=== PATIENT | female | born 1940 | race Caucasian/White ===

== ENCOUNTER 2020-07-05 09:09 | Emergency (ER) | payer MEDICARE, SELFPAY ==
--- NOTE | ~2020-07-05 | CT_ITS ---
EXAMINATION: CT facial & cervical spine wo DATE: 07/05/2020 10:30 INDICATION: Facial and neck pain after fall TECHNIQUE: Computed tomography (CT) of the facial bones and cervical spine was performed without intr avenous contrast. The dose-length product was 219.85 mGy-cm. Automated exposure control and iterative reconstruction technique were employed. COMPARISON: None FINDINGS: Maxillofacial bones: No acute maxillofacial fractures. No evidence for orbital blowout fracture. Phillip ible intact. Temporomandibular joints within normal limits. Paranasal sinuses are unremarkable. Right stephen nasal septal deviation. There are symmetric degenerative changes of the temporomandibular joints . Zygomatic arches and pterygoid plates intact. Cervical spine: Reversal of normal cervical lordosis. Vertebral body heights are maintained. There is disc narrowing with endplate hypertrophy at multiple levels including C5-6, C6-7 and C7-T1. There is degenerative anterolisthesis at C3-4 and C4-5. There are uncinate degenerative changes at C4-5, C5-6 and C6-7. No pneumothorax. Groundglass opacities are visible in the upper lungs which may represent small airway disease, pneumonia or edema. IMPRESSION: 1. No acute abnormality of the facial bones or cervical spine. 2: Moderate cervical spondylosis. 3: Groundglass opacities of the upper lobes, which may represent small airway disease, pneumonia or edema. Reviewed, dictated and finalized at location B.
--- NOTE | ~2020-07-05 | CT_ITS ---
EXAMINATION: CT BRAIN W/O DATE: 07/05/2020 10:30 INDICATION: Status post fall. Head injury. TECHNIQUE: Computed tomography (CT) of the head was performed without intravenous contrast. The dose- length product was 529.67 mGy-cm. The mA was adjusted according to patient size. Iterative reconstruc tion technique was employed. COMPARISON: 02/16/2019 FINDINGS: Normal brain parenchymal volume for age. Normal tijerina-white differentiation. No acute intrac ranial hemorrhage, infarction, mass or mass effect. No ventriculomegaly or midline shift. Midline sagittal images demonstrate a normal corpus callosum, c raniovertebral junction and sella turcica. Basilar cisterns are patent. Paranasal sinuses and mastoids are pneumatized. No depressed skull fractures. IMPRESSION: 1. No acute intracranial abnormality. Reviewed, dictated and finalized at location B.
--- NOTE | ~2020-07-05 | US_ITS ---
EXAMINATION: US venous doppler LE RT DATE: 07/05/2020 10:16 INDICATION: Right lower limb swelling. TECHNIQUE: Grayscale ultrasound images without and with compression and Doppler ultrasound images of the right lower extremity veins were obtained. COMPARISON: Ultrasound 11/25/2017 FINDINGS: The visualized portions of right common femoral vein, profunda (deep) femoral vein, femoral vein, pop liteal vein, peroneal veins, posterior tibial veins, and greater saphenous vein outflow are patent. IMPRESSION: 1. No deep venous thrombosis. Reviewed, dictated and finalized at location A.
--- NOTE | ~2020-07-05 | CT_ITS ---
EXAMINATION: CT thoracic spine wo con DATE: 07/05/2020 10:30 INDICATION: Back pain post fall TECHNIQUE: Computed tomography (CT) of the thoracic spine was performed without intravenous contrast. Automated exposure control and iterative reconstruction technique were employed. The dose-length pro duct was 502.88 mGy-cm. COMPARISON: None FINDINGS: T12 butterfly vertebrae with sagittal clefts at the posterior aspect of the superior and inferior end plates. Mild thoracolumbar dextroscoliosis. There is chronic appearing mild anterior wedging at T11 a nd mild left-sided vertebral body height loss with associated left-sided degenerative endplate remode ling at T12 and L1. There is subtle horizontal band of sclerosis at the T6 vertebral body suspicious for a more recent compression fracture with negligible vertebral body height loss. No other fractures identified. Severe spondylosis in the lower cervical to the upper lumbar spine with multilevel moder ate to severe disc height loss with degenerative endplate changes at multiple levels and multilevel m ild facet osteoarthritis.. Moderate neural foraminal stenosis at the concave right side of the spine at T12-L1 and L1-L2. Otherwise scattered minimal to mild neural foraminal stenosis throughout the tho racic spine. Paravertebral soft tissues and visualized portions of the lungs are unremarkable. Small sliding-type hiatal hernia. No pathologically enlarged mediastinal or hilar lymphadenopathy. Atherosc lerotic coronary artery calcifications. Thoracic aorta is normal in caliber. IMPRESSION: 1. Linear horizontal band of sclerosis at the T6 vertebral body with negligible vertebral body height loss consistent with likely recent compression fracture. 2. Severe thoracic spondylosis. Reviewed, dictated and finalized at location A.
[2020-07-05 09:10] VITALS: BP 134/66; PULSE 96; RESP 18; TEMP 36.6; O2SAT 96
[2020-07-05 10:01] LABS: Basophils Percent Auto 0.4 % (0.2-1.2); Hematocrit 37.2 % (37.0-47.0); Immature Granulocyte Absolute 0.05 K/mm3 (0.00-0.031); Immature Granulocyte Percent A 0.7 % (0-0.5); Lymphocytes Absolute Auto 1.75 K/mm3 (0.9-3.2); Lymphocytes Percent Auto 25.4 % (18.3-44.2); Mean Corpuscular HGB Conc 32.3 g/dl (32-36); Mean Corpuscular Hemoglobin 31.8 pg (26-34); Mean Corpuscular Volume 98.7 fl (80-100); Mean Platelet Volume 9.5 fl (7.4-10.4); Monocytes Absolute Auto 0.4 K/mm3 (0.1-0.6); Monocytes Percent Auto 5.2 % (2.6-8.5); Neutrophils Absolute Auto 4.7 K/mm3 (1.3-6.7); Neutrophils Percent Auto 68.3 % (45.5-73.1); Platelet Count Result 251 k/mm3 (150-375); Red Blood Count 3.77 M/mm3 (4.2-5.4); Red Cell Distribution Width 13.9 % (11.5-14.5); White Blood Count 6.9 K/mm3 (4.5-10.0)
[2020-07-05 10:12] LABS: Anion Gap 8 mmol/L (8-16); Blood Urea Nitrogen 19 mg/dL (7-17); Calcium 9.4 mg/dL (8.4-10.2); Carbon Dioxide 27 mmol/L (22-30); Chloride 103 mmol/L (98-107); Estimated Glomerular Filt Rate 48; Glucose 98 mg/dL (65-105); Potassium 4.1 mmol/L (3.4-5.0); Sodium 138 mmol/L (137-145)
[2020-07-05 10:20] LABS: INR 1.1; Prothrombin Time 13.9 Seconds (11.1-14.7)
[2020-07-05 10:21] LABS: Partial Thromboplastin Time 28.8 SECONDS (22.3-36.8)
[2020-07-05 10:43] VITALS: BP 144/57; PULSE 93; RESP 18; O2SAT 95
[2020-07-05] MEDS: HYDROcodone/acetaminophen (*CRX) 5-325 MG TABLET 1 TAB PO (11:40)
--- NOTE | 2020-07-05 11:47 | ED.FALL ---
HPI - Fall General Chief Complaint: Fall Stated Complaint: fall Time Seen by Provider: 07/05/20 09:21 History of Present Illness HPI Narrative: Patient is an 80-year-old female who presents to the ER with racing the heart and lightheadedness/weakness. Symptoms began around 9 AM. She reports they were improved with receiving nitro and aspirin by EMS. She had no chest pain or pressure. Patient reports she was unable to sleep last night due to racing of her heart nervousness. She reports has been under a lot of stress because her father has recently and her mother is very ill. Patient has no history of previous heart disease. Related Data Allergies Allergy/AdvReac Type Severity Reaction Status Date / Time Penicillins Allergy Severe THROAT Verified 07/05/20 09:23 SWELLING clarithromycin Allergy Mild GI UPSET Verified 07/05/20 09:23 Sulfa (Sulfonamide Allergy Mild Itching, Verified 07/05/20 09:23 Antibiotics) N/V Dust Allergy Unknown RHINITIS, Uncoded 07/05/20 09:23 CONGESTION Molds and Smuts Allergy Unknown RHINITIS, Uncoded 07/05/20 09:23 CONGESTION MOXIFLOXACIN HCL AdvReac Mild Nausea Uncoded 07/05/20 09:23 Review of Systems Review of Systems: All systems reviewed & are unremarkable except as noted in HPI and below Constitutional: Constitutional: Denies chills, Denies fever(s) and Reports weakness ENT: Denies nasal congestion and Denies sore throat Cardiovascular: Cardiovascular: Denies chest pain, Reports rapid heart rate and Denies radiating jaw, neck or arm pain Respiratory: Respiratory: Denies cough, Denies dyspnea and Denies wheezing Gastrointestinal: Gastrointestinal: Denies abdominal pain, Denies nausea and Denies vomiting Neurologic: Denies syncope, Reports headache(s), Denies focal weakness and Denies numbness Psychiatric: Psychiatric: Reports anxiety PMFSH Past Medical History Medical History (Updated 07/05/20 @ 11:51 by Felix Quan MD) Diabetes type 2, controlled Hypertension Surgical History Surgical History (Updated 07/05/20 @ 11:51 by Felix Quan MD) No history of previous surgery Social History Social History (Updated 07/05/20 @ 11:51 by Felix Quan MD) Smoking status: Never smoker Exam Narrative: Exam Narrative: GENERAL: Well-appearing, well-nourished, and in no acute distress. HEAD: Normocephalic, atraumatic. CHEST: Clear to auscultation. No respiratory distress. HEART: Regular rate and rhythm. No murmur heard. Normal peripheral pulses. ABDOMEN: Soft, nontender, nondistended. EXTREMITIES: Normal range of motion. No edema. SKIN: Warm, dry, no rash. NEURO: Alert and oriented x3. PSYCH: Normal mood and affect. Course Vital Signs Vital signs: Vital Signs Temperature 97.9 F 07/05/20 09:10 Pulse Rate 96 07/05/20 09:10 Respiratory Rate 18 07/05/20 09:10 Blood Pressure 134/66 07/05/20 09:10 Pulse Oximetry 96 07/05/20 09:10 Temperature 97.9 F 07/05/20 09:10 Pulse Rate 93 07/05/20 10:43 Respiratory Rate 18 07/05/20 10:43 Blood Pressure 144/57 H 07/05/20 10:43 Pulse Oximetry 95 07/05/20 10:43 MDM - Fall Lab Data Result diagrams: 07/05/20 09:54 07/05/20 09:54 Labs: Lab Results 07/05/20 07/05/20 07/05/20 Range/Units 09:54 09:54 09:54 WBC 6.9 (4.5-10.0) K/mm3 RBC 3.77 L (4.2-5.4) M/mm3 Hgb 12.0 (12.0-15.0) g/dL Hct 37.2 (37.0-47.0) % MCV 98.7 (80-100) fl MCH 31.8 (26-34) pg MCHC 32.3 (32-36) g/dl RDW 13.9 (11.5-14.5) % Plt Count 251 (150-375) k/mm3 MPV 9.5 (7.4-10.4) fl Immature Gran % (Auto) 0.7 H (0-0.5) % Neut % (Auto) 68.3 (45.5-73.1) % Lymph % (Auto) 25.4 (18.3-44.2) % Callahan % (Auto) 5.2 (2.6-8.5) % Eos % (Auto) 0.0 (0-4.4) % Baso % (Auto) 0.4 (0.2-1.2) % Lymph # (Auto) 1.75 (0.9-3.2) K/mm3 Callahan # (Auto) 0.4 (0.1-0.6) K/mm3 Eos # (Auto) 0.0 (0-0.3) K/mm3
--- NOTE | 2020-07-05 11:59 | ED.FALL ---
HPI - Fall General Chief Complaint: Fall Stated Complaint: fall Time Seen by Provider: 07/05/20 09:21 History of Present Illness HPI Narrative: Patient is an 80-year-old female who presents ER status post fall. She was in her bathroom getting ready when her slipper caught a rug causing her to fall forward striking her face and elbow. She had no loss of consciousness. She did develop sudden back pain after the fall. No numbness or tingling into the upper or lower extremities. She has lacerations to the bridge of her nose as well as to her right elbow. Her tetanus shot is up-to-date. Related Data Allergies Allergy/AdvReac Type Severity Reaction Status Date / Time Penicillins Allergy Severe THROAT Verified 07/05/20 09:23 SWELLING clarithromycin Allergy Mild GI UPSET Verified 07/05/20 09:23 Sulfa (Sulfonamide Allergy Mild Itching, Verified 07/05/20 09:23 Antibiotics) N/V Dust Allergy Unknown RHINITIS, Uncoded 07/05/20 09:23 CONGESTION Molds and Smuts Allergy Unknown RHINITIS, Uncoded 07/05/20 09:23 CONGESTION MOXIFLOXACIN HCL AdvReac Mild Nausea Uncoded 07/05/20 09:23 Review of Systems Review of Systems: All systems reviewed & are unremarkable except as noted in HPI and below Constitutional: Constitutional: Denies chills, Denies fever(s) and Denies weakness Eyes: Eyes: Denies change in vision ENT: Denies nasal congestion and Denies sore throat Cardiovascular: Cardiovascular: Denies chest pain and Denies radiating jaw, neck or arm pain Respiratory: Respiratory: Reports cough (Chronic being worked up by her PCP), Denies dyspnea and Denies wheezing Gastrointestinal: Gastrointestinal: Denies abdominal pain, Denies nausea and Denies vomiting Musculoskeletal: Musculoskeletal: Reports back pain, Denies arthralgias and Denies joint swelling Integumentary/Breasts: Comments: Laceration of bridge of nose right elbow. Neurologic: Denies syncope, Denies headache(s), Denies focal weakness and Denies numbness PMFSH Past Medical History Medical History (Updated 07/05/20 @ 14:01 by Felix Quan MD) Anxiety Chronic kidney disease GERD (gastroesophageal reflux disease) Hyperlipidemia Hypertension Hypothyroidism Obstructive sleep apnea SVT (supraventricular tachycardia) Ulcerative colitis Surgical History Surgical History (Updated 07/05/20 @ 12:02 by Felix Quan MD) History of colonoscopy Social History Social History (Updated 07/05/20 @ 11:51 by Felix Quan MD) Smoking status: Never smoker Exam Narrative: Exam Narrative: GENERAL: Well-appearing, well-nourished, and in no acute distress. HEAD: Normocephalic, atraumatic. ENT: Mucous membranes moist. 1.5cm lac to bridge of nose. NECK: Supple. TTP C7/T1 CHEST: Clear to auscultation. No respiratory distress. HEART: Regular rate and rhythm. Normal peripheral pulses. ABDOMEN: Soft, nontender, nondistended. Back: Midline tenderness no upper thoracic spine and T1. Paraspinal muscular tenderness between the shoulder blades but no midline tenderness inferiorly to T1/2, no lumbar midline tenderness. EXTREMITIES: Normal range of motion. No edema. SKIN: Warm, dry, no rash. Large stellate laceration over the right elbow 7 cm round. Extends deep but no muscle involvement or bone exposure. NEURO: Alert and oriented x3. Course Course Emergency Course: Patient with chronic cough no acute symptoms to explain infiltrates on x-ray. No white blood cell count. May be related to chronic cough that is been getting worked up by her PCP, will swab for Covid out of caution. Informed of T6 vertebral compression fracture. She still has no midline tenderness but has paraspinal muscular tenderness near this area. Discussed treatment plan and patient verbalized understanding. She will follow up with her primary care physician. She tolerated repair of her lacerations without issue. Updated PCP regarding results, will d/he does not think abx at necessary
[2020-07-05 14:23] VITALS: BP 149/82; PULSE 87; RESP 18; O2SAT 99
[2020-07-05 22:30] LABS: SARS-CoV-2 RNA PCR Negative
== END 2020-07-05 14:26 | disposition home or self-care (01) ==
PROVIDERS: Emergency Provider Emergency Medicine; PCP Internal Medicine Cardiovascular Disease
DX: S01.21XA Laceration without foreign body of nose, initial encounter (principal); S51.011A Laceration without foreign body of right elbow, initial encounter; S22.058A Other fracture of T5-T6 vertebra, initial encounter for closed fracture; Z20.828 Contact with and (suspected) exposure to other viral communicable diseases; I12.9 Hypertensive chronic kidney disease with stage 1 through stage 4 chronic kidney disease, or unspecified chronic kidney disease; N18.9 Chronic kidney disease, unspecified; K21.9 Gastro-esophageal reflux disease without esophagitis; E78.5 Hyperlipidemia, unspecified; E03.9 Hypothyroidism, unspecified; G47.33 Obstructive sleep apnea (adult) (pediatric); M79.89 Other specified soft tissue disorders; R91.8 Other nonspecific abnormal finding of lung field; M47.812 Spondylosis without myelopathy or radiculopathy, cervical region; M47.814 Spondylosis without myelopathy or radiculopathy, thoracic region; W18.09XA Striking against other object with subsequent fall, initial encounter
CPT/HCPCS: 12002; 12011; 12032; 36415; 70450; 70486; 72125; 72128; 80048; 85025; 85610; 85730; 87635; 93971; 99284; A4565; A9270; C9803; U0003

== ENCOUNTER → 2020-12-24 14:08 | Outpatient (CLI) | payer MEDICARE, SELFPAY ==
--- NOTE | ~2020-12-24 | XR_ITS ---
EXAMINATION: XR hip RT 2V w AP pelvis EXAM DATE: 12/24/2020 14:43 INDICATION: No known recent injury provided at this time. Pain of the right hip. TECHNIQUE: Right hip frontal, 'frog leg' projections for interpretation. Frontal projection pelvis. Comparison is made to prior examination from 09/06/2017. FINDINGS: Smooth right hip femoral head contour, no radiographic evidence of avascular necrosis. The re is mild to moderate bilateral hip primary osteoarthritis. There is advanced asymmetric sacroiliac joint arthritis most likely primary osteoarthritis, severe on the left. Also severe pubis arthritis. Right iliac bone island. Calcifications in the pelvis are believed to be phleboliths. IMPRESSION: 1. Mild to moderate bilateral hip osteoarthritis. 2. Sacroiliac and pubis arthritis. Reviewed, dictated and finalized at location A.
== END ==
DX: M16.0 Bilateral primary osteoarthritis of hip (principal); M47.818 Spondylosis without myelopathy or radiculopathy, sacral and sacrococcygeal region
CPT/HCPCS: 73502

== ENCOUNTER 2021-01-20 14:53 | Outpatient (CLI) | payer MEDICARE, SELFPAY ==
--- NOTE | ~2021-01-20 | MR_ITS ---
EXAMINATION: MR lumbar spine wo [facility] EXAM DATE: 01/20/2021 15:47 INDICATION: Radiculopathy. TECHNIQUE: Multi-sequential, multiplanar MR images of the lumbar spine were obtained without contrast . Sagittal T1, T2, T2 fat saturation images. Axial T2 weighted images. There is no prior study for comparison. FINDINGS: There is mild to moderate mid lumbar levoscoliosis and thoracolumbar dextroscoliosis. Moder ate to severe disc disease T10-L3, moderate at L4-5 and mild at the levels below. There is 4 mm retro listhesis L1 on L2 and L2 on L3. The conus medullaris terminates at the L1/2 level and has normal sig nal intensity and morphology. There are no suspicious marrow signal abnormalities. Paraspinal soft t issue is unremarkable. Level by level evaluation: T12-L1: There is a mild to moderate diffuse disc bulge. Facet arthropathy: Mild to moderate. Neural foraminal stenosis: Mild to moderate left. Central canal stenosis: Mild. L1-L2: There is a moderate diffuse disc bulge. Facet arthropathy: Mild to moderate. Neural foraminal stenosis: Moderate to severe left, moderate right. Central canal stenosis: Mild to moderate. L2-L3: There is a mild to moderate diffuse disc bulge. Facet arthropathy: Moderate . Ligamentum flavum enlargement. Neural foraminal stenosis: Moderate to severe right, mild to moderate left. Central canal stenosis: Mild to moderate. L3-L4: There is a mild diffuse disc bulge. Facet arthropathy: Mild. Neural foraminal stenosis: Mild to moderate bilateral. Central canal stenosis: Mild. L4-L5: There is a mild to moderate diffuse disc bulge. Facet arthropathy: Moderate to severe. Ligamentum flavum enlargement. Neural foraminal stenosis: Moderate right, mild to moderate left. Central canal stenosis: Moderate to severe. L5-S1: There is a mild to moderate diffuse disc bulge. Facet arthropathy: Severe. Neural foraminal stenosis: Moderate right, mild to moderate left. Central canal stenosis: Moderate. IMPRESSION: 1. Mild to moderate thoracal lumbar scoliosis. 2. L4-5 moderate to severe central canal stenosis. 3. Other degenerative changes above. Reviewed, dictated and finalized at location A.
== END 2021-01-20 14:54 | disposition home or self-care (01) ==
DX: M54.16 Radiculopathy, lumbar region (principal); M41.86 Other forms of scoliosis, lumbar region; M48.061 Spinal stenosis, lumbar region without neurogenic claudication
CPT/HCPCS: 72148

== ENCOUNTER 2021-05-05 12:41 | Emergency (ER) | payer MEDICARE, SELFPAY ==
--- NOTE | ~2021-05-05 | XR_ITS ---
XR_[id number]_CR DATE: 05/05/2021 20:11 INDICATION: Fall. Mid cervical spine pain, left shoulder pain TECHNIQUE: AP, lateral, open-mouth views COMPARISON: None FINDINGS: Diffuse osteopenia. There is minimal anterolisthesis at C2-3, C3-4 and C4-5. Mild degenerative disc disease at C3-4. Moderate degenerative disc disease at C4-5. Moderately severe degenerative disc disease at C5-6 and C6-7. Degenerative changes at the apophyseal and uncovertebral joints. No fracture or dislocation or locked facet or prevertebral soft tissue swelling. Hyperostosis frontalis interna. IMPRESSION: Prominent degenerative changes of the cervical spine; no fracture is detected Diffuse osteopenia Reviewed, dictated and finalized at Location A. Reviewed, dictated and finalized at location A. IMPRESSION: Prominent degenerative changes of the cervical spine; no fracture i s detected Diffuse osteopenia
--- NOTE | ~2021-05-05 | XR_ITS ---
XR abdomen obstructive series DATE: 05/05/2021 20:11 INDICATION: Nausea. Constipation. Right groin pain. Dehydration. TECHNIQUE: Supine and upright AP views COMPARISON: 09/18/2017 CT abdomen pelvis 09/2017 [facility] FINDINGS: Surgical clips, right upper quadrant, consistent with cholecystectomy. There is a moderately prominent of fecal material at the ascending colon, hepatic flexure, transverse colon and splenic flexure. No bowel obstruction is evident. No intraperitoneal free air is detected. No visceromegaly is noted. Diffuse osteopenia. Osteitis pubis. Degenerative changes at the sacroiliac joints. Prominent degenerative changes and sco liosis of the thoracic and lumbar spine IMPRESSION: Moderately prominent amount of fecal material in the colon; no apparent bowel obstruction Status post cholecystectomy. Scoliosis and prominent degenerative change of the thoracic and lumbar spine Diffuse osteopenia Reviewed, dictated and finalized at Location A. Reviewed, dictated and finalized at location A. IMPRESSION: Moderately prominent amount of fecal material in the colon; no appa rent bowel obstruction Status post cholecystectomy. Scoliosis and prominent degenerative change of the thoracic and lumbar spine Diffuse osteopenia
[2021-05-05 13:25] VITALS: BP 132/47; PULSE 79; RESP 16; TEMP 36.6; O2SAT 96
[2021-05-05 14:28] LABS: Basophils Percent Auto 0.4 % (0.2-1.2); Hemoglobin 13.3 g/dL (12.0-15.0); Immature Granulocyte Absolute 0.03 K/mm3 (0.00-0.031); Immature Granulocyte Percent A 0.3 % (0-0.5); Lymphocytes Absolute Auto 2.76 K/mm3 (0.9-3.2); Lymphocytes Percent Auto 28.5 % (18.3-44.2); Mean Corpuscular HGB Conc 31.7 g/dl (32-36); Mean Corpuscular Hemoglobin 30.8 pg (26-34); Mean Corpuscular Volume 97.2 fl (80-100); Mean Platelet Volume 10.2 fl (7.4-10.4); Monocytes Absolute Auto 0.5 K/mm3 (0.1-0.6); Monocytes Percent Auto 5.6 % (2.6-8.5); Neutrophils Absolute Auto 6.3 K/mm3 (1.3-6.7); Neutrophils Percent Auto 65.2 % (45.5-73.1); Platelet Count Result 261 k/mm3 (150-375); Red Blood Count 4.32 M/mm3 (4.2-5.4); Red Cell Distribution Width 13.9 % (11.5-14.5); White Blood Count 9.7 K/mm3 (4.5-10.0)
[2021-05-05 14:39] LABS: Alanine Aminotransferase 24 U/L (4-35); Albumin Level 4.2 g/dL (3.5-5.1); Alkaline Phosphatase 113 U/L (38-126); Anion Gap 10 mmol/L (8-16); Aspartate Amino Transferase 37 U/L (14-36); Bilirubin,Total 0.8 mg/dL (0.2-1.3); Blood Urea Nitrogen 21 mg/dL (7-17); Calcium 9.7 mg/dL (8.4-10.2); Carbon Dioxide 26 mmol/L (22-30); Chloride 100 mmol/L (98-107); Estimated Glomerular Filt Rate 53; Glucose 114 mg/dL (65-110); Lipase 92 U/L (23-300); Potassium 3.6 mmol/L (3.4-5.0); Sodium 136 mmol/L (137-145)
[2021-05-05 15:46] VITALS: BP 122/99; PULSE 40; O2SAT 98
[2021-05-05 16:47] LABS: Add Urine Microscopic? NO; Appearance Urine Clear (Clear); Bilirubin Urine Negative (Negative); Blood Urine Negative (Negative); Color Urine Yellow (Yellow); Glucose Urine UA Negative (Negative); Ketones Urine Negative (Negative); Leukocyte Esterase Ur Negative LEU/UL (Negative); Nitrate Urine Negative (Negative); Protein Urine Negative (Negative); Urobilinogen Urine Negative mg/dL (<2.0)
--- NOTE | 2021-05-05 19:12 | ED.GENADULT ---
HPI - General Adult General Chief complaint: Unspecified Stated complaint: DIZZY, SEVERAL FALLS, RT GROIN KNOT FROM FALL Time Seen by Provider: 05/05/21 19:12 Source: patient Mode of arrival: ambulatory Limitations: no limitations History of Present Illness HPI narrative: Patient is here for evaluation of weakness and frequent falls. She tells me she last fell on at home. She normally ambulates with a cane or a walker and has continued to do that. She lives alone. She has fallen 4-5 times since March 13. She is also complaining of chronic constipation despite the use of multiple stool softeners and laxatives. She has a markedly decreased appetite. Related Data Allergies Allergy/AdvReac Type Severity Reaction Status Date / Time Penicillins Allergy Severe THROAT Verified 07/05/20 09:23 SWELLING clarithromycin Allergy Mild GI UPSET Verified 07/05/20 09:23 Sulfa (Sulfonamide Allergy Mild Itching, Verified 07/05/20 09:23 Antibiotics) N/V Dust Allergy Unknown RHINITIS, Uncoded 07/05/20 09:23 CONGESTION Molds and Smuts Allergy Unknown RHINITIS, Uncoded 07/05/20 09:23 CONGESTION MOXIFLOXACIN HCL AdvReac Mild Nausea Uncoded 07/05/20 09:23 Review of Systems Review of Systems: All systems reviewed & are unremarkable except as noted in HPI and below PMFSH Past Medical History Medical History Anxiety Chronic kidney disease GERD (gastroesophageal reflux disease) Hyperlipidemia Hypertension Hypothyroidism Obstructive sleep apnea SVT (supraventricular tachycardia) Ulcerative colitis Surgical History Surgical History History of colonoscopy Social History Social History Smoking status: Never smoker Exam Const: General: cooperative, healthy appearing and no acute distress HENMT: Head: normal to inspection Ears: TM's normal bilaterally Throat: posterior oropharynx normal Eyes: General: appearance normal, both eyes and all related structures Neck: Neck: no lymphadenopathy Resp: Effort & Inspection: normal respiratory effort Auscultation: clear to auscultation bilaterally Cardio: Rate: regular rate Rhythm: regular rhythm GI: Inspection: normal to inspection GI Palp: Yes Soft to palpation Auscultation: normal bowel sounds Skin: General skin exam: normal color Wounds: no wounds Other: bruises to both knees from recent falls Extrem: Right lower extremity: normal to inspection, full ROM and no joint enlargement Left lower extremity: normal to inspection, full ROM and no joint enlargement Psych: Appearance: grossly normal and well kempt Course Course Emergency Course: I discussed the possibility of patient may need to look into assisted living or more help at home. There is no abnormalities in her labs today, her x-ray of her abdomen shows only a moderate amount of stool. We discussed diet and other methods besides laxatives treating chronic constipation. She still feels that she is dehydrated, will give fluid bolus and some Toradol for her neck pain. Patient's neighbor and friend is here, she had the patient relay her stories of her concerns for people breaking into her home at night. She has very detailed concern that her neighbors behind her are coming at night and setting up cameras in her home to watch her, they are in her attic and even her dining room going through the [email or web address]. She sees them in her backyard in her driveway. She is call the police several times they found no evidence of a break-in. Her friends have gone through her attic in her basement they find no evidence of disruption. This started after her doctor took her off her Xanax and put her on melatonin to sleep. Since that time she has not really been sleeping. Patient states she feels safe at home as she has been dealing with this for a month. She lara
[2021-05-05 20:14] VITALS: BP 135/61; PULSE 65; RESP 18; O2SAT 94
[2021-05-05 21:06] VITALS: BP 110/60; PULSE 67; RESP 17; O2SAT 100
== END 2021-05-05 22:04 | disposition home or self-care (01) ==
PROVIDERS: Family Medicine; Emergency Provider Emergency Medicine
DX: R29.6 Repeated falls (principal); K59.09 Other constipation; G47.00 Insomnia, unspecified; I12.9 Hypertensive chronic kidney disease with stage 1 through stage 4 chronic kidney disease, or unspecified chronic kidney disease; N18.9 Chronic kidney disease, unspecified; K21.9 Gastro-esophageal reflux disease without esophagitis; E78.5 Hyperlipidemia, unspecified; E03.9 Hypothyroidism, unspecified; G47.33 Obstructive sleep apnea (adult) (pediatric); M85.88 Other specified disorders of bone density and structure, other site
CPT/HCPCS: 36415; 72040; 74019; 80053; 81003; 83690; 85025; 99284

== ENCOUNTER 2022-08-02 16:07 | Emergency (ER) | payer MEDICARE, SELFPAY ==
[2022-08-02 17:59] VITALS: BP 151/62; PULSE 54; RESP 18; TEMP 35.9; O2SAT 97
--- NOTE | 2022-08-02 18:33 | ED.GENADULT ---
HPI - General Adult General Chief complaint: Extremity Injury, Lower Stated complaint: right 1st digit toe Time Seen by Provider: 08/02/22 18:34 Source: patient Mode of arrival: ambulatory Limitations: no limitations History of Present Illness HPI narrative: 82-year-old female patient presents to the [facility] with complaints of right 1st toe/right foot pain. Patient states she is what looks like some bruising to the toenail for the past month but recently in the last couple of days to weeks she has had some redness, pain and noticed some warmth to the right 1st toe and foot area. Denies fevers, body aches or chills. Related Data Home Medications Medication Instructions Recorded Confirmed alprazolam 0.5 mg tablet mg 08/02/22 atorvastatin 40 mg tablet mg 08/02/22 benzonatate 100 mg capsule mg PO 08/02/22 citalopram 20 mg tablet mg 08/02/22 diltiazem HCl 120 mg mg PO 08/02/22 capsule,extended release 24 hr furosemide 40 mg tablet mg 08/02/22 levothyroxine 88 mcg tablet mcg 08/02/22 metoprolol succinate 25 mg mg PO 08/02/22 tablet,extended release 24 hr omeprazole 20 mg capsule,delayed mg 08/02/22 release Allergies Allergy/AdvReac Type Severity Reaction Status Date / Time Penicillins Allergy Severe THROAT Verified 08/02/22 17:58 SWELLING clarithromycin Allergy Mild GI UPSET Verified 08/02/22 17:58 Sulfa (Sulfonamide Allergy Mild Itching, Verified 08/02/22 17:58 Antibiotics) N/V Dust Allergy Unknown RHINITIS, Uncoded 08/02/22 17:58 CONGESTION Molds and Smuts Allergy Unknown RHINITIS, Uncoded 08/02/22 17:58 CONGESTION MOXIFLOXACIN HCL AdvReac Mild Nausea Uncoded 08/02/22 17:58 Review of Systems Review of Systems: CONSTITUTIONAL: Denies fever, chills, or sweats. EYES: Denies visual changes, redness, or discharge. ENT: Denies rhinorrhea, congestion, sore throat, or otalgia. CARDIOVASCULAR: Denies chest pain, palpitations, or edema. RESPIRATORY: Denies cough or dyspnea. GASTROINTESTINAL: Denies abdominal pain, nausea, vomiting, or diarrhea. GENITOURINARY: Denies dysuria or hematuria. SKIN: Denies rash or itching. Positive pain and redness to right great toe/right foot pain MUSCULOSKELETAL: Denies back pain, joint pain, or myalgia. NEUROLOGIC: Denies headache, numbness, or weakness. PSYCHIATRIC: Denies anxiety or depression. [facility] Past Medical History Medical History Anxiety Chronic kidney disease GERD (gastroesophageal reflux disease) Hyperlipidemia Hypertension Hypothyroidism Obstructive sleep apnea SVT (supraventricular tachycardia) Ulcerative colitis Surgical History Surgical History History of colonoscopy Social History Social History Smoking status: Never smoker Comments At the time of my signature I agree with nursing past medical history, surgical, social, and family history. There is no relevant family history pertinent to the presenting complaint. Exam Narrative: GENERAL: Well-appearing, well-nourished, and in no acute distress. HEAD: Normocephalic, atraumatic. EYES: PERRLA and EOMI. ENT: Nares clear, no rhinorrhea or epistaxis. Mucous membranes moist. NECK: Supple. No lymphadenopathy CHEST: Clear to auscultation. No respiratory distress. HEART: Regular rate and rhythm. No murmur heard. Normal peripheral pulses. ABDOMEN: Soft, nontender, nondistended, normal active bowel sounds. EXTREMITIES: Normal range of motion. No edema. SKIN: Warm, dry, no rash. Patient has what appears to be a paronychia to the nail bed of the right great toe. Patient states has been there for months no tenderness over the nail bed. Patient does have some redness along the skin portion of the nail bed that extends up to the right 1st toe and over the 1st metatarsal. There is warmth noted to the area with some slight tender
== END 2022-08-02 19:08 | disposition home or self-care (01) ==
PROVIDERS: Emergency Provider Nurse Practitioner Family
DX: L03.115 Cellulitis of right lower limb (principal); L03.031 Cellulitis of right toe; I12.9 Hypertensive chronic kidney disease with stage 1 through stage 4 chronic kidney disease, or unspecified chronic kidney disease; N18.9 Chronic kidney disease, unspecified; K21.9 Gastro-esophageal reflux disease without esophagitis; E78.5 Hyperlipidemia, unspecified; E03.9 Hypothyroidism, unspecified; G47.33 Obstructive sleep apnea (adult) (pediatric); F41.9 Anxiety disorder, unspecified
CPT/HCPCS: 99213; G0463

== ENCOUNTER 2023-01-18 12:34 | Emergency (ER) | payer MEDICARE, SELFPAY ==
[2023-01-18 12:44] VITALS: BP 127/42; PULSE 68; RESP 20; TEMP 37.2; O2SAT 96
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
--- NOTE | 2023-01-18 12:56 | ECG_ITS ---
Measurements Intervals [place] Rate: 58 P: -49 [place]: 144 QRS: -26 QRSD: 104 T: -8 QT: 422 QTc: 415 Interpretive Statements SINUS BRADYCARDIA BORDERLINE R WAVE PROGRESSION, ANTERIOR LEADS BORDERLINE T WAVE ABNORMALITY- ANT/INF LEADS BASELINE ARTIFACT- I, III, AVR, AVL BORDERLINE ECG COMPARED TO ECG 02/16/2019 15:06:48 SINUS BRADYCARDIA NOW PRESENT Electronically Signed On 01-18-2023 13:56:12 CDT by Torres Treviño D.O.
== END 2023-01-18 13:08 | disposition short-term general hospital (02) ==
PROVIDERS: Emergency Provider Nurse Practitioner
DX: R07.9 Chest pain, unspecified (principal); R60.0 Localized edema; I12.9 Hypertensive chronic kidney disease with stage 1 through stage 4 chronic kidney disease, or unspecified chronic kidney disease; N18.9 Chronic kidney disease, unspecified; K21.9 Gastro-esophageal reflux disease without esophagitis; E78.5 Hyperlipidemia, unspecified; E03.9 Hypothyroidism, unspecified
CPT/HCPCS: 93005; 99215; G0463

== ENCOUNTER 2023-01-18 13:24 | Emergency (ER) | payer MEDICARE, SELFPAY ==
--- NOTE | ~2023-01-18 | XR_ITS ---
XR chest 2V 01/18/2023 14:10 Indication: Left chest pain Procedure: 2 view chest Comparison: Comparison to multiple prior studies sequentially, with oldest reviewed study dated 09/2015. Findings: Borderline heart size. There are bilateral interstitial infiltrates of the mid and lower jose roberto ngs. No significant effusion. No pneumothorax. No acute osseous abnormality. Impression: 1: Bilateral interstitial infiltrates of the mid and lower lungs which may represent mild edema or pn eumonia. Reviewed, dictated and finalized at location B. Impression: 1: Bilateral interstitial infiltrates of the mid and lower lungs which may repr esent mild edema or pneumonia.
[2023-01-18 13:25] VITALS: PULSE 78; RESP 12; TEMP 36.6; O2SAT 94
[2023-01-18 13:30] VITALS: PULSE 78; RESP 15; O2SAT 93
--- NOTE | 2023-01-18 13:30 | ECG_ITS ---
Measurements Intervals [place] Rate: 58 P: -49 [place]: 144 QRS: -26 QRSD: 104 T: -8 QT: 422 QTc: 415 Interpretive Statements SINUS BRADYCARDIA BORDERLINE R WAVE PROGRESSION, ANTERIOR LEADS BORDERLINE T WAVE ABNORMALITY- ANT/INF LEADS BORDERLINE ECG COMPARED TO ECG 02/16/2019 15:06:48 SINUS BRADYCARDIA NOW PRESENT Electronically Signed On 01-19-2023 6:32:55 CDT by Torres Treviño D.O.
[2023-01-18 13:34] VITALS: BP 120/40; PULSE 58; RESP 17; O2SAT 94
[2023-01-18 13:51] LABS: Basophils Percent Auto 0.5 % (0.2-1.2); Hematocrit 37.2 % (37.0-47.0); Hemoglobin 11.9 g/dL (12.0-15.0); Immature Granulocyte Absolute 0.02 K/mm3 (0.00-0.031); Immature Granulocyte Percent A 0.3 % (0-0.5); Lymphocytes Absolute Auto 2.73 K/mm3 (0.9-3.2); Lymphocytes Percent Auto 36.7 % (18.3-44.2); Mean Corpuscular Hemoglobin 30.4 pg (26-34); Mean Corpuscular Volume 94.9 fl (80-100); Monocytes Absolute Auto 0.4 K/mm3 (0.1-0.6); Monocytes Percent Auto 5.9 % (2.6-8.5); Neutrophils Absolute Auto 4.2 K/mm3 (1.3-6.7); Neutrophils Percent Auto 56.6 % (45.5-73.1); Platelet Count Result 218 k/mm3 (150-375); Red Blood Count 3.92 M/mm3 (4.2-5.4); Red Cell Distribution Width 14.2 % (11.5-14.5); White Blood Count 7.4 K/mm3 (4.5-10.0)
[2023-01-18 14:00] LABS: Alanine Aminotransferase 25 U/L (6-35); Albumin Level 3.8 g/dL (3.5-5.1); Alkaline Phosphatase 96 U/L (38-126); Anion Gap 4 mmol/L (8-16); Aspartate Amino Transferase 34 U/L (14-36); Bilirubin,Total 0.7 mg/dL (0.2-1.3); Blood Urea Nitrogen 28 mg/dL (7-17); Calcium 8.9 mg/dL (8.4-10.2); Carbon Dioxide 32 mmol/L (22-30); Chloride 101 mmol/L (98-107); Estimated Glomerular Filt Rate 53; Glucose 108 mg/dL (65-110); Lipase 39 U/L (23-300); Potassium 3.7 mmol/L (3.4-5.0); Sodium 137 mmol/L (137-145)
[2023-01-18 14:03] LABS: Partial Thromboplastin Time 27.8 SECONDS (22.3-36.8)
[2023-01-18 14:12] LABS: Troponin I < 0.012 ng/mL (0.000-0.034)
--- NOTE | 2023-01-18 15:08 | ED.CHESTPAIN ---
HPI - Chest Pain General Chief Complaint: Chest Pain Stated Complaint: chest pain Time Seen by Provider: 01/18/23 13:47 History of Present Illness HPI narrative: Patient is an 82-year-old female with a history of CKD, hypothyroidism, hypertension presenting with chest pain. Patient states that she had chest pain 1 week ago after eating something spicy. States that it was like a band of chest pain that went into her jaw. States that it resolved on its own and then she had a similar episode three days later. States that she sometimes has exertional shortness of breath which is unchanged. States that she feels chronically fatigued which is also unchanged. She has not had any chest pain today or the last 4 days. She called her PCP today who advised that she come in for evaluation. No recent fevers or chills, headache, cough, abdominal pain, nausea or vomiting, diarrhea, leg swelling. Related Data Home Medications Medication Instructions Recorded Confirmed alprazolam 0.5 mg tablet mg 08/02/22 atorvastatin 40 mg tablet mg 08/02/22 citalopram 20 mg tablet mg 08/02/22 diltiazem HCl 120 mg mg PO 08/02/22 capsule,extended release 24 hr furosemide 40 mg tablet mg 08/02/22 levothyroxine 88 mcg tablet mcg 08/02/22 metoprolol succinate 25 mg mg PO 08/02/22 tablet,extended release 24 hr omeprazole 20 mg capsule,delayed mg 08/02/22 release Allergies Allergy/AdvReac Type Severity Reaction Status Date / Time Penicillins Allergy Severe THROAT Verified 01/18/23 12:52 SWELLING clarithromycin Allergy Mild GI UPSET Verified 01/18/23 12:52 Sulfa (Sulfonamide Allergy Mild Itching, Verified 01/18/23 12:52 Antibiotics) N/V Dust Allergy Unknown RHINITIS, Uncoded 01/18/23 12:52 CONGESTION Molds and Smuts Allergy Unknown RHINITIS, Uncoded 01/18/23 12:52 CONGESTION MOXIFLOXACIN HCL AdvReac Mild Nausea Uncoded 01/18/23 12:52 Review of Systems Review of Systems: All systems reviewed & are unremarkable except as noted in HPI and below PMFSH Past Medical History Medical History Anxiety Chronic kidney disease GERD (gastroesophageal reflux disease) Hyperlipidemia Hypertension Hypothyroidism Obstructive sleep apnea SVT (supraventricular tachycardia) Ulcerative colitis Surgical History Surgical History History of colonoscopy Social History Social History Smoking status: Never smoker Exam Narrative: GENERAL: Well-appearing, well-nourished, and in no acute distress. HEAD: Normocephalic, atraumatic. EYES: PERRLA and EOMI. ENT: Nares clear, no rhinorrhea or epistaxis. Mucous membranes moist. NECK: Supple. CHEST: Clear to auscultation. No respiratory distress. No wheezing or crackles HEART: Regular rate and rhythm ABDOMEN: Soft, nontender, nondistended EXTREMITIES: Trace bilateral lower extremity edema SKIN: Warm, dry, no rash. NEURO: No focal deficits. Alert and oriented x3. PSYCH: Normal mood and affect. Course Vital Signs Vital signs: Vital Signs Temperature 97.9 F 01/18/23 13:25 Pulse Rate 78 01/18/23 13:25 Respiratory Rate 12 01/18/23 13:25 Pulse Oximetry 94 01/18/23 13:25 Oxygen Delivery Room Air 01/18/23 13:25 Temperature 97.9 F 01/18/23 13:25 Pulse Rate 61 01/18/23 16:17 Respiratory Rate 19 01/18/23 16:17 Blood Pressure 120/40 L 01/18/23 13:34 Pulse Oximetry 93 01/18/23 16:17 Oxygen Delivery Room Air 01/18/23 13:25 MDM - Chest Pain MDM Narrative Medical decision making narrative: Patient is an 82-year-old female presenting with a couple of episodes of chest pain in the last week. She denies chest pain for the last several days. Patient is bradycardic, otherwise vitals are within normal limits. Exam is remarkable for the above. EKG per my interpretation shows s
[2023-01-18 15:35] LABS: NT Pro B Type Natriuretic Pept 546 pg/mL (19.9-100)
[2023-01-18 16:17] VITALS: PULSE 61; RESP 19; O2SAT 93
[2023-01-18 17:33] LABS: Troponin I < 0.012 ng/mL (0.000-0.034)
== END 2023-01-18 18:52 | disposition home or self-care (01) ==
PROVIDERS: Emergency Provider Emergency Medicine
DX: R07.9 Chest pain, unspecified (principal); F41.9 Anxiety disorder, unspecified; I12.9 Hypertensive chronic kidney disease with stage 1 through stage 4 chronic kidney disease, or unspecified chronic kidney disease; N18.9 Chronic kidney disease, unspecified; E78.5 Hyperlipidemia, unspecified; E03.9 Hypothyroidism, unspecified; G47.30 Sleep apnea, unspecified; R06.02 Shortness of breath
CPT/HCPCS: 36415; 71046; 80053; 83690; 83880; 84484; 85025; 85610; 85730; 93005; 99215; 99284; G0463

== ENCOUNTER 2024-05-03 07:34 | Inpatient (IN) | payer MEDICARE, SELFPAY ==
[2024-05-03] VITALS (12 sets, daily range): BP systolic 91–128; BP diastolic 42–65; PULSE 69–78; RESP 14–20; TEMP 36.6–36.7; O2SAT 93–100
--- NOTE | ~2024-05-03 | XR_ITS ---
EXAMINATION: XR chest 1V portable DATE: 05/03/2024 08:39 INDICATION: Chest pain. TECHNIQUE: A single frontal view of the chest was obtained. COMPARISON: Chest 2 views 01/18/2023, CT abdomen and pelvis 09/18/2017 FINDINGS: There is no pneumonia, pleural effusion, or pneumothorax. The heart size is normal. IMPRESSION: 1. No acute cardiopulmonary disease. Reviewed, dictated and finalized at location A.
--- NOTE | ~2024-05-03 | MR_ITS ---
EXAMINATION: MR brain/brain stem wo con DATE: 05/04/2024 14:56 INDICATION: Altered mental status TECHNIQUE: Magnetic resonance imaging (MRI) of the brain and brainstem was performed without intraven ous contrast. Sequences included sagittal and axial T1-weighted SE, axial diffusion-weighted FS SE, a xial T2*-weighted GRE, axial and sagittal T2-weighted FLAIR, and axial T2-weighted FSE. Postcontrast axial and coronal T1-weighted SE was obtained. Apparent diffusion coefficient (ADC) maps were created . COMPARISON: None. FINDINGS: There are no areas of restricted diffusion to suggest acute infarction. No intracranial hemorrhage or abnormal intracranial mass lesion. There are scattered areas of nonspecific increased T2-weighted si gnal intensity in the cerebral white matter, predominantly involving the deep and periventricular whi te matter which is within normal limits for age likely sequela of chronic small vessel ischemic disea se.. There are no intraparenchymal signal abnormalities seen on the other pulse sequences. The ventri cles are symmetric and normal in size. There are no abnormal extra-axial fluid collections. Flow void s are seen in the cerebral arteries on the T2-weighted sequences consistent with their expected paten cy. Changes of bilateral intraocular lens replacement. Visualized orbits and soft tissues are unremar kable. IMPRESSION: 1. No acute intracranial process. 2. Multiple small scattered foci of nonspecific white matter T2 hyperintensity which is within normal limits for age likely sequela of chronic small vessel ischemic disease. Reviewed, dictated and finalized at location A. IMPRESSION: 1. No acute intracranial process. 2. Multiple small scattered foci of nonspecific white matter T2 hyperintensity which is within normal limits for age likely sequela of chronic small vessel is chemic disease.
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
--- NOTE | 2024-05-03 07:54 | ECG_ITS ---
Test Date: 2024-05-03 07:43:44 Measurements Intervals [place] Rate: 72 P: -66 [place]: 122 QRS: -32 QRSD: 102 T: -25 QT: 402 QTc: 443 Interpretive Statements SINUS RHYTHM LEFT AXIS DEVIATION [QRS AXIS < -30] POSSIBLE ANTERIOR MYOCARDIAL INFARCTION , OF INDETERMINATE AGE [30 ms Q WAVE IN V3/V4, OR R < 0.2 mV IN V4] No previous ECG available for comparison Electronically Signed On 05-03-2024 16:03:35 CDT by Jean Carlos Gonsalves M.D.
[2024-05-03] MEDS: ASPIRIN 81 MG CHEWABLE TABLET 324 MG PO (07:59)
--- NOTE | 2024-05-03 08:05 | ECG_ITS ---
Test Date: 2024-05-03 08:10:27 Measurements Intervals [place] Rate: 76 P: -85 [place]: 121 QRS: -35 QRSD: 102 T: -31 QT: 380 QTc: 428 Interpretive Statements SINUS RHYTHM LEFT AXIS DEVIATION [QRS AXIS < -30] POSSIBLE ANTERIOR MYOCARDIAL INFARCTION , OF INDETERMINATE AGE [30 ms Q WAVE IN V3/V4, OR R < 0.2 mV IN V4] Compared to ECG 05/03/2024 07:43:44 NO SIGNIFICANT CHANGES Electronically Signed On 05-03-2024 16:16:56 CDT by Jean Carlos Gonsalves M.D.
--- NOTE | 2024-05-03 08:05 | PC.NURSE ---
pt states chest pain is extremely bad at this time. tech at bedside repeating EKG at this time.
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
[2024-05-03 08:16] LABS: Basophils Percent Auto 0.4 % (0.2-1.2); Hematocrit 38.4 % (37.0-47.0); Hemoglobin 12.3 g/dL (12.0-15.0); Immature Granulocyte Absolute 0.02 K/mm3 (0.00-0.031); Immature Granulocyte Percent A 0.2 % (0-0.5); Lymphocytes Percent Auto 27.2 % (18.3-44.2); Mean Corpuscular Hemoglobin 31.9 pg (26-34); Mean Corpuscular Volume 99.7 fl (80-100); Mean Platelet Volume 10.8 fl (7.4-10.4); Monocytes Absolute Auto 0.5 K/mm3 (0.1-0.6); Monocytes Percent Auto 6.3 % (2.6-8.5); Neutrophils Absolute Auto 5.3 K/mm3 (1.3-6.7); Neutrophils Percent Auto 65.9 % (45.5-73.1); Platelet Count Result 199 k/mm3 (150-375); Red Blood Count 3.85 M/mm3 (4.2-5.4); Red Cell Distribution Width 15.9 % (11.5-14.5); White Blood Count 8.1 K/mm3 (4.5-10.0)
[2024-05-03] MEDS: ONDANSETRON INJ 4 MG/2 ML VIAL IV PUSH (08:23)
[2024-05-03 08:34] LABS: INR 1.1; Partial Thromboplastin Time 26.4 Seconds (22.3-36.8)
[2024-05-03 08:40] LABS: Alanine Aminotransferase 25 U/L (6-35); Albumin Level 4.1 g/dL (3.5-5.1); Alkaline Phosphatase 94 U/L (38-126); Anion Gap 8 mmol/L (4-12); Aspartate Amino Transferase 44 U/L (14-36); Blood Urea Nitrogen 28 mg/dL (7-17); Calcium 9.5 mg/dL (8.4-10.2); Carbon Dioxide 31 mmol/L (22-30); Chloride 99 mmol/L (98-107); Estimated Glomerular Filt Rate 39; Glucose 100 mg/dL (65-110); Lipase 38 U/L (23-300); Potassium 3.5 mmol/L (3.4-5.0); Sodium 138 mmol/L (137-145)
[2024-05-03 08:52] LABS: Troponin I 0.012 ng/mL (0.000-0.034)
[2024-05-03] MEDS: SODIUM CHLORIDE 0.9% IV 1,000 ML 999 ML IV CONT (09:14)
[2024-05-03] MEDS: ACETAMINOPHEN 500 MG TABLET 1000 MG PO (09:15)
[2024-05-03 10:35] LABS: Add Urine Microscopic? YES; Appearance Urine Clear (Clear); Bacteria Urine None Seen /hpf; Bilirubin Urine Negative (Negative); Blood Urine Negative (Negative); Color Urine Yellow (Yellow); Glucose Urine UA Negative (Negative); Hyaline Casts Urine Present /lpf; Ketones Urine Negative (Negative); Leukocyte Esterase Ur Trace LEU/UL (Negative); Need Manual Microscopic Reviewed; Nitrate Urine Negative (Negative); Protein Urine Negative (Negative); RBC Urine 0-2 /hpf (0-2); Specific Grav Ur 1.009 (1.001-1.035); Squamous Epithelial Cell Urine None Seen /hpf (Few); Urobilinogen Urine 0.2 mg/dL (<2.0); WBC Urine 0-5 /hpf (0-3)
--- NOTE | 2024-05-03 10:56 | ECG_ITS ---
Test Date: 2024-05-03 11:00:20 Measurements Intervals [place] Rate: 74 P: -44 [place]: 113 QRS: -30 QRSD: 105 T: -23 QT: 412 QTc: 459 Interpretive Statements SINUS RHYTHM WITH SHORT MS INTERVAL POSSIBLE ANTERIOR MYOCARDIAL INFARCTION , OF INDETERMINATE AGE [30 ms Q WAVE IN V3/V4, OR R < 0.2 mV IN V4] Compared to ECG 05/03/2024 08:10:27 NO SIGNIFICANT CHANGES Electronically Signed On 05-04-2024 14:20:19 CDT by Jean Carlos Gonsalves M.D.
[2024-05-03 11:50] LABS: Troponin I < 0.012 ng/mL (0.000-0.034)
[2024-05-03] MEDS: MORPHINE SULFATE (*CRX) 2 MG/ML INJ IV PUSH (12:46)
[2024-05-03] MEDS: FAMOTIDINE 20 MG/2 ML VIAL IV PUSH (12:46)
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
--- NOTE | 2024-05-03 13:43 | ADMGEN ---
This patient, Radha Cruz, was admitted to Medical Room 244-. Patient/family oriented to hospital policies and general routines including ID bracelet, bed and alarms, visiting hours, pain management, procedures, bathroom and other care routines, personal items, smoking policy, room service/diet, and visiting hours. Information on how to activate the Rapid Response Team has been discussed. Patient/Family are encouraged to report perceived risks to care and to ask questions if they do not understand what they are told or what they should do.
[2024-05-03 14:38] LABS: Troponin I 0.012 ng/mL (0.000-0.034)
[2024-05-03] MEDS: FUROSEMIDE 40 MG TABLET PO (17:06)
[2024-05-03] MEDS: OMEGA 3 POLYUNSAT FATTY ACIDS 1 GM CAP PO (17:06)
[2024-05-03] MEDS: ALPRAZolam (*CRX) 0.25 MG TABLET PO (20:18)
[2024-05-03 20:41] LABS: Folic Acid > 20.0 ng/mL (2.76->20); Vitamin B12 > 1000.0 pg/mL (239-931)
[2024-05-04] VITALS (11 sets, daily range): BP systolic 123–129; BP diastolic 43–60; PULSE 56–78; RESP 16–18; TEMP 36.3–36.6; O2SAT 94–97
[2024-05-04] MEDS: LEVOTHYROXINE SODIUM 88 MCG TABLET PO (05:49)
[2024-05-04 06:04] LABS: Basophils Percent Auto 0.4 % (0.2-1.2); Eosinophils Percent Auto 0.1 % (0-4.4); Hematocrit 36.7 % (37.0-47.0); Hemoglobin 11.5 g/dL (12.0-15.0); Immature Granulocyte Absolute 0.02 K/mm3 (0.00-0.031); Immature Granulocyte Percent A 0.3 % (0-0.5); Lymphocytes Absolute Auto 3.23 K/mm3 (0.9-3.2); Lymphocytes Percent Auto 43.3 % (18.3-44.2); Mean Corpuscular HGB Conc 31.3 g/dl (32-36); Mean Corpuscular Hemoglobin 32.1 pg (26-34); Mean Corpuscular Volume 102.5 fl (80-100); Monocytes Absolute Auto 0.5 K/mm3 (0.1-0.6); Neutrophils Absolute Auto 3.7 K/mm3 (1.3-6.7); Neutrophils Percent Auto 48.9 % (45.5-73.1); Platelet Count Result 180 k/mm3 (150-375); Red Blood Count 3.58 M/mm3 (4.2-5.4); Red Cell Distribution Width 15.9 % (11.5-14.5); White Blood Count 7.5 K/mm3 (4.5-10.0)
[2024-05-04 06:30] LABS: Alanine Aminotransferase 21 U/L (6-35); Albumin Level 3.5 g/dL (3.5-5.1); Alkaline Phosphatase 81 U/L (38-126); Anion Gap 5 mmol/L (4-12); Aspartate Amino Transferase 36 U/L (14-36); Bilirubin,Total 0.5 mg/dL (0.2-1.3); Blood Urea Nitrogen 25 mg/dL (7-17); Calcium 8.6 mg/dL (8.4-10.2); Carbon Dioxide 30 mmol/L (22-30); Chloride 105 mmol/L (98-107); Estimated Glomerular Filt Rate 33; Glucose 79 mg/dL (65-110); Potassium 3.7 mmol/L (3.4-5.0); Sodium 140 mmol/L (137-145)
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
[2024-05-04 07:39] LABS: Free T4 Free Thyroxine Reflex 1.27 ng/dL (0.78-2.19)
[2024-05-04] MEDS: FUROSEMIDE 40 MG TABLET PO ×2 (08:31→18:00)
[2024-05-04] MEDS: ATORVASTATIN 40 MG TABLET PO (08:31)
[2024-05-04] MEDS: CHOLECALCIFEROL 1,000 UNITS TABLET 1000 UNITS PO (08:31)
[2024-05-04] MEDS: CITALOPRAM HYDROBROMIDE 20 MG TABLET 40 MG PO (08:31)
[2024-05-04] MEDS: PANTOPRAZOLE 40 MG TABLET PO (08:31)
[2024-05-04] MEDS: METOPROLOL SUCCINATE EXT REL 25 MG TABCR PO (08:31)
[2024-05-04] MEDS: OMEGA 3 POLYUNSAT FATTY ACIDS 1 GM CAP PO ×2 (08:31→18:00)
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
[2024-05-04 14:38] LABS: Total Triiodothyronine (T3) 0.93 NG/ML (0.97-1.69)
[2024-05-04 15:54] LABS: Iron 49 ug/dL (37-170)
[2024-05-04 16:03] LABS: Percent Iron Saturation 17 % (20-50)
[2024-05-04] MEDS: SODIUM CHLORIDE 0.9% IV 1,000 ML 100 ML IV CONT (18:00)
[2024-05-04] MEDS: ALPRAZolam (*CRX) 0.25 MG TABLET PO (20:20)
[2024-05-04 20:21] LABS: Rapid Plasma Reagin Non-Reactive (NonReactive)
[2024-05-04 21:49] LABS: Amphetamine Screen Urine Negative (Negative); Barbiturate Screen Urine Negative (Negative); Benzodiazepines Screen Urine Negative (Negative); Cannabinoid Screen Urine Negative (Negative); Cocaine Screen Urine Negative (Negative); Methadone Screen Urine Negative (Negative); Opiate Screen Urine Negative (Negative); Phencyclidine Screen Urine Negative (Negative)
[2024-05-05] VITALS (8 sets, daily range): BP systolic 122–135; BP diastolic 52–53; PULSE 51–94; RESP 16–20; TEMP 36.8–36.9; O2SAT 97–100
[2024-05-05] MEDS: LEVOTHYROXINE SODIUM 88 MCG TABLET PO (05:12)
[2024-05-05 06:07] LABS: Hematocrit 34.9 % (37.0-47.0); Hemoglobin 11.1 g/dL (12.0-15.0); Mean Corpuscular HGB Conc 31.8 g/dl (32-36); Mean Corpuscular Hemoglobin 31.7 pg (26-34); Mean Corpuscular Volume 99.7 fl (80-100); Mean Platelet Volume 11.2 fl (7.4-10.4); Platelet Count Result 182 k/mm3 (150-375); Red Cell Distribution Width 15.8 % (11.5-14.5); White Blood Count 7.7 K/mm3 (4.5-10.0)
[2024-05-05 06:22] LABS: Alanine Aminotransferase 21 U/L (6-35); Albumin Level 3.5 g/dL (3.5-5.1); Alkaline Phosphatase 75 U/L (38-126); Anion Gap 7 mmol/L (4-12); Aspartate Amino Transferase 39 U/L (14-36); Bilirubin,Total 0.8 mg/dL (0.2-1.3); Blood Urea Nitrogen 20 mg/dL (7-17); Calcium 8.3 mg/dL (8.4-10.2); Carbon Dioxide 30 mmol/L (22-30); Chloride 102 mmol/L (98-107); Estimated Glomerular Filt Rate 60; Glucose 100 mg/dL (65-110); Magnesium 1.6 mg/dL (1.6-2.3); Potassium 3.3 mmol/L (3.4-5.0); Sodium 139 mmol/L (137-145)
[2024-05-05] MEDS: CITALOPRAM HYDROBROMIDE 20 MG TABLET 40 MG PO (09:35)
[2024-05-05] MEDS: METOPROLOL SUCCINATE EXT REL 25 MG TABCR PO (09:35)
[2024-05-05] MEDS: FUROSEMIDE 40 MG TABLET PO ×2 (09:35→18:34)
[2024-05-05] MEDS: CHOLECALCIFEROL 1,000 UNITS TABLET 1000 UNITS PO (09:35)
[2024-05-05] MEDS: ATORVASTATIN 40 MG TABLET PO (09:35)
[2024-05-05] MEDS: OMEGA 3 POLYUNSAT FATTY ACIDS 1 GM CAP PO ×2 (09:35→18:33)
[2024-05-05] MEDS: PANTOPRAZOLE 40 MG TABLET PO (09:35)
[2024-05-05 14:37] LABS: SARS-CoV-2 RNA PCR Negative (Negative)
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
--- NOTE | 2024-05-05 16:20 | PC.NURSE ---
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
--- NOTE | 2024-05-05 18:56 | PC.NURSE ---
Yoli DUQUE made aware patient accepted to [facility] in patient psych unit, N.o for outside transfers to medical facility received.
--- NOTE | 2024-05-05 19:22 | PC.NURSE ---
Spoke with Yecenia and Isaac and made them aware of patient being transferred to [facility] this evening.
--- NOTE | 2024-05-05 20:15 | PC.NURSE ---
report called to Bhavesh GARCIA at [facility], reviewed plan of care and pt condition, chart faxed and sent in packet, Yecenia pt's emergency contact notified of pt transfer, pt was sent with personal belongings including her purse, cell phone and mandy earrings
[2024-05-06 15:13] LABS: HIV 1 RNA PCR NOT DETECTED (NOT DETECTED); HIV 1 RNA PCR NOT DETECTED copies/mL (NOT DETECTED)
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
[2024-05-09 17:21] LABS: Vitamin B1 152
== END 2024-05-05 20:23 | disposition short-term general hospital (02) | DRG 313 ==
LOC: ANHED 07:53 → ANH2MED 12:39
PROVIDERS: Student in an Organized Health Care Education/Training Program; Admitting Provider General Practice; Emergency Provider Student in an Organized Health Care Education/Training Program; Visit Provider Nurse Practitioner Acute Care
DX: R07.89 Other chest pain (principal); Z87.891 Personal history of nicotine dependence; I12.9 Hypertensive chronic kidney disease with stage 1 through stage 4 chronic kidney disease, or unspecified chronic kidney disease; N18.9 Chronic kidney disease, unspecified; E78.5 Hyperlipidemia, unspecified; E03.9 Hypothyroidism, unspecified; G47.33 Obstructive sleep apnea (adult) (pediatric); F41.9 Anxiety disorder, unspecified; K21.9 Gastro-esophageal reflux disease without esophagitis; F22 Delusional disorders; H90.6 Mixed conductive and sensorineural hearing loss, bilateral; E66.9 Obesity, unspecified; Z68.33 Body mass index [BMI] 33.0-33.9, adult
CPT/HCPCS: 36415; 70551; 71045; 80053; 80307; 81001; 82607; 82746; 83540; 83550; 83690; 83735; 84425; 84439; 84443; 84480; 84484; 85025; 85027; 85610; 85730; 86592; 87536; 87635; 93005; 96361; 96374; 96375; 99285; A9270; J2270; J2405; J7030

== ENCOUNTER 2024-07-20 15:26 | Emergency (ER) | payer MEDICARE, SELFPAY ==
--- NOTE | ~2024-07-20 | CT_ITS ---
EXAMINATION: CT brain wo con DATE: 07/20/2024 15:53 INDICATION: Vision change. TECHNIQUE: Computed tomography (CT) of the head was performed without intravenous contrast. The mA wa s adjusted according to patient size. Iterative reconstruction technique was employed. The dose-lengt h product was 529.67 mGy-cm. COMPARISON: Head CT 07/05/2020 FINDINGS: There are scattered areas of low attenuation in the cerebral white matter, which is within normal limits for the patient's age. There is no intracranial hemorrhage, acute infarction, or abnorm al intracranial mass lesion. The ventricles are normal in size. There is an old blowout fracture of m edial wall of right orbit. There are likely changes of ocular lens replacement surgeries. The mastoid air cells are normal. IMPRESSION: 1. Normal aging brain. Reviewed, dictated and finalized at location [facility] IMPRESSION: 1. Normal aging brain.
[2024-07-20 15:29] VITALS: BP 140/46; PULSE 63; RESP 18; TEMP 36.4; O2SAT 96
--- NOTE | 2024-07-20 15:37 | ED_ITS ---
HPI - Eye Problem General Chief complaint: Eye Problems <EVIE Espinoza Last Filed: 07/20/24 15:46> Stated complaint: vision changes x weeks <EVIE Espinoza Last Filed: 07/20/24 15:46> Time Seen by Provider: 07/20/24 15:37 <EVIE Espinoza Last Filed: 07/20/24 15:46> Focused HPI: Patient is an 84 y/o female who presents to the ED via EMS with c/o vision changes. Patient reports she was admitted to [facility] [place] around 1 month ago and started on Abilify at that time. She is unsure why. Since then, she has been having intermittent blurry vision and difficulty focusing. States she has to sit very close to her TV to be able to see and hold her L eye open to see. She does wear reader glasses but still reports difficulty seeing. Denies vision loss. She is scheduled to see an eye surgeon on 08/03. Does c/o mild discomfort over R forehead currently, denies dizziness/lightheadedness, vomiting, focal weakness/numbness. GENERAL: Elderly, well-nourished, and in no acute distress. EYES: PERRL/EOMI, conjunctiva clear. No nystagmus. No pain with EOM. HEAD: Normocephalic, atraumatic. CHEST: Clear to auscultation. ?No respiratory distress. HEART: Regular rate and rhythm.? NEURO: ?Alert and oriented x3. No gross focal deficits. Patient screened in triage and initial orders placed.? ?Additional care and disposition to be based upon?diagnostic testing and treatment. <EVIE Espinoza Last Filed: 07/20/24 15:46> Focused HPI: Patient is an 84 y/o female who presents to the ED via EMS with c/o vision changes. Patient reports she was admitted to [facility] [place] around 1 month ago and started on Abilify at that time. She is unsure why. Since then, she has been having intermittent blurry vision and difficulty focusing. States she has to sit very close to her TV to be able to see. She does wear reader glasses but still reports difficulty seeing. Denies vision loss. She is scheduled to see an eye surgeon on 08/03. Does c/o mild discomfort over R forehead currently, denies dizziness/lightheadedness, vomiting, focal weakness/numbness. GENERAL: Elderly, well-nourished, and in no acute distress. EYES: PERRL/EOMI, conjunctiva clear. No nystagmus. No pain with EOM. HEAD: Normocephalic, atraumatic. CHEST: Clear to auscultation. ?No respiratory distress. HEART: Regular rate and rhythm.? NEURO: ?Alert and oriented x3. No gross focal deficits. Patient screened in triage and initial orders placed.? ?Additional care and disposition to be based upon?diagnostic testing and treatment. <EVIE Leach Filed: 07/20/24 17:37> Source: patient <EVIE Espinoza Filed: 07/20/24 15:46> Mode of arrival: ambulatory <EVIE Espinoza Filed: 07/20/24 15:46> Limitations: no limitations <EVIE Espinoza Filed: 07/20/24 15:46> Related Data Home medications: Home Medications Medication Instructions Recorded Confirmed alprazolam 0.5 mg tablet 0.25 mg PO QHS 08/02/22 05/03/24 atorvastatin 40 mg tablet 40 mg PO DAILY 08/02/22 05/03/24 citalopram 20 mg tablet 40 mg PO DAILY 08/02/22 05/03/24 levothyroxine 88 mcg tablet 88 mcg PO DAILY 08/02/22 05/03/24 metoprolol succinate 25 mg 25 mg PO DAILY 08/02/22 05/03/24 tablet,extended release 24 hr omeprazole 20 mg capsule,delayed 20 mg PO DAILY 08/02/22 05/03/24 release benzonatate 100 mg capsule 100 mg PO BID PRN Cough 03/13/24 05/03/24 cholecalciferol (vitamin D3) 25 25 mcg PO DAILY 03/13/24 05/03/24 mcg (1,000 unit) capsule mecobalamin (vitamin B12) 2,500 3,000 mcg PO DAILY 03/13/24 05/03/24 mcg chewable tablet acetaminophen 325 mg tablet 325 mg PO Q4H PRN Pain (Scale 05/03/24 05/03/24 Score 1-3) furosemide 40 mg tablet 40 mg PO BID 05/03/24 05/03/24 omega-3 fatty acids-fish oil 340 1,000 cap PO BID 05/03/24 05/03/24 mg-1,000 mg capsule <Katy Borrero PA-C - Last Filed: 07/20/24 15:46> Allergies/adverse reactions: Allergies Allergy/AdvReac Type Severity Reaction Status Date / Time Penicillins Allergy Severe THROAT Verified 05/03/24 09:59 SWELLING clarithromycin Allergy Mild GI UPSET Verified 05/03/24 09:59 Sulfa (Sulfonamide Allergy Mild Itching, Verified 05/03/24 09:59 Antibiotics) N/V moxifloxacin AdvReac Mild Nausea Verified 05/03/24 09:59 Dust Allergy Unknown RHINITIS, Uncoded 05/03/24 09:59 CONGESTION Molds and Smuts Allergy Unknown RHINITIS, Uncoded 05/03/24 09:59 CONGESTION <Katy Borrero PA-C - Last Filed: 07/20/24 15:46> Review of Systems Review of Systems: CONSTITUTIONAL: Denies fever EYES: Reports visual changes. Denies redness, or discharge. <Karo Saldana PA-C - Last Filed: 07/20/24 17:37> All systems reviewed & are unremarkable except as noted in HPI and below <Karo Saldana PA-C - Last Filed: 07/20/24 17:37> [facility] Past Medical History Medical History: Medical History (Updated 07/20/24 @ 17:33 by Karo Saldana PA-C) Anxiety Chronic kidney disease GERD (gastroesophageal reflux disease) Hyperlipidemia Hypertension Hypothyroidism Mixed hearing loss, bilateral Obstructive sleep apnea SVT (supraventricular tachycardia) Ulcerative colitis <Katy Borrero PA-C - Last Filed: 07/20/24 15:46> Surgical History Surgical History: Surgical History History of colonoscopy <Katy Borrero PA-C - Last Filed: 07/20/24 15:46> Family History Family History: Family History (Updated 05/03/24 @ 13:49 by Migdalia Lange RN) Father Acute myocardial infarction, Onset Age: 68 Sibling Acute myocardial infarction, Onset Age: 66 Cancer Mother Acute myocardial infarction <EVIE Espinoza Last Filed: 07/20/24 15:46> Social History Social History: Social History (Updated 05/03/24 @ 08:17 by Amrita Evans MD) Smoking status: Former smoker Alcohol intake: never Substance use: never Do You Feel Safe in your Home?: No Lack of Transportation: No Lack of Food: Never True Current Housing: I Have Housing Concerned About Future Housing: No Difficulty Paying Gas/Electric Bills: No Difficulty Paying for Meds: No Currently Unemployed: No Education: High School Diploma/GED Difficulty w/ Childcare or Family Care: No Living arrangements: alone Additional living arrangements comments: With dog; Spiritual care concerns: No <EVIE Espinoza Last Filed: 07/20/24 15:46> Exam Narrative: GENERAL: Well-appearing, well-nourished, and in no acute distress. HEAD: Normocephalic, atraumatic. EYES: PERRLA and EOMI. No erythema or abnormal drainage. Visual acuity on the right 20/50, on the left 20/70. Eye pressures are 10 bilaterally. No foreign bodies noted ENT: Nares clear, no rhinorrhea or epistaxis. Mucous membranes moist. Oropharynx without tonsillar hypertrophy exudate or other lesions. Bilateral TMs pearly tjierina non-bulging NECK: Supple. No adenopathy or masses. CHEST: Clear to auscultation. No respiratory distress. No wheezes rales or rhonchi HEART: Regular rate and rhythm. No murmur heard. Normal peripheral pulses. EXTREMITIES: Normal range of motion. No edema. SKIN: Warm, dry, no rash. NEURO: No focal deficits. Alert and oriented x3. Cranial nerves 2-12 grossly intact PSYCH: Normal mood and affect <EVIE Leach Last Filed: 07/20/24 17:37> Course Course Emergency Course: Patient updated on her workup and agrees with plan of care <Karo Saldana PA-C - Last Filed: 07/20/24 17:37> Vital Signs Vital signs: Vital Signs Temperature 97.6 F 07/20/24 15:29 Pulse Rate 63 07/20/24 15:29 Respiratory Rate 18 07/20/24 15:29 Blood Pressure 140/46 L 07/20/24 15:29 Pulse Oximetry 96 07/20/24 15:29 Oxygen Delivery Room Air 07/20/24 15:29 Temperature 97.7 F 07/20/24 16:30 Pulse Rate 63 07/20/24 15:29 Respiratory Rate 16 07/20/24 16:30 Blood Pressure 122/48 L 07/20/24 16:30 Pulse Oximetry 97 07/20/24 16:30 Oxygen Delivery Room Air 07/20/24 16:30 <Katy Borrero PA-C - Last Filed: 07/20/24 15:46> Vital Signs Temperature 97.6 F 07/20/24 15:29 Pulse Rate 63 07/20/24 15:29 Respiratory Rate 18 07/20/24 15:29 Blood Pressure 140/46 L 07/20/24 15:29 Pulse Oximetry 96 07/20/24 15:29 Oxygen Delivery Room Air 07/20/24 15:29 Temperature 97.7 F 07/20/24 16:30 Pulse Rate 63 07/20/24 15:29 Respiratory Rate 16 07/20/24 16:30 Blood Pressure 122/48 L 07/20/24 16:30 Pulse Oximetry 97 07/20/24 16:30 Oxygen Delivery Room Air 07/20/24 16:30 <Karo Saldana PA-C - Last Filed: 07/20/24 17:37> MDM - Eye Problem MDM Narrative Medical decision making narrative: MSE by BUTCH in triage. <EVIE Espinoza Last Filed: 07/20/24 15:46> MSE by BUTCH in triage. Patient presents to the emergency department for blurry vision. Reports this has been ongoing over the last month. Visual acuity is slightly worse on left. Otherwise her exam is normal. She has no eye pressures. Instructed to follow- up with her eye doctor scheduled. She is neurologically intact. CT scan of her brain is normal. She was given warnings to return to the ER <EVIE Leach Last Filed: 07/20/24 17:37> Differential Diagnosis Differential diagnosis: Likely conjunctivitis, acute iritis, subconjunctival hemorrhage, glaucoma and other (dry eye) <EVIE Leach Last Filed: 07/20/24 17:37> Imaging Data Radiologist's impression: ITS Impressions Head CT 07/20/24 15:58 IMPRESSION: 1. Normal aging brain. <EVIE Leach Last Filed: 07/20/24 17:37> Critical Care Time Critical Care Time Critical Care Time: No <EVIE Leach Last Filed: 07/20/24 17:37> Discharge Plan Discharge Clinical Impression: Change in vision <EVIE Espinoza Last Filed: 07/20/24 15:46> Patient Disposition: Home, Self-Care <EVIE Espinoza Last Filed: 07/20/24 15:46> Condition: Stable <EVIE Espinoza Last Filed: 07/20/24 15:46> Instructions: Blurred Vision (ED) <EVIE Espinoza Last Filed: 07/20/24 15:46> Additional Instructions: Return to the emergency department if you experience fever, redness and swelling of your eye, abnormal drainage from the eye, vision loss, or any other symptoms that are concerning to you. Follow up with your eye doctor as scheduled <EVIE Esipnoza Last Filed: 07/20/24 15:46> Prescriptions: No Action atorvastatin 40 mg tablet 40 mg PO DAILY levothyroxine 88 mcg tablet 88 mcg PO DAILY alprazolam 0.5 mg tablet 0.25 mg PO QHS citalopram 20 mg tablet 40 mg PO DAILY omeprazole 20 mg capsule,delayed release(DR/EC) 20 mg PO DAILY metoprolol succinate 25 mg tablet extended release 24 hr 25 mg PO DAILY benzonatate 100 mg capsule 100 mg PO BID PRN (Reason: Cough) cholecalciferol (vitamin D3) 25 mcg (1,000 unit) capsule 25 mcg PO DAILY mecobalamin (vitamin B12) 2,500 mcg tablet,chewable 3,000 mcg PO DAILY furosemide 40 mg tablet 40 mg PO BID acetaminophen 325 mg Tablet 325 mg PO Q4H PRN (Reason: Pain (Scale Score 1-3)) Fish Oil 340-1,000 mg Capsule 1,000 cap PO BID <Katy Borrero PA-C - Last Filed: 07/20/24 15:46> Follow-up/Referrals: PHYSICIAN NOT ON STAFF,NONSTAFF [Non-Staff] - <Katy Borrero PA-C - Last Filed: 07/20/24 15:46>
[2024-07-20 16:30] VITALS: BP 122/48; RESP 16; TEMP 36.5; O2SAT 97
--- NOTE | 2024-07-20 16:39 | PC.NURSE ---
visual acuity both eyes was 20/50
--- NOTE | 2024-07-20 17:56 | PC.NURSE ---
the pt allowed me to call Tracy to see if she can give her a ride home. called Tracy on the pt contacts list, she did not answer to give the pt a ride back home. the pt asked not to have the other two people on her contact list be called as they are not on good terms anymore
[2024-07-20 18:08] VITALS: BP 134/76; PULSE 78; RESP 16; TEMP 36.8; O2SAT 98
--- NOTE | 2024-07-20 18:08 | PCCCNOTE ---
1808-Provided a cab voucher for transporation home. Pt arrived EMS and was unable to contact family/friends for transport.-samantha.
== END 2024-07-20 18:21 | disposition home or self-care (01) ==
PROVIDERS: Emergency Provider Physician Assistant
DX: H53.8 Other visual disturbances (principal); I12.9 Hypertensive chronic kidney disease with stage 1 through stage 4 chronic kidney disease, or unspecified chronic kidney disease; N18.9 Chronic kidney disease, unspecified; E03.9 Hypothyroidism, unspecified; E78.5 Hyperlipidemia, unspecified; K51.90 Ulcerative colitis, unspecified, without complications; K21.9 Gastro-esophageal reflux disease without esophagitis; H90.6 Mixed conductive and sensorineural hearing loss, bilateral; G47.33 Obstructive sleep apnea (adult) (pediatric); Z87.891 Personal history of nicotine dependence; Z79.899 Other long term (current) drug therapy
CPT/HCPCS: 70450; 99284

== ENCOUNTER 2024-10-08 14:17 | Emergency (ER) | payer MEDICARE, SELFPAY ==
--- NOTE | ~2024-10-08 | XR_ITS ---
EXAMINATION: XR chest 2V Exam Date/Time: 10/08/2024 16:21 BUSINESS ANALYTICS SPECIALIST HISTORY: chest pain Comparison: 05/03/2024, 01/18/2023. RESULT: Lines, tubes, and devices: Cholecystectomy clips. Lungs and pleura: Senescent changes. Streaky opacities in the left lower lung likely representing sc ar/atelectasis. Cardiomediastinal silhouette: Stable. Other: No acute osseous or upper abdominal finding. IMPRESSION: No acute cardiopulmonary process. Reviewed, dictated and finalized at location [facility]. NESS ANALYTICS SPECIALIST
--- OUTSIDE RECORDS SUMMARY | 2024-10-08 14:20 | XMS_ITS | Encounter Summary ---
Author Organization [facility] Address [address] [place] [address] Care Team Providers Care Bottle Caser Name Role Phone Bright Llamas MD Unavailable Mily Douglas MD Unavailable [phone] Todd Han MD Unavailable [phone] Rdaha Joshua MD Unavailable [phone] Care, [facility] Unavailable Kayla Peck MD Unavailable Kayla Peck MD Primary Care Provider [phone] Encounter Details Date Type Department Care Team (Late st Contact Info) Description 03/04/2023 Ophth Exam [facility] - Ophthalmology [facility] [place] [address] Mart Patel MD [address] [place] [phone] Social History Tobacco Use Types Packs/Day Years Used Date Smoking Tobacco: Former Cigarettes 0.3 21 0 09/13/1939 - 09/13/1960 Smokeless Tobacco: Never Comments:SOCIAL Alcohol Use Standard Drinks/Week Comments Yes 0.8 (1 standard drink = 0.6 oz p ure alcohol) SOCIAL Sex and Gender Information Value Date Recorded Sex Assigned at Not on file Gender Identity Not on file Sexual Orientation Not on file documented as of this encounter Functional Status Functional Status Response Date of Assess ment Is person deaf or have serious hearing difficult y? No 05/30/2014 Is person blind or have serious difficulty seein g? No 05/30/2014 Does person have serious dif ficulty walking/climbing stairs? No 05/30/2014 Does person have difficulty dressing/bathing? No 05/30/2014 Does person have difficulty doing errands alone? No 05/30/2014 Cognitive Status Response Date of Assessm ent Does person have difficulty concentrating/remembering/making decisions? No 05/30/2014 documented as of this encounter Plan of Treatment Not on file documented as of this encounter Visit Diagnoses Not on filedocumented in this encounter Care Teams Bottle Caser Relationship Specialty Start Date End Date Kayla Peck MD [address] [place] [address] PCP - [facility] 10/20/22 06/30/24 Kayla Peck MD [address] [place] [address] PCP - General Internal Medicine 03/03/23 Bright Llamas MD Orthopedic Surgery 07/24/11 [place] [address] [facility] [address] [place] [address] Orthopedic Surgery 05/23/13 [place] [address] [facility] [address] [place] [address] Pulmonary Disease 04/24/20 [place] [address] [place] [address] Nephrology 04/24/20 [facility], [facility] Care Management 04/15/22 documented as of this encounter
--- OUTSIDE RECORDS SUMMARY | 2024-10-08 14:20 | XMS_ITS | Encounter Summary ---
Author Organization [facility] Address [address] [facility] [place] [address] Care Team Providers Care Terra Cotta Setter Name Role Phone Bright Llamas MD Unavailable Mily Douglas MD Unavailable [phone] Fermín Aadme MD Primary Care Provider Todd Han MD Unavailable [phone] Radha Joshua MD Unavailable [phone] Care, [facility] Unavailable [phone] Kayla Peck MD Unavailable [phone] Kayla Peck MD Primary Care Provider [phone] Encounter Details Date Type Department Care Team (Late st Contact Info) Description 03/02/2023 Ophth Exam [facility] - Ophthalmology [address] [place] [phone] Fabian Meza MD [address] [facility] [place] [id number] Social History Tobacco Use Types Packs/Day Years [...] on filedocumented in this encounter Care Teams Terra Cotta Setter Relationship Specialty Start Date End Date Fermín Adame MD [address] [place] [address] PCP - General Internal Medicine 03/21/20 03/02/23 Kayla Peck MD [address] [place] [address] PCP - [facility] 10/20/22 06/30/24 Kayla Peck MD [address] [place] [address] PCP - General Internal Medicine 03/03/23 Bright Llamas MD Orthopedic Surgery 07/24/11 [place] [address] [facility] [address] [place] [address] Orthopedic Surgery 05/23/13 [place] [address] [facility] [address] [place] [address] Pulmonary Disease 04/24/20 [place] [address] [place] [address] Nephrology 04/24/20 Care, [facility] Care Management 04/15/22 documented as of this encounter
--- OUTSIDE RECORDS SUMMARY | 2024-10-08 14:20 | XMS_ITS | Data Portability ---
Author Organization EVONNE mack MD, autoContract Address [address] [facility] [address] [place] [address] Care Team Providers Care Help Desk Representative Name Role Phone CAMPBELL CABRERA Referring Provider Assessment No assessment recorded. Plan of Treatment Reminders Order Date Submit Date Provider Last Modified By Organization Details Last Modified Time Details Appointments [facility] PreWelln ess 2024 11:30A M Not available Not available Not available [facility] AWP 2024 11:00A M Kayla Peck MD Not available Not available Not available Lab BMP, serum or plasma 2023 [facility], [address] [facility], [facility] [address], [place], [address], 04/07/2024 18:06:53 uric acid, serum or plasma 2023 024 [employer] [facility], [address] [facility], [facility] [address], [place], [address], 04/07/2024 18:06:52 Referral None recorded . Procedures None recorded . Surgeries None recorded . Imaging None recorded . Medication Orders allopuri nol 300 mg tablet 2023 024 [facility]/Pharmacy #[id number], [address] [place], [address], 01/07/2024 13:08:21 Patient TargetsNo targets recorded. Patient InstructionsNo instructions recorded. Reason for Referral None Reported. Results Created Date Observation Date Name Description Value Unit Range Abnormal Flag Note LastModifiedBy Organization Detail LastModifiedTime 04/07/20 24 04/07/2024 URIC ACID uric acid 4.0 mg/dL 2.5-7. 0 normal Thera igor c sallie t for gout patie nts: <6.0 mg/dL Not Available [address], [address], 04/07/2024 18:06:52 04/07/20 24 04/07/2024 BASIC METAB OLIC PANEL glucose 90 mg/dL 65-99 normal Fasti ng refer ence inter garima Not Available [address] [address] [place], [address], 04/07/2024 18:06:53 04/07/20 24 04/07/2024 BASIC METAB OLIC PANEL urea nitrogen (BUN) 20 mg/dL 7-25 normal Not Available [address], [address], 04/07/2024 18:06:53 04/07/20 24 04/07/2024 BASIC METAB OLIC PANEL creatinine 0.98 mg/dL 0.60-0 .95 high Not Available [address], [address], 04/07/2024 18:06:53 04/07/20 24 04/07/2024 BASIC METAB OLIC PANEL eGFR 57 mL/mi n/1.7 3m2 > or = 60 low Not Available [address], [address], 04/07/2024 18:06:53 04/07/20 24 04/07/2024 BASIC METAB OLIC PANEL BUN/creatini ne ratio 20 (calc ) 6-22 normal Not Available [address], [address], 04/07/2024 18:06:53 04/07/20 24 04/07/2024 BASIC METAB OLIC PANEL sodium 140 mmol/ L 135-14 6 normal Not Available [address] [place], [address], 04/07/2024 18:06:53 04/07/20 24 04/07/2024 BASIC METAB OLIC PANEL potassium 4.6 mmol/ L 3.5-5. 3 normal Not Available [facility] [address], [address], 04/07/2024 18:06:53 04/07/20 24 04/07/2024 BASIC METAB OLIC PANEL chloride 102 mmol/ L 98-110 normal Not Available [facility] [address], [address], 04/07/2024 18:06:53 04/07/20 24 04/07/2024 BASIC METAB OLIC PANEL carbon dioxide 29 mmol/ L 20-32 normal Not Available [facility] [address], [address], 04/07/2024 18:06:53 04/07/20 24 04/07/2024 BASIC METAB OLIC PANEL calcium 9.4 mg/dL 8.6-10 .4 normal NO COLLE CTION DATE RECEI MARIA E. WE HAVE USED THE DATE THE SPECI MEN WAS RECEI MARIA E BY THIS LABOR ATORY THE COLLE CTION DATE. IF THIS IS INCOR RECT, PLEAS E CONTA CT CLIEN T SERVI MUSHTAQ. PHONE NUMBE R: [phone] Not Available [address], [address], 04/07/2024 18:06:53 09/23/19 24 09/23/2023 CBC WITH DIFFE RENTI AL WBC 7.5 K/uL 3.8-10 .8 Not Available [facility] - Manual Order Only [address], [place], [address], 09/28/2023 23:33:39 09/23/19 24 09/23/2023 CBC WITH DIFFE RENTI AL RBC 4.21 M/uL 3.80-5 .10 Not Available [facility] - Manual Order Only [address], [place], [address], 09/28/2023 23:33:39 09/23/19 24 09/23/2023 CBC WITH DIFFE RENTI AL hemoglobin 13.1 g/dL 11.7-1 5.5 Not Available [facility] - Manual Order Only [address], [place], [address], 09/28/2023 23:33:39 09/23/19 24 09/23/2023 CBC WITH DIFFE RENTI AL hematocrit 40.0 % 35.0-4 5.0 Not Available [facility] - Manual Order Only [address], [place], [address], 09/28/2023 23:33:39 09/23/19 24 09/23/2023 CBC WITH DIFFE RENTI AL MCV 95.0 fL 80.0-1 00.0 Not Available [facility] - Manual Order Only [address], [place], [address], 09/28/2023 23:33:39 09/23/19 24 09/23/2023 CBC WITH DIFFE RENTI AL MCH 31.1 pg 27.0-3 3.0 Not Available [facility] - Manual Order Only [address], [place], [address], 09/28/2023 23:33:39 09/23/19 24 09/23/2023 CBC WITH DIFFE RENTI AL MCHC 32.8 g/dL 32.0-3 6.0 Not Available [facility] - Manual Order Only [address], [place], [address], 09/28/2023 23:33:39 09/23/19 24 09/23/2023 CBC WITH DIFFE RENTI AL red cell distribution width 14.0 % 11.0-1 5.0 Not Available [facility] - Manual Order Only [address], [place], [address], 09/28/2023 23:33:39 09/23/19 24 09/23/2023 CBC WITH DIFFE RENTI AL platelet count 274 K/uL 140-40 0 Not Available [facility] - Manual Order Only [address], [place], [address], 09/28/2023 23:33:39 09/23/19 24 09/23/2023 CBC WITH DIFFE RENTI AL mean platelet volume 12.1 fL 7.5-12 .5 Not Available [facility] - Manual Order Only [address], [place], [address], 09/28/2023 23:33:39 09/23/19 24 09/23/2023 CBC WITH DIFFE RENTI AL neutrophil % 59.3 % 38.0-8 0.0 Not Available [facility] - Manual Order Only [address], [place], [address], 09/28/2023 23:33:39 09/23/19 24 09/23/2023 CBC WITH DIFFE RENTI AL neutrophil absolute 4.43 K/uL 1.50-7 .80 Not Available [facility] - Manual Order Only [address], [place], [address], 09/28/2023 23:33:39 09/23/19 24 09/23/2023 CBC WITH DIFFE RENTI AL lymphocyte % 32.6 % 15.0-4 9.0 Not Available [facility] - Manual Order Only [address], [place], [address], 09/28/2023 23:33:39 09/23/19 24 09/23/2023 CBC WITH DIFFE RENTI AL lymphocyte absolute 2.44 K/uL 0.85-3 .90 Not Available [facility] - Manual Order Only [address], [place], [address], 09/28/2023 23:33:39 09/23/19 24 09/23/2023 CBC WITH DIFFE RENTI AL monocyte % 5.1 % 0.0-13 .0 Not Available [facility] - Manual Order Only [address], [place], [address], 09/28/2023 23:33:39 09/23/19 24 09/23/2023 CBC WITH DIFFE RENTI AL monocyte absolute 0.38 K/uL 0.20-0 .95 Not Available [facility] - Manual Order Only [address], [place], [address], 09/28/2023 23:33:39 09/23/19 24 09/23/2023 CBC WITH DIFFE RENTI AL eosinophil % 2.5 % 0.0-8. 0 Not Available [facility] - Manual Order Only [address], [place], [address], 09/28/2023 23:33:39 09/23/19 24 09/23/2023 CBC WITH DIFFE RENTI AL eosinophil absolute 0.19 K/uL 0.00-0 .50 Not Available [facility] - Manual Order Only [address], [place], [address], 09/28/2023 23:33:39 09/23/19 24 09/23/2023 CBC WITH DIFFE RENTI AL basophil % 0.5 % 0.0-2. 0 Not Available [facility] - Manual Order Only [address], [place], [address], 09/28/2023 23:33:39 09/23/19 24 09/23/2023 CBC WITH DIFFE RENTI AL basophil absolute 0.04 K/uL 0.00-0 .20 Not Available [facility] - Manual Order Only [address], [place], [address], 09/28/2023 23:33:39 09/23/19 24 09/23/2023 COMPR EHENS SARY METAB OLIC PANEL glucose 92 mg/dL 65-99 Not Available [facility] - [facility] Order Only [address], [place], [address], 09/28/2023 23:33:40 09/23/19 24 09/23/2023 COMPR EHENS SARY METAB OLIC PANEL calcium 9.4 mg/dL 8.5-10 .5 Not Available [facility] - Manual Order Only [address], [place], [address], 09/28/2023 23:33:40 09/23/19 24 09/23/2023 COMPR EHENS SARY METAB OLIC PANEL sodium 142 mmol/ L 136-14 5 Not Available [facility] - Manual Order Only [address], [place], [address], 09/28/2023 23:33:40 09/23/19 24 09/23/2023 COMPR EHENS SARY METAB OLIC PANEL potassium 4.7 mmol/ L 3.5-5. 1 Not Available [facility] - Manual Order Only [address], [place], [address], 09/28/2023 23:33:40 09/23/19 24 09/23/2023 COMPR EHENS SARY METAB OLIC PANEL chloride 101 mmol/ L 95-108 Not Available [facility] - Manual Order Only [address], [place], [address], 09/28/2023 23:33:40 09/23/19 24 09/23/2023 COMPR EHENS SARY METAB OLIC PANEL CO2 (carbon dioxide) 27 mmol/ L 21-33 Not Available [facility] - Manual Order Only [address], [place], [address], 09/28/2023 23:33:40 09/23/19 24 09/23/2023 COMPR EHENS SARY METAB OLIC PANEL BUN (blood urea nitrogen) 21 mg/dL 8-23 Not Available [facility] Order Only [address], [place], [address], 09/28/2023 23:33:40 09/23/19 24 09/23/2023 COMPR EHENS SARY METAB OLIC PANEL creatinine 1.03 mg/dL 0.60-0 .95 high Not Available [facility] - Manual Order Only [address], [place], [address], 09/28/2023 23:33:40 09/23/19 24 09/23/2023 COMPR EHENS SARY METAB OLIC PANEL protein, total 7.0 g/dL 6.1-8. 0 Not Available [facility] - Manual Order Only [address], [place], [address], 09/28/2023 23:33:40 09/23/19 24 09/23/2023 COMPR EHENS SARY METAB OLIC PANEL albumin 4.1 g/dL 3.5-5. 5 Not Available [facility] - Manual Order Only [address], [place], [address], 09/28/2023 23:33:40 09/23/19 24 09/23/2023 COMPR EHENS SARY METAB OLIC PANEL globulin 2.9 g/dL_ (calc ) 1.8-3. 8 Not Available [facility] - Manual Order Only [address], [place], [address], 09/28/2023 23:33:40 09/23/19 24 09/23/2023 COMPR EHENS SARY METAB OLIC PANEL albumin/glob ulin ratio 1.4 calc 1.0-2. 5 Not Available [facility] - Manual Order Only [address], [place], [address], 09/28/2023 23:33:40 09/23/19 24 09/23/2023 COMPR EHENS SARY METAB OLIC PANEL alkaline phosphatase 111 U/L <150 Not Available [facility] - Manual Order Only [address], [place], [address], 09/28/2023 23:33:40 09/23/19 24 09/23/2023 COMPR EHENS SARY METAB OLIC PANEL alanine aminotransfe rase (ALT) 18 U/L 6-29 Not Available [facility] - Manual Order Only [address], [place], [address], 09/28/2023 23:33:40 09/23/19 24 09/23/2023 COMPR EHENS SARY METAB OLIC PANEL aspartate aminotransfe rase (AST) 24 U/L 10-35 Not Available [facility] - Manual Order Only [address], [place], [address], 09/28/2023 23:33:40 09/23/19 24 09/23/2023 COMPR EHENS SARY METAB OLIC PANEL bilirubin, total 0.6 mg/dL <1.3 Not Available [facility] - Manual Order Only [address], [place], [address], 09/28/2023 23:33:40 09/23/19 24 09/23/2023 COMPR EHENS SARY METAB OLIC PANEL BUN/creatini ne ratio 20 calc 6-22 Not Available [facility] - Manual Order Only [address], [place], [address], 09/28/2023 23:33:40 09/23/19 24 09/23/2023 COMPR EHENS SARY METAB OLIC PANEL eGFR 54 mL/mi n/1.7 3m_sq uared >59 low The eGFR is based on the CKD-E PI 2020 equat ion. To calcu late the new eGFR from a previ ous Creat inine or Cysta tin C resul t, go to https ://vibha mai.kid nancy.o rg/pr ofess ional s/kdo qi/gf r%5Fc alcul ator. Not Available [facility] - Manual Order Only [address], [place], [address], 09/28/2023 23:33:40 09/23/19 24 09/23/2023 URIC ACID uric acid 8.3 mg/dL 2.5-7. 3 high Not Available [facility] - Manual Order Only [address], [place], [address], 09/28/2023 23:33:40 09/23/19 24 09/23/2023 HEMOG LOBIN A1C HbA1C 5.3 % <5.7 For the purpo se of scree ron for the prese nce of diabe gaston: <5.7% is consi stent with the absen ce of diabe gaston; 5.7-6 .4% is consi stent with incre ased risk for diabe gaston (pred iabet es); >= 6.5% is consi stent with diabe gaston. This assay resul t is consi stent with a decre ased risk of diabe gaston. Curre ntly, no conse nsus exist s nuno morales use of hemog lobin A1c for diagn osis of diabe gaston in child rosemary. Accor ding to Ameri can Diabe gaston Assoc iatio n (ADA) guide lines , hemog lobin A1c <7.0% repre sents optim al contr ol in non-p regna nt diabe tic patie nts. Diffe rent metri cs may apply to speci fic patie nt popul ation s. Stand ards of Medic al Care in Diabe gaston (ADA) . Not Available [facility] - Manual Order Only [address], [place], [address], 09/28/2023 23:33:41 09/23/19 24 09/23/2023 HEMOG LOBIN A1C estimated average glucose 105 mg/dL <117 The estim ated avera ge gluco se value is an adjun ct to the treat ment of both Type I and Type II Diabe gaston. It is not inten ded for the diagn osis or risk asses sment of patie nts witho ut diabe gaston. (Refe rence : Joby ACUÑA et al. Diabe gaston Care 2008; 31:14 73-14 78). Not Available [facility] - Manual Order Only [address], [place], [address], 09/28/2023 23:33:41 09/23/19 24 09/23/2023 LIPID PANEL W/ TG/HD L-C (ORDE RED WITH LIPOP ROTEI N, NMR) cholesterol, total 140 mg/dL <200 Not Available [facility] - Manual Order Only [address], [place], [address], 09/28/2023 23:33:41 09/23/19 24 09/23/2023 LIPID PANEL W/ TG/HD L-C (ORDE RED WITH LIPOP ROTEI N, NMR) HDL cholesterol 50 mg/dL >49 Not Available [facility] - Manual Order Only [address], [place], [address], 09/28/2023 23:33:41 09/23/19 24 09/23/2023 LIPID PANEL W/ TG/HD L-C (ORDE RED WITH LIPOP ROTEI N, NMR) triglyceride s 96 mg/dL <150 Not Available [facility] - Manual Order Only [address], [place], [address], 09/28/2023 23:33:41 09/23/19 24 09/23/2023 LIPID PANEL W/ TG/HD L-C (ORDE RED WITH LIPOP ROTEI N, NMR) LDL cholesterol 72 mg/dL _(britney c) <100 Tarah able range <100 mg/dL for prima ry preve ntion ; <70 mg/dL for patie nts with CHD or diabe tic patie nts with >= 2 CHD risk facto rs. LDL-C is now calcu lated using the Kim n-Hop kins calcu latio n, which is a valid ated novel metho d provi ding destinee r accur acy than the Fried sienna equat ion in the estim ation of LDL-C . Kim n SS et al. MONROE. 2013; 310(1 9): 2061- 2068 (http ://ed ucati on.Qu Brenden riosDolosys. com/f aq/FA Q164) Not Available [facility] - Manual Order Only [address], [place], [address], 09/28/2023 23:33:41 09/23/19 24 09/23/2023 LIPID PANEL W/ TG/HD L-C (ORDE RED WITH LIPOP ROTEI N, NMR) chol/HDL-C 2.8 calc <5.0 Not Available [facility] - Manual Order Only [address], [place], [address], 09/28/2023 23:33:41 09/23/19 24 09/23/2023 LIPID PANEL W/ TG/HD L-C (ORDE RED WITH LIPOP ROTEI N, NMR) non-HDL cholesterol 90 mg/dL _(britney c) <130 For patie nts with diabe gaston plus 1 major ASCVD risk facto r, treat ing to a non-H DL-C goal of <100 mg/dL (LDL- C of <70 mg/dL ) is consi dered a thera peuti c optio n. Not Available [facility] - Manual Order Only [address], [place], [address], 09/28/2023 23:33:41 09/23/19 24 09/23/2023 LIPID PANEL W/ TG/HD L-C (ORDE RED WITH LIPOP ROTEI N, NMR) TG/HDL-C 1.9 calc <2.0 Not Available [facility] - Manual Order Only [address], [place], [address], 09/28/2023 23:33:41 09/23/19 24 09/23/2023 MYELO PEROX IDASE myeloperoxid ase 487 pmol/ L <470 high Based on a high risk sub-p opula tion (N=92 0) defin ed as ambul atory stabl e patie nts witho ut acute coron carmen syndr ome who under went elect sary diagn ostic coron carmen angio graph y (1) and a refer ence range study of appar ently healt hy donor s, we have defin ed the follo wing cut-o ffs for MPO: A cut-o ff of <470 pmol/ L defin es an 'appa rentl y healt hy' popul ation at optim al relat sary risk for a cardi ovasc ular event , 470-5 39 pmol/ L defin es a popul ation at moder ate relat sary risk for a cardi ovasc ular event (2-fo ld incre ased risk of MACE at 3 years ), and > = 540 pmol/ L defin es a popul ation with a high relat sary risk for a cardi ovasc ular event . (Refe rence : 1. Al et al. Am J Cardi ol. 2013; 111:4 65-47 0 and perso nal commu nicat ion with Al et al). This test was devel oped and its joan tical perfo rmanc e marco cteri stics have been deter mined by [facility] om[facility]olic [facility] [place] laura at [facility]. It has not been clear ed or appro maria e by the U.S. Food and Drug Admin istra tion. This assay has been valid ated pursu ant to the CLIA regul ation s and is used for clini britney purpo ses. Not Available [facility] - Manual Order Only [address], [place], [address], 09/28/2023 23:33:42 09/23/19 24 09/23/2023 VITAM IN D 25 HYDRO XY LC-MS /MS vitamin D 25 hydroxy by lc-MS/MS 68.2 NG/mL >29.9 Vitam in D, 25-Hy droxy repor ts amos ntrat ions of two commo n forms , 25-OH D2 and 25-OH D3. 25-OH D3 indic ates both endog enous produ ction and suppl ement ation . 25-OH D2 is an indic ator of exoge nous sourc es, such as diet or suppl ement ation . Thera py is based on measu remen t of Total 25-OH D, with level s <20 ng/mL indic ative of Vitam in D defic iency , while level s betwe en 20 ng/mL and 30 ng/mL sugge st insuf ficie ncy. Optim al level s are >=30 ng/mL . For addit ional infor gaurav flores e refer to http: //[facility] caternestine mack.que stdia gnost ics.c om/fa q/FAQ 199(T his link is being provi ded for infor harsha n/[facility] catio nal purpo ses only. )This test was devel oped and its joan tical perfo rmanc e marco cteri stics have been deter mined by [facility] [employer] at [facility]. It has not been clear ed or appro maria e by the U.S. Food and Drug Admin istra tion. This assay has been valid ated pursu ant to the CLIA regul ation s and is used for clini britney purpo ses. Not Available [facility] - Manual Order Only [address] [facility] [address], [place], [address], 09/28/2023 23:33:42 09/23/19 24 09/23/2023 LIPOP ROTEI N FRACT IONAT ION, NMR W/LIP ID PANEL LDL-P 1117 nmol/ L <935 high Relat sary risk: Optim al <935; Moder ate 935-1 816; High >1816 nmol/ L. Refer ence range is 592-2 404 nmol/ L. This test was devel oped and its joan tical perfo rmanc e marco cteri stics have been deter mined by [facility] [employer] at [facility]. It has not been clear ed or appro maria e by the U.S. Food and Drug Admin istra tion. This assay has been valid ated pursu ant to the CLIA regul ation s and is used for clini britney purpo ses. Not Available [facility] - Manual Order Only [address], [place], [address], 09/28/2023 23:33:42 09/23/19 24 09/23/2023 LIPOP ROTEI N FRACT IONAT ION, NMR W/LIP ID PANEL small LDL-P 551 nmol/ L <467 high Relat sary risk: Optim al <467; Moder ate 467-8 20; High >820 nmol/ L. Refer ence range is <1408 nmol/ L. Not Available [facility] - Manual Order Only [address], [place], [address], 09/28/2023 23:33:42 09/23/19 24 09/23/2023 LIPOP ROTEI N FRACT IONAT ION, NMR W/LIP ID PANEL LDL size 20.8 nm >20.5 Relat sary risk: Optim al >20.5 ; High <20.6 nm. Refer ence range is 20.0- 22.3 nm. Not Available [facility] - Manual Order Only [address], [place], [address], 09/28/2023 23:33:42 09/23/19 24 09/23/2023 LIPOP ROTEI N FRACT IONAT ION, NMR W/LIP ID PANEL HDL-P 33.7 umol/ L >32.8 Relat sary risk: Optim al >32.8 ; Moder ate 29.2- 32.8; High <29.2 umol/ L. Refer ence range is 21.1- 43.4 umol/ L. Not Available [facility] - Manual Order Only [address] [employer] [address], [place], [address], 09/28/2023 23:33:42 09/23/19 24 09/23/2023 LIPOP ROTEI N FRACT IONAT ION, NMR W/LIP ID PANEL large HDL-P 6.7 umol/ L >7.2 low Relat sary risk: Optim al >7.2; Moder ate 5.3-7 .2; High <5.3 umol/ L. Refer ence range is >3.5 umol/ L. Not Available [facility] - Manual Order Only [address] [employer] [address] [address], [place], [address], 09/28/2023 23:33:42 09/23/19 24 09/23/2023 LIPOP ROTEI N FRACT IONAT ION, NMR W/LIP ID PANEL HDL size 9.1 nm >9.0 Relat sary risk: Optim al >9.0; Moder ate 8.7-9 .0; High <8.7 nm. Refer ence range is 8.3-1 0.5 nm. Not Available [facility] - Manual Order Only [address], [place], [address], 09/28/2023 23:33:42 09/23/19 24 09/23/2023 LIPOP ROTEI N FRACT IONAT ION, NMR W/LIP ID PANEL large VLDL-P <1.5 nmol/ L <3.7 Relat sary risk: Optim al <3.7; Moder ate 3.7-6 .1; High >6.1 nmol/ L. Refer ence range is <16.0 nmol/ L. Not Available [facility] - Manual Order Only [address] [employer] [address], [place], [address], 09/28/2023 23:33:42 09/23/19 24 09/23/2023 LIPOP ROTEI N FRACT IONAT ION, NMR W/LIP ID PANEL VLDL size 46.2 nm <47.1 Relat sary risk: Optim al <47.1 ; Moder ate 47.1- 49.0; High >49.0 nm. Refer ence range is 41.1- 61.7 nm. Not Available [facility] - Manual Order Only [address] [employer] [address] [address], [place], [address], 09/28/2023 23:33:42 Result Notes None recorded. Problems Name Problem SNOMED Code Status Onset Date Resolution Date Notes Provider Name and Address Organization Details Recorded Time Clinical finding Active 2022 Podagra; W/U Status: confirmed Not Available [facility] 3 07:54:54 Body mass index 30+ - obesity 880287696 Active 2022 BMI 33.0-33.9 ,adult; W/U Status: confirmed Not Available [facility] 3 07:54:54 Low back pain 341703787 Active 2014 Low back pain; W/U Status: confirmed Not Available 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 3 07:54:54 Hyperlipi demia 46349053 Active 2014 Hyperlipi demia; W/U Status: confirmed Not Available [facility] 3 07:54:54 Lives alone 897660456 Active 2022 Elderly person living alone; W/U Status: confirmed Not Available [facility] 3 07:54:54 Decreased estrogen level 455381189 Active 2020 Ovarian failure; W/U Status: confirmed Not Available 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 3 07:54:54 Gastroeso phageal reflux disease 204065228 Active 2014 GERD (gastroes ophageal reflux disease); W/U Status: confirmed Not Available [facility] 3 07:54:54 Edema 915602584 Active 2014 Edema; W/U Status: confirmed Not Available [facility] 3 07:54:54 Recurrent falls 163920876 Active 2017 Recurrent falls; W/U Status: confirmed Not Available [facility] 3 07:54:54 Rotator cuff tear arthropat hy 678186433 Active 2014 Rotator cuff arthropat hy; W/U Status: confirmed Not Available 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 3 07:54:54 Gastric polyposis 56983921 Active 2017 Gastric polyposis ; W/U Status: confirmed Not Available [facility] 3 07:54:54 Electroca rdiogram abnormal 535774555 Active 2015 Abnormal electroca rdiogram [ECG] [EKG]; W/U Status: confirmed Not Available [facility] 3 07:54:54 Osteopeni a 117652315 Active 2014 Osteopeni a determine d by x-ray; W/U Status: confirmed Not Available [facility] 3 07:54:54 Diastolic dysfuncti on 0326174 Active 2017 Diastolic dysfuncti on; W/U Status: confirmed Not Available [facility] 3 07:54:54 Obesity 532237778 Active 2014 Obesity (BMI 30.0-34.9 ); W/U Status: confirmed Not Available [facility] 3 07:54:54 Allergic rhinitis 29395097 Active 2014 Allergic rhinitis due to allergen; W/U Status: confirmed Not Available [facility] 3 07:54:[address] Concept Active 2019 Anxiety and depressio n; W/U Status: confirmed Not Available [facility] 3 07:54:54 Constipat ion 11040483 Active 2014 Constipat ion; W/U Status: confirmed Not Available [facility] 3 07:54:54 Ischemic colitis 79223797 Active 2017 Ischemic colitis; W/U Status: confirmed Not Available [facility] 3 07:54:54 Osteoarth ritis 796267684 Active 2014 Osteoarth ritis; W/U Status: confirmed Not Available [facility] 3 07:54:54 Hypothyro idism 34322570 Active 2014 Hypothyro idism; W/U Status: confirmed Not Available [facility] 3 07:54:54 Radiologi c infiltrat e of lung 770165782 Active 2019 Pulmonary infiltrat es; W/U Status: confirmed Not Available [facility] 3 07:54:54 Polyp of colon 76929034 Active 2017 Colon polyposis ; W/U Status: confirmed Not Available [facility] 3 07:54:54 Sleep apnea 56368426 Active 2016 Sleep apnea; W/U Status: confirmed Not Available [facility] 3 07:54:54 Hyperglyc emia 01475463 Active 2014 Hyperglyc emia; W/U Status: confirmed Not Available 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 3 07:54:54 Chronic cough 78699980 Active 2022 Not Available [facility] 3 07:54:54 Insomnia 908117843 Active 2022 Not Available [facility] 3 07:54:54 Pain in right lower limb 083840602 Active 2022 Not Available [facility] 3 07:54:54 Essential hypertens ion 60380938 Active 2022 Not Available [facility] 3 07:54:54 Primary ovarian failure 72490934 Active 2020 Ovarian failure; W/U Status: confirmed Not Available [facility] 3 07:54:54 Does mobilize using cane 702096439 Active 2022 Use of cane as ambulator y aid; W/U Status: confirmed Not Available [facility] 3 07:54:54 Fall Active 2022 Unwitness ed fall; W/U Status: confirmed Not Available [facility] 3 07:54:54 Hematoma of subdural space of neuraxis 753339256 Active 2022 Subdural hematoma; W/U Status: confirmed Not Available [facility] 3 07:54:54 Closed fracture of orbit 10698389 Active 2022 Closed fracture of orbit, initial encounter ; W/U Status: confirmed Not Available [facility] 3 07:54:54 Right bundle branch block 05656017 Active 2023 Kayla Peck MD [address] [place] [address], [phone] , EVONNE Peck MD 4 12:38:26 Sarcopeni a 075914206 Active 2023 Kayla Peck MD [address] [place] [address], [phone] , EVONNE Peck MD 4 12:38:37 Chronic kidney disease stage 3 802936881 Active 2023 Kayla Peck MD [address] [place] [address], [phone] , EVONNE Peck MD 4 11:49:13 Uric acid level above reference range 96557531 Active 2023 Kayla Peck MD [address] [place] [address], [phone] , EVONNE Peck MD 4 11:50:13 Celluliti s of left lower limb 56732970793 053292 Active 2023 Kayla Peck MD [address] [place] [address], [phone] , EVONNE Peck MD 4 14:53:56 Impacted cerumen of bilateral ears 05297320112 87101 Active 2023 Kayla Peck MD [address] [place] [address], [phone] , EVONNE Peck MD 4 12:36:54 Impacted cerumen of bilateral ears 32196451604 02064 Active 2023 Kayla Peck MD [address] [place] [address], [phone] , EVONNE Peck MD 4 13:07:46 Chest pain 60042891 Active 2023 Kayla Peck MD [address] [place] [address], [phone] , EVONNE Peck MD 4 08:52:43 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 Procedures Surgical History Date Name Laterality Status Provider Name and Address Organization Details Recorded Time 3 Most Recent Mammogram completed Kayla Peck MD [address] [place] [address], [phone], EVONNE Peck MD 05/20/2023 12:35:00 Imaging Results None recorded. Procedure Notes None recorded. Medical Equipment None Reported. Allergies Allergen ID Allergen Name Allergen Category Reaction Reaction Severity Criticality Documentation Date Start Date Code Code System Note Provider Name and Address Organization Details Recorded Time 4894 penicilli n V potassium medicatio n Not available Not available Not available 03/05/202351350 5 RxNorm Not Available [facility] 3 05:34:36 4898 Avelox medicatio n Not available Not available Not available 03/05/2023 12142 6 RxNorm Not Available [facility] 3 05:34:36 4905 pravastat in medicatio n other Not available Not available 03/05/2023 16036 RxNorm React ion: alope isaura; Not Available [facility] 3 05:34:36 4916 sulfasala zine medicatio n nausea Not available Not available 03/05/2023 9524 RxNorm React ion: nause a and vomit ing; Not Available [facility] 3 05:34:36 Medications Name Sig Start Date Stop Date Status Note LastModified by Organization Details LastModified Time Pravachol 40 mg tablet 1 tablet; 40 MG; Q HS; 30 day(s) 2013 active Prepared By: Fermín ADAME 4 1:36:14 PM Not Available Not Available Not Available multivita min tablet 1 tablet; QD 2022 active Prepared By: Timothy Peck Not Available Not Available Not Available cyclobenz aprine 10 mg tablet 1 tablet; 10MG; BID; 30 active Prepared By: Drea Fernandes 01/17/20 19 07:39:17 AM Not Available Not Available Not Available furosemid e 40 mg tablet TAKE 1 TABLET BY MOUTH TWICE A DAY TAKE 80 MG ALTERNAT ING WITH 40 MG DAILY 05/19 completed Not Available Not Available Not Available Levaquin 250 mg tablet 1 tablet; 250 MG; QD active Not Available Not Available No t Available atorvasta tin 40 mg tablet TAKE 1 TABLET BY MOUTH EVERY DAY active Not Available Not Available No t Available clonidine HCl 0.1 mg tablet 1 tablet; 0.1 MG; BID active Prepared By: Fermín ADAME Not Available Not Available Not Available acetamino phen 325 mg tablet 1 tablet as needed; 325 MG; every 4 hrs active Not Available Not Available No t Available cefuroxim e axetil 250 mg tablet 1 tablet; 250 MG; BID 2019 active Prepared By: Fermín ADAME Not Available Not Available Not Available atorvasta tin 20 mg tablet 1 tablet; 20 MG; QD active Prepared By: Fermín ADAME 4 11:22:59 AM Not Available Not Available Not Available sulfasala zine 500 mg tablet 1 tablet; 500 MG; QID active Prepared By: Fermín ADAME Not Available Not Available Not Available diltiazem ER 180 mg capsule,2 4 hr,extend ed release TAKE 1 CAPSULE BY MOUTH DAILY; 180.0; 30 active Prepared By: Fermín ADAME Not Available Not Available Not Available Klor-Con 10 mEq tablet,ex tended release 1 tablet with food; 10 MEQ; BID; 90 active Prepared By: Shannan Hu 09/08/20 18 07:47:15 AM Not Available Not Available Not Available clindamyc in HCl 300 mg capsule TAKE ONE CAPSULE BY MOUTH THREE TIMES DAILY 300MG 10 01/06 completed Not Available Not Available Not Available azithromy naun 250 mg tablet 2 tablet on the first day, then 1 tablet daily for 4 days; 250 MG; Once a day; 5 day(s) active Not Available Not Available No t Available biotin 5 mg capsule 1 capsule; 5 MG; QD active Prepared By: Fermín ADAME Not Available Not Available Not Available sulfameth oxazole 400 mg-trimet hoprim 80 mg tablet 1 tablet; 400-80 MG; Once a day; 07 days 2016 active Prepared By: Fermín ADAME 10/19/2016 11:26:07 AM Not Available Not Available Not Available citalopra m 10 mg tablet 1 tablet; 10 MG; QD active Prepared By: Fermín ADAME Not Available Not Available Not Available vitamin E 100 unit capsule 1 capsule; Once a day active Prepared By: Fermín Adame Not Available Not Available Not Available Levoxyl 100 mcg tablet 1 tablet every morning on an empty stomach; 112 MCG; Once a day; 30 day(s) active Prepared By: Ericka Snell 07/27/20 11 8:53:14 AM Not Available Not Available Not Available prednison e 20 mg tablet TAKE 2 TABLETS BY MOUTH EVERY DAY FOR 10 DAYS 05/20 completed Not Available Not Available Not Available sertralin e 100 mg tablet 1 tablet; 100 MG; QD 2012 active Prepared By: Fermín ADAME 3 11:07:46 AM Not Available Not Available Not Available clindamyc in HCl 150 mg capsule 3 capsules ; 150 MG; every 8 hrs; 5 day(s) 01/06 completed Not Available Not Available Not Available Wellbutri n SR 150 mg tablet, 12 hr sustained -release 1 tablet; 150 MG; BID active Prepared By: Fermín ADAME Not Available Not Available Not Available Betsy 60 mg tablet 1 tablet; 60 MG; q. day p.r.n. active Prepared By: Fermín Adame Not Available Not Available Not Available Lanoxin 125 mcg (0.125 mg) tablet 1 tablet; 0.125 MG; Once a day active Prepared By: Fermín Adame Not Available Not Available Not Available Cardizem CD 180 mg capsule,e xtended release 1 capsule; 180 MG; QD active Prepared By: Fermín ADAME Not Available Not Available Not Available fenofibra te micronize d 200 mg capsule TAKE 1 CAPSULE BY ORAL ROUTE EVERY DAY WITH FOOD; 200 MG; 30 active Prepared By: Drea Fernandes 02/21/20 19 11:48:40 AM Not Available Not Available Not Available aspirin 81 mg tablet,de layed release 1 tablet; 81 MG; QD active Prepared By: Fermín ADAME Not Available Not Available Not Available tramadol 50 mg tablet TAKE 1 TO 2 TABLETS BY MOUTH EVERY 8 HOURS FOR 7 DAYS 01/06 completed Not Available Not Available Not Available triamcino lone acetonide 0.1 % topical cream 1 applicat ion; 0.1 %; BID; 30 days 2021 active Prepared By: Drea Fernandes 2 4:46:19 PM Not Available Not Available Not Available polyethyl beto glycol 1450 (bulk) powder as directed ; - 01/06 completed Not Available Not Available Not Available Aleve 220 mg tablet 1 tablet; 220 MG; BID PRN active Prepared By: Fermín Adame Not Available Not Available Not Available diltiazem ER 120 mg capsule,e xtended release 12 hr 1 capsule; 120 MG; QD 2019 active Prepared By: Timothy Peck Not Available Not Available Not Available levothyro xine 88 mcg tablet TAKE 1 TABLET BY MOUTH EVERY DAY active Not Available Not Available No t Available alprazola m 0.5 mg tablet TAKE 1 TABLET BY MOUTH EVERYDAY AT BEDTIME 05/20 completed Not Available Not Available Not Available alprazola m 0.25 mg tablet TAKE 1 TABLET BY MOUTH EVERY DAY AT BEDTIME active Not Available Not Available No t Available citalopra m 20 mg tablet TAKE 2 TABLETS BY MOUTH EVERY DAY active Not Available Not Available No t Available famotidin e 20 mg tablet 1 tablet; 20 MG; BID; 90 active Prepared By: Ryan Ramirez 11/23/19 18 09:26:41 AM Not Available Not Available Not Available Dilacor XR 180 mg capsule, extended release 1 capsule every morning on an empty stomach; 180 MG; QD 01/06 completed Prepared By: Fermín Adame Not Available Not Available Not Available benzonata te 100 mg capsule TAKE 1 CAPSULE BY MOUTH TWICE A DAY active Not Available Not Available No t Available erythromy naun 5 mg/gram (0.5 %) eye ointment 1 applicat ion into the lower eyelid of affected eye; 5 MG/GM; Four times a day; 10 day(s) 01/06 completed Not Available Not Available Not Available ferrous sulfate 325 mg (65 mg iron) tablet 1 tablet; 325 (65 Fe) MG; Once a day active Prepared By: Fermín ADAME Not Available Not Available Not Available Slow Fe 47.5 mg iron tablet,ex tended release 1 tablet; 160 (50 Fe) MG; QD active Prepared By: Fermín ADAME Not Available Not Available Not Available indometha naun 50 mg capsule TAKE 1 CAPSULE BY MOUTH EVERY DAY 01/06 completed Not Available Not Available Not Available docusate sodium 100 mg capsule 1 capsule as needed; 100 MG; Once a day; 30 day(s) 01/06 completed Not Available Not Available Not Available omeprazol e 20 mg capsule,d elayed release TAKE 1 CAPSULE BY MOUTH 30 MINUTES BEFORE MORNING MEAL DAILY active Not Available Not Available No t Available Zyprexa 2.5 mg tablet Take 2 tablets every day by oral route. 05/24 completed Not Available Not Available Not Available diltiazem CD 120 mg capsule,e xtended release 24 hr TAKE 1 CAPSULE BY MOUTH EVERY DAY FOR 90 DAYS 04/06 completed Not Available Not Available Not Available allopurin ol 300 mg tablet TAKE 1 TABLET EVERY DAY BY ORAL ROUTE FOR 30 DAYS, FOR GOUT. active Not Available Not Available No t Available pravastat in 20 mg tablet 1 tablet; 20 MG; Q HS; 30 day(s) 2012 active Prepared By: Fermín ADAME 06/22/20 13 3:17:26 PM Not Available Not Available Not Available furosemid e 20 mg tablet 1 tablet; 20 MG; QD active Prepared By: Fermín ADAME 03/02/20 19 10:48:15 AM Not Available Not Available Not Available metoprolo l succinate ER 25 mg tablet,ex tended release 24 hr TAKE 1 TABLET BY MOUTH EVERY DAY active Not Available Not Available No t Available Cipro 250 mg tablet 1 tablet; 250 MG; BID; 07 days 2015 active Prepared By: Fermín ADAME 09/25/19 16 02:56:02 PM Not Available Not Available Not Available Zoloft 25 mg tablet 2 tablet; 25 MG; Once a day active Prepared By: Fermín Adame Not Available Not Available Not Available sertralin e 50 mg tablet 1 tablet; 50 MG; QD active Prepared By: Fermín Adame Not Available Not Available Not Available doxycycli ne hyclate 100 mg tablet TAKE 1 TABLET BY MOUTH EVERY DAY FOR 10 DAYS 05/20 completed Not Available Not Available Not Available Miacalcin 200 unit/actu ation nasal spray 1 puff; 200 UNIT/ACT ; Once a day; 30 active Prepared By: Chitra Kessler 11/17/2011 5:06:20 PM Not Available Not Available Not Available levothyro xine 112 mcg tablet TAKE 1 TABLET BY MOUTH EVERY MORNING; 112.0; 50 active Prepared By: Fermín ADAME Not Available Not Available Not Available calcitoni n (salmon) 200 unit/mL injection solution USE 1 SPRAY ALTERNAT E NOSTRIL EVERY DAY; 200.0; 28 active Not Available Not Available No t Available B-complex with vitamin C tablet as directed ; - 05/20 completed Not Available Not Available Not Available hydrocort isone 1 % topical cream with perineal applicato r APPLY TO AFFECTED AREA TWICE A DAY FOR 5 DAYS 05/20 completed Not Available Not Available Not Available Zetia 10 mg tablet 1 tablet; 10 MG; Once a day active Prepared By: Fermín Adame Not Available Not Available Not Available aripipraz ole 15 mg tablet 05/24 completed Not Available Not Available Not Available Oyster Shell + D3 250 mg-3.125 mcg (125 unit) tablet 1 tablet with meals; 600/400; BID active Prepared By: Fermín ADAME Not Available Not Available Not Available Aspir-81 active Not Available Not Avai lable Not Available prednison e Taper; QD active Prepared By: Fermín ADAME Not Available Not Available Not Available aripipraz ole 10 mg disintegr ating tablet PLACE 1 TABLET ON TOP OF TONGUE AND DISSOLVE EVERY DAY active Not Available Not Available No t Available aripipraz ole 15 mg disintegr ating tablet Place 1 tablet every day by translin gual route. 06/19 completed Not Available Not Available Not Available Fish Oil 340 mg-1,000 mg capsule 1 capsule with a meal; 1000 MG; BID 2022 active Prepared By: Fermín ADAME 06/13/20 15 11:48:48 AM Not Available Not Available Not Available Fish Oil 300 mg-1,000 mg capsule 1 capsule; 1000 MG; Once a day; 30 day(s) active Prepared By: Fermín ADAME Not Available Not Available Not Available omeprazol e 20 mg tablet,de layed release 1tabalet ; 20 MG; QD active Prepared By: Fermín ADAME Not Available Not Available Not Available Align (B.infant is) 4 mg capsule as directed ; 4 MG active Prepared By: Timothy Peck hristine Not Available Not Available Not Available cholecalc iferol (vitamin D3) 50 mcg (2,000 unit) capsule 1 capsule; 50 MCG (2000 UT); Once a day; 30 day(s) active Prepared By: Timothy Peck hristine Not Available Not Available Not Available calcium 315 mg (as citrate)- vitamin D3 6.25 mcg (250 unit) tablet 1 tablet with meals; 315-200 MG-UNIT; BID active Prepared By: Fermín ADAME Not Available Not Available Not Available acai spence extract 500 mg capsule as directed ; 1000mg.; q. day active Prepared By: Fermín Adame Not Available Not Available Not Available Colcrys 0.6 mg tablet 1 tablet; 0.6 MG; BID 1ST DAY THEN QD THEREAFT ER; 14 days 2015 active Prepared By: Fermín ADAME 6 11:01:58 AM Not Available Not Available Not Available D3-2000 1 po bid active Not Available Not Tika ilable Not Available Tirosint 112 mcg capsule 1 tablet; 112 MCG; QD active Prepared By: Fermín ADAME Not Available Not Available Not Available B12 3000mg daily active Not Available Not Available No t Available Probiotic align active Not Available Not Tika ilable Not Available Purelax 17 gram oral powder packet TAKE 17 (SEVENTE EN) G BY MOUTH ONCE DAILY NEEDED FOR CONSTIPA TION 01/06 completed Not Available Not Available Not Available krill oil 500 mg capsule 500 MG active Prepared By: Fermín ADAME Not Available Not Available Not Available Viibryd 40 mg tablet TAKE ONE TABLET BY MOUTH EVERY DAY; 40MG; 30 active Not Available Not Available No t Available levothyro xine 100 mcg intraveno us powder for solution 1 tablet; 100 MCG; QD 2015 active Prepared By: Fermín ADAME Not Available Not Available Not Available Osteo Bi-Flex Triple Strength 2 tablets; QD active Prepared By: Fermín ADAME Not Available Not Available Not Available Poly-Tuss in AC 4 mg-10 mg-10 mg/5 mL oral liquid Take 10 mL every 6-8 hours by oral route as needed for 10 days, for cough. 2023 active Not Available Not Available Not Avai lable Metamucil 0.4 gram capsule 2 tablets; -; QD active Prepared By: Timothy Peckistine Not Available Not Available Not Available Anusol-HC 2.5 % topical cream with perineal applicato r 1 applicat ion; 2.5 %; Twice a day 2021 active Prepared By: Timothy Peck hristine 06/26/20 12:11:32 PM Not Available Not Available Not Available Vitals Date Recorded Body height Body mass index (BMI) Body weight Provider Name and Address Organization Details Last Updated DateTime 09/23/2023 135.26 cm 33.7 kg/m2 81565.56 g Barbara Peck MD 09/23/2023 12:55:51 Date Recorded Body height Body temperature Body mass index (BMI) Body weight Heart rate Oxygen saturation Oxygen saturation in Arterial blood by Pulse oximetry Systolic blood pressure Diastolic blood pressure Provider Name and Address Organization Details Last Updated DateTime 135.26 cm 97.9 [degF] 33.5 kg/m2 95304.9 7 g 68 /min 94 % 94 % 122 mm[Hg] 68 mm[Hg] Barbara Peck MD 4 12:02:34 Date Recorded Body height Body temperature Body mass index (BMI) Body weight Heart rate Oxygen saturation Oxygen saturation in Arterial blood by Pulse oximetry Provider Name and Address Organization Details Last Updated DateTime 4 135.26 cm 98 [degF] 33.7 kg/m2 35023.5 6 g 83 /min 96 % 96 % Barbara Peck MD 4 11:59:16 Date Recorded Systolic blood pressure Diastolic blood pressure Provider Name and Address Organization Details Last Updated DateTime 04/06/2024 122 mm[Hg] 70 mm[Hg] Kayla Peck MD [address] [place] [address], [phone], EVNONE Peck MD 04/06/2024 12:26:35 Date Recorded Body height Body mass index (BMI) Body weight Body temperature Respiratory rate Heart rate Oxygen saturation Oxygen saturation in Arterial blood by Pulse oximetry Systolic blood pressure Diastolic blood pressure Provider Name and Address Organization Details Last Updated DateTime 4 135.26 cm 33.3 kg/m2 61286.8 1 g 98.1 [degF] 16 /min 71 /min 96 % 96 % 118 mm[Hg] 60 mm[Hg] Kayla Peck MD [address] [place] [address], [phone], EVONNE Peck MD 4 10:29:42 Social History Question Answer Notes LastModified by Organizat ion Details LastModified Time Tobacco Smoking Status Former Smoker colleg only then social smoker til 30 s Kayla Peck MD [address] [place] [address], [phone], EVONNE Peck MD 05/20/2023 12:32:56 Do You Have An Advance Directive? Yes Information not available 01/07/2024 What Is Your Level Of Alcohol Consumption? None Information not available 05/20/2023 Are You Blind Or Do You Have Difficulty Seeing? No Utd Eye Soon Utd Dentist And Had Filling Changed And [place] Placed. Needs 2 More [place] Sfixed. Information not available 04/06/2024 What Is Your Level Of Caffeine Consumption? Occasional Still One Soda Daily Hydrating Coffee With Mg And Coconut Water. Information not available 04/06/2024 In The 14 Days Before Symptom Onset, Have You Had Close Contact With A Laboratory-confi rmed COVID-19 While That Case Was Ill? No Information not available 05/20/2023 In The 14 Days Before Symptom Onset, Have You Had Close Contact With A Person Who Is Under Investigation For COVID-19 While That Person Was Ill? No Information not available 05/20/2023 Have You Been To An Area Known To Be High Risk For COVID-19? No Information not available 05/20/2023 Are You Deaf Or Do You Have Serious Difficulty Hearing? Yes Right Ear. Just Saw ENT For Hearing. Information not available 05/24/2024 What Type Of Diet Are You Following? REGULAR Shy On Veggies Started Balance Of Nature Eats Blue Spence Muffin And Dark Vieira Jogurt. Information not available 04/06/2024 What Was The Date Of Your Most Recent Tobacco Screening? 05/24/2024 Information not available 05/24/2024 Have You Ever Been Counseled For Unhealthy Alcohol Use? No Information not available 05/20/2023 What Is Your Relationship Status? Information not available 04/06/2024 Do You Use Any Illicit Or Recreational Drugs? No Information not available 05/20/2023 Has Tobacco Cessation Counseling Been Provided? Yes Information not available 05/24/2024 On What Date Was Tobacco Cessation Counseling Provided? 05/24/2024 Information not available 05/24/2024 Have You Recently Traveled Abroad? No Information not available 05/20/2023 Do You Or Have You Ever Used Any Other Forms Of Tobacco Or Nicotine? No Information not available 05/20/2023 Sex: Unknown Functional Status Question Answer Note LastModified by Organizat ion Details LastModified Time Do you have difficulty walking or climbing stairs? No Information not available 01/07/2024 Do you have transportation difficulties? No Information not available 01/07/2024 Are you able to walk? YESASSIST cane and walker and uses rails Information not available 01/07/2024 Do you have difficulty doing errands alone? No Information not available 01/07/2024 Are you able to care for yourself? Yes Information n ot available 05/20/2023 Do you have difficulty dressing or bathing? No Information not available 01/07/2024 What is your exercise level? Occasional using her Qubie Information not available 01/07/2024 Mental Status None recorded. Family History Nothing Reported Notes:Father: Notes: d 68 yrs, of an MD, but also had lung cancer., diagnosed with Other malignant neoplasm of unspecified site; NOTES2:Other malignant neoplasm of unspecified site Mother: Notes: 83 yrs, in her sleep, possibly due to coronary disease. NOTE: Notes: She has an identical twin sister who had thyroid problems and squamous cell carcinoma of unknown primary who at 72. One sister had congestive failure and diabetes and of congestive failure at 62. One brother at 62. He was diabetic. Medical History Condition Response Hospitalizations Gynecological History Statement/Question Response Most Recent Mammogram 02/01/2023 Obstetrics History GPAL:G 0 P 0 0 0 0 Immunizations Vaccine Type Date Status Note Provider Nam e and Address Organization Details Recorded Time DTP 9 completed Not Available [facility] 03/05/2023 06:16:26 pneumococcal polysaccharide PPV23 1 completed Not Available [facility] 03/05/2023 06:16:26 pneumococcal polysaccharide PPV23 1 completed Not Available [facility] 03/05/2023 06:16:26 Influenza, split virus, trivalent, PF 2 completed Not Available [facility] 03/05/2023 06:16:27 Influenza, split virus, trivalent, preservative 3 completed Not [facility] 03/05/2023 06:16:27 Influenza, split virus, trivalent, PF 4 completed Not [facility] 03/05/2023 06:16:27 zoster live 5 completed Not Available [facility] 03/05/2023 06:16:27 Influenza, split virus, trivalent, PF 5 completed Not Available [facility] 03/05/2023 06:16:27 Influenza, split virus, trivalent, PF 6 completed Not [facility] 03/05/2023 06:16:27 pneumococcal polysaccharide PPV23 6 completed Not [facility] 03/05/2023 06:16:27 Influenza, split virus, trivalent, PF 7 completed Not Available [facility] 03/05/2023 06:16:27 Influenza, split virus, trivalent, preservative 8 completed Not Available [facility] 03/05/2023 06:16:27 pneumococcal polysaccharide PPV23 8 completed Not Available [facility] 03/05/2023 06:16:27 DTaP 8 completed Not Available [facility] 03/05/2023 06:16:27 Influenza, split virus, trivalent, PF 9 completed Not Available [facility] 03/05/2023 06:16:27 Influenza, split virus, trivalent, PF 0 completed Not Available [facility] 03/05/2023 06:16:27 SARS-COV-2 (COVID-19) vaccine, UNSPECIFIED 1 completed Not Available [facility] 03/05/2023 06:16:28 SARS-COV-2 (COVID-19) vaccine, UNSPECIFIED 1 completed Not Available [facility] 03/05/2023 06:16:28 Influenza, split virus, trivalent, preservative 1 completed Not Available [facility] 03/05/2023 06:16:28 SARS-COV-2 (COVID-19) vaccine, UNSPECIFIED 1 completed Not Available [facility] 03/05/2023 06:16:28 Respiratory syncytial virus (RSV) MAB, unspecified 3 completed EVONNE Hernandez MD 08/27/2023 09:59:36 Influenza, adjuvanted, quadrivalent, PF 3 completed Kayla Peck MD [address] [place] [address], [phone], EVONNE Peck MD 12/10/2023 14:35:06 RSV, recombinant, protein subunit RSVpreF, adjuvant reconstituted, 0.5 mL, PF 3 completed Kayla Peck MD [address] [place] [address], [phone], EVONNE Peck MD 12/10/2023 14:35:21 Pneumococcal conjugate PCV20, polysaccharide FTS157 conjugate, adjuvant, PF 4 completed EVONNE Keith MD 01/07/2024 13:17:39 zoster recombinant 1 completed Kayla Peck MD [address] [place] [address], [phone], EVONNE Peck MD 04/06/2024 11:56:15 zoster recombinant 1 completed Kayla Peck MD [address] [place] [address], [phone], EVONNE Peck MD 04/06/2024 11:56:23 Influenza, MDCK, trivalent, preservative 4 completed Kayla Peck MD [address] [place] [address], [phone], EVONNE Peck MD 05/26/2024 08:49:58 Past Encounters Encounter ID Performer Location Encounter Start Date Encounter Closed Date Diagnosis/Indication Diagnosis SNOMED-CT Code Diagnosis ICD10 Code Diagnosis Note [id number] Kayla Peck MD Main Office [address] [place] [id number] 03/26/2023 09:27:28 04/07/2023 16:17:07 Cardiac arrhythmia 014776093 I49.9 [id number] Kayla Peck MD Main Office [address] [place] [id number] 05/20/2023 12:05:59 05/20/2023 13:10:07 Chronic cough 93704337 R05.3 Lives alone 112264532 Z6 0.2 Lizzy lew moving to the [facility] Insomnia 115436531 G47.0 0 Pain in ri ght lower limb 370972915 M79.604 Right IT band inflamed. declined therapy. will try the tennis ball pressure Hypothyroidism 49755948 E03.9 Feels good on dose Hyperlipidemia 23244640 E78.5 Reviewed previous cardio IQ which was fine Essential hypertension 65384085 I10 Stable on meds [id number] Barbara Jha Main Office [address] [place] [id number] 9 09/23/2023 12:27:26 09/23/2023 12:56:03 [id number] Kayla Peck MD Main Office [address] [place] [id number] 01/07/2024 11:52:30 01/07/2024 15:40:33 Adult health examination 583617972 Z00.00 As above. Gave my tips for a healthier you sheet. Reviewed labs and workup with patient. Chronic ki dney disease stage 3 416876870 N18.30 Please make sure you drink 64 ounces of water daily and avoid processed foods including sugar, dairy, and gluten Does mobil ize using cane 768999673 Z99.89 Please increase your QB to twice a day Hyperlipidemia 56915098 E78.5 Labs are good except for particle number. Please avoid the processed foods as above Hypothyroidism 82005411 E03.9 Feels good on dose. Check dose next visit Paroxysmal supraventricular tachycardia 85236724 I47.10 Stable on meds Body mass index 30+ - obesity 799294365 Z68.32 Does use hearing aid 285 412719 Z97.4 Encouraged to use when in public Administra tion of pneumococcal vaccine 94838716 Z23 Received pneumonia 20 today Advance di rective discussed with patient 641090161 Z71.89 Has in her will Impacted c erumen of bilateral ears 3083893703 947673 H61.23 Please obtain hydrogen peroxide and water 50-50 mix and insert 3 drops in bilateral ears every other day to prevent wax buildup Sarcopenia 869311816 M62 .84 Please get a ball to squeeze to build up muscle in your hands and double your QB to twice a day to strengthen your legs. Uric acid level above reference range 06738859 E79.0 Gout elevated to 8.6 and had recent gouty attack. Will start preventati ve meds. [id number] Barbara Jha Main Office [address] [place] [address] [id number] 01/07/2024 13:13:40 01/07/2024 13:16:14 Administration of pneumococcal vaccine 93550531 Z23 Received pneumonia 20 today [id number] Kayla Peck MD Main Office [address] [place] [address] [id number] 04/06/2024 11:36:36 04/06/2024 13:11:21 Chronic kidney disease stage 3 767865033 N18.30 drinking her water utd renal Does mobil ize using cane 619011640 Z99.89 Please increase your QB to twice a day Essential hypertension 96299267 I10 Stable on meds Hyperlipidemia 86460231 E78.5 Labs are good except for particle number. Please avoid the processed foods as above Hypothyroidism 21202574 E03.9 Feels good on dose. Check dose next visit Lives alone 987436272 Z6 0.2 moving Osteopenia 812449446 M85 .80 utd bone density. Recurrent falls 93179322 2 R29.6 Uric acid level above reference range 95954039 E79.0 Gout elevated to 8.6 started allopurino l. 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 will get soon [id number] Kayla Peck MD Main Office [address] [place] [id number] 05/24/2024 10:21:26 05/26/2024 11:09:48 Screening for malignant neoplasm of breast 652514275 Z12.39 Due for mmg and she knows. will get soon Administra tion of influenza vaccine 05987523 Z23 Post-disch arge follow-up 815141581 Z09 Improved Chest pain 75230612 R07. 9 Resolved and negative workup in the hospital. Delusional disorder 4850 0005 F22 Improved on Abilify and citalopram . I have been in touch with her senior consulting services associate. Health Concerns Section Related Observation LastModified by Organization Detai ls LastModified Time None Recorded Concern Status LastModified by Organization Details LastModified Time None Recorded Advance Directives Directive Y: Payers Encounter Date Sequence Insurance Name Policy Number Policy Dickens Covered Member ID Dickens Member ID Guarantor Name 09/23/2023 1 [place]ICARE [place] Radha Luong Anthony [id number] 1 Radha Cherise Anthony 09/23/2023 2 AETNA & AETNA/ HEALTHCARE Radha Cherise Cruz [id number] Radha Cherise Cruz 01/07/2024 1 [place] Radha Cherise Cruz [id number] 1 Radha D Anthony 01/07/2024 2 AETNA & AETNA/ HEALTHCARE Radha Cherise Cruz [id number] Radha Cherise Cruz 01/07/2024 1 [place] Radha Luong Anthony [id number] 1 Radha D Anthony 01/07/2024 2 AETNA & AETNA/ HEALTHCARE Ardha Cherise Cruz [id number] Radha Cherise Cruz 04/06/2024 1 [place] Radha Cherise Cruz [id number] 1 Radha Cherise Cruz 04/06/2024 2 [employer] [facility] (MEDICARE SUPPLEMENT) Radha Cherise Cruz [id number] Radha Cherise Cruz 05/24/2024 2 [employer] (MEDICARE SUPPLEMENT) Radha Cherise Cruz [id number] Radha Cherise Cruz 05/24/2024 1 [place] Radha Cherise Cruz [id number] 1 Radha Cherise Cruz Notes Date Note Type Note Provider Name and Address Organization Details Recorded Time 4 text/html Your myeloperoxidase is slightly elevated. Your cholesterol is to goal except her LDL particle number is just outside of normal range. Your kidney function is slightly out of range and your uric acid is elevated.Monitoring her bp at home which has been controlledDue for mmg soon Kayla Peck MD [address] [address], [place], [address], [place] - Kayla Peck MD 01/07/2024 13:11:35 4 text/html due for mmg.saw eye and entchecked her med list to mine. not taking diltiazem.taking balance of nature x 2 monthsto move this fall. excitedfeeling well overallstarted allopurinol due to elevated uric acidhappy with citalopramstable on thyroid doseno tachycardia on metoprololrequesting I check labs for renal doc Kayla Peck MD [address] [place] [address], [phone], EVONNE Peck MD 04/08/2024 17:18:28 4 text/html to see eye soon and utd ent for hearing.weight stableWas hospitalized for chest pain and while there was noted to be delusional. She then was transferred to the psychiatric unit at [facility].She was started on Abilify and citalopram.She is back home living alone and her cousin is coming to stay with her for a week. She is doing well. She drove here today. She plans on moving to the [facility]. She has been in contact with her counselor in her senior services admissions representative.She would like a flu vaccine today.The delusions are chronic but improved from the acuteness for which she was hospitalized. Kayla Peck MD [address] [place] [address], [phone], EVONNE Peck MD 05/26/2024 08:55:38 OBGyn Episode No OBEpisode recorded.
--- OUTSIDE RECORDS SUMMARY | 2024-10-08 14:20 | XMS_ITS | Clinical Summary ---
Author Organization [facility] Address [address], [address] [address] Phone Care Team Providers Care Manager Quantitative Name Role Phone Fermín Adame MD Primary Care Provider Jeanne blanton Allergies Active Allergy Reactions Criticality Noted Date Comments Moxifloxacin Nausea 12/16/2017 Clarithromycin Nausea 12/16/2017 Penicillins Swelling 12/16/2017 Caused throat to swell Sulfasalazine Nausea 12/16/2017 Medications mesalamine (LIALDA) 1.2 GM Tablet Delayed Response Take 4 tabs daily 120 Tab 8 Active Additional Information Patient not taking.Reported on 12/16/2017 sulfaSALAzine (AZULFIDINE) 500 MG Tablet Take 1 Tab by mouth 4 times daily. 120 Tab 3 8 Active Additional Information Patient not taking.Reported on 12/16/2017 ALPRAZolam (XANAX) 0.5 MG Tablet Take by mouth. Activ e atorvastatin (LIPITOR) 40 MG Tablet Take by mouth. Activ e cyclobenzaprine (FLEXERIL) 10 MG Tablet Take by mouth. 3 Active dilTIAZem (DILACOR XR) 180 MG CAPSULE SR 24 HR Take by mouth. Activ e fenofibrate micronized (LOFIBRA) 200 MG Capsule Take by mouth. Acti ve [place]-3 Fatty Acids (OMEGA-3 FISH OIL) 1000 MG Capsule Take by mouth. Acti ve levothyroxine (SYNTHROID) 125 MCG Tablet Take 88 mcg by mouth. Active furosemide (LASIX) 40 MG Tablet Take by mouth. Activ e omeprazole (PRILOSEC) 20 MG CAPSULE DELAYED RELEASE Take by mouth. Active FERROUS SULFATE PO Take 250 mg by mouth daily. 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 Gender Identity Not on file Sexual Orientation Not on file Last Filed Vital Signs Vital Sign Reading Time Taken Comments Blood Pressure 118/74 12/16/2017 2:37 PM CDT Pulse - - Temperature 36.2 ??C (97.1 ??F) 12/16/2017 2:37 PM CD T Respiratory Rate 16 12/16/2017 2:37 PM CDT Oxygen Saturation - - Inhaled Oxygen Concentration - - Weight 62.1 kg (136 lb 14.4 oz) 12/16/2017 2:37 PM CDT Height 139.7 cm (4' 7 ) 12/16/2017 2:37 PM CDT Body Mass Index 31.82 12/16/2017 2:37 PM CDT Plan of Treatment Health Maintenance Due Date Last Done Comments DEXA Bone Density 1940 Hepatitis C Virus (HCV) Screening 1940 TdaP Immunization 1940 Zoster Immunization (2 of 3) 02/01/2015 12/07/2014 Respiratory Syncytial Virus (RSV) Immunization (Adult) (1 - 1-dose 75+ series) 2015 Pneumococcal Immunization (50+ years) (2 of 2 - PPSV23) 05/26/2017 05/26/2016 Influenza Immunization (#1) 05/14/202401/2017, 05/26/2016, 08/29/2015 SARS-COV-2 Immunization ( season) 2024 07/09/2021, 12/12/2020, 11/09/2020 Pneumococcal Immunization Combined Discontinued 05/26/2016 Hepatitis B Immunization Aged Out No longer eligible based on patient's age to complete this topic Meningococcal Immunization (ACWY) Aged Out No longer eligible based on patient's age to complete this topic Rotavirus Immunization Aged Out No lo nger eligible based on patient's age to complete this topic Insurance MEDICARE [facility] Care Teams Manager Quantitative Relationship Specialty Start Date End Date Fermín [place] [address] [facility] [place] [address] PCP - General 09/22/17
--- OUTSIDE RECORDS SUMMARY | 2024-10-08 14:20 | XMS_ITS | Encounter Summary ---
Author Organization [facility] Address [address] [place] [address] Care Team Providers Care Presales Consultant Name Role Phone Bright Llamas MD Unavailable Mily Douglas MD Unavailable [phone] Fermín Adame MD Primary Care Provider [phone] Todd Han MD Unavailable [phone] Radha Joshua MD Unavailable [phone] Care, [facility] Kidney Unavailable Fermín Adame MD Unavailable [phone] Kayla Peck MD Unavailable [phone] Kayla Peck MD Primary Care Provider [phone] Encounter Details Date Type Department Care Team (Late st Contact Info) Description 10/29/2011 [facility] Outpatient Visit [facility] Orthopedics [address] [address] [place] [address] [address] Social History Tobacco Use Types Packs/Day Years Used Date Smoking Tobacco: Never Alcohol Use Standard Drinks/Week Comments Not Asked 0 (1 standard drink = 0.6 oz pur e alcohol) Sex and Gender Information Value Date Recorded Sex Assigned at Not on file Gender Identity Not on file Sexual Orientation Not on file documented as of this encounter Plan of Treatment Not on file documented as of this encounter Visit Diagnoses Not on filedocumented in this encounter Care Teams Presales Consultant Relationship Specialty Start Date End Date eFrmín Adame MD [address] [place] [address] PCP - General Internal Medicine 03/21/20 03/02/23 Fermín Adame MD [address] [place] [address] PCP - [facility] 04/20/22 10/19/22 Kayla Peck MD [address] [place] [address] PCP - [facility] 10/20/22 06/30/24 Kayla Peck MD [address] [place] [address] PCP - General Internal Medicine 03/03/23 Bright Llamas MD Orthopedic Surgery 07/24/11 [place] [address] [facility] [address] [place] [address] Orthopedic Surgery 05/23/13 [place] [address] [facility] [address] [place] [address] Pulmonary Disease 04/24/20 [place] [address] [place] [address] Nephrology 04/24/20 Care, [facility] Kidney Care Management 04/15/22 documented as of this encounter
--- OUTSIDE RECORDS SUMMARY | 2024-10-08 14:20 | XMS_ITS ---
Author Organization [facility] Address [address] [place] [address] Care Team Providers Care Landfill Gas Collection Operator Name Role Phone Kayla Peck Primary Care Provider Unavaila KELIN Bonner Unavailable [phone] Allergies Allergen (clinical drug ingredient) Drug/Non Drug Allergy documented on EMR Reaction Allergy Type Onset Date Status amoxicillin Amoxicillin unspecified Drug Allergy A ctive moxifloxacin Avelox Unknown Drug Allergy Acti ve Biaxin unspecified Drug Allergy Activ e penicillin V Penicillin V Potassium unspecified Drug Allergy Active sulfasalazine sulfaSALAzine unspecified Drug Allergy Active moxifloxacin Moxifloxacin unspecified Drug Allergy Active Penicillin Unknown Drug Allergy Active Medications Medication SIG (Take, Route, Frequency, Duration) Notes Start Date End Date Status Centrum Silver - 1 tablet Orally Once a day Active Citalopram Hydrobromide 10 MG 1 tablet Orally Once a day Active Atorvastatin Calcium 40 MG 1 tablet Oral ly Once a day Active Aspirin Adult Low Dose 81 MG 1 tablet Orally Once a day Active Fenofibrate 200 MG 1 capsule with a usama l Orally Once a day Active Slow Release Iron 50 MG 1 tablet Orally Once a day Active dilTIAZem HCl ER Coated Beads 120 MG TAKE 1 CAPSULE BY MOUTH EVERY DAY for 90 Active Metoprolol Succinate ER 25 MG 1 tablet Orally Once a day for 90 Active Levothyroxine Sodium 88 MCG 1 tablet in the morning on an empty stomach Orally Once a day Active Furosemide 40 MG TAKE 1 TABLET BY CINDY TH TWICE A DAY TAKE 80 MG ALTERNATING WITH 40 MG DAILY 90 for 90 Active Benzonatate 100 MG 1 capsule as needed Orally Three times a day for 1 Active Xanax 0.5 MG 1-2 tablets Orally a t bedtime as needed for 1 Active Famotidine 20 MG 1 tablet as needed O rally Once a day for 1 Active Encounters Encounter Location Date Provider Diagnosis [facility] [address] [place] [address] 08/02/2023 KELIN JOSHUA Chronic kidney disea se, stage 4 (severe) N18.4 ; Hyperlipidemia, unspecified E78.5 ; Hypertensive chronic kidney disease with stage 1 through stage 4 chronic kidney disease, or unspecified chronic kidney disease I12.9 ; Proteinuria, unspecified R80.9 ; Depressive disorder F32.9 ; Edema R60.9 ; Anemia, unspecified type D64.9 ; Renal osteodystrophy N25.0 and Vitamin D deficiency, unspecified E55.9 Assessments Encounter Date Diagnosis (ICD Code) Assessment Notes Treatment Notes Treatment Clinical Notes Section Notes 08/02/2023 Chronic kidney disease, stage 4 (severe) (ICD-10 - N18.4) 08/02/2023 Hyperlipidemia, unspecified (ICD-10 - E78.5) 08/02/2023 Hypertensive chronic kidney disease with stage 1 through stage 4 chronic kidney disease, or unspecified chronic kidney disease (ICD-10 - I12.9) 08/02/2023 Proteinuria, unspecified (ICD-10 - R80.9) 08/02/2023 Depressive disorder (ICD-10 - F32.9) 08/02/2023 Edema (ICD-10 - R60.9) 08/02/2023 Anemia, unspecified type (ICD-10 - D64.9) 08/02/2023 Renal osteodystrophy (ICD-10 - N25.0) 08/02/2023 Vitamin D deficiency, unspecified (ICD-10 - E55.9) Plan Of Treatment No Information Progress Notes * ABRAHAN ANGELO DDOB:1940 (84 yo F)Acc No.[id number]:08/02/2023 Progress Notes Patient:?ABRAHAN ANGELO Provider:?Kelin Joshua MD :1940???Age:83 Y???Sex:Female D ate:08/02/2023 Address:[address] [place] [address] [facility] Pcp:Kayla Peck Subjective: * Chief Complaints: * ??? * Active Problem List N18.4 Chronic kidney disea se, stage 4 (severe) Onset Date:11/12/2017Modified On:05/10/2022 Status:confirmedClinical Status:active E78.5 Hyperlipidemia, unsp ecified Onset Date:11/12/2017 Status:confirmedClinical Status:active I12.9 Hypertensive chronic kidney disease with stage 1 through stage 4 chronic kidney disease, or unspecified chronic kidney disease Onset Date:11/12/2017Modified On:05/10/2022 Status:confirmedClinical Status:active R80.9 Proteinuria, unspeci fied Onset Date:11/12/2017Modified On:05/10/2022 Status:confirmedClinical Status:active F32.9 Depressive disorder Onset Date:12/19/2018 Status:confirmedClinical Status:active R60.9 Edema Onset Date:04/11/2018Modified On:05/10/2022 Status:confirmedClinical Status:active D64.9 Anemia, unspecified type Modified On:05/10/2022 Status:confirmed N25.0 Renal osteodystrophy Modified On:05/10/2022 Status:confirmed E55.9 Vitamin D deficiency , unspecified Modified On:05/10/2022 Status:confirmed * Medical History:?Chronic kid nancy disease hypertension, SVT 2010 in 2010, Dyslipidemia, Impaired glucose tolerance, Obesity, Depression, GERD, Hypothyroidism. * Medications:?Taking Slow Rel ease Iron(Ferrous Sulfate ER) 50 MG Tablet Extended Release 1 tablet Orally Once a day , Taking Levothyroxine Sodium 88 MCG Tablet 1 tablet in the morning on an empty stomach Orally Once a day , Taking Fenofibrate 200 MG Capsule 1 capsule with a meal Orally Once a day , Taking Citalopram Hydrobromide 10 MG Tablet 1 tablet Orally Once a day , Taking Centrum Silver(Multiple Vitamins-Minerals) - Tablet 1 tablet Orally Once a day , Taking Atorvastatin Calcium 40 MG Tablet 1 tablet Orally Once a day , Taking Aspirin Adult Low Dose(Aspirin) 81 MG Tablet Delayed Release 1 tablet Orally Once a day , Taking Benzonatate 100 MG Capsule 1 capsule as needed Orally Three times a day , Taking Famotidine 20 MG Tablet 1 tablet as needed Orally Once a day , Taking Xanax 0.5 MG Tablet 1-2 tablets Orally at bedtime as needed , Taking Metoprolol Succinate ER 25 MG Tablet Extended Release 24 Hour 1 tablet Orally Once a day , Taking dilTIAZem HCl ER Coated Beads 120 MG Capsule Extended Release 24 Hour TAKE 1 CAPSULE BY MOUTH EVERY DAY , Taking Furosemide 40 MG Tablet TAKE 1 TABLET BY MOUTH TWICE A DAY TAKE 80 MG ALTERNATING WITH 40 MG DAILY 90 , Medication List reviewed and reconciled with the patient * Allergies:?Amoxicillin: unsp ecified - Allergy, Biaxin: unspecified - Allergy, Moxifloxacin: unspecified - Allergy, Penicillin V Potassium: unspecified - Allergy, sulfaSALAzine: unspecified - Allergy, Penicillin, Avelox. Objective: * Vitals:? Assessment: * Assessment: 1.?Chronic kidney disease, s tage 4 (severe) - N18.4???2.?Hyperlipidemia, unspecified - E78.5???3.?Hypertensive chronic kidney disease with stage 1 through stage 4 chronic kidney disease, or unspecified chronic kidney disease - I12.9???4. Proteinuria, unspecified - R80.9???5.?Depressive disorder - F32.9???6.?Edema - R60.9???7.?Anemia, unspecified type - D64.9???8.?Renal osteodystrophy - N25.0???9.?Vitamin D deficiency, unspecified - E55.9??? Plan: * Treatment: * * Electronic signature of JAYLIN JOSHUA MD on 10/08/2024 at 02:20 PM MEAT CLERK Sign off status: Pending * Provider:?Kelin Joshua MD Date:?08/02 Generated for Reji matute/Pj/Mac on:?10/08/2024 02:20 PM MEAT CLERK
--- OUTSIDE RECORDS SUMMARY | 2024-10-08 14:20 | XMS_ITS | Patient Health Record ---
Author Organization [facility] Address [address] [place] [id number] Care Team Providers Care Tunneller Name Role Phone Kayla Peck Primary Care Provider KELIN Narayan Unavailable [phone] Allergies Allergen (clinical drug ingredient) Drug/Non Drug Allergy documented on EMR Reaction Allergy Type Onset Date Status amoxicillin Amoxicillin unspecified Drug Allergy A ctive moxifloxacin Avelox Unknown Drug Allergy Acti ve Biaxin unspecified Drug Allergy Activ e penicillin V Penicillin V Potassium unspecified Drug Allergy Active sulfasalazine sulfaSALAzine unspecified Drug Allergy Active moxifloxacin Moxifloxacin unspecified Drug Allergy Active Penicillin Unknown Drug Allergy Active Reason For Referral No Information Medications Medication SIG (Take, Route, Frequency, Duration) Notes Start Date End Date Status Xanax 0.5 MG 1-2 tablets Orally a t bedtime as needed for 1 Active Famotidine 20 MG 1 tablet as needed O rally Once a day for 1 Active Benzonatate 100 MG 1 capsule as needed Orally Three times a day for 1 Active Aspirin Adult Low Dose 81 MG 1 tablet Orally Once a day Active Fenofibrate 200 MG 1 capsule with a usama l Orally Once a day Active Levothyroxine Sodium 88 MCG 1 tablet in the morning on an empty stomach Orally Once a day Active dilTIAZem HCl ER Coated Beads 120 MG 1 capsule Orally Once a day for 90 days Active Slow Release Iron 50 MG 1 tablet Orally Once a day Active Furosemide 40 MG TAKE 1 TABLET BY CINDY TWICE A DAY TAKE 80 MG ALTERNATING WITH 40 MG DAILY 90 for 90 Active Metoprolol Succinate ER 25 MG 1 tablet Orally Once a day for 90 Active Atorvastatin Calcium 40 MG 1 tablet Oral ly Once a day Active Centrum Silver - 1 tablet Orally Once a day Active Citalopram Hydrobromide 10 MG 1 tablet Orally Once a day Active Immunizations Vaccine Route Administration Date Status Comme nts Influenza, high dose seasonal Unknown 05/14/2017 Admini stered Influenza, high dose seasonal Unknown 06/01/2018 Admini stered Influenza, high dose seasonal Unknown 05/14/2019 Admini stered Influenza, high dose seasonal Unknown 05/14/2020 Admini stered Problems Problem Type SNOMED Code ICD Code Onset Dates Problem Status W/U Status Risk Notes Problem 32963839 Vitamin D deficiency, unspecified (E55.9) Active confirmed Problem 92274601 Renal osteodystrophy (N25.0) Active confirmed Problem 800428449 Anemia, unspecified type (D64.9) Active confirmed Problem Hyperlipidemia (23521343) Hyperlipidemia, unspecified (E78.5) 11/13/19 18 Active confirmed Problem Chronic kidney disease due to hypertension (111280006683306) Hypertensive chronic kidney disease with stage 1 through stage 4 chronic kidney disease, or unspecified chronic kidney disease (I12.9) 11/13/19 18 Active confirmed Problem Chronic kidney disease stage 4 (155702424) Chronic kidney disease, stage 4 (severe) (N18.4) 11/13/19 18 Active confirmed Problem Proteinuria (13535132) Proteinuria, unspecified (R80.9) 11/13/19 18 Active confirmed Problem Depressive disorder (30327062) Depressive disorder (F32.9) 12/20/19 19 Active confirmed Problem Edema (94039065) Edema (R60.9) 04/11/20 18 Active confirmed Plan Of Treatment Future Test Test Name Order Date PTH, INTACT (ICMA) AND IONIZED CALCIUM ( 08442) 01/19/2022 PTH, INTACT (ICMA) AND IONIZED CALCIUM ( 82860) 04/27/2022 COMPREHENSIVE METABOLIC PANEL (90080) Insurance Providers Payer Name Payer Address Payer Phone Subscriber Number Group Number Insured Name Patient Relationship to Insured Coverage Start Date Coverage End Date MEDICARE PART A AND B [id number] ABRAHAN ANGELO Self - patient is the insured [facility] [id number] ABRAHAN ANGELO Self - patient is the insured Medical (General) History Medical History History ICD Code Chronic kidney disease hypertension SVT 2009 in 2010 Dyslipidemia Impaired glucose tolerance Obesity Depression GERD Hypothyroidism
--- OUTSIDE RECORDS SUMMARY | 2024-10-08 14:21 | XMS_ITS | Patient Health Summary ---
Author Organization [facility] Address [address] [place] [address] Care Team Providers Care Building Admin Name Role Phone Luz Marina Llamas MD Unavailable Mily Douglas MD Unavailable Todd Han MD Unavailable Radha Joshua MD Unavailable [phone] [facility] Unavailable Kayla Peck MD Primary Care Provider [phone] Note from [facility],non-owned Affiliates and Associated Physician Practices is amultiple site organization consisting of ambulatory clinics and hospital sitesin [place], [place], [place] and [place]. This disclosure is being madepursuant to the Care Everywhere program and may not contain all information available regarding this patient. Last updated 18.[facility] Allergies * Clarithromycin(GI Discomfort,Anaphylaxis) -High Criticality * Dust Mite Extract(Rhinitis) * Moxifloxacin(Anaphylaxis) -High Criticality * Penicillins(Anaphylaxis,Angioedema) -High Criticality * Pravastatin(Other) * Sulfasalazine(Nausea and/or Vomiting) Medications * Be aware that medications may not be up to date on this document. Alwaysverify current medications with the patient. * fish oil/omega-3 fatty acids (OMEGA-3 FISH OIL) 1000 MG capsule Take 1 (one) capsule by mouth 3 times daily with meals * ALPRAZolam (Xanax) 0.25 MG tablet Take 1 (one) tablet by mouth once daily as needed for Anxiety * omeprazole (PRILOSEC) 20 MG capsule Take 1 (one) capsule by mouth daily before breakfast * atorvastatin (LIPITOR) 40 MG tablet Take 1 (one) tablet by mouth at bedtime * metoprolol succinate XL 24hr (TOPROL XL) 25 MG tablet(Started 04/11/2020) Take 1 (one) tablet by mouth once daily * dilTIAZem coated beads 24hr (Cardizem CD) 120 MG capsule(Started 03/30/2020) Take 180 mg by mouth 2 times daily * levothyroxine (SYNTHROID) 88 MCG tablet(Started 02/28/2020) Take 1 (one) tablet by mouth once daily * citalopram (CELEXA) 20 MG tablet(Started 02/06/2020) Take 2 (two) tablets by mouth once daily * MULTIPLE VITAMIN PO * furosemide (Lasix) 40 MG tablet(Started 01/21/2023) TAKE 1 TABLET BY MOUTH TWICE A DAY TAKE 80 MG ALTERNATING WITH 40 MG DAILY 90 * oxyCODONE, immediate release, (Roxicodone) 5 MG tablet(Started 03/03/2023) Take 1 (one) tablet by mouth every 6 hours as needed * acetaminophen (Tylenol) 325 MG tablet(Started 03/04/2023) Take 2 (two) tablets by mouth every 6 hours Maximum allowable Acetaminophen amount = 4 Grams (4000 mg) / 24 hours. * aspirin EC (Ecotrin) 81 MG tablet(Started 03/12/2023) Take 1 (one) tablet by mouth once daily * docusate sodium (Colace) 100 MG capsule(Started 03/04/2023) Take 1 (one) capsule by mouth 2 times daily * polyethylene glycol 3350 (Miralax) 17 g packet(Started 03/03/2023) Take 17 (seventeen) g by mouth once daily as needed for Constipation * erythromycin (Romycin) 5 MG/GM ophthalmic ointment(Started 03/04/2023) Instill into both eyes 4 times daily Active Problems Problem Noted Date Diagnosed Date Benign neoplasm of colon 03/03/2023 023 Chronic renal insufficiency 03/03/202302/12 Obesity 03/03/2023 03/03/2023 Diastolic dysfunction 03/03/2023 03/03/2023 Edema 03/03/2023 03/03/2023 Gastric polyposis 03/03/2023 03/03/2023 Hyperglycemia 03/03/2023 03/03/2023 Ischemic colitis 03/03/2023 03/03/2023 Non-toxic uninodular goiter 03/03/2023 0609/2022 Osteopenia 03/03/2023 03/03/2023 Ovarian failure 03/03/2023 03/03/2023 Podagra 03/03/2023 03/03/2023 Primary insomnia 03/03/2023 03/03/2023 Pulmonary fibrosis 03/03/2023 03/03/2023 Rotator cuff tear arthropathy 03/03/2023 Osteoarthrosis 03/03/2023 03/03/2023 Mixed anxiety and depressive disorder 03/03/2023 03/03/2023 Fall, initial encounter 03/02/2023 Subdural hematoma 03/02/2023 Contusion of knee 10/11/2014 DJD (degenerative joint disease), cervical 05/23 Shoulder impingement 05/23/2013 Gastroesophageal reflux disease 01/04/2013 Postoperative hypothyroidism 01/04/2013 Osteoarthritis, knee 07/24/2011 Chronic kidney disease, stage III (moderate) 03/03/2023 Allergic rhinitis 10/27/2005 03/03/2023 Other depressive disorder 07/23/2005 Esophageal reflux 07/23/2005 03/03/2023 Benign essential hypertension 06/19/2004 Atrial paroxysmal tachycardia 05/28/2004 Hypothyroidism 09/10/2003 03/03/2023 Mixed hyperlipidemia 06/11/2003 03/03/2023 Immunizations * INFLUENZA VACCINE, HIGH-DOSE, QUADR. (FLUZONE HIGH-DOSE QUADRIVALENT; 65Y+), 0.7 ML (HD-IIV4)(Given 05/07/2020) * INFLUENZA VACCINE, TRIV. (FLUZONE; FLULAVAL; FLUARIX; AFLURIA TRIVALENT; 6MO+), 0.5 ML (IIV3)(Given 06/02/2014) * TDAP (7yrs+)(Given 03/02/2023) Social History Tobacco Use Types Packs/Day Years Used Date Smoking Tobacco: Former Cigarettes 0.3 21 0 09/13/1939 - 09/13/1960 Smokeless Tobacco: Never Tobacco Cessation:Counseling Given: No Comments:SOCIAL Alcohol Use Standard Drinks/Week Comments Yes 0.8 (1 standard drink = 0.6 oz p ure alcohol) SOCIAL Sex and Gender Information Value Date Recorded Sex Assigned at Not on file Gender Identity Not on file Sexual Orientation Not on file Last Filed Vital Signs Vital Sign Reading Time Taken Comments Blood Pressure 122/61 04/06/2023 3:57 PM CDT Pulse 55 04/06/2023 3:57 PM CDT Temperature 36.7 ??C (98 ??F) 04/06/2023 3:57 PM CDT Respiratory Rate 18 04/06/2023 3:57 PM CDT Oxygen Saturation 97% 04/06/2023 3:57 PM CDT Inhaled Oxygen Concentration - - Weight 63.6 kg (140 lb 3.2 oz) 04/06/2023 3:57 P M CDT Height 137.2 cm (4' 6 ) 04/06/2023 3:57 PM CDT Body Mass Index 33.8 04/06/2023 3:57 PM CDT Medical Devices Implanted Type Area Stamping Mill Tender Device Identifier Shelf Expiration Date Model / Serial / Lot [place] Bone Grambling Hv Implanted:Qty: 1 on 05/30/2014 by Luz Marina Llamas MD at [facility] Right: Knee [employer] 01/28/2016 [id number] / / [id number] Butn Pat Arcom Wire Polyeth Xsm 28 X 8 Implanted:Qty: 1 on 05/30/2014 by Luz Marina Llamas MD at [facility] Right: [employer]nee [employer] 02/27/2019 [id number] / / [id number] Ty Tibial I Beam Fix Bar 63mm Implanted:Qty: 1 on 05/30/2014 by Luz Marina Llamas MD at [facility] Right: [employer]nee [employer] 11/27/2021 [id number] / / [id number] Kn Ins Vangurd Fem Cocr R-Intlok 57.5mm Implanted:Qty: 1 on 05/30/2014 by Luz Marina Llamas MD at [facility] Right: [employer] 12/29/2023 [id number] / / [id number] Marla Ant Stblzd Brg 14mm X 63mm Implanted:Qty: 1 on 05/30/2014 by Luz Marina Llamas MD at [facility] Right: [employer] 10/30/2014 [id number] / / [id number] Procedures * CT HEAD WO CONTRAST(Performed 04/06/2023) Performed for Subdural hematoma (HCC) * PHOSPHORUS BLOOD(Performed 03/04/2023) * MAGNESIUM BLOOD(Performed 03/04/2023) * BASIC METABOLIC PANEL (CALCIUM TOTAL)(Performed 03/04/2023) * CBC W AUTO DIFFERENTIAL(Performed 03/04/2023) * PHOSPHORUS BLOOD(Performed 03/03/2023) * MAGNESIUM BLOOD(Performed 03/03/2023) * BASIC METABOLIC PANEL (CALCIUM TOTAL)(Performed 03/03/2023) * CBC W AUTO DIFFERENTIAL(Performed 03/03/2023) * CT HEAD WO CONTRAST(Performed 03/02/2023) Performed for Subdural hematoma (HCC) * TRANSFUSE PLATELET PHERESIS UNIT(S)(Performed 03/02/2023) * PREPARE PLATELET PHERESIS UNIT(S)(Performed 03/02/2023) * URINE DRUG SCREEN IMMUNOASSAY(Performed 03/02/2023) * EKG 12-LEAD(Performed 03/02/2023) Performed for Fall, initial encounter * TROPONIN-I HIGH SENSITIVE REFLEX 1HOUR(Performed 03/02/2023) * TROPONIN-I HIGH SENSITIVE BASELINE + 1HR(Performed 03/02/2023) * BLOOD TYPE VERIFICATION(Performed 03/02/2023) * CT LUMBAR SPINE WO CONTRAST(Performed 03/02/2023) Performed for Fall, initial encounter * CT THORACIC SPINE WO CONTRAST(Performed 03/02/2023) Performed for Fall, initial encounter * CT CHEST ABDOMEN PELVIS W CONT(Performed 03/02/2023) Performed for Fall, initial encounter * CT CERVICAL SPINE WO CONTRAST(Performed 03/02/2023) Performed for Fall, initial encounter * CT FACIAL BONES WO CONTRAST(Performed 03/02/2023) Performed for Fall, initial encounter * CT HEAD WO CONTRAST(Performed 03/02/2023) Performed for Fall, initial encounter * XR PELVIS 1 OR 2VW(Performed 03/02/2023) Performed for Fall, initial encounter * XR CHEST 1VW PORTABLE(Performed 03/02/2023) Performed for Fall, initial encounter * TYPE + SCREEN PANEL(Performed 03/02/2023) * TEG 6S PLATELET MAPPING(Performed 03/02/2023) * TEG 6 GLOBAL HEMOSTASIS W/ LYSIS(Performed 03/02/2023) * PTT SLH(Performed 03/02/2023) * PT-INR SLH(Performed 03/02/2023) * CBC W AUTO DIFFERENTIAL(Performed 03/02/2023) * BASIC METABOLIC PANEL (CALCIUM TOTAL)(Performed 03/02/2023) * ALCOHOL ETHYL BLOOD(Performed 03/02/2023) * XR KNEE RIGHT 3VW(Performed 08/16/2020) Performed for Status post right knee replacement * CT CHEST WO CONTRAST(Performed 07/02/2020) Performed for Ground glass opacity present on imaging of lung, ILD (interstitial lung disease) (HCC) * COMPLETE PFT W/WO BRONCHODILATOR(Performed 06/05/2020) Performed for Chronic cough * CYTOLOGY NON-LEARNING AND DEVELOPMENT ADMINISTRATOR PANEL (STL)(Performed 05/23/2020) Performed for Ground glass opacity present on imaging of lung, Chronic cough * DIFFERENTIAL MANUAL BAL(Performed 05/23/2020) Performed for Ground glass opacity present on imaging of lung, Chronic cough * CELL COUNT W DIFFERENTIAL BRONCHOAVEOLAR LAVAGE(Performed 05/23/2020) Performed for Ground glass opacity present on imaging of lung, Chronic cough * RESPIRATORY PATHOGEN PANEL BY PCR(Performed 05/23/2020) Performed for Ground glass opacity present on imaging of lung, Chronic cough * CULTURE BRONCHOALVEOLAR LAVAGE QNT+GRAM STAIN(Performed 05/23/2020) Performed for Ground glass opacity present on imaging of lung, Chronic cough * CULTURE AFB+SMEAR(Performed 05/23/2020) Performed for Ground glass opacity present on imaging of lung, Chronic cough * GRAM STAIN SMEAR(Performed 05/23/2020) Performed for Ground glass opacity present on imaging of lung, Chronic cough * FUNGUS FLUORESCENT SMEAR(Performed 05/23/2020) Performed for Ground glass opacity present on imaging of lung, Chronic cough * CULTURE FUNGUS OTHER+FUNGUS SMEAR(Performed 05/23/2020) Performed for Ground glass opacity present on imaging of lung, Chronic cough * AFB SMEAR(Performed 05/23/2020) Performed for Ground glass opacity present on imaging of lung, Chronic cough * CYTOLOGY NON-LEARNING AND DEVELOPMENT ADMINISTRATOR PANEL (STL)(Performed 05/23/2020) Performed for Ground glass opacity present on imaging of lung, Chronic cough * SARS-COV-2 (COVID-19) ANTIBODY IGG(Performed 04/30/2020) Performed for Chronic cough, Ground glass opacity present on imaging of lung * QUANTIFERON-TB GOLD PLUS 1-TUBE(Performed 04/30/2020) * REF LAB-ABN TEST REFUSAL(Performed 04/30/2020) * ALLERGEN INTERPRETATION(Performed 04/30/2020) * YANELY BLOOD SCREEN W/REFLEX TITER(Performed 04/30/2020) Performed for Ground glass opacity present on imaging of lung, ILD (interstitial lung disease) ([facility]) * RHEUMATOID FACTOR BLOOD QUANTITATIVE(Performed 04/30/2020) Performed for Ground glass opacity present on imaging of lung, ILD (interstitial lung disease) ([facility]) * VITAMIN D 25-HYDROXY(Performed 04/30/2020) Performed for Vitamin D deficiency * ALLERGEN RESPIRATORY PNL REGION 8 ([place])(Performed 04/30/2020) Performed for Chronic rhinitis , Ground glass opacity present on imaging of lung, ILD (interstitiallung disease) ([facility]) * PNEUMONITIS HYPERSENSITIVE SCREEN(Performed 04/30/2020) Performed for Ground glass opacity present on imaging of lung, ILD (interstitial lung disease) ([facility]) * ERYTHROCYTE SEDIMENTATION RATE(Performed 04/30/2020) Performed for Ground glass opacity present on imaging of lung, ILD (interstitial lung disease) ([facility]) * FUNGAL ANTIBODY PANEL IMMUNODIFFUSION(Performed 04/30/2020) Performed for Ground glass opacity present on imaging of lung, ILD (interstitial lung disease) ([facility]) * COMPREHENSIVE METABOLIC PANEL(Performed 04/30/2020) Performed for Ground glass opacity present on imaging of lung, ILD (interstitial lung disease) ([facility]) * CBC W AUTO DIFFERENTIAL(Performed 04/30/2020) Performed for Ground glass opacity present on imaging of lung, ILD (interstitial lung disease) ([facility]) * ANGIOTENSIN CONVERTING ENZYME BLOOD(Performed 04/30/2020) Performed for Ground glass opacity present on imaging of lung, ILD (interstitial lung disease) ([facility]) * ECHOCARDIOGRAM 2D WITH DOPPLER(Performed 03/21/2020) Performed for Diastolic dysfunction, PSVT (paroxysmal supraventricular tachycardia) * NM MYOCARD PERF REST STRESS(Performed 03/21/2020) Performed for Chest pain, unspecified type * STRESS TEST LEXISCAN (NUCLEAR)(Performed 03/21/2020) Performed for Chest pain, unspecified type * CT CHEST WO CONTRAST(Performed 03/21/2020) Performed for Pulmonary fibrosis (HCC), Cough * XR KNEE BILAT 3VW(Performed 02/22/2018) Performed for History of bilateral knee replacement * XR SHOULDER RIGHT 2VW OR MORE(Performed 03/01/2017) Performed for Chronic right shoulder pain * VAS RIGHT VENOUS DUPLEX LE(Performed 10/11/2014) Performed for Knee joint replacement by other means * XR KNEE RIGHT 3VW(Performed 10/11/2014) Performed for Osteoarthrosis, unspecified whether generalized or localized, lower leg, Knee joint replacement by other means * XR KNEE RIGHT 3VW(Performed 07/13/2014) Performed for Knee joint replacement status, right * CARDIAC EKG ORDER(Performed 06/04/2014) * LAB RESULTS ORDER(Performed 06/04/2014) * HGB HCT PANEL(Performed 06/01/2014) * HGB HCT PANEL(Performed 05/31/2014) * ARTHROPLASTY TOTAL KNEE(Performed 05/30/2014) Performed for Osteoarthrosis, unspecified whether generalized or localized, lower leg * NEURAXIAL BLOCK(Performed 05/30/2014) * CULTURE MSSA/MRSA(Performed 05/10/2014) Performed for Preoperative examination * XR KNEE BILAT 3VW(Performed 03/29/2014) Performed for Bilateral knee pain * XR SHOULDER RIGHT 2VW OR MORE(Performed 03/27/2014) Performed for Pain in joint, shoulder region, right * XR CERVICAL SPINE 2 OR 3VW(Performed 05/23/2013) Performed for Cervicalgia * XR SHOULDER RIGHT 2VW OR MORE(Performed 05/23/2013) Performed for Pain in joint, shoulder region * XR CHEST 2VW(Performed 06/21/2012) Performed for Paroxysmal supraventricular tachycardia * XR CHEST 2VW(Performed 04/18/2009) Performed for Cough Results * CT HEAD WO CONTRAST (04/06/2023 3:09 PM CDT) Only the most recent of3 resultswithin the time period is included. Anatomical Region Laterality Modality Head Computed Tomogra phy 04/06/2023 3:29 PM CDT Impressions 04/06/2023 3:37 PM CDT IMPRESSION: 1. Resolved small left parafalcine subdural hematoma. No new hemorrhage. > Interpreting Provider: Andrei Bridges MD on 04/06/2023 3:37 PM Narrative 04/06/2023 3:37 PM CDT PROCEDURE: ??CT HEAD WO CONTRAST, DATE/TIME OF EXAM: ??04/06/2023 3:09 PM, LOCATION ??[facility] INDICATION: S06.5XAA: Subdural hematoma (CMS/HCC) ADDITIONAL CLINICAL INFORMATION: Ordering Provider Reason For Exam: ??head bleed Technologist Note: Additional: EXAMINATION: Computed tomography (CT) of the head without contrast TECHNIQUE: CT of the head was performed without contrast according to standard protocol. COMPARISON: 03/02/2023. FINDINGS: No acute intracranial hemorrhage or intra- or extra-axial fluid collections are identified. The previously seen small left parafalcine subdural hematoma has resolved. There is mild cerebral volume loss with associated ex vacuo ventricular dilatation. The basal cisterns are patent. No mass effect or midline shift is seen. The tijerina-white matter differentiation is normal. Other than bilateral cataract extractions and a chronic fracture of the right orbital floor, the visualized portions of the orbits, paranasal sinuses, and mastoids appear normal. No acute calvarial fracture is identified. Procedure Note Andrei Bridges MD - 04/06/2023 PROCEDURE: CT HEAD WO CONTRAST, DATE/TIME OF EXAM: 04/06/2023 3:09 PM, LOCATION [facility] INDICATION: S06.5XAA: Subdural hematoma (CMS/HCC) ADDITIONAL CLINICAL INFORMATION: Ordering Provider Reason For Exam: head bleed Technologist Note: Additional: EXAMINATION: Computed tomography (CT) of the head without contrast TECHNIQUE: CT of the head was performed without contrast according to standard protocol. COMPARISON: 03/02/2023. FINDINGS: No acute intracranial hemorrhage or intra- or extra-axial fluidcollections are identified. The previously seen small left parafalcine subdural hematoma has resolved. There is mild cerebral volume loss withassociated ex vacuo ventricular dilatation. The basal cisterns are patent. No mass effect or midline shift is seen. The tijerina-white matter differentiationis normal. Other than bilateral cataract extractions and a chronic fracture of the right orbital floor, the visualized portions of the orbits, paranasal sinuses, and mastoids appear normal. No acute calvarial fracture is identified. IMPRESSION: 1. Resolved small left parafalcine subdural hematoma. No new hemorrhage. > Interpreting Provider: Andrei Bridges MD on 04/06/2023 3:37 PM Ziyad Hudson MD CT ORDERABLES * (ABNORMAL) CBC W AUTO DIFFERENTIAL (03/04/2023 2:40 AM CDT) Only the most recent of4 resultswithin the time period is included. WBC 8.0 3.5 - 10.5 10? 3 /uL 03/04/2023 3:09 AM [facility] RBC 3.24(L) 3.80 - 5.20 10? 6 /uL 03/04/2023 3:09 AM [facility] Hemoglobin 9.5(L) 12.0 - 15.6 g/dL 03/04/2023 3:09 AM [facility] Hematocrit 30.8(L) 35.0 - 45.0 % 03/04/2023 3:09 AM [facility] MCV 95.1 80.7 - 98.3 fL 03/04/2023 3:09 AM [facility] MCH 29.3 26.7 - 34.0 pg 03/04/2023 3:09 AM [facility] MCHC 30.8 30.8 - 35.9 g/dL 03/04/2023 3:09 AM [facility] RDW-SD 51.3(H) 36.0 - 50.0 fL 03/04/2023 3:09 AM [facility] RDW-CV 14.7 11.2 - 14.8 % 03/04/2023 3:09 AM [facility] Platelet Count 222 150 - 400 10? 3 /uL 03/04/2023 3:09 AM [facility] MPV 9.7 9.4 - 12.9 fL 03/04/2023 3:09 AM [facility] nRBC Absolute 0.00 0 10? 3 /uL 03/04/2023 3:09 AM [facility] nRBC Auto 0.0 0 /100 WBC 03/04/2023 3:09 AM [facility] Neutrophils % 57.5 35.0 - 70.0 % 03/04/2023 3:09 AM [facility] Lymphocytes % 34.5 20.0 - 43.0 % 03/04/2023 3:09 AM [facility] Monocytes % 7.4 5.0 - 13.0 % 03/04/2023 3:09 AM [facility] Eosinophils % 0.0 0.0 - 6.0 % 03/04/2023 3:09 AM [facility] Basophil % 0.3 0.0 - 2.0 % 03/04/2023 3:09 AM [facility] Neutrophils Absolute 4.61 1.60 - 7.00 10? 3 /uL 03/04/2023 3:09 AM [facility] Lymphocyte Absolute 2.76 1.10 - 3.90 10? 3 /uL 03/04/2023 3:09 AM [facility] Monocytes Absolute 0.59 0.26 - 1.07 10? 3 /uL 03/04/2023 3:09 AM [facility] Eosinophils Absolute 0.00 0.00 - 0.47 10? 3 /uL 03/04/2023 3:09 AM [facility] Basophils Absolute 0.02 0.00 - 0.08 10? 3 /uL 03/04/2023 3:09 AM [facility] Immature Granulocytes % 0.3 0.0 - 1.0 % 03/04/2023 3:09 AM [facility] Immature Granulocytes Absolute 0.02 03/04/2023 3:09 AM [facility] Blood BLOOD SPECIMEN / Unknown Lab Venipuncture / Unknown 03/04/2023 2:40 AM CDT 03/04/2023 3:00 AM [facility] Val Mckeon MD LAB - HEMATOLOGY ORD ERABLES [facility] [address] [place] [address], [facility] [phone] * (ABNORMAL) BASIC METABOLIC PANEL (CALCIUM TOTAL) (03/04/2023 2:40 AM CDT) Only the most recent of3 resultswithin the time period is included. BUN 10 7 - 26 mg/dL 03/04/2023 3:31 AM [facility] Creatinine 0.79 0.56 - 0.96 mg/dL 03/04/2023 3:31 AM [facility] Sodium 142 136 - 145 mmol/L 03/04/2023 3:31 AM [facility] Potassium 3.3(L) 3.5 - 4.5 mmol/L 03/04/2023 3:31 AM [facility] Chloride 113(H) 98 - 107 mmol/L 03/04/2023 3:31 AM [facility] CO2 28 22 - 29 mmol/L 03/04/2023 3:31 AM [facility] Glucose 93 70 - 115 mg/dL 03/04/2023 3:31 AM [facility] Calcium 8.5 8.4 - 10.2 mg/dL 03/04/2023 3:31 AM [facility] Anion Gap 4(L) 8 - 18 03/04/2023 3:31 AM [facility] BUN/Creatinine Ratio 13 7 - 23 03/04/2023 3:31 AM [facility] Osmolality Calculated 293 270 - 300 mOsm/kg 03/04/2023 3:31 AM [facility] eGFR by CKD-EPI 75(L) >=90 mL/min/1.7 3 m2 03/04/2023 3:31 AM [facility] Blood BLOOD SPECIMEN / Unknown Lab Venipuncture / Unknown 03/04/2023 2:40 AM CDT 03/04/2023 3:01 AM CDT Val Mckeon MD LAB - CHEMISTRY DEEP ALVARADO [facility] Organization Address City/State/ZIP Co de Phone Number [facility] [address] [place] [address], [facility] [phone] * (ABNORMAL) PHOSPHORUS BLOOD (03/04/2023 2:40 AM CDT) Only the most recent of2 resultswithin the time period is included. Phosphorus 2.5(L) 2.9 - 5.1 mg/dL 03/04/2023 3:31 AM CDT [facility] Blood BLOOD SPECIMEN / Unknown Lab Venipuncture / Unknown 03/04/2023 2:40 AM CDT 03/04/2023 3:01 AM CDT Val Mckeon MD LAB - CHEMISTRY DEEP ALVARADO Performing Organization Address City/[facility]/ZIP Co de Phone Number [address] [address], [place] [phone] * MAGNESIUM BLOOD (03/04/2023 2:40 AM CDT) Only the most recent of2 resultswithin the time period is included. Magnesium 2.0 1.6 - 2.6 mg/dL 03/04/2023 3:31 AM CDT [facility] Blood BLOOD SPECIMEN / Unknown Lab Venipuncture / Unknown 03/04/2023 2:40 AM CDT 03/04/2023 3:01 AM CDT Val Mckeon MD LAB - CHEMISTRY DEEP ALVARADO Performing Organization Address City/[facility]/ZIP Co de Phone Number [address] [address], [place] [phone] * TRANSFUSE PLATELET PHERESIS UNIT(S) (03/02/2023 8:06 PM CDT) Val Mckeon MD NURSING - BLOOD PROD TRANSFUSION * PREPARE PLATELET PHERESIS UNIT(S), 1 Units (03/02/2023 7:28 PM CDT) Unit Description LR PLT Phere B7 [facility] Unit ABO A [facility] Unit Rh POS [facility] Product Number P28 [facility] Unit Donor # [id number] [facility] Unit Status transfused [facility] Product Code [id number] [facility] Blood Type Barcode 6200 [facility] Expiration Date [id number] [facility] Blood Bank BLOOD SPECIMEN / Unknown 03/02/2023 12:22 PM CDT Val Mckeon MD LAB - BLOOD BANK ORD ERABLES [facility] [address] [place] [address], [facility] [phone] * URINE DRUG SCREEN IMMUNOASSAY (03/02/2023 6:53 PM CDT) [facility] Amphetamines Screen Urine Negative Negative: < 1000 ng/mL 03/02/2023 7:28 PM CDT [facility] Barbiturates Screen Urine Negative Negative: < 200 ng/mL 03/02/2023 7:28 PM CDT [facility] Benzodiazepine Screen Urine Negative Negative: < 200 ng/mL 03/02/2023 7:28 PM CDT [facility] Opiates Urine Negative Negative: < 300 ng/mL 03/02/2023 7:28 PM CDT [facility] Cocaine Metabolites Urine Negative Negative: < 300 ng/mL 03/02/2023 7:28 PM CDT [facility] Phencyclidine Screen Urine Negative Negative: < 25 ng/ml 03/02/2023 7:28 PM CDT [facility] Cannabinoids Screen Urine Negative Negative: <50 ng/mL 03/02/2023 7:28 PM CDT [facility] Methadone Screen Urine Negative Negative: < 300 ng/mL 03/02/2023 7:28 PM T [facility] Fentanyl Screen Urine Negative Negative: <1.5 ng/mL 03/02/2023 7:28 PM T [facility] Urine URINE / Unknown Collection / Unknown 03/02/2023 6:53 PM CDT 03/02/2023 6:59 PM CDT Narrative [facility] - 03/02/2023 7:28 PM CDT The Urine Toxicology Screening Panel does not screen for Propoxyphene, Meprobamate, Carisoprodol, Trazodone, [id number] medications and/or volatiles (Acetone, Isopropanol, Methanol or Ethylene Glycol). Ethanol, Salicylate, Acetaminophen, Tricyclic Antidepressants and several therapeutic drugs may be individually assayed in serum or plasma specimen. Toxicology testing by the [facility] is an aid to medical diagnosis and treatment of patients. No documented chain of custody was maintained. Results are intended to be used for clinical purposes only. ? Jamey Venegas MD LAB - URINE CHEMISTR Y ORDERABLES [facility] [address] [place] [address], [facility] [phone] * EKG 12-LEAD (03/02/2023 4:00 PM CDT) Ventricular Rate 102 BPM [facility] MUSE Atrial Rate 102 BPM [facility] P-R Interval 180 ms [facility] QRS Duration ms 102 ms [facility] Q-T Interval ms 362 ms [facility] QTC Calculation (Bezet) 471 ms [facility] Calculated P [place] 44 degrees SL MUSE Calculated R [place] -35 degrees [facility] Calculated T [place] 95 degrees [facility] Interpretation EKG SINUS TACHYCARDIA WITH PREMATURE ATRIAL COMPLEXES LEFT AXIS DEVIATION MINIMAL VOLTAGE CRITERIA FOR LVH, MAY BE NORMAL VARIANT ( Lenin product ) POSSIBLE ANTERIOR INFARCT , AGE UNDETERMINED ABNORMAL ECG NO PREVIOUS ECGS AVAILABLE Confirmed by DRU QUEEN MD ([id number]) on 03/02/2023 5:47:27 PM [facility] 03/02/2023 4:00 PM CDT 03/02/2023 5:47 PM CDT Jamey Venegas MD ECG ORDERABLES Performing Organization Address City/[facility]/ZIP Co de Phone Number [facility] * (ABNORMAL) TROPONIN-I HIGH SENSITIVE REFLEX 1HOUR (03/02/2023 3:30 PM CDT) [facility] Troponin I High Sensitive 30(H) <=14 ng/L 03/02/2023 4:04 PM CDT [facility] Delta Troponin I HS 03/02/2023 4:04 PM CDT [facility] Comment:Delta value intentio alexis not calculated. Baseline to 1 hour specimen collection interval exceeded. Blood BLOOD SPECIMEN / Unknown Venipuncture / Unknown 03/02/2023 3:30 PM CDT 03/02/2023 3:33 PM CDT Karo Cárdenas DO LAB - CHEMISTRY ORDE KYLEZANE Performing Organization Address [facility] Co de Phone Number [address] [address], [facility] [phone] * TROPONIN-I HIGH SENSITIVE BASELINE + 1HR (03/02/2023 12:55 PM CDT) [facility] Troponin I High Sensitive 9 <=14 ng/L 03/02/2023 1:39 PM CDT [facility] Blood BLOOD SPECIMEN / Unknown Venipuncture / Unknown 03/02/2023 12:55 PM CDT 03/02/2023 1:04 PM CDT Karo Cárdenas DO LAB - CHEMISTRY ORDBoby ALVARADO Performing Organization Address [facility]/ZIP Co de Phone Number [address] [address], [place] [phone] * BLOOD TYPE VERIFICATION (03/02/2023 12:53 PM CDT) Pathologist [facility] ABO Rh A POS 03/02/2023 1:2 8 PM CDT [facility] Blood Bank BLOOD SPECIMEN / Unknown Lab Venipuncture / Unknown 03/02/2023 12:53 PM CDT 03/02/2023 1:02 PM CDT Nano Sanderson MD LAB - BLOOD BANK ORD ERABLES [facility] [address] [place] [address], [facility] [phone] * CT CHEST ABDOMEN PELVIS W CONT - Abdomen-pelvis trauma, blunt or penetrating (03/02/2023 12:49 PM CDT) Anatomical Region Laterality Modality Chest, Abdomen, Pelvis Computed Tomography 03/02/2023 12:5 3 PM CDT Impressions 03/02/2023 1:05 PM CDT Impression: No acute traumatic process in the chest, abdomen or pelvis. > Interpreting Provider: Fausto Morton on 03/02/2023 1:05 PM Narrative 03/02/2023 1:05 PM CDT PROCEDURE: ??CT CHEST ABDOMEN PELVIS W CONT, DATE/TIME OF EXAM: ??03/02/2023 12:51 PM, LOCATION ??[facility] INDICATION: Trauma ADDITIONAL CLINICAL INFORMATION: Ordering Provider Reason For Exam: Technologist Note: Additional: COMPARISON: None. TECHNIQUE: CT of the chest, abdomen, and pelvis was performed after the uneventful administration of 100 mL of Isovue 370 intravenous contrast according to standard protocol. Findings: Chest: Lower Neck and Axillae: Normal. Lungs: Scattered areas of subsegmental atelectasis and scarring. No focal consolidative changes present. No suspicious pulmonary nodules are identified. No pleural fluid or pneumothorax is present. Heart and Pericardium: ??The cardiac chambers are normal in size. No pericardial fluid or thickening is present. The coronary arteries are atherosclerotic. Mediastinum and Sharmin: No mediastinal hemorrhage is present. No enlarged lymph nodes are present. Thoracic Vasculature: The aorta and its branch vessels are atherosclerotic. Common origin of the brachiocephalic and left common carotid artery. Abdomen/pelvis: Liver: Normal. Gallbladder and Bile Ducts: Status post cholecystectomy. Mildly dilated common bile duct measuring up to 1.2 cm is likely related to post cholecystectomy status. Spleen: Normal. Pancreas: Normal. Adrenals: Thickened appearance of the adrenal glands without discrete nodularity. Kidneys: Normal. Bladder: Normal. Gastrointestinal: Small to moderate-sized hiatal hernia. The stomach and visualized loops of small bowel are unremarkable. Colonic diverticulosis without evidence of diverticulitis is seen. Normal appendix. Mesentery/Peritoneum/Retroperitoneum: No free intraperitoneal air. No free fluid in the abdomen or pelvis. Surgical cyndie noted in the anterior midabdomen. Reproductive Organs: The uterus is normal. Abdominal Vasculature: Atherosclerotic calcification of the aorta and its branch vessels. Incidental circumaortic left renal vein. Bones: Bone windows demonstrate no suspicious lytic or blastic lesions. The visible osseous structures are intact. Degenerative changes are seen in the spine. A few scattered sclerotic foci are present in the pelvis likely representing bone islands. Degenerative changes also noted to the sacroiliac joints and hips. Soft tissues: Fat-containing umbilical hernia. Procedure Note Fausto Morton MD - 03/02/2023 PROCEDURE: CT CHEST ABDOMEN PELVIS W CONT, DATE/TIME OF EXAM:03/02/2023 12:51 PM, LOCATION [facility] INDICATION: Trauma ADDITIONAL CLINICAL INFORMATION: Ordering Provider Reason For Exam: Technologist Note: Additional: COMPARISON: None. TECHNIQUE: CT of the chest, abdomen, and pelvis was performed after the uneventful administration of 100 mL of Isovue 370 intravenous contrast according to standard protocol. Findings: Chest: Lower Neck and Axillae: Normal. Lungs: Scattered areas of subsegmental atelectasis and scarring. Nofocal consolidative changes present. No suspicious pulmonary nodules are identified. No pleural fluid or pneumothorax is present. Heart and Pericardium: The cardiac chambers are normal in size. No pericardial fluid or thickening is present. The coronary arteries are atherosclerotic. Mediastinum and Sharmin: No mediastinal hemorrhage is present. No enlarged lymph nodes are present. Thoracic Vasculature: The aorta and its branch vessels areatherosclerotic. Common origin of the brachiocephalic and left common carotid artery. Abdomen/pelvis: Liver: Normal. Gallbladder and Bile Ducts: Status post cholecystectomy. Mildly dilated common bile duct measuring up to 1.2 cm is likely related to post cholecystectomy status. Spleen: Normal. Pancreas: Normal. Adrenals: Thickened appearance of the adrenal glands without discrete nodularity. Kidneys: Normal. Bladder: Normal. Gastrointestinal: Small to moderate-sized hiatal hernia. The stomach and visualized loops of small bowel are unremarkable. Colonic diverticulosis without evidence of diverticulitis is seen. Normal appendix. Mesentery/Peritoneum/Retroperitoneum: No free intraperitoneal air. Nofree fluid in the abdomen or pelvis. Surgical cyndie noted in the anterior midabdomen. Reproductive Organs: The uterus is normal. Abdominal Vasculature: Atherosclerotic calcification of the aorta andits branch vessels. Incidental circumaortic left renal vein. Bones: Bone windows demonstrate no suspicious lytic or blastic lesions.The visible osseous structures are intact. Degenerative changes are seen inthe spine. A few scattered sclerotic foci are present in the pelvis likely representing bone islands. Degenerative changes also noted to the sacroiliac joints and hips. Soft tissues: Fat-containing umbilical hernia. Impression: No acute traumatic process in the chest, abdomen or pelvis. > Interpreting Provider: Fausto Morton on 03/02/2023 1:05 PM Jamey Venegas MD CT ORDERABLES * CT LUMBAR SPINE WO CONTRAST - T/L-spine trauma, Spine fracture (03/02/2023 12:49 PM CDT) Anatomical Region Laterality Modality Spine Computed Tomogra phy 03/02/2023 1:08 PM CDT Impressions 03/02/2023 2:19 PM CDT IMPRESSION: 1.Small subdural hematoma along the left falx at midline measuring up to 3 mm. No evidence of mass effect or midline shift. 2.Extensive right-sided facial trauma including: *Fractures of the inferior, lateral and medial orbital mcguire with hematoma of the inferior rectus muscle and mild exophthalmos. *Multiple fractures of the right maxillary sinus including the anterior, medial and posterior lateral mcguire with intrasinus blood products present. *Acute mildly displaced fracture of the right nasal process of the maxilla. 3. No evidence of acute fracture or traumatic malalignment in the cervical, thoracic, or lumbar spine. 4. Multilevel degenerative changes throughout the spine most significant at the lumbar levels with moderate central canal stenosis secondary to posterior disc bulge at L4-5 and severe neural foraminal stenosis at L2-L3 secondary to degenerative changes. Please refer to the separately dictated report of CT scan of the chest, abdomen and pelvis for intrathoracic and intra-abdominal findings. These findings were discussed in detail with the patient's care provider, Dr Bill by Dr. Joseph via telephone at 03/02/2023 1:45 PM with readback comprehension and verification. Report dictated by Kalyan Joseph MD (sales vice president). I, Andrei Bridges MD have personally reviewed and interpreted this examination/study. > Interpreting Provider: Andrei Bridges MD on 03/02/2023 2:19 PM Narrative 03/02/2023 2:19 PM CDT PROCEDURE: ??CT HEAD WO CONTRAST, CT LUMBAR SPINE WO CONTRAST, CT THORACIC SPINE WO CONTRAST, CT CERVICAL SPINE WO CONTRAST, CT FACIAL BONES WO CONTRAST, DATE/TIME OF EXAM: ??03/02/2023 12:51 PM, LOCATION ??[facility] INDICATION: Trauma EXAMINATION: 1. Computed tomography (CT) of the head without contrast 2. CT of the maxillofacial bones, orbits, and paranasal sinuses without contrast 3. CT of the cervical spine without contrast 4. CT of the thoracic spine without contrast 5. CT of the lumbar spine without contrast TECHNIQUE: CT of the head, cervical spine, and maxillofacial bones, orbits, and paranasal sinuses was performed without contrast according to standard protocol. Reformatted axial, sagittal, and coronal images of the thoracic and lumbar spine were obtained by the technologist from a concurrently performed body CT and sent to the workstation for review. CT dose reduction technique was used, including Automated Exposure Control. COMPARISON: No prior study is available for comparison at the time of this dictation. FINDINGS: Head: Small subdural hematoma along the left falx at midline measuring up to 3 mm in thickness (series 5 image 11). There is no acute intra-axial blood products. There is mild cerebral volume loss with associated ex vacuo ventricular dilatation. The basilar cisterns are patent. No mass effect or midline shift is seen. The tijerina-white matter differentiation is normal. Periventricular white matter hypoattenuation is indicative of chronic small vessel ischemic disease. There is vascular calcification of the carotid siphons. No acute calvarial fracture is identified. Maxillofacial: Extensive right sided facial trauma with fracture of the inferior, lateral and medial orbital mcguire. Small hematoma is noted along the inferior orbital wall with resultant mild exophthalmos of the right orbit. The globe appears intact. Near complete opacification of the right maxillary sinus with frothy secretions consistent with blood products. There are multiple fractures of the right maxillary sinus mcguire including the anterior, medial and posterior lateral mcguire. Acute mildly displaced fracture of the right nasal process of the maxilla. Moderate soft tissue swelling surrounding the right orbit with multiple foci of subcutaneous gas. The left orbit is intact. Patient is status post bilateral cataract extractions. The hard palate, mandible, and temporomandibular joints appear normal The mastoid air cells are clear Cervical spine: The alignment is normal. Vertebral bodies are normal in height without evidence of acute fracture. Diffuse osteopenia. Other than middle atlantoaxial joint osteoarthritis, the craniocervical junction appears normal. There is advanced degenerative disc disease. No significant central canal stenosis is seen. There are varying degrees of advanced facet osteoarthritis. There are varying degrees of advanced uncovertebral joint osteoarthritis with the same degree of neural foraminal stenosis at these levels. There is atherosclerotic calcification of the carotid bifurcations. Thoracic spine: Mild levocurvature of the lower thoracic spine. No evidence of traumatic malalignment. Severe diffuse osteopenia. Vertebral bodies are normal in height without evidence of acute fracture. There is advanced degenerative disc disease. ??No significant central canal stenosis is seen. There are varying degrees of mild facet osteoarthritis. ??There are varying degrees of neural foraminal stenosis at multiple levels. There is atherosclerotic calcification of the thoracic aorta and its branch vessels. A small hiatal hernia is noted. Lumbar spine: Grade 1 retrolisthesis of L1 on L2 and L2 on L3, likely degenerative in etiology. There is an no evidence of traumatic alignment. S shaped scoliotic curvature of the lower thoracic and lumbar spine. Severe diffuse osteopenia. Vertebral bodies are normal in height without evidence of acute fracture. There is advanced degenerative disc disease. Posterior disc bulge at L4-L5 causes moderate central canal stenosis. No evidence of severe central canal stenosis. There are varying degrees of mild to moderate facet osteoarthritis. Moderate neural foraminal stenosis at L1-L2 on the left and severe neural foraminal stenosis at L2-L3 on the right. There is atherosclerotic calcification of the abdominal aorta and its branch vessels. Procedure Note Andrei Bridges MD - 03/02/2023 PROCEDURE: CT HEAD WO CONTRAST, CT LUMBAR SPINE WO CONTRAST, CTTHORACIC SPINE WO CONTRAST, CT CERVICAL SPINE WO CONTRAST, CT FACIAL BONES WO CONTRAST, DATE/TIME OF EXAM: 03/02/2023 12:51 PM, LOCATION [facility] INDICATION: Trauma EXAMINATION: 1. Computed tomography (CT) of the head without contrast 2. CT of the maxillofacial bones, orbits, and paranasal sinuses without contrast 3. CT of the cervical spine without contrast 4. CT of the thoracic spine without contrast 5. CT of the lumbar spine without contrast TECHNIQUE: CT of the head, cervical spine, and maxillofacial bones,orbits, and paranasal sinuses was performed without contrast according tostandard protocol. Reformatted axial, sagittal, and coronal images of thethoracic and lumbar spine were obtained by the technologist from a concurrently performed body CT and sent to the workstation for review. CT dosereduction technique was used, including Automated Exposure Control. COMPARISON: No prior study is available for comparison at the time ofthis dictation. FINDINGS: Head: Small subdural hematoma along the left falx at midline measuring up to 3mm in thickness (series 5 image 11). There is no acute intra-axial blood products. There is mild cerebral volume loss with associated ex vacuo ventricular dilatation. The basilar cisterns are patent. No mass effector midline shift is seen. The tijerina-white matter differentiation is normal. Periventricular white matter hypoattenuation is indicative of chronicsmall vessel ischemic disease. There is vascular calcification of the carotid siphons. No acute calvarial fracture is identified. Maxillofacial: Extensive right sided facial trauma with fracture of the inferior,lateral and medial orbital mcguire. Small hematoma is noted along the inferior orbital wall with resultant mild exophthalmos of the right orbit. Theglobe appears intact. Near complete opacification of the right maxillary sinus with frothy secretions consistent with blood products. There are multiple fracturesof the right maxillary sinus mcguire including the anterior, medial and posterior lateral mcguire. Acute mildly displaced fracture of the right nasal process of themaxilla. Moderate soft tissue swelling surrounding the right orbit with multiple foci of subcutaneous gas. The left orbit is intact. Patient is status post bilateral cataract extractions. The hard palate, mandible, and temporomandibular joints appear normalThe mastoid air cells are clear Cervical spine: The alignment is normal. Vertebral bodies are normal in height without evidence of acute fracture. Diffuse osteopenia. Other than middle atlantoaxial joint osteoarthritis, the craniocervical junction appears normal. There is advanced degenerative disc disease. No significantcentral canal stenosis is seen. There are varying degrees of advanced facet osteoarthritis. There are varying degrees of advanced uncovertebraljoint osteoarthritis with the same degree of neural foraminal stenosis atthese levels. There is atherosclerotic calcification of the carotidbifurcations. Thoracic spine: Mild levocurvature of the lower thoracic spine. No evidence of traumatic malalignment. Severe diffuse osteopenia. Vertebral bodies are normal in height without evidence of acute fracture. There is advanceddegenerative disc disease. No significant central canal stenosis is seen. There are varying degrees of mild facet osteoarthritis. There are varying degreesof neural foraminal stenosis at multiple levels. There is atherosclerotic calcification of the thoracic aorta and its branch vessels. A smallhiatal hernia is noted. Lumbar spine: Grade 1 retrolisthesis of L1 on L2 and L2 on L3, likely degenerative in etiology. There is an no evidence of traumatic alignment. S shaped scoliotic curvature of the lower thoracic and lumbar spine. Severediffuse osteopenia. Vertebral bodies are normal in height without evidence ofacute fracture. There is advanced degenerative disc disease. Posterior discbulge at L4-L5 causes moderate central canal stenosis. No evidence of severe central canal stenosis. There are varying degrees of mild to moderatefacet osteoarthritis. Moderate neural foraminal stenosis at L1-L2 on the leftand severe neural foraminal stenosis at L2-L3 on the right. There is atherosclerotic calcification of the abdominal aorta and its branch vessels. IMPRESSION: 1.Small subdural hematoma along the left falx at midline measuring up to3 mm. No evidence of mass effect or midline shift. 2.Extensive right-sided facial trauma including: *Fractures of the inferior, lateral and medial orbital mcguire withhematoma of the inferior rectus muscle and mild exophthalmos. *Multiple fractures of the right maxillary sinus including the anterior, medial and posterior lateral mcguire with intrasinus blood productspresent. *Acute mildly displaced fracture of the right nasal process of themaxilla. 3. No evidence of acute fracture or traumatic malalignment in thecervical, thoracic, or lumbar spine. 4. Multilevel degenerative changes throughout the spine most significantat the lumbar levels with moderate central canal stenosis secondary to posterior disc bulge at L4-5 and severe neural foraminal stenosis atL2-L3 secondary to degenerative changes. Please refer to the separately dictated report of CT scan of the chest, abdomen and pelvis for intrathoracic and intra-abdominal findings. These findings were discussed in detail with the patient's careprovider, Dr Bill by Dr. Joseph via telephone at 03/02/2023 1:45 PM with readback comprehension and verification. Report dictated by Kalyan Joseph MD (sales vice president). Andrei Cardenas MD have personally reviewed and interpreted this examination/study. > Interpreting Provider: Andrei Bridges MD on 03/02/2023 2:19 PM Jamey Venegas MD CT ORDERABLES * CT THORACIC SPINE WO CONTRAST - T/L-spine trauma, spine fracture (03/02/2023 12:49 PM CDT) Anatomical Region Laterality Modality Spine Computed Tomogra phy 03/02/2023 1:08 PM CDT Impressions 03/02/2023 2:19 PM CDT IMPRESSION: 1.Small subdural hematoma along the left falx at midline measuring up to 3 mm. No evidence of mass effect or midline shift. 2.Extensive right-sided facial trauma including: *Fractures of the inferior, lateral and medial orbital mcguire with hematoma of the inferior rectus muscle and mild exophthalmos. *Multiple fractures of the right maxillary sinus including the anterior, medial and posterior lateral mcguire with intrasinus blood products present. *Acute mildly displaced fracture of the right nasal process of the maxilla. 3. No evidence of acute fracture or traumatic malalignment in the cervical, thoracic, or lumbar spine. 4. Multilevel degenerative changes throughout the spine most significant at the lumbar levels with moderate central canal stenosis secondary to posterior disc bulge at L4-5 and severe neural foraminal stenosis at L2-L3 secondary to degenerative changes. Please refer to the separately dictated report of CT scan of the chest, abdomen and pelvis for intrathoracic and intra-abdominal findings. These findings were discussed in detail with the patient's care provider, Dr Bill by Dr. Joseph via telephone at 03/02/2023 1:45 PM with readback comprehension and verification. Report dictated by Kalyan Joseph MD (sales vice president). Andrei Cardenas MD have personally reviewed and interpreted this examination/study. > Interpreting Provider: Andrei Bridges MD on 03/02/2023 2:19 PM Narrative 03/02/2023 2:19 PM CDT PROCEDURE: ??CT HEAD WO CONTRAST, CT LUMBAR SPINE WO CONTRAST, CT THORACIC SPINE WO CONTRAST, CT CERVICAL SPINE WO CONTRAST, CT FACIAL BONES WO CONTRAST, DATE/TIME OF EXAM: ??03/02/2023 12:51 PM, LOCATION ??[facility] INDICATION: Trauma EXAMINATION: 1. Computed tomography (CT) of the head without contrast 2. CT of the maxillofacial bones, orbits, and paranasal sinuses without contrast 3. CT of the cervical spine without contrast 4. CT of the thoracic spine without contrast 5. CT of the lumbar spine without contrast TECHNIQUE: CT of the head, cervical spine, and maxillofacial bones, orbits, and paranasal sinuses was performed without contrast according to standard protocol. Reformatted axial, sagittal, and coronal images of the thoracic and lumbar spine were obtained by the technologist from a concurrently performed body CT and sent to the workstation for review. CT dose reduction technique was used, including Automated Exposure Control. COMPARISON: No prior study is available for comparison at the time of this dictation. FINDINGS: Head: Small subdural hematoma along the left falx at midline measuring up to 3 mm in thickness (series 5 image 11). There is no acute intra-axial blood products. There is mild cerebral volume loss with associated ex vacuo ventricular dilatation. The basilar cisterns are patent. No mass effect or midline shift is seen. The tijerina-white matter differentiation is normal. Periventricular white matter hypoattenuation is indicative of chronic small vessel ischemic disease. There is vascular calcification of the carotid siphons. No acute calvarial fracture is identified. Maxillofacial: Extensive right sided facial trauma with fracture of the inferior, lateral and medial orbital mcguire. Small hematoma is noted along the inferior orbital wall with resultant mild exophthalmos of the right orbit. The globe appears intact. Near complete opacification of the right maxillary sinus with frothy secretions consistent with blood products. There are multiple fractures of the right maxillary sinus mcguire including the anterior, medial and posterior lateral mcguire. Acute mildly displaced fracture of the right nasal process of the maxilla. Moderate soft tissue swelling surrounding the right orbit with multiple foci of subcutaneous gas. The left orbit is intact. Patient is status post bilateral cataract extractions. The hard palate, mandible, and temporomandibular joints appear normal The mastoid air cells are clear Cervical spine: The alignment is normal. Vertebral bodies are normal in height without evidence of acute fracture. Diffuse osteopenia. Other than middle atlantoaxial joint osteoarthritis, the craniocervical junction appears normal. There is advanced degenerative disc disease. No significant central canal stenosis is seen. There are varying degrees of advanced facet osteoarthritis. There are varying degrees of advanced uncovertebral joint osteoarthritis with the same degree of neural foraminal stenosis at these levels. There is atherosclerotic calcification of the carotid bifurcations. Thoracic spine: Mild levocurvature of the lower thoracic spine. No evidence of traumatic malalignment. Severe diffuse osteopenia. Vertebral bodies are normal in height without evidence of acute fracture. There is advanced degenerative disc disease. ??No significant central canal stenosis is seen. There are varying degrees of mild facet osteoarthritis. ??There are varying degrees of neural foraminal stenosis at multiple levels. There is atherosclerotic calcification of the thoracic aorta and its branch vessels. A small hiatal hernia is noted. Lumbar spine: Grade 1 retrolisthesis of L1 on L2 and L2 on L3, likely degenerative in etiology. There is an no evidence of traumatic alignment. S shaped scoliotic curvature of the lower thoracic and lumbar spine. Severe diffuse osteopenia. Vertebral bodies are normal in height without evidence of acute fracture. There is advanced degenerative disc disease. Posterior disc bulge at L4-L5 causes moderate central canal stenosis. No evidence of severe central canal stenosis. There are varying degrees of mild to moderate facet osteoarthritis. Moderate neural foraminal stenosis at L1-L2 on the left and severe neural foraminal stenosis at L2-L3 on the right. There is atherosclerotic calcification of the abdominal aorta and its branch vessels. Procedure Note Andrei Bridges MD - 03/02/2023 PROCEDURE: CT HEAD WO CONTRAST, CT LUMBAR SPINE WO CONTRAST, CTTHORACIC SPINE WO CONTRAST, CT CERVICAL SPINE WO CONTRAST, CT FACIAL BONES WO CONTRAST, DATE/TIME OF EXAM: 03/02/2023 12:51 PM, LOCATION [facility] INDICATION: Trauma EXAMINATION: 1. Computed tomography (CT) of the head without contrast 2. CT of the maxillofacial bones, orbits, and paranasal sinuses without contrast 3. CT of the cervical spine without contrast 4. CT of the thoracic spine without contrast 5. CT of the lumbar spine without contrast TECHNIQUE: CT of the head, cervical spine, and maxillofacial bones,orbits, and paranasal sinuses was performed without contrast according tostandard protocol. Reformatted axial, sagittal, and coronal images of thethoracic and lumbar spine were obtained by the technologist from a concurrently performed body CT and sent to the workstation for review. CT dosereduction technique was used, including Automated Exposure Control. COMPARISON: No prior study is available for comparison at the time ofthis dictation. FINDINGS: Head: Small subdural hematoma along the left falx at midline measuring up to 3mm in thickness (series 5 image 11). There is no acute intra-axial blood products. There is mild cerebral volume loss with associated ex vacuo ventricular dilatation. The basilar cisterns are patent. No mass effector midline shift is seen. The [place]-white matter differentiation is normal. Periventricular white matter hypoattenuation is indicative of chronicsmall vessel ischemic disease. There is vascular calcification of the carotid siphons. No acute calvarial fracture is identified. Maxillofacial: Extensive right sided facial trauma with fracture of the inferior,lateral and medial orbital mcguire. Small hematoma is noted along the inferior orbital wall with resultant mild exophthalmos of the right orbit. Theglobe appears intact. Near complete opacification of the right maxillary sinus with frothy secretions consistent with blood products. There are multiple fracturesof the right maxillary sinus mcguire including the anterior, medial and posterior lateral mcguire. Acute mildly displaced fracture of the right nasal process of themaxilla. Moderate soft tissue swelling surrounding the right orbit with multiple foci of subcutaneous gas. The left orbit is intact. Patient is status post bilateral cataract extractions. The hard palate, mandible, and temporomandibular joints appear normalThe mastoid air cells are clear Cervical spine: The alignment is normal. Vertebral bodies are normal in height without evidence of acute fracture. Diffuse osteopenia. Other than middle atlantoaxial joint osteoarthritis, the craniocervical junction appears normal. There is advanced degenerative disc disease. No significantcentral canal stenosis is seen. There are varying degrees of advanced facet osteoarthritis. There are varying degrees of advanced uncovertebraljoint osteoarthritis with the same degree of neural foraminal stenosis atthese levels. There is atherosclerotic calcification of the carotidbifurcations. Thoracic spine: Mild levocurvature of the lower thoracic spine. No evidence of traumatic malalignment. Severe diffuse osteopenia. Vertebral bodies are normal in height without evidence of acute fracture. There is advanceddegenerative disc disease. No significant central canal stenosis is seen. There are varying degrees of mild facet osteoarthritis. There are varying degreesof neural foraminal stenosis at multiple levels. There is atherosclerotic calcification of the thoracic aorta and its branch vessels. A smallhiatal hernia is noted. Lumbar spine: Grade 1 retrolisthesis of L1 on L2 and L2 on L3, likely degenerative in etiology. There is an no evidence of traumatic alignment. S shaped scoliotic curvature of the lower thoracic and lumbar spine. Severediffuse osteopenia. Vertebral bodies are normal in height without evidence ofacute fracture. There is advanced degenerative disc disease. Posterior discbulge at L4-L5 causes moderate central canal stenosis. No evidence of severe central canal stenosis. There are varying degrees of mild to moderatefacet osteoarthritis. Moderate neural foraminal stenosis at L1-L2 on the leftand severe neural foraminal stenosis at L2-L3 on the right. There is atherosclerotic calcification of the abdominal aorta and its branch vessels. IMPRESSION: 1.Small subdural hematoma along the left falx at midline measuring up to3 mm. No evidence of mass effect or midline shift. 2.Extensive right-sided facial trauma including: *Fractures of the inferior, lateral and medial orbital mcguire withhematoma of the inferior rectus muscle and mild exophthalmos. *Multiple fractures of the right maxillary sinus including the anterior, medial and posterior lateral mcguire with intrasinus blood productspresent. *Acute mildly displaced fracture of the right nasal process of themaxilla. 3. No evidence of acute fracture or traumatic malalignment in thecervical, thoracic, or lumbar spine. 4. Multilevel degenerative changes throughout the spine most significantat the lumbar levels with moderate central canal stenosis secondary to posterior disc bulge at L4-5 and severe neural foraminal stenosis atL2-L3 secondary to degenerative changes. Please refer to the separately dictated report of CT scan of the chest, abdomen and pelvis for intrathoracic and intra-abdominal findings. These findings were discussed in detail with the patient's careprovider, Dr Bill by Dr. Joseph via telephone at 03/02/2023 1:45 PM with readback comprehension and verification. Report dictated by Kalyan Joseph MD (sales vice president). I, Andrei Bridges MD have personally reviewed and interpreted this examination/study. > Interpreting Provider: Andrei Bridges MD on 03/02/2023 2:19 PM Jamey Venegas MD CT ORDERABLES * CT CERVICAL SPINE WO CONTRAST - C-Spine Trauma, Spine fracture (03/02/2023 12:49 PM CDT) Anatomical Region Laterality Modality Spine Computed Tomogra phy 03/02/2023 1:08 PM CDT Impressions 03/02/2023 2:19 PM CDT IMPRESSION: 1.Small subdural hematoma along the left falx at midline measuring up to 3 mm. No evidence of mass effect or midline shift. 2.Extensive right-sided facial trauma including: *Fractures of the inferior, lateral and medial orbital mcguire with hematoma of the inferior rectus muscle and mild exophthalmos. *Multiple fractures of the right maxillary sinus including the anterior, medial and posterior lateral mcguire with intrasinus blood products present. *Acute mildly displaced fracture of the right nasal process of the maxilla. 3. No evidence of acute fracture or traumatic malalignment in the cervical, thoracic, or lumbar spine. 4. Multilevel degenerative changes throughout the spine most significant at the lumbar levels with moderate central canal stenosis secondary to posterior disc bulge at L4-5 and severe neural foraminal stenosis at L2-L3 secondary to degenerative changes. Please refer to the separately dictated report of CT scan of the chest, abdomen and pelvis for intrathoracic and intra-abdominal findings. These findings were discussed in detail with the patient's care provider, Dr Bill by Dr. Joseph via telephone at 03/02/2023 1:45 PM with readback comprehension and verification. Report dictated by Kalyan Joseph MD (sales vice president). I, Andrei Bridges MD have personally reviewed and interpreted this examination/study. > Interpreting Provider: Andrei Bridges MD on 03/02/2023 2:19 PM Narrative 03/02/2023 2:19 PM CDT PROCEDURE: ??CT HEAD WO CONTRAST, CT LUMBAR SPINE WO CONTRAST, CT THORACIC SPINE WO CONTRAST, CT CERVICAL SPINE WO CONTRAST, CT FACIAL BONES WO CONTRAST, DATE/TIME OF EXAM: ??03/02/2023 12:51 PM, LOCATION ??[facility] INDICATION: Trauma EXAMINATION: 1. Computed tomography (CT) of the head without contrast 2. CT of the maxillofacial bones, orbits, and paranasal sinuses without contrast 3. CT of the cervical spine without contrast 4. CT of the thoracic spine without contrast 5. CT of the lumbar spine without contrast TECHNIQUE: CT of the head, cervical spine, and maxillofacial bones, orbits, and paranasal sinuses was performed without contrast according to standard protocol. Reformatted axial, sagittal, and coronal images of the thoracic and lumbar spine were obtained by the technologist from a concurrently performed body CT and sent to the workstation for review. CT dose reduction technique was used, including Automated Exposure Control. COMPARISON: No prior study is available for comparison at the time of this dictation. FINDINGS: Head: Small subdural hematoma along the left falx at midline measuring up to 3 mm in thickness (series 5 image 11). There is no acute intra-axial blood products. There is mild cerebral volume loss with associated ex vacuo ventricular dilatation. The basilar cisterns are patent. No mass effect or midline shift is seen. The [place]-white matter differentiation is normal. Periventricular white matter hypoattenuation is indicative of chronic small vessel ischemic disease. There is vascular calcification of the carotid siphons. No acute calvarial fracture is identified. Maxillofacial: Extensive right sided facial trauma with fracture of the inferior, lateral and medial orbital mcguire. Small hematoma is noted along the inferior orbital wall with resultant mild exophthalmos of the right orbit. The globe appears intact. Near complete opacification of the right maxillary sinus with frothy secretions consistent with blood products. There are multiple fractures of the right maxillary sinus mcguire including the anterior, medial and posterior lateral mcguire. Acute mildly displaced fracture of the right nasal process of the maxilla. Moderate soft tissue swelling surrounding the right orbit with multiple foci of subcutaneous gas. The left orbit is intact. Patient is status post bilateral cataract extractions. The hard palate, mandible, and temporomandibular joints appear normal The mastoid air cells are clear Cervical spine: The alignment is normal. Vertebral bodies are normal in height without evidence of acute fracture. Diffuse osteopenia. Other than middle atlantoaxial joint osteoarthritis, the craniocervical junction appears normal. There is advanced degenerative disc disease. No significant central canal stenosis is seen. There are varying degrees of advanced facet osteoarthritis. There are varying degrees of advanced uncovertebral joint osteoarthritis with the same degree of neural foraminal stenosis at these levels. There is atherosclerotic calcification of the carotid bifurcations. Thoracic spine: Mild levocurvature of the lower thoracic spine. No evidence of traumatic malalignment. Severe diffuse osteopenia. Vertebral bodies are normal in height without evidence of acute fracture. There is advanced degenerative disc disease. ??No significant central canal stenosis is seen. There are varying degrees of mild facet osteoarthritis. ??There are varying degrees of neural foraminal stenosis at multiple levels. There is atherosclerotic calcification of the thoracic aorta and its branch vessels. A small hiatal hernia is noted. Lumbar spine: Grade 1 retrolisthesis of L1 on L2 and L2 on L3, likely degenerative in etiology. There is an no evidence of traumatic alignment. S shaped scoliotic curvature of the lower thoracic and lumbar spine. Severe diffuse osteopenia. Vertebral bodies are normal in height without evidence of acute fracture. There is advanced degenerative disc disease. Posterior disc bulge at L4-L5 causes moderate central canal stenosis. No evidence of severe central canal stenosis. There are varying degrees of mild to moderate facet osteoarthritis. Moderate neural foraminal stenosis at L1-L2 on the left and severe neural foraminal stenosis at L2-L3 on the right. There is atherosclerotic calcification of the abdominal aorta and its branch vessels. Procedure Note Andrei Bridges MD - 03/02/2023 PROCEDURE: CT HEAD WO CONTRAST, CT LUMBAR SPINE WO CONTRAST, CTTHORACIC SPINE WO CONTRAST, CT CERVICAL SPINE WO CONTRAST, CT FACIAL BONES WO CONTRAST, DATE/TIME OF EXAM: 03/02/2023 12:51 PM, LOCATION [facility] INDICATION: Trauma EXAMINATION: 1. Computed tomography (CT) of the head without contrast 2. CT of the maxillofacial bones, orbits, and paranasal sinuses without contrast 3. CT of the cervical spine without contrast 4. CT of the thoracic spine without contrast 5. CT of the lumbar spine without contrast TECHNIQUE: CT of the head, cervical spine, and maxillofacial bones,orbits, and paranasal sinuses was performed without contrast according tostandard protocol. Reformatted axial, sagittal, and coronal images of thethoracic and lumbar spine were obtained by the technologist from a concurrently performed body CT and sent to the workstation for review. CT dosereduction technique was used, including Automated Exposure Control. COMPARISON: No prior study is available for comparison at the time ofthis dictation. FINDINGS: Head: Small subdural hematoma along the left falx at midline measuring up to 3mm in thickness (series 5 image 11). There is no acute intra-axial blood products. There is mild cerebral volume loss with associated ex vacuo ventricular dilatation. The basilar cisterns are patent. No mass effector midline shift is seen. The [place]-white matter differentiation is normal. Periventricular white matter hypoattenuation is indicative of chronicsmall vessel ischemic disease. There is vascular calcification of the carotid siphons. No acute calvarial fracture is identified. Maxillofacial: Extensive right sided facial trauma with fracture of the inferior,lateral and medial orbital mcguire. Small hematoma is noted along the inferior orbital wall with resultant mild exophthalmos of the right orbit. Theglobe appears intact. Near complete opacification of the right maxillary sinus with frothy secretions consistent with blood products. There are multiple fracturesof the right maxillary sinus mcguire including the anterior, medial and posterior lateral mcguire. Acute mildly displaced fracture of the right nasal process of themaxilla. Moderate soft tissue swelling surrounding the right orbit with multiple foci of subcutaneous gas. The left orbit is intact. Patient is status post bilateral cataract extractions. The hard palate, mandible, and temporomandibular joints appear normalThe mastoid air cells are clear Cervical spine: The alignment is normal. Vertebral bodies are normal in height without evidence of acute fracture. Diffuse osteopenia. Other than middle atlantoaxial joint osteoarthritis, the craniocervical junction appears normal. There is advanced degenerative disc disease. No significantcentral canal stenosis is seen. There are varying degrees of advanced facet osteoarthritis. There are varying degrees of advanced uncovertebraljoint osteoarthritis with the same degree of neural foraminal stenosis atthese levels. There is atherosclerotic calcification of the carotidbifurcations. Thoracic spine: Mild levocurvature of the lower thoracic spine. No evidence of traumatic malalignment. Severe diffuse osteopenia. Vertebral bodies are normal in height without evidence of acute fracture. There is advanceddegenerative disc disease. No significant central canal stenosis is seen. There are varying degrees of mild facet osteoarthritis. There are varying degreesof neural foraminal stenosis at multiple levels. There is atherosclerotic calcification of the thoracic aorta and its branch vessels. A smallhiatal hernia is noted. Lumbar spine: Grade 1 retrolisthesis of L1 on L2 and L2 on L3, likely degenerative in etiology. There is an no evidence of traumatic alignment. S shaped scoliotic curvature of the lower thoracic and lumbar spine. Severediffuse osteopenia. Vertebral bodies are normal in height without evidence ofacute fracture. There is advanced degenerative disc disease. Posterior discbulge at L4-L5 causes moderate central canal stenosis. No evidence of severe central canal stenosis. There are varying degrees of mild to moderatefacet osteoarthritis. Moderate neural foraminal stenosis at L1-L2 on the leftand severe neural foraminal stenosis at L2-L3 on the right. There is atherosclerotic calcification of the abdominal aorta and its branch vessels. IMPRESSION: 1.Small subdural hematoma along the left falx at midline measuring up to3 mm. No evidence of mass effect or midline shift. 2.Extensive right-sided facial trauma including: *Fractures of the inferior, lateral and medial orbital mcguire withhematoma of the inferior rectus muscle and mild exophthalmos. *Multiple fractures of the right maxillary sinus including the anterior, medial and posterior lateral mcguire with intrasinus blood productspresent. *Acute mildly displaced fracture of the right nasal process of themaxilla. 3. No evidence of acute fracture or traumatic malalignment in thecervical, thoracic, or lumbar spine. 4. Multilevel degenerative changes throughout the spine most significantat the lumbar levels with moderate central canal stenosis secondary to posterior disc bulge at L4-5 and severe neural foraminal stenosis atL2-L3 secondary to degenerative changes. Please refer to the separately dictated report of CT scan of the chest, abdomen and pelvis for intrathoracic and intra-abdominal findings. These findings were discussed in detail with the patient's careprovider, Dr Bill by Dr. Joseph via telephone at 03/02/2023 1:45 PM with readback comprehension and verification. Report dictated by Kalyan Joseph MD (sales vice president). I, Andrei Bridges MD have personally reviewed and interpreted this examination/study. > Interpreting Provider: Andrei Bridges MD on 03/02/2023 2:19 PM Jamey Venegas MD CT ORDERABLES * CT FACIAL BONES WO CONTRAST - Facial trauma, fx suspected, blunt (03/02/2023 12:49 PM CDT) Anatomical Region Laterality Modality Head Computed Tomogra phy 03/02/2023 1:08 PM CDT Impressions 03/02/2023 2:19 PM CDT IMPRESSION: 1.Small subdural hematoma along the left falx at midline measuring up to 3 mm. No evidence of mass effect or midline shift. 2.Extensive right-sided facial trauma including: *Fractures of the inferior, lateral and medial orbital mcguire with hematoma of the inferior rectus muscle and mild exophthalmos. *Multiple fractures of the right maxillary sinus including the anterior, medial and posterior lateral mcguire with intrasinus blood products present. *Acute mildly displaced fracture of the right nasal process of the maxilla. 3. No evidence of acute fracture or traumatic malalignment in the cervical, thoracic, or lumbar spine. 4. Multilevel degenerative changes throughout the spine most significant at the lumbar levels with moderate central canal stenosis secondary to posterior disc bulge at L4-5 and severe neural foraminal stenosis at L2-L3 secondary to degenerative changes. Please refer to the separately dictated report of CT scan of the chest, abdomen and pelvis for intrathoracic and intra-abdominal findings. These findings were discussed in detail with the patient's care provider, Dr Bill by Dr. Joseph via telephone at 03/02/2023 1:45 PM with readback comprehension and verification. Report dictated by Kalyan Joseph MD (sales vice president). I, Andrei Bridges MD have personally reviewed and interpreted this examination/study. > Interpreting Provider: Andrei Bridges MD on 03/02/2023 2:19 PM Narrative 03/02/2023 2:19 PM CDT PROCEDURE: ??CT HEAD WO CONTRAST, CT LUMBAR SPINE WO CONTRAST, CT THORACIC SPINE WO CONTRAST, CT CERVICAL SPINE WO CONTRAST, CT FACIAL BONES WO CONTRAST, DATE/TIME OF EXAM: ??03/02/2023 12:51 PM, LOCATION ??[facility] INDICATION: Trauma EXAMINATION: 1. Computed tomography (CT) of the head without contrast 2. CT of the maxillofacial bones, orbits, and paranasal sinuses without contrast 3. CT of the cervical spine without contrast 4. CT of the thoracic spine without contrast 5. CT of the lumbar spine without contrast TECHNIQUE: CT of the head, cervical spine, and maxillofacial bones, orbits, and paranasal sinuses was performed without contrast according to standard protocol. Reformatted axial, sagittal, and coronal images of the thoracic and lumbar spine were obtained by the technologist from a concurrently performed body CT and sent to the workstation for review. CT dose reduction technique was used, including Automated Exposure Control. COMPARISON: No prior study is available for comparison at the time of this dictation. FINDINGS: Head: Small subdural hematoma along the left falx at midline measuring up to 3 mm in thickness (series 5 image 11). There is no acute intra-axial blood products. There is mild cerebral volume loss with associated ex vacuo ventricular dilatation. The basilar cisterns are patent. No mass effect or midline shift is seen. The [place]-white matter differentiation is normal. Periventricular white matter hypoattenuation is indicative of chronic small vessel ischemic disease. There is vascular calcification of the carotid siphons. No acute calvarial fracture is identified. Maxillofacial: Extensive right sided facial trauma with fracture of the inferior, lateral and medial orbital mcguire. Small hematoma is noted along the inferior orbital wall with resultant mild exophthalmos of the right orbit. The globe appears intact. Near complete opacification of the right maxillary sinus with frothy secretions consistent with blood products. There are multiple fractures of the right maxillary sinus mcguire including the anterior, medial and posterior lateral mcguire. Acute mildly displaced fracture of the right nasal process of the maxilla. Moderate soft tissue swelling surrounding the right orbit with multiple foci of subcutaneous gas. The left orbit is intact. Patient is status post bilateral cataract extractions. The hard palate, mandible, and temporomandibular joints appear normal The mastoid air cells are clear Cervical spine: The alignment is normal. Vertebral bodies are normal in height without evidence of acute fracture. Diffuse osteopenia. Other than middle atlantoaxial joint osteoarthritis, the craniocervical junction appears normal. There is advanced degenerative disc disease. No significant central canal stenosis is seen. There are varying degrees of advanced facet osteoarthritis. There are varying degrees of advanced uncovertebral joint osteoarthritis with the same degree of neural foraminal stenosis at these levels. There is atherosclerotic calcification of the carotid bifurcations. Thoracic spine: Mild levocurvature of the lower thoracic spine. No evidence of traumatic malalignment. Severe diffuse osteopenia. Vertebral bodies are normal in height without evidence of acute fracture. There is advanced degenerative disc disease. ??No significant central canal stenosis is seen. There are varying degrees of mild facet osteoarthritis. ??There are varying degrees of neural foraminal stenosis at multiple levels. There is atherosclerotic calcification of the thoracic aorta and its branch vessels. A small hiatal hernia is noted. Lumbar spine: Grade 1 retrolisthesis of L1 on L2 and L2 on L3, likely degenerative in etiology. There is an no evidence of traumatic alignment. S shaped scoliotic curvature of the lower thoracic and lumbar spine. Severe diffuse osteopenia. Vertebral bodies are normal in height without evidence of acute fracture. There is advanced degenerative disc disease. Posterior disc bulge at L4-L5 causes moderate central canal stenosis. No evidence of severe central canal stenosis. There are varying degrees of mild to moderate facet osteoarthritis. Moderate neural foraminal stenosis at L1-L2 on the left and severe neural foraminal stenosis at L2-L3 on the right. There is atherosclerotic calcification of the abdominal aorta and its branch vessels. Procedure Note Andrei Bridges MD - 03/02/2023 PROCEDURE: CT HEAD WO CONTRAST, CT LUMBAR SPINE WO CONTRAST, CTTHORACIC SPINE WO CONTRAST, CT CERVICAL SPINE WO CONTRAST, CT FACIAL BONES WO CONTRAST, DATE/TIME OF EXAM: 03/02/2023 12:51 PM, LOCATION [facility] INDICATION: Trauma EXAMINATION: 1. Computed tomography (CT) of the head without contrast 2. CT of the maxillofacial bones, orbits, and paranasal sinuses without contrast 3. CT of the cervical spine without contrast 4. CT of the thoracic spine without contrast 5. CT of the lumbar spine without contrast TECHNIQUE: CT of the head, cervical spine, and maxillofacial bones,orbits, and paranasal sinuses was performed without contrast according tostandard protocol. Reformatted axial, sagittal, and coronal images of thethoracic and lumbar spine were obtained by the technologist from a concurrently performed body CT and sent to the workstation for review. CT dosereduction technique was used, including Automated Exposure Control. COMPARISON: No prior study is available for comparison at the time ofthis dictation. FINDINGS: Head: Small subdural hematoma along the left falx at midline measuring up to 3mm in thickness (series 5 image 11). There is no acute intra-axial blood products. There is mild cerebral volume loss with associated ex vacuo ventricular dilatation. The basilar cisterns are patent. No mass effector midline shift is seen. The tijerina-white matter differentiation is normal. Periventricular white matter hypoattenuation is indicative of chronicsmall vessel ischemic disease. There is vascular calcification of the carotid siphons. No acute calvarial fracture is identified. Maxillofacial: Extensive right sided facial trauma with fracture of the inferior,lateral and medial orbital mcguire. Small hematoma is noted along the inferior orbital wall with resultant mild exophthalmos of the right orbit. Theglobe appears intact. Near complete opacification of the right maxillary sinus with frothy secretions consistent with blood products. There are multiple fracturesof the right maxillary sinus mcguire including the anterior, medial and posterior lateral mcguire. Acute mildly displaced fracture of the right nasal process of themaxilla. Moderate soft tissue swelling surrounding the right orbit with multiple foci of subcutaneous gas. The left orbit is intact. Patient is status post bilateral cataract extractions. The hard palate, mandible, and temporomandibular joints appear normalThe mastoid air cells are clear Cervical spine: The alignment is normal. Vertebral bodies are normal in height without evidence of acute fracture. Diffuse osteopenia. Other than middle atlantoaxial joint osteoarthritis, the craniocervical junction appears normal. There is advanced degenerative disc disease. No significantcentral canal stenosis is seen. There are varying degrees of advanced facet osteoarthritis. There are varying degrees of advanced uncovertebraljoint osteoarthritis with the same degree of neural foraminal stenosis atthese levels. There is atherosclerotic calcification of the carotidbifurcations. Thoracic spine: Mild levocurvature of the lower thoracic spine. No evidence of traumatic malalignment. Severe diffuse osteopenia. Vertebral bodies are normal in height without evidence of acute fracture. There is advanceddegenerative disc disease. No significant central canal stenosis is seen. There are varying degrees of mild facet osteoarthritis. There are varying degreesof neural foraminal stenosis at multiple levels. There is atherosclerotic calcification of the thoracic aorta and its branch vessels. A smallhiatal hernia is noted. Lumbar spine: Grade 1 retrolisthesis of L1 on L2 and L2 on L3, likely degenerative in etiology. There is an no evidence of traumatic alignment. S shaped scoliotic curvature of the lower thoracic and lumbar spine. Severediffuse osteopenia. Vertebral bodies are normal in height without evidence ofacute fracture. There is advanced degenerative disc disease. Posterior discbulge at L4-L5 causes moderate central canal stenosis. No evidence of severe central canal stenosis. There are varying degrees of mild to moderatefacet osteoarthritis. Moderate neural foraminal stenosis at L1-L2 on the leftand severe neural foraminal stenosis at L2-L3 on the right. There is atherosclerotic calcification of the abdominal aorta and its branch vessels. IMPRESSION: 1.Small subdural hematoma along the left falx at midline measuring up to3 mm. No evidence of mass effect or midline shift. 2.Extensive right-sided facial trauma including: *Fractures of the inferior, lateral and medial orbital mcguire withhematoma of the inferior rectus muscle and mild exophthalmos. *Multiple fractures of the right maxillary sinus including the anterior, medial and posterior lateral mcguire with intrasinus blood productspresent. *Acute mildly displaced fracture of the right nasal process of themaxilla. 3. No evidence of acute fracture or traumatic malalignment in thecervical, thoracic, or lumbar spine. 4. Multilevel degenerative changes throughout the spine most significantat the lumbar levels with moderate central canal stenosis secondary to posterior disc bulge at L4-5 and severe neural foraminal stenosis atL2-L3 secondary to degenerative changes. Please refer to the separately dictated report of CT scan of the chest, abdomen and pelvis for intrathoracic and intra-abdominal findings. These findings were discussed in detail with the patient's careprovider, Dr Bill by Dr. Joseph via telephone at 03/02/2023 1:45 PM with readback comprehension and verification. Report dictated by Kalyan Joseph MD (sales vice president). IAndrei MD have personally reviewed and interpreted this examination/study. > Interpreting Provider: Andrei Bridges MD on 03/02/2023 2:19 PM Jamey Venegas MD CT ORDERABLES * XR PELVIS 1 OR 2VW (03/02/2023 12:28 PM CDT) Anatomical Region Laterality Modality Pelvis Radiographic Jayla ging 03/02/2023 1:07 PM CDT Impressions 03/02/2023 5:08 PM CDT IMPRESSION: No acute fracture identified. Report dictated by Jose Guadalupe James MD (sales vice president). Warren Cardenas MD have personally reviewed and interpreted this examination/study. > Interpreting Provider: Warren Parra MD on 03/02/2023 5:08 PM Narrative 03/02/2023 5:08 PM CDT PROCEDURE: ??XR PELVIS 1 OR 2VW, DATE/TIME OF EXAM: ??03/02/2023 12:34 PM, LOCATION ??[facility] INDICATION: Trauma Fracture suspected COMPARISON: None. FINDINGS: No acute fracture is identified. The femoral heads appear well-seated within their respective acetabula. The pubic symphysis is intact. Bone density and texture are normal. The sacroiliac joints are normal. Procedure Note Patti Parra MD - 03/02/2023 PROCEDURE: XR PELVIS 1 OR 2VW, DATE/TIME OF EXAM: 03/02/2023 12:34 PM, LOCATION [facility] INDICATION: Trauma Fracture suspected COMPARISON: None. FINDINGS: No acute fracture is identified. The femoral heads appear well-seated within their respective acetabula. The pubic symphysis is intact. Bone density and texture are normal. The sacroiliac joints are normal. IMPRESSION: No acute fracture identified. Report dictated by Jose Guadalupe James MD (sales vice president). Warren Cardenas MD have personally reviewed and interpreted this examination/study. > Interpreting Provider: Warren Parra MD on 03/02/2023 5:08 PM Jamey Venegas MD DIAGNOSTIC IMAGING O RDERABLES * XR CHEST 1VW PORTABLE (03/02/2023 12:18 PM CDT) Anatomical Region Laterality Modality Chest Radiographic Jayla ging 03/02/2023 1:06 PM CDT Narrative 03/02/2023 2:58 PM CDT PROCEDURE: ??XR CHEST 1VW PORTABLE, DATE/TIME OF EXAM: ??03/02/2023 12:33 PM, LOCATION ??[facility] INDICATION: Trauma ADDITIONAL CLINICAL INFORMATION: Ordering Provider Reason For Exam: Technologist Note: Additional: Comparison: No prior study is available for comparison at the time of this dictation. Findings/Impression: There is no focal consolidation, pleural effusion, or pneumothorax. The cardiomediastinal silhouette is normal. The visible bony thorax is intact. Report dictated by Jose Guadalupe James MD (sales vice president). Fausto Cardenas have personally reviewed and interpreted this examination/study. > Interpreting Provider: Fausto Morton on 03/02/2023 2:58 PM Procedure Note Fausto Morton MD - 03/02/2023 PROCEDURE: XR CHEST 1VW PORTABLE, DATE/TIME OF EXAM: 03/02/2023 12:33PM, LOCATION [facility] INDICATION: Trauma ADDITIONAL CLINICAL INFORMATION: Ordering Provider Reason For Exam: Technologist Note: Additional: Comparison: No prior study is available for comparison at the time ofthis dictation. Findings/Impression: There is no focal consolidation, pleural effusion, or pneumothorax. The cardiomediastinal silhouette is normal. The visible bony thorax isintact. Report dictated by Jose Guadalupe James MD (sales vice president). I, Fausto Morton have personally reviewed and interpreted this examination/study. > Interpreting Provider: Fausto Morton on 03/02/2023 2:58 PM Jamey Venegas MD DIAGNOSTIC IMAGING O RDERABLES * (ABNORMAL) TEG 6 GLOBAL HEMOSTASIS W/ LYSIS (03/02/2023 12:16 PM CDT) Citrated Kaolin R (Reaction Time) 4.2(L) 4.6 - 9.1 min 03/02/2023 1:51 PM CDT [facility] Comment:CK R result below no rmal range. Consistent with hypercoagulable clotting factors. Citrated Kaolin LY30 (Lysis) 0.5 0.0 - 2.6 % 03/02/2023 1:51 PM CDT [facility] Citrated Functional Fibrinogen MA (Max Amplitude) 32.8(H) 15.0 - 32.0 mm 03/02/2023 1:51 PM CDT [facility] Comment:CFF MA above normal range. Consistent with elevated fibrinogen contribution to clot strength. Citrated RapidTEG MA (Max Amplitude) 68.2 52.0 - 70.0 mm 03/02/2023 1:51 PM CDT [facility] Blood BLOOD SPECIMEN / Unknown Venipuncture / Unknown 03/02/2023 12:16 PM CDT 03/02/2023 12:54 PM CDT Jamey Venegas MD LAB - HEMATOLOGY ORD ERABLES [facility] [address] [place] [address], [facility] [phone] * (ABNORMAL) TEG 6S PLATELET MAPPING (03/02/2023 12:16 PM CDT) TEGPLM (Max Amplitude) Koalin 66.8 53.0 - 68.0 mm 03/02/2023 1:24 PM CDT [facility] TEGPLM (Max Amplitude) ACTF 20.0(H) 2.0 - 19.0 mm 03/02/2023 1:24 PM CDT [facility] TEGPLM (Max Amplitude) ADP 55.0 45.0 - 69.0 mm 03/02/2023 1:24 PM CDT [facility] TEGPLM (Max Amplitude) AA 33.0(L) 51.0 - 71.0 mm 03/02/2023 1:24 PM T [facility] Comment:AA MA below normal r merlin. Inhibition present. TEGPLM %Inhibition ADP 25.2(H) 0.0 - 17.0 % 03/02/2023 1:24 PM CDT [facility] TEGPLM %Inhibition AA 72.2(H) 0.0 - 11.0 % 03/02/2023 1:24 PM CDT [facility] TEGPLM %Aggregation ADP 74.8(L) 83.0 - 100.0 % 03/02/2023 1:24 PM T [facility] TEGPLM % Aggregation AA 27.8(L) 89.0 - 100.0 % 03/02/2023 1:24 PM CDT [facility] Blood BLOOD SPECIMEN / Unknown Venipuncture / Unknown 03/02/2023 12:16 PM CDT 03/02/2023 12:54 PM CDT Jamey Venegas MD LAB - HEMATOLOGY ORD ERABLES [facility] [address] [place] [address], [facility] [phone] * PTT [facility] (03/02/2023 12:16 PM CDT) APTT 26.5 23.0 - 38.4 Seconds 03/02/2023 1:20 PM CDT [facility] Comment:Suggested therapeuti c range for full dose I.V. unfractionated heparin therapy for venous thromboembolism is 71 to 109 seconds. Blood BLOOD SPECIMEN / Unknown Venipuncture / Unknown 03/02/2023 12:16 PM CDT 03/02/2023 12:55 PM CDT Jamey Venegas MD LAB - COAGULATION OR DERABLES Performing Organization Address [facility] Co de Phone Number [facility] [address] [place] [address], [facility] [phone] * PT-INR [facility] (03/02/2023 12:16 PM CDT) PT 14.5 12.1 - 14.8 Seconds 03/02/2023 1:20 PM CDT [facility] INR 1.1 See Comment 03/02/2023 1:20 PM CDT [facility] Comment:The suggested therap eutic range for standard coumadin (warfarin) therapy is an INR of 2.0-3.0. For high-risk patients (Mechanical Mitral Valve Prosthesis, etc.), the suggested prophylactic therapeutic range is an INR of 2.5-3.5. Blood BLOOD SPECIMEN / Unknown Venipuncture / Unknown 03/02/2023 12:16 PM CDT 03/02/2023 12:55 PM CDT Jamey Venegas MD LAB - COAGULATION OR DERABLES Performing Organization Address City/[facility] Co de Phone Number [facility] [address] [place] [phone], [facility] [phone] * TYPE + SCREEN PANEL (03/02/2023 12:16 PM CDT) Antibody Screen NEG 1:12 PM CDT [facility] BLOOD [facility] LAB ABO Rh A POS 03/02/2023 1:12 PM CDT [facility]OD [facility] LAB Blood Bank BLOOD SPECIMEN / Unknown Venipuncture / Unknown 03/02/2023 12:16 PM CDT 03/02/2023 12:22 PM CDT Jamey Venegas MD LAB - BLOOD BANK JOSE MILES Performing Organization Address City/[facility]/ZIP Co de Phone Number [facility]OD [facility] LAB [address] [place] [address], [facility] [phone] * ALCOHOL ETHYL BLOOD (03/02/2023 12:16 PM CDT) Ethanol (mg/dL) <10 <10 mg/dL 12:45 PM CDT [facility] Ethanol Calculated (g/dL) <0.010 <=0.010 g/dL 03/02/2023 12:45 PM CDT [facility] Blood BLOOD SPECIMEN / Unknown Venipuncture / Unknown 03/02/2023 12:16 PM CDT 03/02/2023 12:21 PM CDT Narrative [facility] - 03/02/2023 12:45 PM CDT Ethanol Interp <10: None Detected. Depression of TYPING ELEMENT MACHINE OPERATOR: >100 mg/dl Potentially Critical: >250 mg/dl Potentially Fatal >400 mg/dl Ethanol in the patient's blood will contribute to the osmolar gap. Ethanol's contribution to the osmolar gap can be estimated by dividing the concentration of ethanol in mg/dL by 4.6. This test is for clinical use only and does not equal a OSMANY for legal purposes. Jamey Venegas MD LAB - CHEMISTRY JOSEBoby ALVARADO Performing Organization Address City/[facility]/ZIP Co de Phone Number [address] [address], [facility] [phone] * XR KNEE RIGHT 3VW (08/16/2020 12:17 PM CLAY ARTIST) Only the most recent of3 resultswithin the time period is included. Anatomical Region Laterality Modality Lower Extremity Computed Radiogr aphy Narrative 08/16/2020 12:14 PM CLAY ARTIST Trisha Hernandez, RT(R) ? 08/28/2020 ??4:56 PM See progress notes for results Luz Marina Llamas MD DIAGNOSTIC IMAGING O RDERABLES * CT CHEST WO CONTRAST (07/02/2020 10:25 AM CDT) Only the most recent of2 resultswithin the time period is included. Anatomical Region Laterality Modality Chest Computed Tomogra phy 07/02/2020 1:34 PM CDT Impressions 07/02/2020 1:49 PM CDT Emphysematous changes with stable groundglass and hazy interstitial infiltration. Edited by Inez Hopkins on 07/02/2020 1:40 PM *Reading Radiologist: Payam Malloy on 07/02/2020 at 1:49 PM Narrative 07/02/2020 1:[address] THORAX NONCONTRAST INDICATION: Shortness of breath. TECHNIQUE: 1.25 mm axial images through the thorax noncontrast. COMPARISON: March 21, 2020 FINDINGS: There is no bulky axillary or mediastinal lymphadenopathy. There is atherosclerotic calcification of the thoracic aorta. Coronary artery calcifications are present. There is a hiatal hernia. The previously described hazy and groundglass interstitial opacities throughout the lungs, but particularly in the lingula, left lower lobe and right lower lobe, are similar to prior. No mass or discrete noncalcified pulmonary nodule is demonstrated. There is no honeycombing or gross bronchiectasis. There are degenerative changes of the spine. Procedure Note Payam Malloy MD - 07/02/2020 CT THORAX NONCONTRAST INDICATION: Shortness of breath. TECHNIQUE: 1.25 mm axial images through the thorax noncontrast. COMPARISON: March 21, 2020 FINDINGS: There is no bulky axillary or mediastinal lymphadenopathy. There is atherosclerotic calcification of the thoracic aorta. Coronary artery calcifications are present. There is a hiatal hernia. The previously described hazy and groundglass interstitial opacities throughout the lungs, but particularly in the lingula, left lower lobe and right lower lobe, are similar to prior. No mass or discrete noncalcified pulmonary nodule is demonstrated. There is no honeycombing or gross bronchiectasis. There are degenerative changes of the spine. IMPRESSION Emphysematous changes with stable groundglass and hazy interstitial infiltration. Edited by Inez Hopkins on 07/02/2020 1:40 PM *Reading Radiologist: Payam Malloy on 07/02/2020 at 1:[address] ORDERABLES * COMPLETE PFT W/WO BRONCHODILATOR (06/05/2020 12:00 PM CDT) 06/05/2020 12:0 0 PM CDT Narrative Procedure Note Todd Han MD - 06/05/2020 11:59 PM CDT [facility] PULMONARY FUNCTION TEST REPORT PATIENT: ABRAHAN CRUZ MR#: [id number] ADMIT DATE: 06/05/2020 CSN: [id number] DATE OF PROCEDURE: 06/05/2020 :1940 PHYSICIAN: Todd Han MD REFERRING PHYSICIAN: Todd Han MD FINDINGS: 1. Baseline spirometry reveals normal expiratory flows. 2. Following administration of bronchodilator, there is no significant change in expiratory flows. 3. FEV1/FVC ratio is normal. 4. Lung volumes demonstrate air trapping. 5. Gas transfer capacity is diminished, but corrects for lung volume. 6. Flow volume loop has a normal configuration. IMPRESSION: There is no significant obstructive lung disease or bronchodilator response. There is no restrictive lung disease. Gastransfer capacity is diminished but corrects for lung volume. Todd Maldonado MD RITA/MODL #:[id number] Todd Han MD RESPIRATORY THERAPY ORDERABLES Performing Organization Address City/State/[facility] Co de Phone Number [facility] * RESPIRATORY PATHOGEN PANEL BY PCR (05/23/2020 8:55 AM CDT) Adenovirus PCR Not detected Not detected, Invalid, Indeterminate 05/23/2020 4:[address] [facility] MICROBIOLOGY Coronavirus PCR Not detected Not detected, Invalid, Indeterminate 05/23/2020 4:[address] [facility] Human Metapneumovirus PCR Not detected Not detected, Invalid, Indeterminate 05/23/2020 4:[address] [facility] Human Rhinovirus/Entero virus PCR Not detected Not detected, Invalid, Indeterminate 05/23/2020 4:[address] [facility] Influenza A PCR Not detected Not detected, Equivocal, Invalid, Indeterminate 05/23/2020 4:[address] [facility] Influenza B PCR Not detected Not detected, Invalid, Indeterminate 05/23/2020 4:[address] [facility] Parainfluenza Virus 1 PCR Not detected Not detected, Invalid, Indeterminate 05/23/2020 4:[address] [facility] Parainfluenza Virus 2 PCR Not detected Not detected, Invalid, Indeterminate 05/23/2020 4:[address] [facility] Parainfluenza Virus 3 PCR Not detected Not detected, Invalid, Indeterminate 05/23/2020 4:[address] [facility] Parainfluenza Virus 4 PCR Not detected Not detected, Invalid, Indeterminate 05/23/2020 4:[address] [facility] Respiratory Syncytial Virus PCR Not detected Not detected, Invalid, Indeterminate 05/23/2020 4:[address] [facility] Bordetella pertussis PCR Not detected Not detected, Invalid 05/23/2020 4:[address] [facility] Chlamydia pneumoniae PCR Not detected Not detected, Invalid, Indeterminate 05/23/2020 4:[address] [facility] Mycoplasma pneumoniae PCR Not detected Not detected, Invalid, Indeterminate 05/23/2020 4:[address] [facility] Microbiology BRONCHIOLOALVEOLAR LAVAGE / Unknown Collection / Unknown 05/23/2020 8:55 AM CDT 05/23/2020 9:[address] [facility] - 05/23/2020 4:00 PM CDT This test is able to detect the following human coronaviruses: HKU1, NL63, 229E, and OC43. It will NOT detect 2019 Novel Coronavirus (2019-nCoV). If 2019-nCoV is suspected contact Infection Prevention for isolation and testing guidance. Todd Han MD LAB - MICROBIOLOGY O RDERAANN MARIE [facility] MICROBIOLOGY [address] [place] [address], [facility] [phone] * CULTURE BRONCHOALVEOLAR LAVAGE QNT+GRAM STAIN (05/23/2020 8:55 AM CDT) Culture <10,000 CFU/mL normal oropharyngeal mary CELI 05/25/2020 8:41 AM CDT [facility] Gram Stain No organisms seen 020 8:41 AM CDT [facility] Gram Stain Moderate Polymorphonuclear cells 05/25/2020 8:41 AM CDT [facility] MICROBIOLOGY Microbiology BRONCHIOLOALVEOLAR LAVAGE / Unknown Collection / Unknown 05/23/2020 8:55 AM CDT 05/23/2020 9:08 AM CDT Todd Han MD LAB - MICROBIOLOGY O RDERABLES [facility]WORK MICROBIOLOGY [address] [place] [address], [facility] [phone] * CYTOLOGY NON-LEARNING AND DEVELOPMENT ADMINISTRATOR PANEL (STL) (05/23/2020 8:55 AM CDT) Only the most recent of2 resultswithin the time period is included. Case Report Cytology Non Nursing Technician Report ? Case: [id number] ? Authorizing Provider: ??Todd Han MD ? Collected: ? 05/23/2020 08:55 AM ? Ordering Location: ? [facility] ?Received: ?05/23/2020 09:50 AM ? Pathologist: ? Giuliana Moreno MD ? Specimen: ?Bronch Alveolar Lav, RLL ? 05/24/2020 3:57 PM CDT [facility] Addendum 1 A GMS special stain for PCP is negative. 05/24/2020 3:57 PM CDT [facility] Addendum electronically signed by Giuliana Moreno MD on 05/24/2020 at 3:57 PM Final Diagnosis Bronchial alveolar lavage, cellblock and thin prep smear: -- No evidence of malignancy 05/24/2020 3:57 PM CDT [facility] Gross Description Physician/surgeon: Dr Han Indication for Procedure: Chronic Cough Operation: Bronchoscopy Specimen: BAL Gross: Received 10ml of fluid 05/24/2020 3:57 PM CDT [facility] Microscopic Description The bronchial alveolar lavage thin prep and cell block reveal bronchial epithelial cells and bronchial alveolar macrophages. Fungal organisms are not identified. Malignant tumor cells are not seen. 05/24/2020 3:57 PM CDT [facility] Disclaimer All histochemical and/or immunohistochemical results are interpreted with controls that demonstrate appropriate staining reactions before reporting results. Note on use of immunocytochemistry reagents: This test was developed and its performance characteristic determined by [facility], Department of Laboratory Medicine. It has not been cleared or approved by the U.S. Food and Drug Administration (FDA). The FDA has determined that such clearance or approval is not necessary. The test is used for clinical purpose. It should not be regarded as investigational or for research. This laboratory is certified to perform high complexity testing. The performance characteristics of the IHC/PHUC assays have been validated on formalin-fixed paraffin embedded tissues only. The assays have not been validated on decalcified tissues. Results should be interpreted with caution. 05/24/2020 3:57 PM CDT [facility] Embedded Images 05/24/2020 3:57 PM CDT [facility] Pathology/Cytol ogy BRONCHIOLOALVEOLAR LAVAGE / Unknown Collection / Unknown 05/23/2020 8:55 AM CDT 05/23/2020 9:50 AM CDT Comment:Bronch Alveolar Lav Todd Han MD LAB - PATHOLOGY/CYTO LOGY ORDERABLES Performing Organization Address [facility] Co de Phone Number [facility] [address] [place] [address] * DIFFERENTIAL MANUAL BAL (05/23/2020 8:55 AM CDT) Neutro BAL 92 % 05/23/2020 1:49 PM CDT [facility] Lymphocytes % BAL 7 % 05/23/2020 1:49 PM CDT [facility] Macrophage % BAL 1 % 05/23/20 20 1:49 PM CDT [facility] Cells counted BAL 100 05/23/2020 1:49 PM CDT [facility] Fluid BRONCHIOLOALVEOLAR LAVAGE / Unknown Collection / Unknown 05/23/2020 8:55 AM CDT 05/23/2020 9:08 AM CDT Todd Han MD LAB - BODY FLUID ORD ERABLES Performing Organization Address [facility] de Phone Number [facility] [address] [place] [address] * FUNGUS FLUORESCENT SMEAR (05/23/2020 8:55 AM CDT) Pathologist [facility] Calcofluor Stain No yeast or hyphae seen 05/24/2020 6:[address] [facility] MICROBIOLOGY Microbiology BRONCHIAL BRUSHINGS SPECIMEN / Unknown Collection / Unknown 05/23/2020 8:55 AM CDT 05/23/2020 9:09 AM CDT Todd Han MD LAB - MICROBIOLOGY O RDERABLES Performing Organization Address City/[facility]/ZIP Co de Phone Number [facility] MICROBIOLOGY [address] [place] [address], [facility] [phone] * CULTURE AFB+SMEAR (05/23/2020 8:55 AM CDT) Culture No acid-fast bacillus isolated 07/01/2020 7:[address] [facility] MICROBIOLOGY AFB Smear No acid-fast bacilli seen 07/01/2020 7:[address] [facility] MICROBIOLOGY Microbiology BRONCHIOLOALVEOLAR LAVAGE / Unknown Collection / Unknown 05/23/2020 8:55 AM CDT 05/23/2020 9:08 AM CDT Todd Han MD LAB - MICROBIOLOGY O FRANKO Performing Organization Address [facility] Co de Phone Number [facility] MICROBIOLOGY [address] [place] [address], [facility] [phone] * GRAM STAIN SMEAR (05/23/2020 8:55 AM CDT) Pathologist [facility] Gram Stain Moderate Polymorphonuclear cells 05/24/2020 10:[address] [facility] MICROBIOLOGY Gram Stain Light Gram-positive cocci 05/24/2020 10:[address] [facility] MICROBIOLOGY Microbiology BRONCHIAL BRUSHINGS SPECIMEN / Unknown Collection / Unknown 05/23/2020 8:55 AM CDT 05/23/2020 9:08 AM CDT Todd Han MD LAB - MICROBIOLOGY O FRANKO Performing Organization Address [facility] de Phone Number [facility] MICROBIOLOGY [address] [place] [address], [facility] [phone] * CELL COUNT W DIFFERENTIAL BRONCHOAVEOLAR LAVAGE (05/23/2020 8:55 AM CDT) Character Fluid Hazy 05/23/2020 1:43 PM CDT [facility] Color Fluid Colorless 05/23/2020 1:43 PM CDT [facility] Total Nucleated Cells Fluid 295 No clearly established reference range x10E6/L 05/23/2020 1:43 PM CDT [facility] RBC Fluid 40 No clearly established reference ranges x10E6/L 05/23/2020 1:43 PM CDT [facility] Comment BAL Manual Diff to follow 05/23/2020 1:43 PM CDT [facility] Fluid BRONCHIOLOALVEOLAR LAVAGE / Unknown Collection / Unknown 05/23/2020 8:55 AM CDT 05/23/2020 9:08 AM CDT Todd Han MD LAB - BODY FLUID ORD ERABLES Performing Organization Address [facility] Co de Phone Number [facility] [address] [place] [address] * CULTURE FUNGUS OTHER+FUNGUS SMEAR (05/23/2020 8:54 AM CDT) Culture No fungus isolated CELI 06/17/2020 12:[address] [facility] MICROBIOLOGY Fungus Stain No yeast or hyphae seen 06/17/2020 12:[address] [facility] MICROBIOLOGY Fungus Stain No Pneumocystis jirovecii 06/17/2020 12:[address] [facility] MICROBIOLOGY Microbiology BRONCHIOLOALVEOLAR LAVAGE / Unknown Collection / Unknown 05/23/2020 8:54 AM CDT 05/23/2020 9:08 AM CDT Todd Han MD LAB - MICROBIOLOGY O FRANKO Performing Organization Address City/[facility]/ZIP Co de Phone Number [facility] MICROBIOLOGY [address] [place] [address], [facility] [phone] * AFB SMEAR (05/23/2020 8:54 AM CDT) Pathologist [facility] AFB Smear No Acid Fast Bacilli seen No Acid Fast Bacilli seen 05/24/2020 1:[address] [facility] MICROBIOLOGY Microbiology BRONCHIAL BRUSHINGS SPECIMEN / Unknown Collection / Unknown 05/23/2020 8:54 AM CDT 05/23/2020 9:08 AM CDT Todd Han MD LAB - MICROBIOLOGY O FRANKO Performing Organization Address City/[facility]/ZIP Co de Phone Number [facility] MICROBIOLOGY [address] [place] [address], [facility] [phone] * SARS-COV-2 (COVID-19) ANTIBODY IGG (04/30/2020 1:34 PM CDT) SARS COV 2 AB (IGG) NEGATIVE [facility] Comment: Reference range: Negative This test is intended for use as an aid in identifying individuals with an adaptive immune response to SARS-CoV-2, indicating recent or prior infection. Results are for the detection of SARS-CoV-2 antibodies. IgG antibodies to SARS-CoV-2 are generally detectable in blood several days after initial infection, although the duration of time antibodies are present post-infection is not well characterized. At this time, it is unknown for how long antibodies persist following infection and if the presence of antibodies confers protective immunity. Individuals may have detectable virus by molecular testing present for several weeks following seroconversion. Negative results do not preclude acute SARS-CoV-2 infection. This test should not be used to diagnose acute SARS-CoV-2 infection. If acute infection is suspected, direct testing by molecular methods for SARS-CoV-2 is necessary. False positive results for the test may occur due to cross-reactivity from pre-existing antibodies or other possible causes. ?? Please review the Fact Sheets available for health care providers and patients using the following websites: ?? Ztory.[employer]/home/Covid-19/HCP/antibody/fact-sheet2 PageStitch/[employer]/Covid-19/Patients/antibody/fact-sheet2 This test has been authorized by the FDA under an Emergency Use Authorization (EUA) for use by authorized laboratories. The FDA authorized labeling is available on the [facility] website: www.PageStitch/Covid19. ?? For additional information please refer to http://education.NetTalon/faq/GNL247 (This link is being provided for informational/educational purposes only.) ?? Test Performed at: [facility] ??[phone] JEANNIE SINGLETON MD Blood BLOOD SPECIMEN / Unknown 04/30/2020 1:34 PM CDT 04/30/2020 1:35 PM CDT Todd Han MD LAB - CHEMISTRY DEEP [place] [address] [address] * QUANTIFERON-TB GOLD PLUS 1-TUBE (04/30/2020 1:31 PM CDT) [facility] QuantiFERON TB Gold Plus NEGATIVE NEGATIVE [facility] Comment: Negative test result. M. tuberculosis complex infection unlikely. NIL 0.02 IU/mL [facility] MITOGEN MINUS NIL RESULT 9.50 IU/mL [facility] TB1-NIL 0.01 IU/mL [facility] TB2-NIL 0.01 IU/mL [facility] Comment: The Nil tube value reflects the background interferon gamma immune response of the patient's blood sample. This value has been subtracted from the patient's displayed TB and Mitogen results. Lower than expected results with the Mitogen tube prevent false-negative Quantiferon readings by detecting a patient with a potential immune suppressive condition and/or suboptimal pre-analytical specimen handling. The TB1 Antigen tube is coated with the M. tuberculosis-specific antigens designed to elicit responses from TB antigen primed CD4+ helper T-lymphocytes. The TB2 Antigen tube is coated with the M. tuberculosis-specific antigens designed to elicit responses from TB antigen primed CD4+ helper and CD8+ cytotoxic T-lymphocytes. For additional information, please refer to https://education.NetTalon/faq/HBM165 (This link is being provided for informational/ educational purposes only.) Test Performed at: [facility] [place], [place] ??[phone] LUZ MARINA ROSENTHAL DO,MPH 04/30/2020 1:31 PM CDT 04/30/2020 1:33 PM CDT Todd Han MD LAB - CHEMISTRY DEEP ALVARADO Performing Organization Address [facility] de Phone Number [facility] [phone] [place] [address] * REF LAB-ABN TEST REFUSAL (04/30/2020 1:31 PM CDT) JONAH See Below [facility] Comment: Be advised that your patient has indicated on the advance beneficiary notice their decision not to receive the following laboratory tests. As a result, the tests will not be performed. Comment [id number] [facility] Comment: Test Performed at: [facility] [address] [place], [place] ??[address] LUZ MARINA ROSENTHAL DO,MPH 04/30/2020 1:31 PM CDT 04/30/2020 1:33 PM CDT Todd Han MD LAB - CHEMISTRY DEEP ALVARADO Performing Organization Address [facility] Co de Phone Number [facility] [address] [place] [address] * ALLERGEN INTERPRETATION (04/30/2020 1:31 PM CDT) Interpretation See Below [facility] Comment: Specific ?Level of Allergen IGE Class ?kU/L ? Specific IGE Antibody ----- ? --------- ?0 ?<0.10 ? Absent/Undetectable ??0/1 ?0.10-0.34 ? Very Low Level ??1 ?0.35-0.69 ? Low Level ??2 ?0.70-3.49 ? Moderate Level ??3 ?3.50-17.4 ? High Level ??4 ?17.5-49.9 ? Very High Level ??5 ?50-100 ?Very High Level ??6 ?>100 ?Very High Level The clinical relevance of allergen results of 0.10-0.34 kU/L are undetermined and intended for specialist use. Allergens denoted with a include results using one or more analyte specific reagents. In those cases, the test was developed and its analytical performance characteristics have been determined by [facility]. It has not been cleared or approved by the U.S. Food and Drug Administration. This assay has been validated pursuant to the CLIA regulations and is used for clinical purposes. Test Performed at: [facility] [place] [id number] [place] [address] ??[phone] LUZ MARINA ROSENTHAL DO,MPH 04/30/2020 1:31 PM CDT 04/30/2020 1:33 PM CDT Todd Han MD LAB - SEROLOGY ORDER NING Performing Organization Address City/[facility]/ZIP Co de Phone Number [facility] [id number] [place] [address] * RHEUMATOID FACTOR BLOOD QUANTITATIVE (04/30/2020 1:31 PM CDT) Pathologist [facility] Rheumatoid Factor <14 <14 IU/mL [facility] Comment: Test Performed at: [facility] [address] [place], [place] ??[phone] LUZ MARINA ROSENTHAL DO,MPH Blood BLOOD SPECIMEN / Unknown 04/30/2020 1:31 PM CDT 04/30/2020 1:33 PM CDT Todd Han MD LAB - CHEMISTRY ORDE RABLES Performing Organization Address [facility] Co de Phone Number [facility] [phone] [place] [address] * YANELY BLOOD SCREEN W/REFLEX TITER (04/30/2020 1:31 PM CDT) [facility] YANELY Screen NEGATIVE NEGATIVE [facility] Comment: YANELY IFA is a first line screen for detecting the presence of up to approximately 150 autoantibodies in various autoimmune diseases. A negative YANELY IFA result suggests an YANELY-associated autoimmune disease is not present at this time, but is not definitive. If there is high clinical suspicion for Sjogren's syndrome, testing for anti-SS-A/Ro antibody should be considered. Anti-Yany-1 antibody should be considered for clinically suspected inflammatory myopathies. AC-0: Negative International Consensus on YANELY Patterns (https://doi.org/10.1515/jqsj-0034-9490) For additional information, please refer to http://education.Ztory.Verdigris Technologies/faq/DTF216 (This link is being provided for informational/ educational purposes only.) ?? Test Performed at: [facility] [address] [place], [place] ??[phone] LUZ MARINA ROSENTHAL DO,MPH Blood BLOOD SPECIMEN / Unknown 04/30/2020 1:31 PM CDT 04/30/2020 1:33 PM CDT Todd Han MD LAB - CHEMISTRY JOSEBoby [place] Performing Organization Address [facility] de Phone Number [address] [address] * PNEUMONITIS HYPERSENSITIVE SCREEN (04/30/2020 1:31 PM CDT) Aspergillus fumigatus NEGATIVE NEGATIVE [facility] Micropolyspora faeni NEGATIVE NEGATIVE [facility] [place] Serum NEGATIVE NEGATIVE [facility] Thermoactinomyces candidus NEGATIVE NEGATIVE [facility] Thermoactinomyces vulgaris NEGATIVE NEGATIVE [facility] S. viridis NEGATIVE NEGATIVE [facility] Comment: This test was developed and its analytical performance characteristics have been determined by [facility]. It has not been cleared or approved by FDA. This assay has been validated pursuant to the CLIA regulations and is used for clinical purposes. Test Performed at: [facility] [address] [facility], [place] ??[phone] GABI BYERS MD,PHD,ROMI Blood BLOOD SPECIMEN / Unknown 04/30/2020 1:31 PM CDT 04/30/2020 1:33 PM CDT Todd Han MD LAB - CHEMISTRY DEEP ALVARADO Performing Organization Address [facility] Phone Number [facility] [phone] [place] [address] * (ABNORMAL) FUNGAL ANTIBODY PANEL IMMUNODIFFUSION (04/30/2020 1:31 PM CDT) Aspergillus flavus NEGATIVE [facility] Aspergillus niger NEGATIVE [facility] Aspergillus fumigatus NEGATIVE [facility] Comment: REFERENCE RANGE: NEGATIVE INTERPRETIVE CRITERIA: ?? NEGATIVE: ANTIBODY NOT DETECTED ?? POSITIVE: ANTIBODY DETECTED A positive result is represented by 1 or more precipitin bands, and may indicate fungus ball, allergic bronchopulmonary aspergillosis (PARDEEP) or invasive aspergillosis. Generally, the appearance of 3-4 bands indicates either fungus ball or PARDEEP. Blastomyces Antibody by Immunodiffusion Negative Negative [facility] Comment: ? Interpretive Criteria: ?Negative: Antibody not detected ?Positive: Antibody detected A positive result is diagnostic of active or recent blastomycosis and is found in approximately 80% of proven cases of blastomycosis. Gissel Antibody ID POSITIVE(A) [facility] Comment: REFERENCE RANGE: ??NEGATIVE INTERPRETIVE CRITERIA: ?NEGATIVE - Antibody not detected ?POSITIVE - Antibody detected Detection of antibody recognizing Gissel is 70-80% specific for systemic candidiasis, and sensitivity is related to the immunocompetence of the patient. The immunocompromised patient with overwhelming candidiasis may not exhibit detectable Gissel antibody. Coccidiomyces Antibody NEGATIVE [facility] Comment: REFERENCE RANGE: ??NEGATIVE INTERPRETIVE CRITERIA: ?NEGATIVE: ??Antibody Not Detected ?POSITIVE: ??Antibody Detected The immunodiffusion (ID) procedure correlates both in sensitivity and clinical utility with the CF test. The ID test, which detects IgG directed to the F antigen, becomes positive within 4 weeks after infection and remains positive throughout clinically active disease. It is most useful in confirming the specificity of low CF titers, where line(s) of identity are formed with reference antisera. Positive ID reactions are diagnostic for coccidioidomycosis and usually indicate active or recent disease and remain detectable for up to 1 year thereafter. Histoplasma Antibody ID NEGATIVE [facility] Comment: REFERENCE RANGE: ??NEGATIVE INTERPRETIVE CRITERIA: ?NEGATIVE: ??Antibody Not Detected ?POSITIVE: ??Antibody Detected Positive immunodiffusion (ID) reactions involve one or more specific precipitin bands. ??Of these bands the first to appear in active histoplasmosis is the M band, which is seen in approximately 70% of proven cases. This band is also seen in some patients with past infections and in 20% of those with recent histoplasmin skin testing. The H band is usually seen in active and progressive histoplasmosis and almost always in the presence of the M band, although it is found less often (approx. 10% of proven cases.) Test Performed at: [facility] [address] [place], [place] ??[phone] Nathan BAUTISTA Blood BLOOD SPECIMEN / Unknown 04/30/2020 1:31 PM CDT 04/30/2020 1:33 PM CDT Todd Han MD LAB - CHEMISTRY DEEP ALVARADO [facility] [address] [place] [address] * ALLERGEN RESPIRATORY PROF (IL,MO,IA) IGE (04/30/2020 1:31 PM CDT) Allergen Dermatophagoides pteronyssinus <0.10 kU/L [facility] Class 0 [facility] Allergen Dermatophagoides farinae <0.10 kU/L [facility] Class 0 [facility] Allergen P. notatum <0.10 kU/L [facility] Class 0 [facility] Allergen C Herbarum <0.10 kU/L [facility] Class 0 [facility] Allergen Aspergillus fumigatus <0.10 kU/L [facility] Class 0 [facility] Allergen Alternaria alternata <0.10 kU/L [facility] Class 0 [facility] Allergen Cat Dander <0.10 kU/L [facility] Class 0 [facility] Allergen Dog Dander <0.10 kU/L [facility] Class 0 [facility] Allergen Cockroach Uzbek <0.10 kU/L [facility] Class 0 [facility] Allergen Maple <0.10 kU/L [facility] Class 0 [facility] Allergen [place] <0.10 kU/L [facility] Class 0 [facility] Allergen [place] Tree <0.10 kU/L [facility] Class 0 [facility] Allergen [place] <0.10 kU/L [facility] Class 0 [facility] Allergen [place] Tree <0.10 kU/L [facility] Class 0 [facility] Allergen White Stu <0.10 kU/L [facility] Class 0 [facility] Allergen [place] <0.10 kU/L [facility] Class 0 [facility] Allergen Elm <0.10 kU/L [facility] Class 0 [facility] Allergen Crozet/Pecan Tree <0.10 kU/L [facility] Class 0 [facility] Allergen White Clements <0.10 kU/L [facility] Class 0 [facility] Allergen Bermuda Grass <0.10 kU/L [facility] Class 0 [facility] Allergen [place] Grass <0.10 kU/L [facility] Class 0 [facility] Allergen Common Ragweed <0.10 kU/L [facility] Class 0 [facility] Allergen Rough Pigweed <0.10 kU/L [facility] Class 0 [facility] Allergen Bulgarian Thistle <0.10 kU/L [facility] Class 0 [facility] Allergen Rough Lance Elder <0.10 kU/L [facility] Class 0 [facility] Allergen Mouse Urine Protein <0.10 kU/L [facility] Class 0 [facility] IgE 41 <RB=719 kU/L [facility] Comment: Test Performed at: [facility] [address] [place], [place] ??[phone] LUZ MARINA ROSENTHAL DO,MPH Blood BLOOD SPECIMEN / Unknown 04/30/2020 1:31 PM CDT 04/30/2020 1:33 PM CDT Todd Han MD LAB - CHEMISTRY DEEP ALVARADO Performing Organization Address [facility]/State/ZIP Co de Phone Number [facility] [address] [place] [address] * VITAMIN D 25-HYDROXY (04/30/2020 1:31 PM CDT) Vitamin D, 25 Hydroxy 34 30 - 100 ng/mL [facility] Comment: Vitamin D Status ? 25-OH Vitamin D: Deficiency: ?<20 ng/mL Insufficiency: ? 20 - 29 ng/mL Optimal: ? > or = 30 ng/mL For 25-OH Vitamin D testing on patients on D2-supplementation and patients for whom quantitation of D2 and D3 fractions is required, the QuestAssureD(TM) 25-OH VIT D, (D2,D3), LC/MS/MS is recommended: order code 21515 (patients >2yrs). See Note 1 Note 1 For additional information, please refer to http://education.Ztory.Verdigris Technologies/faq/FMA839 (This link is being provided for informational/ educational purposes only.) Test Performed at: [facility] [address] [place], [place] ??[phone] LUZ MARINA ROSENTHAL DO,MPH Blood BLOOD SPECIMEN / Unknown 04/30/2020 1:31 PM CDT 04/30/2020 1:33 PM CDT Todd Han MD LAB - CHEMISTRY DEEP ALVARADO Performing Organization Address City/[facility] Co de Phone Number [facility] [phone] [place] [address] * ANGIOTENSIN CONVERTING ENZYME BLOOD (04/30/2020 1:31 PM CDT) [facility] Angiotensin-Conv erting Enzyme 41 9 - 67 U/L [facility] Comment: Test Performed at: [facility] [place] [address] [place], [place] ??[phone] LUZ MARINA ROSENTHAL DO,MPH Blood BLOOD SPECIMEN / Unknown 04/30/2020 1:31 PM CDT 04/30/2020 1:33 PM CDT Todd Han MD LAB - CHEMISTRY DEEP ALVARADO Performing Organization Address [facility] Co de Phone Number [facility] [phone] [place] [address] * ERYTHROCYTE SEDIMENTATION RATE (04/30/2020 1:31 PM CDT) [facility] Erythrocyte Sedimentation Rate Westergren 25 < OR = 30 mm/h [facility] Comment: Test Performed at: [facility] [place] [address] [place], [place] ??[phone] LUZ MARINA ROSENTHAL DO,MPH Blood BLOOD SPECIMEN / Unknown 04/30/2020 1:31 PM CDT 04/30/2020 1:33 PM CDT Todd Han MD LAB - HEMATOLOGY JOSE MILES Performing Organization Address [facility] Co de Phone Number [facility] [address] [place] [address] * (ABNORMAL) COMPREHENSIVE METABOLIC PANEL (04/30/2020 1:31 PM CDT) [facility] Glucose 127(H) 65 - 99 mg/dL [facility] Comment: ? Fasting reference interval For someone without known diabetes, a glucose value >125 mg/dL indicates that they may have diabetes and this should be confirmed with a follow-up test. BUN 32(H) 7 - 25 mg/dL [facility] Creatinine 1.51(H) 0.60 - 0.88 mg/dL [facility] Comment: For patients >49 years of age, the reference limit for Creatinine is approximately 13% higher for people identified as -Uzbek. eGFR by MDRD 32(L) > OR = 60 mL/min/1. 73m2 [facility] eGFR by MDRD 37(L) > OR = 60 mL/min/1. 73m2 [facility] BUN/Creatinine Ratio 21 6 - 22 (calc) [facility] Sodium 140 135 - 146 mmol/L [facility] Potassium 4.4 3.5 - 5.3 mmol/L [facility] Chloride 100 98 - 110 mmol/L [facility] CO2 32 20 - 32 mmol/L [facility] Calcium 9.2 8.6 - 10.4 mg/dL [facility] Protein Total 6.6 6.1 - 8.1 g/dL [facility] Albumin 4.1 3.6 - 5.1 g/dL [facility] Globulin Total 2.5 1.9 - 3.7 g/dL (calc) [facility] Albumin/Globulin Ratio 1.6 1.0 - 2.5 (calc) [facility] Bilirubin Total 0.4 0.2 - 1.2 mg/dL [facility] Alkaline Phosphatase 58 37 - 153 U/L [facility] AST 24 10 - 35 U/L [facility] ALT 13 6 - 29 U/L [facility] Comment: Test Performed at: [facility] ??[phone] LUZ MARINA ROSENTHAL DO,MPH Blood BLOOD SPECIMEN / Unknown 04/30/2020 1:31 PM CDT 04/30/2020 1:33 PM CDT Todd Han MD LAB - CHEMISTRY DEEP ALVARADO [facility] Organization Address City/State/ZIP Co de Phone Number [facility] [address] [place] [address] * ECHOCARDIOGRAM 2D WITH DOPPLER (03/21/2020 12:45 PM CDT) 03/21/2020 12:4 5 PM CDT Narrative Procedure Note Hola Cueva MD - 03/22/2020 . [facility] [address] [place] [address] Echocardiography Examination Transthoracic Name: ABRAHAN CRZU [facility]#: MR#: [id number] Admission Number: [id number] Study Date: 03/21/2020 Study Time: 12:51 PM Date Of : 1940 Age: 79 years Height: 48 in. (121.9 cm) Weight: 207 lbs. (93.89 kg) BSA: 1.61 m2 Gender: Female Blood Pressure: 131 mmHg / 60 mmHg Heart Rate: 92 bpm Exam Details Procedure Ordered: ECHOCARDIOGRAM 2D W/DOPPLER Procedure Components: Complete 2D, M-mode, complete spectral Doppler, color Doppler, Definity Procedure Status: Routine study Image Quality: Technically Difficult Contrast: Intravenous contrast (Definity) was administered to opacify the left ventricle. Facility Location: [facility] [address] Procedure Machine Wood Sander: Adele Tang RDCS Ordering Physician: Jennifer Adame MD Reading Physician: Hola Cueva MD Indication: Paroxysmal supraventricular tachycardia, Abnormal EKG Conclusions Left Ventricle: ? ? Left ventricle is normal in size. ? ? Normal global systolic left ventricular function. ? ? EF 60 %. ? ? EF range is 55 % -60 %. ? ? Left ventricle wall thickness is normal. ? ? There are no regional wall motion abnormalities. ? ? Left ventricular diastolic function parameters are normal. Follow up: Findings Left Ventricle: Patient: ABRAHAN CRUZ Study Date: 03/21/2020 12:51 PM Page 1 of 3 Left ventricle is normal in size. Normal global systolic left ventricular function. EF evaluated by biplane method of disks. EF 60 %. Left ventricle wall thickness is normal. There are no regional wall motion abnormalities. Left ventricular diastolic function parameters are normal. Right Ventricle: Normal size right ventricle. Right ventricular wall thickness is normal. Right ventricular systolic function is normal. Pulmonary artery pressure normal. Left Atrium: The left atrium is normal in size. Right Atrium: The right atrium is normal in size. Mitral Valve: Mitral leaflets exhibit normal cuspal separation. No mitral regurgitation. No mitral valve stenosis. Aortic Valve: Aortic leaflets exhibit normal cuspal separation. No aortic valve regurgitation. There is no aortic stenosis. Tricuspid Valve: Tricuspid valve leaflets are normal. No tricuspid regurgitation. No tricuspid valve stenosis. Pulmonic Valve: Pulmonic leaflets exhibit normal cuspal separation. No pulmonic valve regurgitation is evident. There is no pulmonic valve stenosis. Aorta: The aorta is normal. No dilation of the ascending aorta. The aortic root exhibits normal size. Great Vessels: IVC: The inferior vena cava is normal in size and course. Pericardium: The pericardium is normal in appearance. No pericardial effusion. Clinical Data Comment: HTN,Diastolic dysfunction Measurements Anatomy Label Value Normal Value Aorta AoRoot, MM 2.5 cm (2.2cm - 3.7cm) Aortic Valve AV Vmean 1.03 m/s Aortic Valve AV VTI 29.23 cm Aortic Valve AV PGmax 8 mmHg Aortic Valve AV PGmean 5 mmHg Aortic Valve AV Vmax, Curve 1.45 m/s (1m/s - 1.7m/s) Aortic Valve LVOT VTI / AV VTI 0.54 Aortic Valve AMINATA D (continuity eq. VTI) 1.4 cm?? Aortic Valve AMINATA Index (continuity 0.68 cm??/m?? eq.Vmax) Aortic Valve AV Opening, MM 1.2 cm Aortic Valve LVOT Vmax / AV Vmax 0.44 Left Atrium LADs, MM 3.6 cm (2.7cm - 3.8cm) Left Atrium LA/AO Ratio, MM 1.47 Left Ventricle LVOT Vmax 0.64 m/s (0.7m/s - 1.1m/s) Left Ventricle LVOTd 1.8 cm (1.8cm - 2cm) Left Ventricle LVOT VTI 15.67 cm (18cm - 22cm) Left Ventricle LVOT PGmax 2 mmHg Left Ventricle LVEF visual 60 % (55% - 75%) Patient: ABRAHAN CRUZ Study Date: 03/21/2020 12:51 PM Page 2 of 3 Left Ventricle LVDd, 2D 4.5 cm (3.7cm - 5.2cm) Left Ventricle LVDs, 2D 3.1 cm (2.2cm - 3.5cm) Left Ventricle FS, 2D 31.11 % Left Ventricle LVEDV, BP 69 ml (56ml - 104ml) Left Ventricle LVESV, BP 25 ml (19ml - 49ml) Left Ventricle LVEDV Index, BP 42.9 ml/m?? (35ml/m?? - 75ml/m??) Left Ventricle LVESV Index, BP 15.5 ml/m?? (12ml/m?? - 30ml/m??) Left Ventricle LVOT PGmean 1 mmHg Left Ventricle LVOT Vmean 0.39 m/s Left Ventricle EF lower range (%) 55 % Left Ventricle EF upper range (%) 60 % Pulmonic Valve PV PGmax 3 mmHg Pulmonic Valve PV Vmax, Caliper 0.79 m/s (0.6m/s - 0.9m/s) Right Ventricle Diastolic TR Pmax 23 mmHg Function Tricuspid Valve TR Vmax 2.4 m/s (No Signature Object) Patient: ABRAHAN CRZU Study Date: 03/21/2020 12:51 PM Page 3 of 3 Jennifer Adame MD ECHO ORDERABLES [facility] CCW * NM MYOCARD PERFUSION SPECT STRESS AND REST (03/21/2020 12:12 PM CDT) Anatomical Region Laterality Modality Chest Nuclear Medicine 03/21/2020 12:4 5 PM CDT Narrative 03/21/2020 12:46 PM CDT NM MYOCARDIAL SPECT SCAN Indications for examination: Substernal chest pain, hypertension, hyperlipidemia. A resting study is carried out with ??10 ??mCi Tc Myoview. Patient is then injected with 0.4 mg lexiscan followed by 30 mCi Tc Myoview. A preliminary stress test report indicates no report currently available. No fixed or reversible perfusion defects are demonstrated. Left ventricular ejection fraction is 69%. There is normal appearing left ventricular wall motion and volume. Summary: Unremarkable myocardial perfusion scan and motion study. *Reading Radiologist: Jennifer Richardson on 03/21/2020 at 12:46 PM Procedure Note Jennifer Richardson MD - 03/21/2020 NM MYOCARDIAL SPECT SCAN Indications for examination: Substernal chest pain, hypertension, hyperlipidemia. A resting study is carried out with 10 mCi Tc Myoview. Patient is then injected with 0.4 mg lexiscan followed by 30 mCi Tc Myoview. A preliminary stress test report indicates no report currently available. No fixed or reversible perfusion defects are demonstrated. Left ventricular ejection fraction is 69%. There is normal appearing left ventricular wall motion and volume. Summary: Unremarkable myocardial perfusion scan and motion study. *Reading Radiologist: Jennifer Richardson on 03/21/2020 at 12:46 PM Jennifer Adame MD NM ORDERABLES * STRESS TEST LEXISCAN (NUCLEAR) (03/21/2020 10:12 AM CDT) Stress Test Summary For full formatted report, please see the report link in the order. Acquisition Time: 2020-03-21 ??10:12:27 Total Exercise Time: 00:01:23 Test Indications: CHEST PAIN Medications: Protocol: LEXISCAN ? Max HR: 106 BPM ??75% of ??Pred: 141 BPM Max BP: 155/080 mmHG Max Work Load: 1.0 METS Reason for Termination: LEXISCAN PROTOCOL COMPLETED Resting ECG: Sinus Rhythm Functional Capacity: HR Response to Exercise: BP Resoonse to Exercise: Chest Pain: none Arrhythmias: none ST Changes: No Changes From Baseline Overall Impression: NO ISCHEMIC ECG CHANGES NOTED NUCLEAR IMAGES PENDING Diagnosis: Confirmed by ZAK GALLEGOS MD ([id number]) on 04/04/2020 8:30:52 AM Attending Physician: Referred By: JENNIFER ADAME ? Overread By: ZAK GALLEGOS MD DP STRESS 03/21/2020 10:1 2 AM CDT 04/04/2020 8:30 AM CDT Jennifer Adame MD CARDIAC SERVICES OR DERABLES [facility] STRESS * XR KNEE BILAT 3VW (02/22/2018 2:40 PM CDT) Only the most recent of2 resultswithin the time period is included. Anatomical Region Laterality Modality Lower Extremity Computed Radiogr aphy Narrative 02/22/2018 5:09 PM CDT Trisha Hernandez, RT(R) ? 02/22/2018 ??5:09 PM See progress notes for results Luz Marina Llamas MD DIAGNOSTIC IMAGING O RDERABLES * XR SHOULDER 2+ VW RIGHT (03/01/2017 11:25 AM CDT) Only the most recent of3 resultswithin the time period is included. Anatomical Region Laterality Modality Upper Extremity Computed Radiogr aphy Narrative 03/01/2017 12:41 PM CDT Trisha Hernanedz, RT(R) ? 03/01/2017 12:41 PM See progress notes for results Lovely Corral PA-C DIAGNOSTIC IMAGING O RDERABLES * VAS RIGHT VENOUS DUPLEX LE (10/11/2014 1:24 PM CLAY ARTIST) Anatomical Region Laterality Modality Ultrasound 10/11/2014 1:11 PM CLAY ARTIST Narrative Procedure Note Jose Collins MD - 10/11/2014 [facility] [address], [address] [place] [address] Lower Extremity Venous Ultrasound Report Pat.Name: ABRAHAN CRUZ Pat.ID: [id number] St.Date: 10/11/2014 Exam Time: 1:11:00 PM Study Type:LE Venous Age: 8 1940,74Y Sex: FEMALE Sonogrphr: Johnny Hernandez RVT Pat. Stat.:Outpatient ICD - 9: 729.5 Pain in Extremity, 729.81 Swelling of Limb CPT - 4: 72082 Procedures:Lower Extremity Venous - Right Race: 1 Visit ID: [id number] SUMMARY: There is no evidence of an acute deep or superficial venous thrombosis in the right lower extremity. FINDINGS: Procedure: Venous duplex imaging of the right lower extremity was performed using color flow and spectral Doppler analysis. The contralateral common femoral vein was also examined. Study Quality: This study is of adequate technical quality. Rt Leg: All vessels seen appear patent and compressible. There was spontaneous and phasic flow seen in all the major veins of the right lower extremity. Appropriate augmentation with distal compression. No evidence of reflux with proximal compression. Signed 10/11/2014 04:19 PM Jose Collins MD Ino Michaels PA-C VASCULAR LAB ORDERA BLES * LAB RESULTS ORDER (06/04/2014 10:59 PM CDT) Provider Unknown LAB - THERAPEUTIC DR MILLAN MONITORING ORDERABLES * CARDIAC EKG ORDER (06/04/2014 10:59 PM CDT) Scanned Document CARDIAC SERVICES ORD ERABLES * (ABNORMAL) HGB HCT PANEL (06/01/2014 12:18 AM CDT) Only the most recent of2 resultswithin the time period is included. [facility] Hemoglobin 8.4(L) 12.0 - 15.6 gm/dL 06/01/2014 12:37 AM CDT [facility] Hematocrit 26.1(L) 35.9 - 45.5 % 06/01/2014 12:37 AM CDT [facility] Blood BLOOD SPECIMEN / Unknown 06/01/2014 12:18 AM CDT 06/01/2014 12:21 AM CDT Luz Marina Llamas MD LAB - HEMATOLOGY ORD ERABLES [facility] [address] [place] [address] * NEURAXIAL BLOCK (05/30/2014 11:48 AM CDT) Narrative Luis Enrique Douglass APRN-CRNA - 05/30/2014 11:48 AM CDT MATHEW Khan ? 05/30/2014 11:48 AM NEURAXIAL BLOCK Patient Location: ??OR Pre Procedure Indication: ??surgical anesthesia Preanesthetic Checklist: ??patient identified, IV checked, site marked, risks and benefits discussed, surgical consent verified, monitors and equipment checked, pre-op evaluation done, timeout performed, informed consent obtained and questions answered / anesthesia plan accepted Monitors: ??BP and Pulse Ox Patient Condition: ??awake Patient Position: ??sitting Procedure Block Performed: ??spinal Prep: ??Betadine Sterile Field: ??mask, cap/hat, sterile field established and sterile gloves Approach: ??midline Skin Numbed with: ??lidocaine 1% Spinal Needle Type: ??pencil-point Needle Gauge: ??25 G Needle Length: ??3.5 in Placement Site: ??L3-4 Number of Attempts: ??1 CSF: ??free flow and aspiration before injection Local Anesthetic: ??bupivacaine 0.75% in dextrose 2 ml Spinal Additive: ?fentanyl 25 mcg ? Events CSF return injection not painful Degree of Difficulty: ??none Position Post Procedure: ??supine Vital signs monitored and stable throughout. ??See Anesthesia Intraop record for details. Block Performed by: ??Luis Enrique Douglass CRYSTAL GRINDER Luz Marina Llamas MD GENERAL ANESTHESIA O FRANKO * (ABNORMAL) CULTURE MSSA/MRSA (05/10/2014 2:06 PM CDT) [facility] Culture Negative for MRSA CELI 05/11/2014 6:56 PM CDT [facility] Culture Staphylococcus aureus (MSSA)(A) CELI 05/11/2014 6:56 PM CDT [facility] Microbiology SPECIMEN FROM NASAL FOSSAE / Unknown 05/10/2014 2:06 PM CDT 05/10/2014 3:23 PM CDT Luz Marina Llamas MD LAB - MICROBIOLOGY O FRANKO [facility] [address] [place] [address], [facility] * XR CERVICAL SPINE 2 OR 3 VW (05/23/2013 1:55 PM CDT) Anatomical Region Laterality Modality Spine Radiographic Jayla ging Narrative 05/23/2013 1:56 PM CDT RT Radha(R) ? 05/23/2013 ??1:56 PM See progress notes for results Procedure Note Trisha Hernandez RT(R) - 05/23/2013 1:56 PM CDT See progress notes for results Mily Douglas MD DIAGNOSTIC IMAGING ORDERABLES * XR CHEST PA AND LATERAL (06/21/2012 2:13 PM CDT) Only the most recent of2 resultswithin the time period is included. Anatomical Region Laterality Modality Chest Radiographic Jayla ging 06/21/2012 2:48 PM CDT Impressions 06/21/2012 2:48 PM CDT 1. No evidence of active cardiopulmonary disease. 2. No change from previous. Narrative 06/21/2012 2:48 PM CDT CHEST PA AND LATERAL from 06/21/2012 INDICATION: ??Tachycardia COMPARISON: ??04/18/2009 FINDINGS: ??PA and lateral radiographs of the chest were obtained. ??The heart and mediastinum are within normal limits. ??The lungs are well expanded and clear. ??No bony abnormality is seen. Procedure Note Luis Enrique Barros MD - 06/21/2012 CHEST PA AND LATERAL from 06/21/2012 INDICATION: Tachycardia COMPARISON: 04/18/2009 FINDINGS: PA and lateral radiographs of the chest were obtained. The heart and mediastinum are within normal limits. The lungs are well expanded and clear. No bony abnormality is seen. IMPRESSION 1. No evidence of active cardiopulmonary disease. 2. No change from previous. Jennifer Adame MD DIAGNOSTIC IMAGING ORDERABLES Care Teams Building Admin Relationship Specialty Start Date End Date Kayla Peck MD [address] [place] [phone] PCP - General Internal Medicine 03/03/23 Luz Marina Llamas MD Orthopedic Surgery 07/24/11 [place] [address] [facility] [address] [place] [address] Orthopedic Surgery 05/23/13 [place] [address] [facility] [address] [place] [address] [id number] Pulmonary Disease 04/24/20 [place] [address] [facility] [place] [address] Nephrology 04/24/20 [facility] Kidney Care Management 04/15/22
--- OUTSIDE RECORDS SUMMARY | 2024-10-08 14:21 | XMS_ITS | Encounter Summary ---
Author Organization [employer] Address [address] [place] [address] Care Team Providers Care Education General Manager Name Role Phone Fermín Adame MD Primary Care Provider Encounter Details Date Type Department Care Team (Late st Contact Info) Description 10/31/2001 Outpatient Historical [facility] Luis Enrique Padron MD 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
--- OUTSIDE RECORDS SUMMARY | 2024-10-08 14:21 | XMS_ITS | Clinical Summary ---
Author Organization [facility] Address [address] [facility] [place] [address] Care Team Providers Care Rn Mental Health Name Role Phone Bright Llamas MD Unavailable Mily Douglas MD Unavailable [phone] Todd Han MD Unavailable Radha Joshua MD Unavailable [phone] [facility] Unavailable Kayla Peck MD Primary Care Provider [phone] Source Comments [facility],non-owned Affiliates and Associated Physician Practices is amultiple site organization consisting of ambulatory clinics and hospital sitesin [place], [place], [place] and [place]. This disclosure is being madepursuant to the Care Everywhere program and may not contain all information available regarding this patient. Last updated 18.[facility] Allergies Active Allergy Reactions Criticality Noted Date Comments Clarithromycin GI Discomfort,Anaphylaxis High 11/20/2005 Dust Mite Extract Rhinitis 07/28/2011 Moxifloxacin Anaphylaxis High 07/28/2011 Penicillins Anaphylaxis,Angioedema High 11/20/2005 Throat swelling Pravastatin Other 03/01/2023 Hair loss/alopecia Sulfasalazine Nausea and/or Vomiting 12/16/2017 Other reaction(s): nausea and vomiting Medications * Be aware that medications may not be up to date on this document. Alwaysverify current medications with the patient. Medication Sig Dispensed Refills Start Date End Date Status fish oil/omega-3 fatty acids (OMEGA-3 FISH OIL) 1000 MG capsule Take 1 (one) capsule by mouth 3 times daily with meals Active ALPRAZolam (Xanax) 0.25 MG tablet Take 1 (one) tablet by mouth once daily as needed for Anxiety Active omeprazole (PRILOSEC) 20 MG capsule Take 1 (one) capsule by mouth daily before breakfast Active atorvastatin (LIPITOR) 40 MG tablet Take 1 (one) tablet by mouth at bedtime Active metoprolol succinate XL 24hr (TOPROL XL) 25 MG tablet Take 1 (one) tablet by mouth once daily 04/11/2020 Active dilTIAZem coated beads 24hr (Cardizem CD) 120 MG capsule Take 180 mg by mouth 2 times daily 03/30/2020 Active levothyroxine (SYNTHROID) 88 MCG tablet Take 1 (one) tablet by mouth once daily 02/28/2020 Active citalopram (CELEXA) 20 MG tablet Take 2 (two) tablets by mouth once daily 02/06/2020 Active MULTIPLE VITAMIN PO Active furosemide (Lasix) 40 MG tablet TAKE 1 TABLET BY MOUTH TWICE A DAY TAKE 80 MG ALTERNATING WITH 40 MG DAILY 90 01/21/2023 Active oxyCODONE, immediate release, (Roxicodone) 5 MG tabletIndications :Subdural hematoma (HCC) Take 1 (one) tablet by mouth every 6 hours as needed 12 tablet 03/03/2023 Active acetaminophen (Tylenol) 325 MG tablet Take 2 (two) tablets by mouth every 6 hours Maximum allowable Acetaminophen amount = 4 Grams (4000 mg) / 24 hours. 03/04/2023 Active aspirin EC (Ecotrin) 81 MG tablet Take 1 (one) tablet by mouth once daily 0 03/12/2023 Active docusate sodium (Colace) 100 MG capsule Take 1 (one) capsule by mouth 2 times daily 30 capsule 03/04/2023 Active polyethylene glycol 3350 (Miralax) 17 g packet Take 17 (seventeen) g by mouth once daily as needed for Constipation 7 packet 03/03/2023 Active erythromycin (Romycin) 5 MG/GM ophthalmic ointment Instill into both eyes 4 times daily 1 g 03/04/2023 Active Active Problems Problem Noted Date Diagnosed Date Benign neoplasm of colon 03/03/2023 023 Chronic renal insufficiency 03/03/202302/12 Obesity 03/03/2023 03/03/2023 Diastolic dysfunction 03/03/2023 03/03/2023 Edema 03/03/2023 03/03/2023 Gastric polyposis 03/03/2023 03/03/2023 Hyperglycemia 03/03/2023 03/03/2023 Ischemic colitis 03/03/2023 03/03/2023 Non-toxic uninodular goiter 03/03/2023 06/2 09/2022 Osteopenia 03/03/2023 03/03/2023 Ovarian failure 03/03/2023 03/03/2023 [...] 09/10/2003 03/03/2023 Mixed hyperlipidemia 06/11/2003 03/03/2023 Immunizations Name Administration Dates Next Due INFLUENZA VACCINE, HIGH-DOSE , QUADR. (FLUZONE HIGH-DOSE QUADRIVALENT; 65Y+), 0.7 ML (HD-IIV4) 05/07/2020 INFLUENZA VACCINE, TRIV. (FL UZONE; FLULAVAL; FLUARIX; AFLURIA TRIVALENT; 6MO+), 0.5 ML (IIV3) 06/02/2014 TDAP (7yrs+) 03/02/2023 Family History Medical History Relation Name Comments Cancer - Breast Sister 1 Heart Failure Sister 2 Relation Name Status Comments Brother (Age 62) Father Mother Sister 1 (Age 72) Sister 2 Social History Tobacco Use Types Packs/Day Years [...] Mass Index 33.8 04/06/2023 3:57 PM CDT Plan of Treatment Health Maintenance Due Date Last Done Comments BONE DENSITY TESTING 1940 MEDICARE AWV ? 12 MONTHS 1940 PNEUMOCOCCAL VACCINE 50+ (1 of 1 - PCV) 1990 ZOSTER VACCINE (1 of 2) 1990 Respiratory Syncytial Virus (RSV) Vaccine Pt: or over 60 yrs (1 - 1-dose 75+ series) 2015 COVID-19 VACCINE ( - season) 2024 07/09/2021, 12/12/2020, 11/09/2020 INFLUENZA VACCINE (#1) 2024 , 06/03/2021, 05/07/2020, Additional history exists DEPRESSION SCREENING 09/13/2024 DTAP/TDAP/TD VACCINES (2 - Td or Tdap) 03/02/2033 03/02/2023 HEPATITIS B VACCINE Aged Out No longe r eligible based on patient's age to complete this topic HIB VACCINE Aged Out No longer eligi ble based on patient's age to complete this topic HPV VACCINE Aged Out No longer eligi ble based on patient's age to complete this topic MENINGOCOCCAL (Group B) VACCINE Aged Out No longer eligible based on patient's age to complete this topic MENINGOCOCCAL VACCINE Aged Out No eveline sarahi eligible based on patient's age to complete this topic Medical Devices Implanted Type Area Wave Soldering Machine Operator Device Identifier Shelf Expiration Date Model / Serial / Lot [place] Hv Implanted:Qty: 1 on 05/30/2014 by Bright Llamas MD at [facility] Right: [employer] 01/28/2016 [id number] / / [id number] Hammad Izquierdo Arcom Wire Polyeth Xsm 28 X 8 Implanted:Qty: 1 on 05/30/2014 by Bright Llamas MD at [facility] Right: [employer] 02/27/2019 [id number] / / [id number] Ty Tibial I Beam Fix Bar 63mm Implanted:Qty: 1 on 05/30/2014 by Bright Llamas MD at [facility] Right: [employer] 11/27/2021 [id number] / / [id number] Kn Ins Vangurd Fem Cocr R-Intlok 57.5mm Implanted:Qty: 1 on 05/30/2014 by Bright Llamas MD at [facility] Right: [employer] 12/29/2023 [id number] / / [id number] Vangrd Ant Stblzd Brg 14mm X 63mm Implanted:Qty: 1 on 05/30/2014 by Bright Llamas MD at [facility] Right: [employer] 10/30/2014 [id number] / / [id number] Advance Directives Documents on File Type Date Recorded Patient Carbide Powder Processor Expl anation Adv Directive/Living Will/POA 05/10/2014 1:04 PM LIVING WILL & LAST W ILL & TESTAMENT * Full Code (Latest Code Status on File) Date Activated Date Inactivated Comments 03/02/2023 6:54 PM 03/04/2023 2:24 PM * Full Code Date Activated Date Inactivated Comments 05/30/2014 4:33 PM 06/02/2014 12:11 PM Care Teams Rn Mental Health Relationship Specialty Start Date End Date Kayla Peck MD [address] [place] [phone] PCP - General Internal Medicine 03/03/23 Bright Llamas MD Orthopedic Surgery 07/24/11 [place] [address] [facility] [address] [place] [address] Orthopedic Surgery 05/23/13 [place] [address] [facility] [address] [place] [address] Pulmonary Disease 8/12/20 [place] [address] [place] [address] Nephrology 04/24/20 Care, [facility] Kidney Care Management 04/15/22
--- OUTSIDE RECORDS SUMMARY | 2024-10-08 14:21 | XMS_ITS | Encounter Summary ---
Author Organization [employer] Address 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
--- OUTSIDE RECORDS SUMMARY | 2024-10-08 14:21 | XMS_ITS | Clinical Summary ---
Author Organization [facility] Address [address] [place] [address] Phone Care Team Providers Care Marker Machine Attendant Name Role Phone Fermín Adame MD Primary Care Provider [phone] Allergies Active Allergy Reactions Criticality Noted Date Comments Penicillins Angioedema High 03/12/2012 Medications No known medications Family History Medical History Relation Name Comments Heart Disease Father Relation Name Status Comments Father Social History Tobacco Use Types Packs/Day Years Used Date Smoking Tobacco: Never Alcohol Use Standard Drinks/Week Comments No 0 (1 standard drink = 0.6 oz pur e alcohol) Comments Unknown Sex and Gender Information Value Date Recorded Sex Assigned at Not on file Legal Sex Female 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 Gender Identity Not on file Sexual Orientation Not on file Occupation Industry Job Start Date Job End Date Not on file Not on file Not on file Not on file Last Filed Vital Signs Vital Sign Reading Time Taken Comments Blood Pressure 130/80 03/12/2012 4:21 PM CDT Pulse 60 03/12/2012 4:21 PM CDT Temperature 36.7 ??C (98 ??F) 03/12/2012 1:52 PM CDT Respiratory Rate 18 03/12/2012 4:21 PM CDT Oxygen Saturation 100% 03/12/2012 4:21 PM CDT Inhaled Oxygen Concentration - - Weight 65.8 kg (145 lb) 03/12/2012 1:52 PM CDT Height 139.7 cm (4' 7 ) 03/12/2012 1:52 PM CDT Body Mass Index 33.7 03/12/2012 1:52 PM CDT Plan of Treatment Health Maintenance Due Date Last Done Comments PNEUMOCOCCAL VACCINE 65+ YEA RS (1 of 1 - PCV) 1990 ZOSTER VACCINE (1 of 2) 1990 OSTEOPOROSIS SCREENING 2005 RSV VACCINE (60+ or ) (1 - 1-dose 75+ series) 2015 INFLUENZA VACCINE (#1) 2024 05/07/2020, 2013 DTAP/TDAP/TD VACCINES (2 - Td or Tdap) 03/02/2033 Insurance [facility] [id number] Care Teams Marker Machine Attendant Relationship Specialty Start Date End Date Fermín Adame MD PCP - General Internal Medicine 03/12/12
--- OUTSIDE RECORDS SUMMARY | 2024-10-08 14:21 | XMS_ITS | Encounter Summary ---
Author Organization [employer] [facility] Address [address] [place] [address] Care Team Providers Care Railroad Track Mechanic Name Role Phone Fermín Adame MD Primary Care Provider Encounter Details Date Type Department Care Team (Latest Contact Info) Description 01/06/2002 Outpatient Historical [facility] Gumaro Chin MD [address] [facility] [address] [place] [address] NONTOX UNINODULAR GOITER (Primary Dx) Social History Tobacco Use Types Packs/Day Years Used Date Smoking Tobacco: Never Assessed Comments Unknown Sex and Gender Information Value Date Recorded Sex Assigned at Not on file Legal Sex Female 5:16 AM 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
--- OUTSIDE RECORDS SUMMARY | 2024-10-08 14:21 | XMS_ITS | CONTINUITY OF CARE DOCUMENT ---
Author Name deidre adriencharles Address Unknown Organization [facility] Address [address] [place] [address] Phone [phone] Care Team Providers Care Judicial Assistant Name Role Phone Nico PAUL, Ryan Unavailable [phone] JENNIFER ANTON MD Unavailable [phone] JENNIFER ANTON MD Unavailable PROBLEMS Condition Status Date Provider Notes Chest pain active Gita Calvert INSURANCE PROVIDERS Payer name Policy type / Coverage type [place] red green party ID BAHRAINI WHITERIVER Commercial insurance compan y [id number] [place] [id number] HISTORY OF PROCEDURES Procedure Date Procedure Name Provider Procedure Notes S tatus Stress EKG Ryan Walsh MD complete d Regadenoson, 4 units Ryan Walsh MD completed Cardiolite, 2 units Ryan Walsh MD completed SPECT Images Nathaniel Balderrama MD complet ed
--- OUTSIDE RECORDS SUMMARY | 2024-10-08 14:21 | XMS_ITS | Encounter Summary ---
Author Organization [employer] Address [address] [facility] Attn: Epic Prelude ADT [place] [address] Care Team Providers Care Letterer Name Role Phone Fermín Adame MD Primary Care Provider [phone] Encounter Details Date Type Department Care Team (Late st Contact Info) Description 06/21/1989 Outpatient Historical Luis Enrique Padron MD [address] 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
--- OUTSIDE RECORDS SUMMARY | 2024-10-08 14:21 | XMS_ITS | Encounter Summary ---
Author Organization [employer] Address [address] [place] [address] Care Team Providers Care Regasification Plant Operator Name Role Phone Fermín Adame MD Primary Care Provider Encounter Details Date Type Department Care Team (Late st Contact Info) Description 10/03/2008 Outpatient Historical [facility] [place], Authorized P NO ADDRESS ON FILE Jamey Martines MD [address] [place] [address] Social History Tobacco Use Types Packs/Day Years Used Date Smoking Tobacco: Never Assessed Comments Unknown Sex and Gender Information Value Date Recorded Sex Assigned at Not on file Legal Sex Female 5:16 AM WEB UI DEVELOPER Gender Identity Not on file Sexual Orientation Not on file documented as of this encounter Plan of Treatment Not on file documented as of this encounter Procedures Procedure Name Priority Date/Time Associated Diagnosis Comments CBC WITH DIFFERENTIAL Stat 10/03/2008 2:12 PM WEB UI DEVELOPER COMPREHENSIVE METABOLIC PANEL Stat 10/03/2008 2:12 PM WEB UI DEVELOPER documented in this encounter Results * (ABNORMAL) COMPREHENSIVE METABOLIC PANEL (10/03/2008 2:12 PM WEB UI DEVELOPER) CREATININE 1.00(H) 0.51 - 0.95 mg/dL [facility] AST 34(H) 12 - 32 U/L [facility] ALBUMIN 4.2 3.4 - 4.8 g/dL [facility] CHLORIDE 98 96 - 108 mmol/L [facility] GLUCOSE 109(H) 65 - 99 mg/dL [facility] CALCIUM 9.7 8.6 - 10.2 mg/dL [facility] TOTAL PROTEIN 7.7 6.3 - 8.6 g/dL [facility] SODIUM 137 135 - 145 mmol/L [facility] ALT 32(H) 0 - 31 U/L [facility] CO2 25 22 - 30 mmol/L [facility] BILIRUBIN TOTAL 0.3 0.2 - 1.0 mg/dL [facility] ALKALINE PHOSPHATASE 114(H) 35 - 104 U/L [facility] POTASSIUM 3.5 3.5 - 4.9 mmol/L [facility] BUN 13 6 - 20 mg/dL [facility] GFR, >60 >=60 mL/min/1. 7 sq meter [facility] GFR 55(L) >=60 mL/min/1. 7 sq meter [facility] Comment: Modification of Diet in Renal Disease (MDRD) study formula. Estimated GFR rate interpretative information for both Americans and non- Americans is available on the [facility] Intranet at: [email or web address] Select: Lab Policies and Procedures Select: Reference Ranges - GFR Blood specimen (specimen) 10/03/2008 2:12 PM WEB UI DEVELOPER 10/03/2008 2:20 PM WEB UI DEVELOPER us Jamey Martines MD CHEMISTRY ORDERABLES Edited INTERFACE SYSTEM Refer to clinic/hospital department [facility] CLIA# [id number] [address] [place] [address] * (ABNORMAL) CBC WITH DIFFERENTIAL (10/03/2008 2:12 PM WEB UI DEVELOPER) HEMATOCRIT 43.8 35.5 - 44.0 % [facility] RDW-STDEV 51.2(H) 37.1 - 48.7 fL [facility] RBC 4.74 3.90 - 4.90 M/uL [facility] MCHC 32.4 31.5 - 35.5 % [facility] MCV 92.4 82.0 - 99.0 fL [facility] PLATELETS 272 140 - 350 K/uL [facility] HEMOGLOBIN 14.2 11.8 - 14.8 g/dL [facility] RDW 15.1(H) 11.5 - 14.5 % [facility] WBC 7.6 4.0 - 9.8 K/uL [facility] MCH 30.0 27.2 - 32.6 pg [facility] MPV 10.2 9.3 - 12.4 fL [facility] BASOPHILS 0 0 - 2 % [facility] BASOPHILS ABSOLUTE 0.01 0.00 - 0.20 K/uL [facility] MONOCYTES 6 3 - 13 % [facility] MONOCYTE ABSOLUTE 0.47 0.10 - 1.30 K/uL [facility] NEUTROPHILS 64 45 - 70 % [facility] NEUTROPHIL ABSOLUTE 4.84 1.90 - 7.00 K/uL [facility] EOSINOPHILS 3 0 - 7 % [facility] EOSINOPHIL ABSOLUTE 0.23 0.00 - 0.70 K/uL [facility] LYMPHOCYTES 27 16 - 45 % [facility] LYMPHOCYTE ABSOLUTE 2.07 0.70 - 4.50 K/uL [facility] Blood specimen (specimen) 10/03/2008 2:12 PM WEB UI DEVELOPER 10/03/2008 2:20 PM WEB UI DEVELOPER us Jamey Martines MD HEMATOLOGY ORDERABLES Edited INTERFACE SYSTEM Refer to clinic/hospital department [facility] CLIA# [id number] [address] [place] [address] documented in this encounter Visit Diagnoses Not on filedocumented in this encounter Care Teams Regasification Plant Operator Relationship Specialty Start Date End Date Fermín Adame MD PCP - General Internal Medicine 03/12/12 documented as of this encounter
--- OUTSIDE RECORDS SUMMARY | 2024-10-08 14:21 | XMS_ITS ---
Author Organization [facility] Address [address] [place] [address] Care Team Providers Care Case Sealer Name Role Phone Kayla Peck Primary Care Provider Unavaila KELIN Bonner Unavailable [phone] Allergies Allergen (clinical drug ingredient) Drug/Non Drug [...] Duration) Notes Start Date End Date Status Fenofibrate 200 MG 1 capsule with a [...] 40 MG DAILY 90 for 90 Active Xanax 0.5 MG 1-2 tablets Orally a t bedtime as needed for 1 Active Famotidine 20 MG 1 tablet as needed O rally Once a day for 1 Active Benzonatate 100 MG 1 capsule as needed Orally Three times a day for 1 Active Aspirin Adult Low Dose 81 MG 1 tablet Orally Once a day Active Metoprolol Succinate ER 25 MG 1 tablet Orally Once a day for 90 Active Atorvastatin Calcium 40 MG 1 tablet Oral ly Once a day Active Centrum Silver - 1 tablet Orally Once a day Active Citalopram Hydrobromide 10 MG 1 tablet Orally Once a day Active Encounters Encounter Location Date Provider [facility] [id number] [place] [address] 10/18/2023 KELIN JOSHUA Chronic kidney disea se, stage [...] Treatment Notes Treatment Clinical Notes Section Notes 10/18/2023 Chronic kidney disease, stage 4 (severe) (ICD-10 - N18.4) 10/18/2023 Hyperlipidemia, unspecified (ICD-10 - E78.5) 10/18/2023 Hypertensive chronic kidney disease with stage 1 through stage 4 chronic kidney disease, or unspecified chronic kidney disease (ICD-10 - I12.9) 10/18/2023 Proteinuria, unspecified (ICD-10 - R80.9) 10/18/2023 Depressive disorder (ICD-10 - F32.9) 10/18/2023 Edema (ICD-10 - R60.9) 10/18/2023 Anemia, unspecified type (ICD-10 - D64.9) 10/18/2023 Renal osteodystrophy (ICD-10 - N25.0) 10/18/2023 Vitamin D deficiency, unspecified (ICD-10 - E55.9) Plan Of Treatment No Information Progress Notes * ABRAHAN ANGELO DDOB:1940 (84 yo F)Acc No.[id number]:10/18/2023 Progress Notes Patient:?ABRAHAN ANGELO Provider:?Kelin Joshua MD :1940???Age:83 Y???Sex:Female D ate:10/18/2023 Address:[address] [place] [address] [facility] Pcp:Kayla Peck Subjective: * Chief Complaints: * [...] tablet Orally Once a day , Taking Furosemide 40 MG Tablet TAKE 1 TABLET BY MOUTH TWICE A DAY TAKE 80 MG ALTERNATING WITH 40 MG DAILY 90 , Taking dilTIAZem HCl ER Coated Beads 120 MG Capsule Extended Release 24 Hour 1 capsule Orally Once a day , Medication List reviewed and reconciled with [...] JOSHUA MD on 10/08/2024 at 02:20 PM RIPRAP PLACING SUPERVISOR Sign off status: Pending * Provider:?Kelin Joshua MD Date:?10/18 Generated for Reji matute/Pj/Mac on:?10/08/2024 02:20 PM RIPRAP PLACING SUPERVISOR
--- OUTSIDE RECORDS SUMMARY | 2024-10-08 14:21 | XMS_ITS | Encounter Summary ---
Author Organization [employer] Address [address] [facility] Attn: Epic Prelude ADT [place] [address] Care Team Providers Care Life Agent Name Role Phone Fermín Adame MD Primary Care Provider [phone] Encounter Details Date Type Department Care Team (Late st Contact Info) Description 06/03/1992 Outpatient Historical Luis Enrique Padron MD [address] [facility] [place] [address] Social History Tobacco Use Types Packs/Day Years Used Date Smoking Tobacco: Never Assessed Comments Unknown Sex and Gender Information Value Date Recorded Sex Assigned at Not on file Legal Sex Female 5:16 AM FORESTRY FIRE AIDE Gender Identity Not on file Sexual Orientation Not on file documented as of this encounter Plan of Treatment Not on file documented as of this encounter Visit Diagnoses Not on filedocumented in this encounter Care Teams Life Agent Relationship Specialty Start Date End Date Fermín Adame MD PCP - General Internal Medicine 03/12/12 documented as of this encounter
--- OUTSIDE RECORDS SUMMARY | 2024-10-08 14:21 | XMS_ITS | Encounter Summary ---
Author Organization [employer] Address [address] [facility] Attn: Epic Prelude ADT [place] [address] Care Team Providers Care Boner Meat Name Role Phone Fermín Adame MD Primary Care Provider [phone] Encounter Details Date Type Department Care Team (Late st Contact Info) Description 12/05/1990 Outpatient Historical Luis Enrique Padron MD [address] [facility] [place]. [address] [place] [address] Social History Tobacco Use Types Packs/Day Years Used Date Smoking Tobacco: Never Assessed Comments Unknown Sex and Gender Information Value Date Recorded Sex Assigned at Not on file Legal Sex Female 5:16 AM SOFTWARE DEVELOPER INTERN Gender Identity Not on file Sexual Orientation Not on file documented as of this encounter Plan of Treatment Not on file documented as of this encounter Visit Diagnoses Not on filedocumented in this encounter Care Teams Boner Meat Relationship Specialty Start Date End Date Fermín Adame MD PCP - General Internal Medicine 03/12/12 documented as of this encounter
--- OUTSIDE RECORDS SUMMARY | 2024-10-08 14:21 | XMS_ITS | Continuity of Care Document ---
Author Organization [facility] Address [address] [place] [address] Phone Care Team Providers Care Credit Clerk Name Role Phone Gumaro Sanchez MD Unavailable Unavailable Allergies, Adverse Reactions, Alerts Substance Reaction Status Criticality clarithromycin Other Active No Informatio n penicillin G Other Active No Information Medications Medication Instructions Dosage Effective Dates (start - stop) Status Comments ZETIA 10 MG TABLET 1 QD-daily - Active DILTIAZEM ER 180 MG CAPSULE 1 QD-daily - Active FLEXERIL 10 MG TABLET 1 TID - Acti ve FUROSEMIDE 40 MG TABLET 1 BID - Ac tive PRILOSEC OTC 20MG TABLET 1 QD - A ctive MOBIC 7.5 MG TABLET 1 DAILY - Active FEXOFENADINE HCL 60MG TABS 1 BID - Active ZOLOFT 100 MG TABLET 1 QAM - Activ e LEVOTHROID 125MCG TABS 1 QD - Act tello Advance Directives Directive Yes / No Effective Date File Name No Information Encounters Encounter Description Practice Location Reason(s) For Visit Diagnoses Date Provider Providers Copied on Encounter [facility], [address], [place], [place], [address] , [place] tel: [phone] [facility] No Information 7 Daniel Naik. [address] [facility], [facility] [address], [place], [place], [address], [place]. tel:[phone] [facility], [address], [place], [place], [address] , tel: [phone] [facility] No Information 1 Conversion Doctor. [address] [place] [address] [place], [address], [place]. [facility], [address], [place], [place], [address] , tel: [phone] [facility] LUMBAGOBEN HY KID W CR KID I-IVPURE HYPERCHOLESTEROLE [facility] KIDNEY DIS STAGE IIISWELLING IN HEAD & NECKLOC PRIM OSTEOART-L/LEGABN BLOOD CHEMISTRY NEC 7 Daniel Naik. [address] [place] [address], [address], [place], [place], [address], [place]. tel: [phone] [facility], [address], [place], [place], [address] , [place] tel: [phone] [facility] [place] VAC STRPTCS PNEUMNI BHYPOTHYROIDISM NOSBENIGN HYPERTENSION 5200 6 Daniel Naik. [address] [place] [address], [address], [place], [place], [address], [place]. tel: [phone] [facility], [address], [place], [place], [address] , [place] tel:[phone] [facility] ACUTE URI NOS 5200 6 Conversion Doctor. [facility] [place], [address], [place]. [facility], [address], [place], [place], [address] , tel: [phone] [facility] MAYLIN HYP KID W CR KID VIMPACTED CERUMEN 3200 6 Daniel Naik. [address] [place] [address], [address], [place], [place], [address], [place]. tel: [phone] [facility], [address], [place], [place], [address] , [place] tel: [phone] [facility] No Information 0-200 6 Daniel Naik. [address] [place] [address], [address], [place], [place], [address], [place]. tel: [phone] [facility], [address], [place], [place], [address] , [place] tel: [phone] [facility] ALLERGIC RHINITIS NOS 4-200 6 Conversion Doctor. [facility], [address], [place]. [facility], [address], [place], [place], [address] , [place] tel: [phone] [facility] MIXED HYPERLIPIDEMIAESO PHAGEAL REFLUXDEPRESSIVE DISORDER NEC Nov-1 0-200 5 Daniel Naik. [address] [place] [address], [address], [place], [place], [address], [place]. tel: [phone] [facility], [address], [place], [place], [address] , [place] tel: [phone] [facility] OTHER ATOPIC DERMATITIS Aug-0 8-200 5 Sanchez [facility]. [address] [place] [address], [address], [place], [place], [address], [place]. tel: [phone] [facility], [address], [place], [place], [address] , [place] tel: [phone] [facility] PAIN IN LIMBJOINT PAIN-L/LEGLONG-TE RM USE MEDS NEC May-0 5-200 5 Daniel Naik. [address] [place] [address], [address], [place], [place], [address], [place]. tel: [phone] [facility], [address], [place], [place], [address] , [place] tel: [phone] [facility] NAUSEA ALONEACQUIRED HYPOTHYROID NEC Dec-0 9-200 4 Daniel Naik. [address] [place] [address], [address], [place], [place], [address], [place]. tel: [phone] [facility], [address], [place], [place], [address] , [place] tel: [phone] [facility] PAROX TACHYCARDIA NOSABNORMAL GLUCOSE NEC Oct-0 7-200 4 Daniel Naik. [address] [place] [address], [address], [place], [place], [address], [place]. tel: [phone] [facility], [address], [place], [place], [address] , [place] tel: [phone] [facility] [place] PAROX ATRIAL TACHYCARDIA Sep-1 5-200 4 Daniel Naik. [address] [place] [address], [address], [place], [place], [address], [place]. tel: [phone] [facility], [address], [place], [place], [address] , tel: [phone] [facility] SLEEP DISTURBANCE NOSJOINT PAIN-UNSPECMALAIS E AND FATIGUE NEC 4 Daniel Naik. [address] [place] [address], [address], [place], [place], [address], . tel: [phone] [facility], [address], [place], [place], [address] , tel: [phone] [facility] JOINT PAIN-SHLDER 4 Daniel Naik. [address] [place] [address], [address], [place], [place], [address], [place]. tel:[phone] [facility], [address], [place], [place], [address] , tel: [phone] [facility] WHEEZING 3 Daniel Naik. [address] [place] [address], [address], [place], [place], [address], . tel:[phone] [facility], [address], [place], [place], [address] , tel: [phone] [facility] SWELLING OF LIMBSHORTNESS OF BREATHTACHYCARDIA NOS 3 Daniel Naik. [address] [place] [address], [address], [place], [place], [address], . tel:[phone] [facility], [address], [place], [place], [address] , tel: [phone] [facility] VACCIN FOR INFLUENZACOUGH 3 Daniel Naik. [address] [place] [address], [address], [place], [place], [address], . tel:[phone] Family History Family Member Type Diagnosis Age At Onset No Information Immunizations Vaccine Date Status Comments 34383 - Pneumococcal_PPV23 administered S ource: Source Unspecified 49756 - Influenza administered Source: So urce Unspecified Payers Payer name Insurance type Covered republican ID Authoriza tion(s) No Information Social History Type Description Quantity Date Captured Comments Alcohol Use Details Unknown Caffeine Use Details Unknown Tobacco Use Status No Information Smoking Status No Information Sex Female Chief Complaint And Reason For Visit No Information Reason For Referral Reason For Referral No Information History Of Present Illness Encounter Date Complaint History Of Prese nt Illness No Information Functional Status Date Functional Assessmen t No Information Instructions Date Instruction Additional Infor mation No Information Assessments Type Assessment Date No Information Patient Care Teams Name Effective Dates (start - stop) Status Members No Information
--- NOTE | 2024-10-08 14:22 | ECG_ITS ---
Test Date: 2024-10-08 14:29:29 Measurements Intervals [place] Rate: 69 P: 31 GA: 159 QRS: -28 QRSD: 95 T: -22 QT: 374 QTc: 401 Interpretive Statements SINUS RHYTHM Poor R wave progression Compared to ECG 05/03/2024 11:00:20 Short GA interval no longer present Myocardial infarct finding still present Electronically Signed On 10-08-2024 22:02:45 [employer] SAL[employer]PER[employer] by Niranjan Gallegos M.D.
--- OUTSIDE RECORDS SUMMARY | 2024-10-08 14:22 | XMS_ITS | Encounter Summary ---
Author Organization [facility] Address [address] [facility] [place] [address] Care Team Providers Care Hospice Care Transitions Coordinator Name Role Phone Bright Llamas MD Unavailable Mily Douglas MD Unavailable [phone] Fermín Adame MD Primary Care Provider [phone] Todd Han MD Unavailable [phone] Radha Joshua MD Unavailable [phone] Care, [facility] Kidney Unavailable Fermín Adame MD Unavailable [phone] Kayla Peck MD Unavailable [phone] Kayla Peck MD Primary Care Provider [phone] Encounter Details Date Type Department Care Team (Late st Contact Info) Description 06/15/2014 Therapy Visit [facility] Orthopedics [address] [address] [place] [address] [address] Social History Tobacco Use Types [...] on filedocumented in this encounter Care Teams Hospice Care Transitions Coordinator Relationship Specialty Start Date End Date Fermín Adame MD [address] [place] [address] PCP - General Internal Medicine 03/21/20 03/02/23 Fermín Adame MD [address] [place], [place] [address] PCP - Strive [facility] 04/20/22 10/19/22 Kayla Peck MD [address] [place] [address] PCP - Strive [facility] 10/20/22 06/30/24 Kayla Peck MD [address] [place] [address] PCP - General Internal Medicine 03/03/23 Bright Llamas MD Orthopedic Surgery 07/24/11 [place] [address] [facility] [address] [place] [address] Orthopedic Surgery 05/23/13 [place] [address] [facility] [address] [place] [address] Pulmonary Disease 04/24/20 [place] [address] [facility] [place] [address] Nephrology 04/24/20 Care, [facility] Care Management 04/15/22 documented as of this encounter
--- OUTSIDE RECORDS SUMMARY | 2024-10-08 14:22 | XMS_ITS | Clinical Summary ---
Author Organization [facility] Address [address] [place] [address] Care Team Providers Care Retail Shift Leader Name Role Phone Kayla Peck MD Primary Care Provider [phone] Allergies Active Allergy Reactions Criticality Noted Date Comments Clarithromycin Moxifloxacin Penicillins Active Problems Problem Noted Date Diagnosed Date Multiple-type hyperlipidemia 01/27/2014 Overview (12/17/2016): MIXED HYPERLIPIDEMIA Atrial paroxysmal tachycardia 01/27/2014 Overview (12/17/2016): PAROX ATRIAL TACHYCARDIA Surgical History Surgery Date Site/Laterality Comments REDUCTION MAMMAPLASTY 09/13/1993 - 09/12/1994 Bilateral Family History Medical History Relation Name Comments Cancer Sister Breast cancer Neg Hx Endometrial cancer Neg Hx Ovarian cancer Neg Hx Thyroid cancer Neg Hx Relation Name Status Comments Sister Social History Tobacco Use Types Packs/Day Years Used Date Smoking Tobacco: Never Assessed Comments Unknown Sex and Gender Information Value Date Recorded Sex Assigned at Not on file Legal Sex Female 11:58 PM TEACHER OF THE HEARING IMPAIRED Gender Identity Not on file Sexual Orientation Not on file Obstetrics History Para Term AB IAB SAB Ectopic Multiple Livin g Live Births 0 0 0 Plan of Treatment Health Maintenance Due Date Last Done Comments Depression Screening 1940 Fall Risk Assessment 1940 DTaP/Tdap/Td Vaccine (1 - Tdap) 1951 Hepatitis B Screening 1958 Well Visit 65+ 2005 Zoster Vaccine (2 of 3) 02/01/2015 12/07/2014 Osteoporosis Screening-Bone Density Scan 08/18/2023 08/18/2021, 06/08/2019, 01/28/2017 Influenza Vaccine (#1) 2024 0, 05/14/2019, 07/06/2018, Additional history exists Pneumococcal vaccine 65+ Completed 07/06/2018, 05/14 Procedures Procedure Name Priority Date/Time Associated Diagnosis Comments DEXA AXIAL SKELETON BONE DENSITY 1 OR MORE SITES Schedule Routine, Read Routine (OP Routine) 08/18/2021 1:28 PM TEACHER OF THE HEARING IMPAIRED Other primary ovarian failure from Last 3 Months or Most Recently Relevant to Health Maintenance Results * Dexa Axial Skeleton Bone Density 1 or 2 Site (08/18/2021 1:28 PM TEACHER OF THE HEARING IMPAIRED) Anatomical Region Laterality Modality Body N/A Other Impressions 08/18/2021 1:48 PM TEACHER OF THE HEARING IMPAIRED Bone mineral density of the spine falls within normal range, bone mineral density of the left hip falls within osteopenia range. In comparison to previous examination there is a decrease bone mineral density of the spine and left hip. Electronically signed by: Zenaida Mckinnon M.D. Narrative 08/18/2021 1:48 PM TEACHER OF THE HEARING IMPAIRED Examination: Bone densitometry of the lumbar spine and the left hip Order Date: 08/18/2021 1:00 PM ? History: Osteoporosis screening. ??Postmenopausal Comparison: ??07/22/2007 ?? Findings: The bone densitometry of the L1-L4 region, the left femoral neck and the total left hip was calculated using dual-energy x-ray absorptiometry. ? Summary: Bone mineral density (BMD) of the lumbar spine (L1-4): ??T-score 0.0 ?? 100% of normal ? Bone mineral density (BMD) of the total left hip: ??T-score -1.6; ??80% of normal ?? Bone mineral density (BMD) of the left femoral neck: ??T-score -2.4; 69% of normal ? Bone mineral density of the spine falls within normal range, bone mineral density of the left hip falls within osteopenia range. ??In comparison to previous examination there is -5.6% change in the spine findings and -17.1% change in left hip findings suggestive all fall decrease bone mineral density. us Fermín Adame MD [facility] [place] DXA PROCEDURES Edited Result - Final from Last 3 Months or Most Recently Relevant to Health Maintenance Insurance MEDICARE [facility] AETNA AETNA SENIOR SUPPLEMENT MEDICARE AETNA SENIOR SUPPLEMENT MEDICARE AETNA Care Teams Retail Shift Leader Relationship Specialty Start Date End Date Kayla Peck MD [address] [place] [address] PCP - General Internal Medicine 01/19/23
--- OUTSIDE RECORDS SUMMARY | 2024-10-08 14:22 | XMS_ITS | Referral Summary ---
Author Organization [facility] Address [address] [place] [address] Care Team Providers Care Primer Boxer Name Role Phone Kayla Peck MD Primary Care Provider [phone] Allergies Active Allergy Reactions Criticality Noted Date Comments Clarithromycin Moxifloxacin Penicillins Active Problems Problem Noted Date Diagnosed Date Multiple-type hyperlipidemia 01/27/2014 Overview (12/17/2016): MIXED HYPERLIPIDEMIA Atrial paroxysmal tachycardia 01/27/2014 Overview (12/17/2016): PAROX ATRIAL TACHYCARDIA Social History Tobacco Use Types Packs/Day Years Used Date Smoking Tobacco: Never Assessed Comments Unknown Sex and Gender Information Value Date Recorded Sex Assigned at Not on file Legal Sex Female 11:58 PM JAVA SYBASE DEVELOPER Gender Identity Not on file Sexual Orientation Not on file Plan of Treatment Not on file Procedures Procedure Name Priority Date/Time Associated Diagnosis Comments DEXA AXIAL SKELETON BONE DENSITY 1 OR MORE SITES Schedule Routine, Read Routine (OP Routine) 08/18/2021 1:28 PM JAVA SYBASE DEVELOPER Other primary ovarian failure from Last 3 Months or Most Recently Relevant to Health Maintenance Results * Dexa Axial Skeleton Bone Density 1 or 2 Site (08/18/2021 1:28 PM JAVA SYBASE DEVELOPER) Anatomical Region Laterality Modality Body N/A Other Impressions 08/18/2021 1:48 PM JAVA SYBASE DEVELOPER Bone mineral density of the spine falls within normal range, bone mineral density of the left hip falls within osteopenia range. In comparison to previous examination there is a decrease bone mineral density of the spine and left hip. Electronically signed by: Zenaida Mckinnon M.D. Narrative 08/18/2021 1:48 PM JAVA SYBASE DEVELOPER Examination: Bone densitometry of the lumbar spine [...] suggestive all fall decrease bone mineral density. Fermín Adame MD IM DXA PROCEDURES Edited Result - Final from Last 3 Months or Most Recently Relevant to Health [place] [address] MEDICARE [facility] AET AETNA SENIOR SUPPLEMENT MEDICARE AETNA SENIOR SUPPLEMENT MEDICARE AETNA Care Teams Primer Boxer Relationship Specialty Start Date End Date Kayla Peck MD [address] [place] [address] PCP - General Internal Medicine 01/19/23
--- OUTSIDE RECORDS SUMMARY | 2024-10-08 14:22 | XMS_ITS | Referral Summary ---
Author Organization [facility] Address [address] [place] [address] Care Team Providers Care Wood Shop Teacher Name Role Phone Bright Llamas MD Unavailable Mily Douglas MD Unavailable Todd Han MD Unavailable Radha Joshua MD Unavailable [phone] [facility] Kayla Peck MD Primary Care Provider [phone] Source Comments [facility],non-owned Affiliates and Associated Physician Practices is amultiple site organization consisting of ambulatory clinics and hospital sitesin [place], [place], [place] and [place]. This disclosure is being madepursuant to the Care Everywhere program and may not contain all information available regarding this patient. Last updated 18.[facility] Allergies Active Allergy Reactions Criticality Noted [...] 0.5 ML (IIV3) 06/02/2014 TDAP (7yrs+) 03/02/2023 Social History Tobacco Use Types Packs/Day Years [...] Mass Index 33.8 04/06/2023 3:57 PM CDT Functional Status Functional Status Response Date of [...] person have difficulty concentrating/remembering/making decisions? No 05/30/2014 Plan of Treatment Not on file Medical Devices Implanted Type Area Insurance Verification Specialist Device Identifier Shelf Expiration Date Model / Serial / Lot [place] Bone [place] Hv Implanted:Qty: 1 on 05/30/2014 by Bright Llamas MD at [facility] Right: Knee [employer] 01/28/2016 [id number] / / [id number] Butn Pat Arcom Wire Polyeth Xsm 28 X 8 Implanted:Qty: 1 on 05/30/2014 by Bright Llamas MD at [facility] Right: Knee [employer] 02/27/2019 [id number] / / [id number] Ty Tibial I Beam Fix Bar 63mm Implanted:Qty: 1 on 05/30/2014 by Bright Llamas MD at [facility] Right: [employer]nee [employer] 11/27/2021 [id number] / / [id number] Kn Ins Vangurd Fem Cocr R-Intlok 57.5mm Implanted:Qty: 1 on 05/30/2014 by Bright Llamas MD at [facility] Right: [employer]nee [employer] 12/29/2023 [id number] / / [id number] Vangrd Ant Stblzd Brg 14mm X 63mm Implanted:Qty: 1 on 05/30/2014 by Bright Llamas MD at [facility] Right: Knee [employer] 10/30/2014 [id number] / / [id number] Administered Medications Insurance Payer Benefit Plan / Group Subscriber ID Effective Dates Phone Address Type AETNA AETNA MEDICARE SUPPLEMENT [id number] 2012-Prese nt [address] [address] [place] [address] Commercial MEDICARE WPS MEDICARE PART B [id number] 2005-Prese nt [address] [address] [place] [address] Medicare MEDICARE MEDICARE PART A AND B [id number] 2005-Prese nt [address] [place] [address] Medicare Advance Directives Documents on File Type Date Recorded Patient Ornamenter Hand Expl anation Adv Directive/Living Will/POA 05/10/2014 1:04 PM LIVING WILL & LAST W ILL & TESTAMENT * Full Code (Latest Code Status on File) Date Activated Date Inactivated Comments 03/02/2023 6:54 PM 03/04/2023 2:24 PM * Full Code Date Activated Date Inactivated Comments 05/30/2014 4:33 PM 06/02/2014 12:11 PM Care Teams Wood Shop Teacher Relationship Specialty Start Date End Date Kayla Peck MD [address] [place] [address] PCP - General Internal Medicine 03/03/23 Bright Llamas MD Orthopedic Surgery 07/24/11 [place] [address] [facility] [address] [place], [place] [id number] Orthopedic Surgery 05/23/13 [place] [address] [facility] [address] [place] [address] Pulmonary Disease 04/24/20 [place] [address] [facility] [place] [address] Nephrology 04/24/20 [facility] Care Management 04/15/22
[2024-10-08 14:29] VITALS: BP 122/51; PULSE 68; RESP 16; TEMP 36.3; O2SAT 98
[2024-10-08 14:48] LABS: Basophils Percent Auto 0.3 % (0.2-1.2); Eosinophils Percent Auto 0.1 % (0-4.4); Hematocrit 38.6 % (37.0-47.0); Hemoglobin 12.1 g/dL (12.0-15.0); Immature Granulocyte Absolute 0.02 K/mm3 (0.00-0.031); Immature Granulocyte Percent A 0.3 % (0-0.5); Lymphocytes Absolute Auto 2.47 K/mm3 (0.9-3.2); Lymphocytes Percent Auto 35.7 % (18.3-44.2); Mean Corpuscular HGB Conc 31.3 g/dl (32-36); Mean Corpuscular Hemoglobin 31.6 pg (26-34); Mean Corpuscular Volume 100.8 fl (80-100); Mean Platelet Volume 10.3 fl (7.4-10.4); Monocytes Absolute Auto 0.3 K/mm3 (0.1-0.6); Monocytes Percent Auto 4.8 % (2.6-8.5); Neutrophils Absolute Auto 4.1 K/mm3 (1.3-6.7); Neutrophils Percent Auto 58.8 % (45.5-73.1); Platelet Count Result 218 k/mm3 (150-375); Red Blood Count 3.83 M/mm3 (4.2-5.4); Red Cell Distribution Width 15.4 % (11.5-14.5); White Blood Count 6.9 K/mm3 (4.5-10.0)
[2024-10-08 14:59] LABS: Prothrombin Time 13.7 Seconds (11.1-14.7)
[2024-10-08 15:00] LABS: Partial Thromboplastin Time 27.7 Seconds (22.3-36.8)
[2024-10-08 15:02] LABS: Alanine Aminotransferase 19 U/L (6-35); Albumin Level 3.6 g/dL (3.5-5.1); Alkaline Phosphatase 71 U/L (38-126); Anion Gap 6 mmol/L (4-12); Aspartate Amino Transferase 29 U/L (14-36); Bilirubin,Total 0.6 mg/dL (0.2-1.3); Blood Urea Nitrogen 7 mg/dL (7-17); Calcium 8.9 mg/dL (8.4-10.2); Carbon Dioxide 29 mmol/L (22-30); Chloride 105 mmol/L (98-107); Estimated Glomerular Filt Rate > 60; Glucose 102 mg/dL (65-110); Lipase 42 U/L (23-300); Potassium 4.1 mmol/L (3.4-5.0); Sodium 140 mmol/L (137-145)
[2024-10-08 15:26] LABS: Troponin I < 0.012 ng/mL (0.000-0.034)
--- NOTE | 2024-10-08 17:43 | ECG_ITS ---
Test Date: 2024-10-08 18:06:24 Measurements Intervals [place] Rate: 75 P: -43 HI: 112 QRS: -29 QRSD: 100 T: -5 QT: 359 QTc: 403 Interpretive Statements SINUS RHYTHM WITH SHORT HI INTERVAL Poor R wave progression Compared to ECG 10/08/2024 14:29:29 Short HI interval now present Myocardial infarct finding still present Electronically Signed On 10-08-2024 22:00:31 [employer] by Niranjan Gallegos M.D.
[2024-10-08 18:40] LABS: Troponin I < 0.012 ng/mL (0.000-0.034)
--- OUTSIDE RECORDS SUMMARY | 2024-10-08 19:43 | XMS_ITS | Clinical Summary ---
Author Organization [facility] Address [address], [address] [address] Phone Care Team Providers Care Jack Winder Name Role Phone Fermín Adame MD Primary [...] MG Capsule Take by mouth. 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
--- OUTSIDE RECORDS SUMMARY | 2024-10-08 19:43 | XMS_ITS | Encounter Summary ---
Author Organization [facility] Address [address] [facility] [place] [address] Care Team Providers Care Range Mechanic Name Role Phone Bright Llamas MD Unavailable Mily Douglas MD Unavailable [phone] Todd Han MD Unavailable [phone] Radha Joshua MD Unavailable [phone] Care, [facility] Kidney Unavailable Kayla Peck MD Unavailable Kayla Peck MD Primary Care Provider [phone] Encounter Details Date Type Department Care Team (Late st Contact Info) Description 03/04/2023 Ophth Exam [facility] - Ophthalmology [facility] [place] [address] Mart Patel MD [address] [place] [phone] Social History Tobacco Use Types Packs/Day Years [...] on filedocumented in this encounter Care Teams Range Mechanic Relationship Specialty Start Date End Date Kayla Peck MD [address] [place] [address] PCP - Strive [facility] 10/20/22 06/30/24 Kayla Peck MD [address] [place] [address] PCP - General Internal Medicine 03/03/23 Bright Llamas MD Orthopedic Surgery 07/24/11 [place] [address] [facility] [address] [place] [address] Orthopedic Surgery 05/23/13 [place] [address] [facility] [address] [place] [address] Pulmonary Disease 04/24/20 [place] [address] [facility] [place] [address] Nephrology 04/24/20 [facility], [facility] Kidney Care Management 04/15/22 documented as of this encounter
--- OUTSIDE RECORDS SUMMARY | 2024-10-08 19:43 | XMS_ITS | Continuity of Care Document ---
Author Organization [facility] Address [address] [place] [address] Phone Care Team Providers Care Powder Coat Painter Name Role Phone Gumaro Sanchez MD Unavailable [...] Diagnoses Date Provider Providers Copied on Encounter [employer] [address], [place], [place], [address] , [place] tel: [phone] [facility] No Information 7 Daniel Naik. [address] [facility], [facility] [address], [place], [place], [address], [place]. tel:[phone] [employer] [address], [place], [place], [address] , tel: [phone] Conversion Department No Information 1 Conversion Doctor. [address] [place] [address] [place], [address], [place]. [facility] [employer], [address], [place], [place], [address] , tel: [phone] [facility] LUMBAGOBEN HY KID W CR KID I-IVPURE HYPERCHOLESTEROLE MCHR KIDNEY DIS STAGE IIISWELLING IN HEAD & NECKLOC PRIM OSTEOART-L/LEGABN BLOOD CHEMISTRY NEC 7 Daniel Naik. [address] [place] [address], [address], [place], [place], [address], [place]. tel: [phone] [facility], [address], [place], [place], [address] , [place] tel: [phone] [facility] [place] VAC STRPTCS PNEUMNI BHYPOTHYROIDISM NOSBENIGN HYPERTENSION 5200 6 Daniel Naik. [address] [place] [address], [address], [place], [place], [address], [place]. tel: [phone] [facility], [address], [place], [place], [address] , [place] tel:[phone] [facility] ACUTE URI NOS 5200 6 Conversion Doctor. [facility] [place], [address], [place]. [facility] [employer], [address], [place], [place], [address] , tel: [phone] [facility] MAYLIN HYP KID W CR KID VIMPACTED CERUMEN 3200 6 Daniel Naik. [address] [place] [address], [address], [place], [place], [address], [place]. tel: [phone] [facility], [address], [place], [place], [address] , [place] tel: [phone] [facility] No Information 0-200 6 Daniel Naik. [address] [place] [address], [address], [place], [place], [address], [place]. tel: [phone] [facility], [address], [place], [place], [address] , [place] tel: [phone] [facility] ALLERGIC RHINITIS NOS 4-200 6 Conversion Doctor. [facility] [place], [address], [place]. [employer] [facility] [employer], [address], [place], [place], [address] , [place] tel: [phone] [facility] MIXED HYPERLIPIDEMIAESO PHAGEAL REFLUXDEPRESSIVE DISORDER NEC Nov-1 0-200 5 Daniel Naik. [address] [place] [address], [address], [place], [place], [address], [place]. tel: [phone] [facility] [employer], [address], [place], [place], [address] , [place] tel: [phone] [facility] OTHER ATOPIC DERMATITIS Aug-0 8-200 5 Daniel Gumaro. [address] [place] [address], [address], [place], [place], [address], [place]. tel: [phone] [employer] [address], [place], [place], [address] , [place] tel: [phone] [facility] PAIN IN LIMBJOINT PAIN-L/LEGLONG-TE RM USE MEDS NEC May-0 5-200 5 Sanchezpau Naik. [address] [place] [address], [address], [place], [place], [address], [place]. tel: [phone] [employer] [address], [place], [place], [address] , [place] tel: [phone] [facility] NAUSEA ALONEACQUIRED HYPOTHYROID NEC Dec-0 9-200 4 Sanchez Gumaro. [address] [place] [address], [address], [place], [place], [address], [place]. tel: [phone] [employer] [address], [place], [place], [address] , [place] tel: [phone] [facility] ABNORMAL GLUCOSE NECPAROX TACHYCARDIA NOS Oct-0 7-200 4 Sanchezpau Naik. [address] [place] [address], [address], [place], [place], [address], [place]. tel: [phone] [employer] [address], [place], [place], [address] , [place] tel: [phone] [facility] NE PAROX ATRIAL TACHYCARDIA Sep-1 5-200 4 Daniel Naik. [address] [place] [address], [address], [place], [place], [address], [place]. tel: [phone] [employer] [address], [place], [place], [address] , tel: [phone] [facility] SLEEP DISTURBANCE NOSJOINT PAIN-UNSPECMALAIS E AND FATIGUE NEC 4 Daniel Naik. [address] [place] [address], [address], [place], [place], [address], . tel: [phone] [facility] [employer], [address], [place], [place], [address] , tel: [phone] [facility] JOINT PAIN-SHLDER Nov- 4 Daniel Naik. [address] [place] [address], [address], [place], [place], [address], [place]. tel: [phone] [employer] [address], [place], [place], [address] , tel: [phone] [facility] WHEEZING 3 Daniel Naik. [address] [place] [address], [address] , [place], [place], [address], . tel: [phone] [employer] [address], [place], [place], [address] , tel: [phone] [facility] SWELLING OF LIMBSHORTNESS OF BREATHTACHYCARDIA NOS 3 Daniel Naik. [address] [place] [address], [address], [place], [place], [address], . tel: [phone] [facility] [employer], [address], [place], [place], [address] , tel: [phone] [facility] COUGHVACCIN FOR INFLUENZA 3 Daniel Naik. [address] [place] [address], [address], [place], [place], [address], . tel:[phone] Family History Family Member Type Diagnosis Age At Onset No Information Immunizations Vaccine Date Status Comments 14469 - Pneumococcal_PPV23 administered S ource: Source Unspecified 67660 - Influenza administered Source: So urce Unspecified Payers Payer name Insurance type Covered libertarian ID Authoriza tion(s) No Information Social History [...]
--- OUTSIDE RECORDS SUMMARY | 2024-10-08 19:43 | XMS_ITS | Encounter Summary ---
Author Organization [facility] Address [address] [facility] [place] [address] Care Team Providers Care Explosives Truck Driver Name Role Phone Bright Llamas MD Unavailable Mily Douglas MD Unavailable [phone] Fermín Adame MD Primary Care Provider [phone] Todd Han MD Unavailable [phone] Radha Joshua MD Unavailable [phone] Care, [facility] Kidney Unavailable Fermín Adame MD Unavailable [phone] Kayla Peck MD Unavailable [phone] Kayla Peck MD Primary Care Provider [phone] Encounter Details Date Type Department Care Team (Late st Contact Info) Description 10/29/2011 [facility] Outpatient Visit [facility] Orthopedics [address] [address] [place] [address] [address] Social History Tobacco Use Types [...] on filedocumented in this encounter Care Teams Explosives Truck Driver Relationship Specialty Start Date End Date Fermín Adame MD [address] [place] [address] PCP - General Internal Medicine 03/21/20 03/02/23 Fermín Adame MD [address] [place] [address] PCP - Strive [facility] 04/20/22 10/19/22 Kayla Peck MD [address] [place] [address] PCP - Strive [facility] 10/20/22 06/30/24 Kayla Peck MD [address] [place] [address] PCP - General Internal Medicine 03/03/23 Bright Llamas MD Orthopedic Surgery 07/24/11 [place] [address] [facility] [address] [place] [address] Orthopedic Surgery 05/23/13 [place] [address] [facility] [address] [place] [address] Pulmonary Disease 04/24/20 [place] [address] [facility] [place] [address] Nephrology 04/24/20 Care, [facility] Kidney Care Management 04/15/22 documented as of this encounter
--- OUTSIDE RECORDS SUMMARY | 2024-10-08 19:43 | XMS_ITS | Encounter Summary ---
Author Organization [facility] Address [address] [facility] [place] [address] Care Team Providers Care Stretching Machine Operator Name Role Phone Bright Llamas MD Unavailable Mily Douglas MD Unavailable [phone] Fermín Adame MD Primary Care Provider [phone] Todd Han MD Unavailable [phone] Radha Joshua MD Unavailable [phone] Care, [facility] Unavailable [phone] Kayla Peck MD Unavailable [phone] Kayla Peck MD Primary Care Provider [phone] Encounter Details Date Type Department Care Team (Late st Contact Info) Description 03/02/2023 Ophth Exam [facility] - Ophthalmology [address] [place] [id number] Fabian Meza MD [address] [facility] [place] [id number] Social History Tobacco Use Types Packs/Day Years [...] on filedocumented in this encounter Care Teams Stretching Machine Operator Relationship Specialty Start Date End Date Fermín Adame MD [address] [place] [address] PCP - General Internal Medicine 03/21/20 03/02/23 Kayla Peck MD [address] [place] [address] PCP - [facility] 10/20/22 06/30/24 Kayla Peck MD [address] [place] [address] PCP - General Internal Medicine 03/03/23 Bright Llamas MD Orthopedic Surgery 07/24/11 [place] [address] [facility] [address] [place] [address] Orthopedic Surgery 05/23/13 [place] [address] [facility] [address] [place] [address] Pulmonary Disease 04/24/20 [place] [address] [place] [address] Nephrology 04/24/20 Care, [facility] Care Management 04/15/22 documented as of this encounter
--- OUTSIDE RECORDS SUMMARY | 2024-10-08 19:43 | XMS_ITS | Encounter Summary ---
Author Organization [employer] [facility] Address [address] [place] [address] Care Team Providers Care Occupational Therapist Aide Name Role Phone Fermín Adame MD Primary Care Provider [phone] Encounter Details Date Type Department Care Team (Latest Contact Info) Description 01/06/2002 Outpatient Historical HIS [facility] Gumaro Chin MD [address] [facility] [address] [place] [address] NONTOX UNINODULAR GOITER (Primary Dx) Social History Tobacco Use Types Packs/Day Years Used Date Smoking Tobacco: Never Assessed Comments Unknown Sex and Gender Information Value Date Recorded Sex Assigned at Not on file 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
--- OUTSIDE RECORDS SUMMARY | 2024-10-08 19:43 | XMS_ITS | Encounter Summary ---
Author Organization [employer] Address [address] [place] [address] Care Team Providers Care Dermatology Technician Name Role Phone Fermín Adame MD Primary Care Provider [phone] Encounter Details Date Type Department Care Team (Latest Contact Info) Description 12/29/2001 Outpatient Historical HIS PATIENT IN A BED Gumaro Kingston MD [address] [facility] [address] [place] [address] NONTOX UNINODULAR GOITER (Primary Dx) Social History Tobacco Use Types Packs/Day Years Used Date Smoking Tobacco: Never Assessed Comments Unknown Sex and Gender Information Value Date Recorded Sex Assigned at Not on file 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
--- OUTSIDE RECORDS SUMMARY | 2024-10-08 19:43 | XMS_ITS | Encounter Summary ---
Author Organization [employer] Address [address] [facility] Attn: Epic Prelude ADT [place] [address] Care Team Providers Care Stem Setter Name Role Phone Fermín Adame MD Primary Care Provider [phone] Encounter Details Date Type Department Care Team (Late st Contact Info) Description 12/05/1990 Outpatient Historical Luis Enrique Padron MD [address] [facility] [place] [address] Social History Tobacco Use Types Packs/Day Years Used Date Smoking Tobacco: Never Assessed Comments Unknown Sex and Gender Information Value Date Recorded Sex Assigned at Not on file Legal Sex Female 5:16 AM SCREEN TENDER Gender Identity Not on file Sexual Orientation Not on file documented as of this encounter Plan of Treatment Not on file documented as of this encounter Visit Diagnoses Not on filedocumented in this encounter Care Teams Stem Setter Relationship Specialty Start Date End Date Fermín Adame MD PCP - General Internal Medicine 03/12/12 documented as of this encounter
--- OUTSIDE RECORDS SUMMARY | 2024-10-08 19:43 | XMS_ITS | Encounter Summary ---
Author Organization [employer] Address [address] [place] [address] Care Team Providers Care Automatic Operator Name Role Phone Fermín Adame MD Primary Care Provider Encounter Details Date Type Department Care Team (Late st Contact Info) Description 10/03/2008 Outpatient Historical [facility], Authorized P NO ADDRESS ON FILE Jamey Martines MD [address] [place] [address] Social History Tobacco Use Types Packs/Day Years Used Date Smoking Tobacco: Never Assessed Comments Unknown Sex and Gender Information Value Date Recorded Sex Assigned at Not on file Legal Sex Female 5:16 AM NURSING SECRETARY Gender Identity Not on file Sexual Orientation Not on file documented as of this encounter Plan of Treatment Not on file documented as of this encounter Procedures Procedure Name Priority Date/Time Associated Diagnosis Comments CBC WITH DIFFERENTIAL Stat 10/03/2008 2:12 PM NURSING SECRETARY COMPREHENSIVE METABOLIC PANEL Stat 10/03/2008 2:12 PM NURSING SECRETARY documented in this encounter Results * (ABNORMAL) COMPREHENSIVE METABOLIC PANEL (10/03/2008 2:12 PM NURSING SECRETARY) CREATININE 1.00(H) 0.51 - 0.95 mg/dL [facility] AST 34(H) 12 - 32 U/L [facility] ALBUMIN 4.2 3.4 - 4.8 g/dL [facility] CHLORIDE 98 96 - 108 mmol/L [facility] GLUCOSE 109(H) 65 - 99 mg/dL [facility] CALCIUM 9.7 8.6 - 10.2 mg/dL [facility] TOTAL PROTEIN 7.7 6.3 - 8.6 g/dL [facility] SODIUM 137 135 - 145 mmol/L [facility] ALT 32(H) 0 - 31 U/L [facility] CO2 25 22 - 30 mmol/L [facility] BILIRUBIN TOTAL 0.3 0.2 - 1.0 mg/dL [facility] ALKALINE PHOSPHATASE 114(H) 35 - 104 U/L [facility] POTASSIUM 3.5 3.5 - 4.9 mmol/L [facility] BUN 13 6 - 20 mg/dL [facility] GFR, >60 >=60 mL/min/1. 7 sq meter [facility] GFR 55(L) >=60 mL/min/1. 7 sq meter [facility] Comment: Modification of Diet in Renal Disease (MDRD) study formula. Estimated GFR rate interpretative information for both Americans and non- Americans is available on the [facility] Intranet at: [email or web address] Select: Lab Policies and Procedures Select: Reference Ranges - GFR Blood specimen (specimen) 10/03/2008 2:12 PM NURSING SECRETARY 10/03/2008 2:20 PM NURSING SECRETARY us Jamey Martines MD CHEMISTRY ORDERABLES Edited INTERFACE SYSTEM Refer to clinic/hospital department [facility] CLIA# [id number] [address] [place] [address] * (ABNORMAL) CBC WITH DIFFERENTIAL (10/03/2008 2:12 PM NURSING SECRETARY) HEMATOCRIT 43.8 35.5 - 44.0 % [facility] RDW-STDEV 51.2(H) 37.1 - 48.7 fL [facility] RBC 4.74 3.90 - 4.90 M/uL [facility] MCHC 32.4 31.5 - 35.5 % [facility] MCV 92.4 82.0 - 99.0 fL [facility] PLATELETS 272 140 - 350 K/uL [facility] HEMOGLOBIN 14.2 11.8 - 14.8 g/dL [facility] RDW 15.1(H) 11.5 - 14.5 % [facility] WBC 7.6 4.0 - 9.8 K/uL [facility] MCH 30.0 27.2 - 32.6 pg [facility] MPV 10.2 9.3 - 12.4 fL [facility] BASOPHILS 0 0 - 2 % [facility] BASOPHILS ABSOLUTE 0.01 0.00 - 0.20 K/uL [facility] MONOCYTES 6 3 - 13 % [facility] MONOCYTE ABSOLUTE 0.47 0.10 - 1.30 K/uL [facility] NEUTROPHILS 64 45 - 70 % [facility] NEUTROPHIL ABSOLUTE 4.84 1.90 - 7.00 K/uL [facility] EOSINOPHILS 3 0 - 7 % [facility] EOSINOPHIL ABSOLUTE 0.23 0.00 - 0.70 K/uL [facility] LYMPHOCYTES 27 16 - 45 % [facility] LYMPHOCYTE ABSOLUTE 2.07 0.70 - 4.50 K/uL [facility] Blood specimen (specimen) 10/03/2008 2:12 PM NURSING SECRETARY 10/03/2008 2:20 PM NURSING SECRETARY us Jamey Martines MD HEMATOLOGY ORDERABLES Edited INTERFACE SYSTEM Refer to clinic/hospital department [facility] CLIA# [id number] [address] [place] [address] documented in this encounter Visit Diagnoses Not on filedocumented in this encounter Care Teams Automatic Operator Relationship Specialty Start Date End Date Fermín Adame MD PCP - General Internal Medicine 03/12/12 documented as of this encounter
--- OUTSIDE RECORDS SUMMARY | 2024-10-08 19:43 | XMS_ITS | Clinical Summary ---
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
--- OUTSIDE RECORDS SUMMARY | 2024-10-08 19:43 | XMS_ITS | Encounter Summary ---
Author Organization [employer] Address [address] [facility] Attn: Epic Prelude ADT [place] [address] Care Team Providers Care Compliance Officer Name Role Phone Fermín Adame MD Primary Care Provider [phone] Encounter Details Date Type Department Care Team (Late st Contact Info) Description 06/21/1989 Outpatient Historical Luis Enrique Padron MD [address] 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
--- OUTSIDE RECORDS SUMMARY | 2024-10-08 19:44 | XMS_ITS | Patient Health Summary ---
Author Organization [facility] Address [address] [place] [address] Care Team Providers Care Small Arms Artillery Repairer Name Role Phone Luz Marina Llamas MD Unavailable Mily Douglas MD Unavailable Todd Han MD Unavailable Radha Joshua MD [facility] Unavailable Kayla Peck MD Primary Care Provider [phone] Note from [facility],non-owned Affiliates and Associated Physician Practices is amultiple site organization consisting of ambulatory clinics and hospital sitesin [place], [place], [place] and [place]. This disclosure is being madepursuant to the Care Everywhere program and may not contain all information available regarding this patient. Last updated 18.[facility] Allergies * Clarithromycin(GI Discomfort,Anaphylaxis) -High Criticality * [...] PM CDT Medical Devices Implanted Type Area Handcrew Foreman Device Identifier Shelf Expiration Date Model / Serial / Lot Maico Bone [place] Hv Implanted:Qty: 1 on 05/30/2014 by Luz Marina Llamas MD at [facility] Right: [employer] 01/28/2016 [id number] / / [id number] Butn Pat Arcom Wire Polyeth Xsm 28 X 8 Implanted:Qty: 1 on 05/30/2014 by Luz Marina Llamas MD at [facility] Right: [employer] 02/27/2019 [id number] / / [id number] Ty Tibial I Beam Fix Bar 63mm Implanted:Qty: 1 on 05/30/2014 by Luz Marina Llamas MD at [facility] Right: [employer] 11/27/2021 [id number] / / [id number] Kn Ins Vangurd Fem Cocr R-Intlok 57.5mm Implanted:Qty: 1 on 05/30/2014 by Luz Marina Llamas MD at [facility] Right: [employer] 12/29/2023 [id number] / / [id number] Marla Ant Stblzd Brg 14mm X 63mm Implanted:Qty: 1 on 05/30/2014 by Luz Marina Llamas MD at [facility] Right: [employer] 10/30/2014 [id number] / / [id number] Procedures * CT HEAD WO CONTRAST(Performed 04/06/2023) [...] 06/05/2020) Performed for Chronic cough * CYTOLOGY NON-CORPORATE TECHNICAL RECRUITER PANEL (STL)(Performed 05/23/2020) Performed for Ground glass [...] imaging of lung, Chronic cough * CYTOLOGY NON-CORPORATE TECHNICAL RECRUITER PANEL (STL)(Performed 05/23/2020) Performed for Ground glass [...] imaging of lung, ILD (interstitial lung disease) ([facility]) * RHEUMATOID FACTOR BLOOD QUANTITATIVE(Performed 04/30/2020) Performed for Ground glass opacity present on imaging of lung, ILD (interstitial lung disease) ([facility]) * VITAMIN D 25-HYDROXY(Performed 04/30/2020) Performed for Vitamin D deficiency * ALLERGEN RESPIRATORY PNL REGION 8 ([place])(Performed 04/30/2020) Performed for Chronic rhinitis , Ground glass opacity present on imaging of lung, ILD (interstitiallung disease) ([facility]) * PNEUMONITIS HYPERSENSITIVE SCREEN(Performed 04/30/2020) Performed for Ground glass opacity present on imaging of lung, ILD (interstitial lung disease) ([facility]) * ERYTHROCYTE SEDIMENTATION RATE(Performed 04/30/2020) Performed for Ground glass opacity present on imaging of lung, ILD (interstitial lung disease) ([facility]) * FUNGAL ANTIBODY PANEL IMMUNODIFFUSION(Performed 04/30/2020) Performed for Ground glass opacity present on imaging of lung, ILD (interstitial lung disease) ([facility]) * COMPREHENSIVE METABOLIC PANEL(Performed 04/30/2020) Performed for Ground glass opacity present on imaging of lung, ILD (interstitial lung disease) ([facility]) * CBC W AUTO DIFFERENTIAL(Performed 04/30/2020) Performed for Ground glass opacity present on imaging of lung, ILD (interstitial lung disease) ([facility]) * ANGIOTENSIN CONVERTING ENZYME BLOOD(Performed 04/30/2020) Performed for Ground glass opacity present on imaging of lung, ILD (interstitial lung disease) ([facility]) * ECHOCARDIOGRAM 2D WITH DOPPLER(Performed 03/21/2020) Performed [...] DATE/TIME OF EXAM: ??04/06/2023 3:09 PM, LOCATION ??[facility] INDICATION: S06.5XAA: Subdural hematoma (CMS/HCC) ADDITIONAL CLINICAL [...] DATE/TIME OF EXAM: 04/06/2023 3:09 PM, LOCATION [facility] INDICATION: S06.5XAA: Subdural hematoma (CMS/HCC) ADDITIONAL CLINICAL [...] 10.5 10? 3 /uL 03/04/2023 3:09 AM [facility] RBC 3.24(L) 3.80 - 5.20 10? 6 /uL 03/04/2023 3:09 AM [facility] Hemoglobin 9.5(L) 12.0 - 15.6 g/dL 03/04/2023 3:09 AM [facility] Hematocrit 30.8(L) 35.0 - 45.0 % 03/04/2023 3:09 AM [facility] MCV 95.1 80.7 - 98.3 fL 03/04/2023 3:09 AM [facility] MCH 29.3 26.7 - 34.0 pg 03/04/2023 3:09 AM [facility] MCHC 30.8 30.8 - 35.9 g/dL 03/04/2023 3:09 AM [facility] RDW-SD 51.3(H) 36.0 - 50.0 fL 03/04/2023 3:09 AM [facility] RDW-CV 14.7 11.2 - 14.8 % 03/04/2023 3:09 AM [facility] Platelet Count 222 150 - 400 10? 3 /uL 03/04/2023 3:09 AM [facility] MPV 9.7 9.4 - 12.9 fL 03/04/2023 3:09 AM [facility] nRBC Absolute 0.00 0 10? 3 /uL 03/04/2023 3:09 AM [facility] nRBC Auto 0.0 0 /100 WBC 03/04/2023 3:09 AM [facility] Neutrophils % 57.5 35.0 - 70.0 % 03/04/2023 3:09 AM [facility] Lymphocytes % 34.5 20.0 - 43.0 % 03/04/2023 3:09 AM [facility] Monocytes % 7.4 5.0 - 13.0 % 03/04/2023 3:09 AM [facility] Eosinophils % 0.0 0.0 - 6.0 % 03/04/2023 3:09 AM [facility] Basophil % 0.3 0.0 - 2.0 % 03/04/2023 3:09 AM [facility] Neutrophils Absolute 4.61 1.60 - 7.00 10? 3 /uL 03/04/2023 3:09 AM [facility] Lymphocyte Absolute 2.76 1.10 - 3.90 10? 3 /uL 03/04/2023 3:09 AM [facility] Monocytes Absolute 0.59 0.26 - 1.07 10? 3 /uL 03/04/2023 3:09 AM [facility] Eosinophils Absolute 0.00 0.00 - 0.47 10? 3 /uL 03/04/2023 3:09 AM [facility] Basophils Absolute 0.02 0.00 - 0.08 10? 3 /uL 03/04/2023 3:09 AM [facility] Immature Granulocytes % 0.3 0.0 - 1.0 % 03/04/2023 3:09 AM [facility] Immature Granulocytes Absolute 0.02 03/04/2023 3:09 AM [facility] Blood BLOOD SPECIMEN / Unknown Lab Venipuncture / Unknown 03/04/2023 2:40 AM CDT 03/04/2023 3:[address] [facility] Val Mckeon MD LAB - HEMATOLOGY ORD ERABLES [facility] [address] [place] [address], [facility] [phone] * (ABNORMAL) BASIC METABOLIC PANEL (CALCIUM TOTAL) (03/04/2023 2:40 AM CDT) Only the most recent of3 resultswithin the time period is included. BUN 10 7 - 26 mg/dL 03/04/2023 3:31 AM [facility] Creatinine 0.79 0.56 - 0.96 mg/dL 03/04/2023 3:31 AM [facility] Sodium 142 136 - 145 mmol/L 03/04/2023 3:31 AM [facility] Potassium 3.3(L) 3.5 - 4.5 mmol/L 03/04/2023 3:31 AM [facility] Chloride 113(H) 98 - 107 mmol/L 03/04/2023 3:31 AM [facility] CO2 28 22 - 29 mmol/L 03/04/2023 3:31 AM [facility] Glucose 93 70 - 115 mg/dL 03/04/2023 3:31 AM [facility] Calcium 8.5 8.4 - 10.2 mg/dL 03/04/2023 3:31 AM [facility] Anion Gap 4(L) 8 - 18 03/04/2023 3:31 AM [facility] BUN/Creatinine Ratio 13 7 - 23 03/04/2023 3:31 AM [facility] Osmolality Calculated 293 270 - 300 mOsm/kg 03/04/2023 3:31 AM [facility] eGFR by CKD-EPI 75(L) >=90 mL/min/1.7 3 m2 03/04/2023 3:31 AM [facility] Blood BLOOD SPECIMEN / Unknown Lab Venipuncture / Unknown 03/04/2023 2:40 AM CDT 03/04/2023 3:01 AM CDT Val Mckeon MD LAB - CHEMISTRY DEEP ALVARADO [facility] Organization Address City/State/ZIP Co de Phone Number [facility] [address] [place] [address], [facility] [phone] * (ABNORMAL) PHOSPHORUS BLOOD (03/04/2023 2:40 AM CDT) Only the most recent of2 resultswithin the time period is included. Phosphorus 2.5(L) 2.9 - 5.1 mg/dL 03/04/2023 3:31 AM CDT [facility] Blood BLOOD SPECIMEN / Unknown Lab Venipuncture / Unknown 03/04/2023 2:40 AM CDT 03/04/2023 3:01 AM CDT Val Mckeon MD LAB - CHEMISTRY DEEP ALVARADO Performing Organization Address City/[facility]/ZIP Co de Phone Number [address] [address], [place] [phone] * MAGNESIUM BLOOD (03/04/2023 2:40 AM CDT) Only the most recent of2 resultswithin the time period is included. Magnesium 2.0 1.6 - 2.6 mg/dL 03/04/2023 3:31 AM CDT [facility] Blood BLOOD SPECIMEN / Unknown Lab Venipuncture / Unknown 03/04/2023 2:40 AM CDT 03/04/2023 3:01 AM CDT Val Mckeon MD LAB - CHEMISTRY DEEP ALVARADO Performing Organization Address City/[facility]/ZIP Co de Phone Number [address] [address], [place] [phone] * TRANSFUSE PLATELET PHERESIS UNIT(S) (03/02/2023 8:06 PM CDT) Val Mckeon MD NURSING - BLOOD PROD TRANSFUSION * PREPARE PLATELET PHERESIS UNIT(S), 1 Units (03/02/2023 7:28 PM CDT) Unit Description LR PLT Phere B7 [facility] Unit ABO A [facility] Rh POS [facility] Product Number P28 [facility] Unit Donor # [id number] [facility] Unit Status transfused [facility] Product Code [id number] [facility] Blood Type Barcode 6200 [facility] Expiration Date [id number] [facility] Blood Bank BLOOD SPECIMEN / Unknown 03/02/2023 12:22 PM CDT Val Mckeon MD LAB - BLOOD BANK ORD ERABLES [facility] [address] [place] [address], [facility] [phone] * URINE DRUG SCREEN IMMUNOASSAY (03/02/2023 6:53 PM CDT) [facility] Amphetamines Screen Urine Negative Negative: < 1000 ng/mL 03/02/2023 7:28 PM CDT [facility] Barbiturates Screen Urine Negative Negative: < 200 ng/mL 03/02/2023 7:28 PM CDT [facility] Benzodiazepine Screen Urine Negative Negative: < 200 ng/mL 03/02/2023 7:28 PM CDT [facility] Opiates Urine Negative Negative: < 300 ng/mL 03/02/2023 7:28 PM CDT [facility] Cocaine Metabolites Urine Negative Negative: < 300 ng/mL 03/02/2023 7:28 PM CDT [facility] Phencyclidine Screen Urine Negative Negative: < 25 ng/ml 03/02/2023 7:28 PM CDT [facility] Cannabinoids Screen Urine Negative Negative: <50 ng/mL 03/02/2023 7:28 PM CDT [facility] Methadone Screen Urine Negative Negative: < 300 ng/mL 03/02/2023 7:28 PM T [facility] Fentanyl Screen Urine Negative Negative: <1.5 ng/mL 03/02/2023 7:28 PM T [facility] Urine URINE / Unknown Collection / Unknown 03/02/2023 6:53 PM CDT 03/02/2023 6:59 PM CDT Narrative [facility] - 03/02/2023 7:28 PM CDT The Urine Toxicology Screening Panel does not screen for Propoxyphene, Meprobamate, Carisoprodol, Trazodone, ecrm-giq-htcaaoh medications and/or volatiles (Acetone, Isopropanol, Methanol or Ethylene Glycol). Ethanol, Salicylate, Acetaminophen, Tricyclic Antidepressants and several therapeutic drugs may be individually assayed in serum or plasma specimen. Toxicology testing by the [facility] is an aid to medical diagnosis and treatment of patients. No documented chain of custody was maintained. Results are intended to be used for clinical purposes only. ? Jamey Venegas MD LAB - URINE CHEMISTR Y ORDERABLES [facility] [address] [place] [address], [facility] [phone] * EKG 12-LEAD (03/02/2023 4:00 PM CDT) Ventricular Rate 102 BPM [facility] MUSE Atrial Rate 102 BPM [facility] P-R Interval 180 ms [facility] QRS Duration ms 102 ms [facility] Q-T Interval ms 362 ms [facility] QTC Calculation (Bezet) 471 ms [facility] Calculated P [place] 44 degrees [facility] MUSE Calculated R [place] -35 degrees [facility] Calculated T [place] 95 degrees [facility] Interpretation EKG SINUS TACHYCARDIA WITH PREMATURE ATRIAL COMPLEXES LEFT AXIS DEVIATION MINIMAL VOLTAGE CRITERIA FOR LVH, MAY BE NORMAL VARIANT ( Lenin product ) POSSIBLE ANTERIOR INFARCT , AGE UNDETERMINED ABNORMAL ECG NO PREVIOUS ECGS AVAILABLE Confirmed by DRU QUEEN MD ([id number]) on 03/02/2023 5:47:27 PM [facility] 03/02/2023 4:00 PM CDT 03/02/2023 5:47 PM CDT Jamey Venegas MD ECG ORDERABLES Performing Organization Address City/[facility]/ZIP Co de Phone Number [facility] * (ABNORMAL) TROPONIN-I HIGH SENSITIVE REFLEX 1HOUR (03/02/2023 3:30 PM CDT) [facility] Troponin I High Sensitive 30(H) <=14 ng/L 03/02/2023 4:04 PM CDT [facility] Delta Troponin I HS 03/02/2023 4:04 PM CDT [facility] Comment:Delta value intentio alexis not calculated. Baseline to 1 hour specimen collection interval exceeded. Blood BLOOD SPECIMEN / Unknown Venipuncture / Unknown 03/02/2023 3:30 PM CDT 03/02/2023 3:33 PM CDT Karo Cárdenas DO LAB - CHEMISTRY ORDE KYLEZANE Performing Organization Address [facility] Co de Phone Number [address] [address], [facility] [phone] * TROPONIN-I HIGH SENSITIVE BASELINE + 1HR (03/02/2023 12:55 PM CDT) [facility] Troponin I High Sensitive 9 <=14 ng/L 03/02/2023 1:39 PM CDT [facility] Blood BLOOD SPECIMEN / Unknown Venipuncture / Unknown 03/02/2023 12:55 PM CDT 03/02/2023 1:04 PM CDT Karo Cárdenas DO LAB - CHEMISTRY ORDBoby ALVARADO Performing Organization Address [facility]/ZIP Co de Phone Number [address] [address], [place] [phone] * BLOOD TYPE VERIFICATION (03/02/2023 12:53 PM CDT) Pathologist [facility] ABO Rh A POS 03/02/2023 1:2 8 PM CDT [facility] Blood Bank BLOOD SPECIMEN / Unknown Lab Venipuncture / Unknown 03/02/2023 12:53 PM CDT 03/02/2023 1:02 PM CDT Nano Sanderson MD LAB - BLOOD BANK ORD ERABLES [facility] [address] [place] [address], [facility] [phone] * CT CHEST ABDOMEN PELVIS W CONT [...] DATE/TIME OF EXAM: ??03/02/2023 12:51 PM, LOCATION ??[facility] INDICATION: Trauma ADDITIONAL CLINICAL INFORMATION: Ordering Provider [...] CONT, DATE/TIME OF EXAM:03/02/2023 12:51 PM, LOCATION [facility] INDICATION: Trauma ADDITIONAL CLINICAL INFORMATION: Ordering Provider [...] verification. Report dictated by Kalyan Joseph MD (residential door installer). I, Andrei Bridges MD have personally reviewed and interpreted this examination/study. > Interpreting Provider: Andrei Bridges MD on 03/02/2023 2:19 PM Narrative 03/02/2023 2:19 PM CDT PROCEDURE: ??CT HEAD WO CONTRAST, CT LUMBAR SPINE WO CONTRAST, CT THORACIC SPINE WO CONTRAST, CT CERVICAL SPINE WO CONTRAST, CT FACIAL BONES WO CONTRAST, DATE/TIME OF EXAM: ??03/02/2023 12:51 PM, LOCATION ??[facility] INDICATION: Trauma EXAMINATION: 1. Computed tomography (CT) [...] DATE/TIME OF EXAM: 03/02/2023 12:51 PM, LOCATION [facility] INDICATION: Trauma EXAMINATION: 1. Computed tomography (CT) [...] verification. Report dictated by Kalyan Joseph MD (residential door installer). Andrei Cardenas MD have personally reviewed and [...] verification. Report dictated by Kalyan Joseph MD (residential door installer). Andrei Cardenas MD have personally reviewed and interpreted this examination/study. > Interpreting Provider: Andrei Bridges MD on 03/02/2023 2:19 PM Narrative 03/02/2023 2:19 PM CDT PROCEDURE: ??CT HEAD WO CONTRAST, CT LUMBAR SPINE WO CONTRAST, CT THORACIC SPINE WO CONTRAST, CT CERVICAL SPINE WO CONTRAST, CT FACIAL BONES WO CONTRAST, DATE/TIME OF EXAM: ??03/02/2023 12:51 PM, LOCATION ??[facility] INDICATION: Trauma EXAMINATION: 1. Computed tomography (CT) [...] DATE/TIME OF EXAM: 03/02/2023 12:51 PM, LOCATION [facility] INDICATION: Trauma EXAMINATION: 1. Computed tomography (CT) [...] verification. Report dictated by Kalyan Joseph MD (residential door installer). I, Andrei Bridges MD have personally reviewed [...] verification. Report dictated by Kalyan Joseph MD (residential door installer). I, Andrei Bridges MD have personally reviewed and interpreted this examination/study. > Interpreting Provider: Andrei Bridges MD on 03/02/2023 2:19 PM Narrative 03/02/2023 2:19 PM CDT PROCEDURE: ??CT HEAD WO CONTRAST, CT LUMBAR SPINE WO CONTRAST, CT THORACIC SPINE WO CONTRAST, CT CERVICAL SPINE WO CONTRAST, CT FACIAL BONES WO CONTRAST, DATE/TIME OF EXAM: ??03/02/2023 12:51 PM, LOCATION ??[facility] INDICATION: Trauma EXAMINATION: 1. Computed tomography (CT) [...] DATE/TIME OF EXAM: 03/02/2023 12:51 PM, LOCATION [facility] INDICATION: Trauma EXAMINATION: 1. Computed tomography (CT) [...] the patient's careprovider, Dr Bill by Dr. Joesph via telephone at 03/02/2023 1:45 PM with readback comprehension and verification. Report dictated by Kalyan Joseph MD (residential door installer). I, Andrei Bridges MD have personally reviewed and interpreted this examination/study. > Interpreting Provider: Andrei Bridgse MD on 03/02/2023 2:19 PM Jamey Venegas [...] verification. Report dictated by Kalyan Joseph MD (residential door installer). I, Andrei Bridges MD have personally reviewed and interpreted this examination/study. > Interpreting Provider: Andrei Bridges MD on 03/02/2023 2:19 PM Narrative 03/02/2023 2:19 PM CDT PROCEDURE: ??CT HEAD WO CONTRAST, CT LUMBAR SPINE WO CONTRAST, CT THORACIC SPINE WO CONTRAST, CT CERVICAL SPINE WO CONTRAST, CT FACIAL BONES WO CONTRAST, DATE/TIME OF EXAM: ??03/02/2023 12:51 PM, LOCATION ??[facility] INDICATION: Trauma EXAMINATION: 1. Computed tomography (CT) [...] DATE/TIME OF EXAM: 03/02/2023 12:51 PM, LOCATION [facility] INDICATION: Trauma EXAMINATION: 1. Computed tomography (CT) [...] verification. Report dictated by Kalyan Joseph MD (residential door installer). IAndrei MD have personally reviewed and interpreted this examination/study. > Interpreting Provider: Andrei Bridges MD on 03/02/2023 2:19 PM [address] Venegas MD CT ORDERABLES * XR PELVIS 1 OR 2VW (03/02/2023 12:28 PM CDT) Anatomical Region Laterality Modality Pelvis Radiographic Jayla ging 03/02/2023 1:07 PM CDT Impressions 03/02/2023 5:08 PM CDT IMPRESSION: No acute fracture identified. Report dictated by Jose Guadalupe James MD (residential door installer). Warren Cardenas MD have personally reviewed and interpreted this examination/study. > Interpreting Provider: Warren Parra MD on 03/02/2023 5:08 PM Narrative 03/02/2023 5:08 PM CDT PROCEDURE: ??XR PELVIS 1 OR 2VW, DATE/TIME OF EXAM: ??03/02/2023 12:34 PM, LOCATION ??[facility] INDICATION: Trauma Fracture suspected COMPARISON: None. FINDINGS: No acute fracture is identified. The femoral heads appear well-seated within their respective acetabula. The pubic symphysis is intact. Bone density and texture are normal. The sacroiliac joints are normal. Procedure Note Patti Parra MD - 03/02/2023 PROCEDURE: XR PELVIS 1 OR 2VW, DATE/TIME OF EXAM: 03/02/2023 12:34 PM, LOCATION [facility] INDICATION: Trauma Fracture suspected COMPARISON: None. FINDINGS: No acute fracture is identified. The femoral heads appear well-seated within their respective acetabula. The pubic symphysis is intact. Bone density and texture are normal. The sacroiliac joints are normal. IMPRESSION: No acute fracture identified. Report dictated by Jose Guadalupe James MD (residential door installer). Warren Cardenas MD have personally reviewed and [...] DATE/TIME OF EXAM: ??03/02/2023 12:33 PM, LOCATION ??[facility] INDICATION: Trauma ADDITIONAL CLINICAL INFORMATION: Ordering Provider Reason For Exam: Technologist Note: Additional: Comparison: No prior study is available for comparison at the time of this dictation. Findings/Impression: There is no focal consolidation, pleural effusion, or pneumothorax. The cardiomediastinal silhouette is normal. The visible bony thorax is intact. Report dictated by Jose Guadalupe James MD (residential door installer). Fausto Cardenas have personally reviewed and interpreted this examination/study. > Interpreting Provider: Fausto Morton on 03/02/2023 2:58 PM Procedure Note Fausto Morton MD - 03/02/2023 PROCEDURE: XR CHEST 1VW PORTABLE, DATE/TIME OF EXAM: 03/02/2023 12:33PM, LOCATION [facility] INDICATION: Trauma ADDITIONAL CLINICAL INFORMATION: Ordering Provider Reason For Exam: Technologist Note: Additional: Comparison: No prior study is available for comparison at the time ofthis dictation. Findings/Impression: There is no focal consolidation, pleural effusion, or pneumothorax. The cardiomediastinal silhouette is normal. The visible bony thorax isintact. Report dictated by Jose Guadalupe James MD (residential door installer). I, Fausto Morton have personally reviewed and interpreted this examination/study. > Interpreting Provider: Fausto Morton on 03/02/2023 2:58 PM Jamey Venegas MD DIAGNOSTIC IMAGING O RDERABLES * (ABNORMAL) TEG 6 GLOBAL HEMOSTASIS W/ LYSIS (03/02/2023 12:16 PM CDT) Citrated Kaolin R (Reaction Time) 4.2(L) 4.6 - 9.1 min 03/02/2023 1:51 PM CDT [facility] Comment:CK R result below no rmal range. Consistent with hypercoagulable clotting factors. Citrated Kaolin LY30 (Lysis) 0.5 0.0 - 2.6 % 03/02/2023 1:51 PM CDT [facility] Citrated Functional Fibrinogen MA (Max Amplitude) 32.8(H) 15.0 - 32.0 mm 03/02/2023 1:51 PM CDT [facility] Comment:CFF MA above normal range. Consistent with elevated fibrinogen contribution to clot strength. Citrated RapidTEG MA (Max Amplitude) 68.2 52.0 - 70.0 mm 03/02/2023 1:51 PM CDT [facility] Blood BLOOD SPECIMEN / Unknown Venipuncture / Unknown 03/02/2023 12:16 PM CDT 03/02/2023 12:54 PM CDT Jamey Venegas MD LAB - HEMATOLOGY ORD ERABLES [facility] [address] [place] [address], [facility] [phone] * (ABNORMAL) TEG 6S PLATELET MAPPING (03/02/2023 12:16 PM CDT) TEGPLM (Max Amplitude) Koalin 66.8 53.0 - 68.0 mm 03/02/2023 1:24 PM CDT [facility] TEGPLM (Max Amplitude) ACTF 20.0(H) 2.0 - 19.0 mm 03/02/2023 1:24 PM CDT [facility] TEGPLM (Max Amplitude) ADP 55.0 45.0 - 69.0 mm 03/02/2023 1:24 PM CDT [facility] TEGPLM (Max Amplitude) AA 33.0(L) 51.0 - 71.0 mm 03/02/2023 1:24 PM T [facility] Comment:AA MA below normal r merlin. Inhibition present. TEGPLM %Inhibition ADP 25.2(H) 0.0 - 17.0 % 03/02/2023 1:24 PM CDT [facility] TEGPLM %Inhibition AA 72.2(H) 0.0 - 11.0 % 03/02/2023 1:24 PM CDT [facility] TEGPLM %Aggregation ADP 74.8(L) 83.0 - 100.0 % 03/02/2023 1:24 PM T [facility] TEGPLM % Aggregation AA 27.8(L) 89.0 - 100.0 % 03/02/2023 1:24 PM CDT [facility] Blood BLOOD SPECIMEN / Unknown Venipuncture / Unknown 03/02/2023 12:16 PM CDT 03/02/2023 12:54 PM CDT Jamey Venegas MD LAB - HEMATOLOGY ORD ERABLES [facility] [address] [place] [address], [facility] [phone] * PTT [facility] (03/02/2023 12:16 PM CDT) APTT 26.5 23.0 - 38.4 Seconds 03/02/2023 1:20 PM CDT [facility] Comment:Suggested therapeuti c range for full dose I.V. unfractionated heparin therapy for venous thromboembolism is 71 to 109 seconds. Blood BLOOD SPECIMEN / Unknown Venipuncture / Unknown 03/02/2023 12:16 PM CDT 03/02/2023 12:55 PM CDT Jamey Venegas MD LAB - COAGULATION OR DERABLES Performing Organization Address [facility] Co de Phone Number [facility] [address] [place] [address], [facility] [phone] * PT-INR [facility] (03/02/2023 12:16 PM CDT) PT 14.5 12.1 - 14.8 Seconds 03/02/2023 1:20 PM CDT [facility] INR 1.1 See Comment 03/02/2023 1:20 PM CDT [facility] Comment:The suggested therap eutic range for standard coumadin (warfarin) therapy is an INR of 2.0-3.0. For high-risk patients (Mechanical Mitral Valve Prosthesis, etc.), the suggested prophylactic therapeutic range is an INR of 2.5-3.5. Blood BLOOD SPECIMEN / Unknown Venipuncture / Unknown 03/02/2023 12:16 PM CDT 03/02/2023 12:55 PM CDT Jamey Venegas MD LAB - COAGULATION OR DERABLES Performing Organization Address City/[facility] Co de Phone Number [facility] [address] [place] [address], [facility] [phone] * TYPE + SCREEN PANEL (03/02/2023 12:16 PM CDT) Antibody Screen NEG 1:12 PM CDT [facility] ABO Rh A POS 03/02/2023 1:12 PM CDT [facility] Blood Bank BLOOD SPECIMEN / Unknown Venipuncture / Unknown 03/02/2023 12:16 PM CDT 03/02/2023 12:22 PM CDT Jamey Venegas MD LAB - BLOOD BANK JOSE MILES Performing Organization Address City/[facility]/ZIP Co de Phone Number [facility] [address] [place] [address], [facility] [phone] * ALCOHOL ETHYL BLOOD (03/02/2023 12:16 PM CDT) Ethanol (mg/dL) <10 <10 mg/dL 12:45 PM CDT [facility] Ethanol Calculated (g/dL) <0.010 <=0.010 g/dL 03/02/2023 12:45 PM CDT [facility] Blood BLOOD SPECIMEN / Unknown Venipuncture / Unknown 03/02/2023 12:16 PM CDT 03/02/2023 12:21 PM CDT Narrative [facility] - 03/02/2023 12:45 PM CDT Ethanol Interp <10: None Detected. Depression of MEDIA CONSULTANT OUTSIDE SALES: >100 mg/dl Potentially Critical: >250 mg/dl Potentially [...] - CHEMISTRY JOSEBoby ALVARADO Performing Organization Address City/[facility]/ZIP Co de Phone Number [address] [address], [facility] [phone] * XR KNEE RIGHT 3VW (08/16/2020 12:17 PM FIBERGLASS GRINDER) Only the most recent of3 resultswithin the time period is included. Anatomical Region Laterality Modality Lower Extremity Computed Radiogr aphy Narrative 08/16/2020 12:14 PM [employer]ER[employer] GRINDER Trisha Hernandez, RT(R) ? 08/28/2020 ??4:56 PM [...] Han MD - 06/05/2020 11:59 PM CDT [facility] PULMONARY FUNCTION TEST REPORT PATIENT: ABRAHAN CRUZ MR#: [id number] ADMIT DATE: 06/05/2020 CSN: [id number] DATE OF PROCEDURE: 06/05/2020 :1940 PHYSICIAN: Todd [...] for lung volume. Todd Maldonado MD RITA/MODL #:[id number] Todd Han MD RESPIRATORY THERAPY ORDERABLES Performing Organization Address City/State/[facility] Co de Phone Number [facility] * RESPIRATORY PATHOGEN PANEL BY PCR (05/23/2020 8:55 AM CDT) Adenovirus PCR Not detected Not detected, Invalid, Indeterminate 05/23/2020 4:00 PM CDT [facility] Coronavirus PCR Not detected Not detected, Invalid, Indeterminate 05/23/2020 4:00 PM CDT [facility] Human Metapneumovirus PCR Not detected Not detected, Invalid, Indeterminate 05/23/2020 4:00 PM CDT [facility] Human Rhinovirus/Entero virus PCR Not detected Not detected, Invalid, Indeterminate 05/23/2020 4:00 PM CDT [facility] Influenza A PCR Not detected Not detected, Equivocal, Invalid, Indeterminate 05/23/2020 4:00 PM CDT [facility] Influenza B PCR Not detected Not detected, Invalid, Indeterminate 05/23/2020 4:00 PM CDT [facility] Parainfluenza Virus 1 PCR Not detected Not detected, Invalid, Indeterminate 05/23/2020 4:00 PM CDT [facility] Parainfluenza Virus 2 PCR Not detected Not detected, Invalid, Indeterminate 05/23/2020 4:00 PM T [facility] Parainfluenza Virus 3 PCR Not detected Not detected, Invalid, Indeterminate 05/23/2020 4:00 PM CDT [facility] Parainfluenza Virus 4 PCR Not detected Not detected, Invalid, Indeterminate 05/23/2020 4:00 PM T [facility] Respiratory Syncytial Virus PCR Not detected Not detected, Invalid, Indeterminate 05/23/2020 4:00 PM T [facility] Bordetella pertussis PCR Not detected Not detected, Invalid 05/23/2020 4:00 PM T [facility] Chlamydia pneumoniae PCR Not detected Not detected, Invalid, Indeterminate 05/23/2020 4:00 PM T [facility] Mycoplasma pneumoniae PCR Not detected Not detected, Invalid, Indeterminate 05/23/2020 4:00 PM T [facility] Microbiology BRONCHIOLOALVEOLAR LAVAGE / Unknown Collection / Unknown 05/23/2020 8:55 AM CDT 05/23/2020 9:08 AM CDT Narrative [facility] - 05/23/2020 4:00 PM CDT This test is able to detect the following human coronaviruses: HKU1, NL63, 229E, and OC43. It will NOT detect 2019 Novel Coronavirus (2019-nCoV). If 2019-nCoV is suspected contact Infection Prevention for isolation and testing guidance. Todd Han MD LAB - MICROBIOLOGY O RDERAANN MARIE [facility] [address] [place] [address], [facility] [phone] * CULTURE BRONCHOALVEOLAR LAVAGE QNT+GRAM STAIN (05/23/2020 8:55 AM CDT) Culture <10,000 CFU/mL normal oropharyngeal mary CELI 05/25/2020 8:41 AM CDT [facility] Gram Stain No organisms seen 020 8:41 AM CDT [facility] Gram Stain Moderate Polymorphonuclear cells 05/25/2020 8:41 AM CDT [facility] Microbiology BRONCHIOLOALVEOLAR LAVAGE / Unknown Collection / Unknown 05/23/2020 8:55 AM CDT 05/23/2020 9:08 AM CDT Todd Han MD LAB - MICROBIOLOGY O RDERABLES [facility] [address] [place] [address], [facility] [phone] * CYTOLOGY NON-CORPORATE TECHNICAL RECRUITER PANEL (STL) (05/23/2020 8:55 AM CDT) Only the most recent of2 resultswithin the time period is included. Case Report Cytology Non Production Material Handler Report ? Case: [id number] ? Authorizing Provider: ??Todd Han MD ? [...] developed and its performance characteristic determined by [facility], Department of Laboratory Medicine. It has not [...] - PATHOLOGY/CYTO LOGY ORDERABLES Performing Organization Address [facility] Co de Phone Number [facility] [address] [place] [address] * DIFFERENTIAL MANUAL BAL (05/23/2020 8:55 AM CDT) Neutro BAL 92 % 05/23/2020 1:49 PM CDT [facility] Lymphocytes % BAL 7 % 05/23/2020 1:49 PM CDT [facility] Macrophage % BAL 1 % 05/23/20 20 1:49 PM CDT [facility] Cells counted BAL 100 05/23/2020 1:49 PM CDT [facility] Fluid BRONCHIOLOALVEOLAR LAVAGE / Unknown Collection / Unknown 05/23/2020 8:55 AM CDT 05/23/2020 9:08 AM CDT Todd Han MD LAB - BODY FLUID ORD ERABLES Performing Organization Address [facility] de Phone Number [facility] [address] [place] [address] * FUNGUS FLUORESCENT SMEAR (05/23/2020 8:55 AM CDT) Pathologist [facility] Calcofluor Stain No yeast or hyphae seen 05/24/2020 6:47 AM CDT [facility] Microbiology BRONCHIAL BRUSHINGS SPECIMEN / Unknown Collection / Unknown 05/23/2020 8:55 AM CDT 05/23/2020 9:09 AM CDT Todd Han MD LAB - MICROBIOLOGY O RDERABLES Performing Organization Address City/[facility]/ZIP Co de Phone Number [facility] [address] [place] [address], [facility] [phone] * CULTURE AFB+SMEAR (05/23/2020 8:55 AM CDT) Culture No acid-fast bacillus isolated 07/01/2020 7:54 AM CDT [facility] AFB Smear No acid-fast bacilli seen 07/01/2020 7:54 AM CDT [facility] Microbiology BRONCHIOLOALVEOLAR LAVAGE / Unknown Collection / Unknown 05/23/2020 8:55 AM CDT 05/23/2020 9:08 AM CDT Todd Han MD LAB - MICROBIOLOGY O FRANKO Performing Organization Address [facility] Co de Phone Number [facility] [address] [place] [address], [facility] [phone] * GRAM STAIN SMEAR (05/23/2020 8:55 AM CDT) Pathologist [facility] Gram Stain Moderate Polymorphonuclear cells 05/24/2020 10:55 PM CDT [facility] Gram Stain Light Gram-positive cocci 05/24/2020 10:55 PM CDT [facility] Microbiology BRONCHIAL BRUSHINGS SPECIMEN / Unknown Collection / Unknown 05/23/2020 8:55 AM CDT 05/23/2020 9:08 AM CDT Todd Han MD LAB - MICROBIOLOGY O FRANKO Performing Organization Address [facility] de Phone Number [facility] [address] [place] [address], [facility] [phone] * CELL COUNT W DIFFERENTIAL BRONCHOAVEOLAR LAVAGE (05/23/2020 8:55 AM CDT) Character Fluid Hazy 05/23/2020 1:43 PM CDT [facility] Color Fluid Colorless 05/23/2020 1:43 PM CDT [facility] Total Nucleated Cells Fluid 295 No clearly established reference range x10E6/L 05/23/2020 1:43 PM CDT [facility] RBC Fluid 40 No clearly established reference ranges x10E6/L 05/23/2020 1:43 PM CDT [facility] Comment BAL Manual Diff to follow 05/23/2020 1:43 PM CDT [facility] Fluid BRONCHIOLOALVEOLAR LAVAGE / Unknown Collection / Unknown 05/23/2020 8:55 AM CDT 05/23/2020 9:08 AM CDT Todd Han MD LAB - BODY FLUID ORD ERABLES Performing Organization Address [facility] Co de Phone Number [facility] [address] [place] [address] * CULTURE FUNGUS OTHER+FUNGUS SMEAR (05/23/2020 8:54 AM CDT) Culture No fungus isolated CELI 06/17/2020 12:07 PM CDT [facility] Fungus Stain No yeast or hyphae seen 06/17/2020 12:07 PM CDT [facility] Fungus Stain No Pneumocystis jirovecii 06/17/2020 12:07 PM CDT [facility] Microbiology BRONCHIOLOALVEOLAR LAVAGE / Unknown Collection / Unknown 05/23/2020 8:54 AM CDT 05/23/2020 9:08 AM CDT Todd Han MD LAB - MICROBIOLOGY O FRANKO Performing Organization Address City/[facility]/ZIP Co de Phone Number [facility] [address] [place] [address], [facility] [phone] * AFB SMEAR (05/23/2020 8:54 AM CDT) Pathologist [facility] AFB Smear No Acid Fast Bacilli seen No Acid Fast Bacilli seen 05/24/2020 1:32 PM CDT [facility] Microbiology BRONCHIAL BRUSHINGS SPECIMEN / Unknown Collection / Unknown 05/23/2020 8:54 AM CDT 05/23/2020 9:08 AM CDT Todd Han MD LAB - MICROBIOLOGY O FRANKO Performing Organization Address City/[facility]/ZIP Co de Phone Number [facility] [address] [place] [address], [facility] [phone] * SARS-COV-2 (COVID-19) ANTIBODY IGG (04/30/2020 1:34 [...] and patients using the following websites: ?? [employer]/home/Covid-19/HCP/antibody/fact-sheet2 [employer]/[facility]/Covid-19/Patients/antibody/fact-sheet2 This test has been authorized by the FDA under an Emergency Use Authorization (EUA) for use by authorized laboratories. The FDA authorized labeling is available on the [employer] [facility] website: www.[employer]Wire/Covid19. ?? For additional information please refer to http://education.[employer]/faq/LEO385 (This link is being provided for informational/educational purposes only.) ?? Test Performed at: [facility] ??[phone] JEANNIE SINGLETON MD Blood BLOOD SPECIMEN / Unknown 04/30/2020 1:34 PM CDT 04/30/2020 1:35 PM CDT Todd Han MD LAB - CHEMISTRY DEEP ALVARADO [address] [address] * QUANTIFERON-TB GOLD PLUS 1-TUBE (04/30/2020 1:31 PM CDT) [facility] QuantiFERON TB Gold Plus NEGATIVE NEGATIVE [facility] [...] T-lymphocytes. For additional information, please refer to https://education.[employer]/faq/SRH812 (This link is being provided for informational/ educational purposes only.) Test Performed at: [facility] [place], [place] ??[phone] LUZ MARINA ROSENTHAL DO,MPH 04/30/2020 1:31 PM CDT 04/30/2020 1:33 PM CDT Todd Han MD LAB - CHEMISTRY DEEP ALVARADO Performing Organization Address [facility] de Phone Number [facility] [phone] [place] [phone] * REF LAB-ABN TEST REFUSAL (04/30/2020 1:31 PM CDT) JONAH See Below [facility] Comment: Be advised that your patient has indicated on the advance beneficiary notice their decision not to receive the following laboratory tests. As a result, the tests will not be performed. Comment [id number] [facility] Comment: Test Performed at: [facility] [address] [place], [place] ??[phone] LUZ MARINA ROSENTHAL DO,MPH 04/30/2020 1:31 PM CDT 04/30/2020 1:33 PM CDT Todd Han MD LAB - CHEMISTRY DEEP ALVARADO Performing Organization Address [facility] Co de Phone Number [facility] [address] [place] [address] * ALLERGEN INTERPRETATION (04/30/2020 1:31 PM CDT) [...] analytical performance characteristics have been determined by [employer] [facility] [employer]. It has not been cleared or approved by the U.S. Food and Drug Administration. This assay has been validated pursuant to the CLIA regulations and is used for clinical purposes. Test Performed at: [facility] [place] [id number] [place] [address] ??[phone] LUZ MARINA ROSENTHAL DO,MPH 04/30/2020 1:31 PM CDT 04/30/2020 1:33 PM CDT Todd Han MD LAB - SEROLOGY ORDER NING Performing Organization Address City/[facility]/ZIP Co de Phone Number [facility] [phone] [place] [address] * RHEUMATOID FACTOR BLOOD QUANTITATIVE (04/30/2020 1:31 PM CDT) Pathologist [facility] Rheumatoid Factor <14 <14 IU/mL [facility] Comment: Test Performed at: [facility] [address] [place], [place] ??[phone] LUZ MARINA ROSENTHAL DO,MPH Blood BLOOD SPECIMEN / Unknown 04/30/2020 1:31 PM CDT 04/30/2020 1:33 PM CDT Todd Han MD LAB - CHEMISTRY ORDE RABLES Performing Organization Address [facility] Co de Phone Number [facility] [phone] [place] [address] * YANELY BLOOD SCREEN W/REFLEX TITER (04/30/2020 1:31 PM CDT) [facility] YANELY Screen NEGATIVE NEGATIVE [facility] Comment: YANELY [...] AC-0: Negative International Consensus on YANELY Patterns (https://doi.org/10.1515/iarf-2652-2146) For additional information, please refer to http://education.[employer].[facility]/faq/BRH671 (This link is being provided for informational/ educational purposes only.) ?? Test Performed at: [facility] [address] [place], [place] ??[phone] LUZ MARINA ROSENTHAL DO,MPH Blood BLOOD SPECIMEN / Unknown 04/30/2020 1:31 PM CDT 04/30/2020 1:33 PM CDT Todd Han MD LAB - CHEMISTRY JOSEBoby WRIGHTZANE Performing Organization Address [facility] de Phone Number [address] [address] * PNEUMONITIS HYPERSENSITIVE SCREEN (04/30/2020 1:31 PM CDT) Aspergillus fumigatus NEGATIVE NEGATIVE [facility] Micropolyspora faeni NEGATIVE NEGATIVE [facility] [place] Serum NEGATIVE NEGATIVE [facility] Thermoactinomyces candidus NEGATIVE NEGATIVE [facility] Thermoactinomyces vulgaris NEGATIVE NEGATIVE [facility] S. viridis NEGATIVE NEGATIVE [facility] Comment: This test was developed and its analytical performance characteristics have been determined by [facility]. It has not been cleared or approved by FDA. This assay has been validated pursuant to the CLIA regulations and is used for clinical purposes. Test Performed at: [facility] [place] [address] [facility], [place] ??[address] GABI BYERS MD,PHD,ROMI Blood BLOOD SPECIMEN / Unknown 04/30/2020 1:31 PM CDT 04/30/2020 1:33 PM CDT Todd Han MD LAB - CHEMISTRY DEEP ALVARADO Performing Organization Address [facility] Phone Number [place] [phone] [place] [address] * (ABNORMAL) FUNGAL ANTIBODY PANEL IMMUNODIFFUSION (04/30/2020 [...] - Antibody detected Detection of antibody recognizing Gissle is 70-80% specific for systemic candidiasis, and [...] 10% of proven cases.) Test Performed at: [facility] [address] [place], [place] ??[phone] Nathan BAUTISTA Blood BLOOD SPECIMEN / Unknown 04/30/2020 1:31 PM CDT 04/30/2020 1:33 PM CDT Todd Han MD LAB - CHEMISTRY DEEP ALVARADO [facility] [address] [place] [address] * ALLERGEN RESPIRATORY PROF (IL,MO,IA) IGE (04/30/2020 [...] kU/L [facility] Class 0 [facility] Allergen Cockroach Nigerian <0.10 kU/L [facility] Class 0 [facility] Allergen Maple <0.10 kU/L [facility] Class 0 [facility] Allergen Mountain [place] <0.10 kU/L [facility] Class 0 [facility] Allergen [place] Tree <0.10 kU/L [facility] Class 0 [facility] Allergen Superior <0.10 kU/L [facility] Class 0 [facility] Allergen Morrison Tree <0.10 kU/L [facility] Class 0 [facility] Allergen White Stu <0.10 kU/L [facility] Class 0 [facility] Allergen Avon <0.10 kU/L [facility] Class 0 [facility] Allergen Elm <0.10 kU/L [facility] Class 0 [facility] Allergen Kil[place]/Pecan Tree <0.10 kU/L [facility] Class 0 [facility] Allergen White Volga <0.10 kU/L [facility] Class 0 [facility] Allergen Bermuda Grass <0.10 kU/L [facility] Class 0 [facility] Allergen Hakeem Grass <0.10 kU/L [facility] Class 0 [facility] Allergen Common Ragweed <0.10 kU/L [facility] Class 0 [facility] Allergen Rough Pigweed <0.10 kU/L [facility] Class 0 [facility] Allergen Cape Verdean Thistle <0.10 kU/L [facility] Class 0 [facility] Allergen Rough Lance Elder <0.10 kU/L [facility] Class 0 [facility] Allergen Mouse Urine Protein <0.10 kU/L [facility] Class 0 [facility] IgE 41 <KS=228 kU/L [facility] Comment: Test Performed at: [facility] [place] [address] [place], [place] ??[phone] LUZ MARINA ROSENTHAL DO,MPH Blood BLOOD SPECIMEN / Unknown 04/30/2020 1:31 PM CDT 04/30/2020 1:33 PM CDT Todd Han MD LAB - CHEMISTRY DEEP ALVARADO Performing Organization Address [facility]/State/ZIP Co de Phone Number [facility] [address] [place] [address] * VITAMIN D 25-HYDROXY (04/30/2020 1:31 PM [...] D, (D2,D3), LC/MS/MS is recommended: order code [id number] (patients >2yrs). See Note 1 Note 1 For additional information, please refer to http://education.[employer].[facility]/faq/TNY789 (This link is being provided for informational/ educational purposes only.) Test Performed at: [facility] [address] [place], [place] ??[phone] LUZ MARINA ROSENTHAL DO,MPH Blood BLOOD SPECIMEN / Unknown 04/30/2020 1:31 PM CDT 04/30/2020 1:33 PM CDT Todd Han MD LAB - CHEMISTRY DEEP ALVARADO Performing Organization Address City/[facility] Co de Phone Number [facility] [phone] [place] [address] * ANGIOTENSIN CONVERTING ENZYME BLOOD (04/30/2020 1:31 PM CDT) [facility] Angiotensin-Conv erting Enzyme 41 9 - 67 U/L [facility] Comment: Test Performed at: [facility] [place] [address] [place], [place] ??[phone] LUZ MARINA ROSENTHAL DO,MPH Blood BLOOD SPECIMEN / Unknown 04/30/2020 1:31 PM CDT 04/30/2020 1:33 PM CDT Todd Han MD LAB - CHEMISTRY DEEP ALVARADO Performing Organization Address [facility] Co de Phone Number [facility] [phone] [place] [address] * ERYTHROCYTE SEDIMENTATION RATE (04/30/2020 1:31 PM CDT) [facility] Erythrocyte Sedimentation Rate Westergren 25 < OR = 30 mm/h [facility] Comment: Test Performed at: [facility] [place] [address] [place], [place] ??[phone] LUZ MARINA ROSENTHAL DO,MPH Blood BLOOD SPECIMEN / Unknown 04/30/2020 1:31 PM CDT 04/30/2020 1:33 PM CDT Todd Han MD LAB - HEMATOLOGY JOSE MILES Performing Organization Address [facility] Co de Phone Number [facility] [address] [place] [address] * (ABNORMAL) COMPREHENSIVE METABOLIC PANEL (04/30/2020 1:31 PM CDT) [facility] Glucose 127(H) 65 - 99 mg/dL [facility] [...] approximately 13% higher for people identified as -Nigerian. eGFR by MDRD 32(L) > OR = [...] 29 U/L [facility] Comment: Test Performed at: [facility] ??[phone] LUZ MARINA ROSENTHAL DO,MPH Blood BLOOD SPECIMEN / Unknown 04/30/2020 1:31 PM CDT 04/30/2020 1:33 PM CDT Todd Han MD LAB - CHEMISTRY DEEP ALVARADO [facility] Organization Address City/State/ZIP Co de Phone Number [facility] [address] [place] [address] * ECHOCARDIOGRAM 2D WITH DOPPLER (03/21/2020 12:45 PM CDT) 03/21/2020 12:4 5 PM CDT Narrative Procedure Note Hola Cueva MD - 03/22/2020 . [facility] [address] [place] [address] Echocardiography Examination Transthoracic Name: ABRAHAN CRUZ [facility]#: MR#: [id number] Admission Number: [id number] Study Date: 03/21/2020 Study Time: 12:51 PM [...] Facility Location: [facility] Procedure Crisis Specialist: Adele Tang RDCS Ordering Physician: Jennifer Adame [...] 2.4 m/s (No Signature Object) Patient: ABRAHAN CRUZ Study Date: 03/21/2020 12:51 PM Page 3 [...] aphy Narrative 03/01/2017 12:41 PM CDT Trisha Hernandez, RT(R) ? 03/01/2017 12:41 PM See progress notes for results Lovely Corral PA-C DIAGNOSTIC IMAGING O RDERABLES * VAS RIGHT VENOUS DUPLEX LE (10/11/2014 1:24 PM [employer]ER[employer]ASS GRINDER) Anatomical Region Laterality Modality Ultrasound 10/11/2014 1:11 PM [employer]ER[employer] GRINDER Narrative Procedure Note Jose Collins MD - 10/11/2014 [facility] [address], [address] [place] [address] Lower Extremity Venous Ultrasound Report Pat.Name: ABRAHAN CRUZ Pat.ID: [id number] St.Date: 10/11/2014 Exam Time: 1:11:00 PM Study Type:LE Venous Age: 8 1940,74Y Sex: FEMALE Sonogrphr: Johnny Hernandez RVT Pat. Stat.:Outpatient ICD - 9: 729.5 Pain in Extremity, 729.81 Swelling of Limb CPT - 4: 74545 Procedures:Lower Extremity Venous - Right Race: 1 Visit ID: [id number] SUMMARY: There is no evidence of an [...] of2 resultswithin the time period is included. [facility] Hemoglobin 8.4(L) 12.0 - 15.6 gm/dL 06/01/2014 12:37 AM CDT [facility] Hematocrit 26.1(L) 35.9 - 45.5 % 06/01/2014 12:37 AM CDT [facility] Blood BLOOD SPECIMEN / Unknown 06/01/2014 12:18 AM CDT 06/01/2014 12:21 AM CDT Luz Marina Llamas MD LAB - HEMATOLOGY ORD ERABLES [facility] [address] [place] [address] * NEURAXIAL BLOCK (05/30/2014 11:48 AM CDT) [...] details. Block Performed by: ??Luis Enrique Douglass EXCHANGE UNDERWRITING CONSULTANT Luz Marina Llamas MD GENERAL ANESTHESIA O FRANKO * (ABNORMAL) CULTURE MSSA/MRSA (05/10/2014 2:06 PM CDT) [facility] Culture Negative for MRSA CELI 05/11/2014 6:56 PM CDT [facility] Culture Staphylococcus aureus (MSSA)(A) CELI 05/11/2014 6:56 PM CDT [facility] Microbiology SPECIMEN FROM NASAL FOSSAE / Unknown 05/10/2014 2:06 PM CDT 05/10/2014 3:23 PM CDT Luz Marina Llamas MD LAB - MICROBIOLOGY O FRANKO [facility] [address] [place] [address], [facility] * XR CERVICAL SPINE 2 OR 3 [...] Adame MD DIAGNOSTIC IMAGING ORDERABLES Care Teams Small Arms Artillery Repairer Relationship Specialty Start Date End Date Kayla Peck MD [address] [place] [phone] PCP - General Internal Medicine 03/03/23 Luz Marina Llamas MD Orthopedic Surgery 07/24/11 [place] [address] [facility] [address] [place] [address] Orthopedic Surgery 05/23/13 [place] [address] [facility] [address] [place] [id number] Pulmonary Disease 04/24/20 [place] [address] [facility] [place] [address] Nephrology 04/24/20 [facility] Kidney Care Management 04/15/22
--- OUTSIDE RECORDS SUMMARY | 2024-10-08 19:44 | XMS_ITS | Clinical Summary ---
Author Organization [facility] Address [address] [place] [address] Care Team Providers Care Karate Instructor Name Role Phone Kayla Peck MD Primary Care Provider [phone] Allergies Active Allergy Reactions Criticality Noted Date [...] on file Legal Sex Female 11:58 PM PRODUCTION LEAD Gender Identity Not on file Sexual Orientation [...] Read Routine (OP Routine) 08/18/2021 1:28 PM PRODUCTION LEAD Other primary ovarian failure from Last 3 Months or Most Recently Relevant to Health Maintenance Results * Dexa Axial Skeleton Bone Density 1 or 2 Site (08/18/2021 1:28 PM PRODUCTION LEAD) Anatomical Region Laterality Modality Body N/A Other Impressions 08/18/2021 1:48 PM PRODUCTION LEAD Bone mineral density of the spine falls within normal range, bone mineral density of the left hip falls within osteopenia range. In comparison to previous examination there is a decrease bone mineral density of the spine and left hip. Electronically signed by: Zenaida Mckinnon M.D. Narrative 08/18/2021 1:48 PM PRODUCTION LEAD Examination: Bone densitometry of the lumbar spine [...] bone mineral density. us Fermín Adame MD [facility] DXA PROCEDURES Edited Result - Final from Last 3 Months or Most Recently Relevant to Health Maintenance Insurance MEDICARE [facility] AETNA AETNA SENIOR SUPPLEMENT MEDICARE AETNA SENIOR SUPPLEMENT MEDICARE AETNA Care Teams Karate Instructor Relationship Specialty Start Date End Date Kayla Peck MD [address] [place] [phone] PCP - General Internal Medicine 01/19/23
--- OUTSIDE RECORDS SUMMARY | 2024-10-08 19:44 | XMS_ITS | Encounter Summary ---
Author Organization [employer] Address [address] [facility] Attn: Epic Prelude ADT [place] [address] Care Team Providers Care City Designer Name Role Phone Fermín Adame MD Primary Care Provider [phone] Encounter Details Date Type Department Care Team (Late st Contact Info) Description 06/03/1992 Outpatient Historical Luis Enrique Padron MD [address] 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
--- OUTSIDE RECORDS SUMMARY | 2024-10-08 19:44 | XMS_ITS | CONTINUITY OF CARE DOCUMENT ---
Author Name deidre adriencharles Address Unknown Organization 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
--- OUTSIDE RECORDS SUMMARY | 2024-10-08 19:44 | XMS_ITS | Clinical Summary ---
Author Organization [facility] Address [address] [facility] [place] [address] Care Team Providers Care Leave Manager Name Role Phone Bright Llamas MD Unavailable Mily Douglas MD Unavailable [phone] Todd Han MD Unavailable Radha Joshua MD Unavailable [phone] [facility] Kayla Peck MD Primary Care Provider [phone] Source Comments [facility],non-owned Affiliates and Associated Physician Practices is amultiple site organization consisting of ambulatory clinics and hospital sitesin [place], [place], [place] and [place]. This disclosure is being madepursuant to the Care Everywhere program and may not contain all information available regarding this patient. Last updated 18.[facility] Allergies Active Allergy Reactions Criticality Noted [...] this topic Medical Devices Implanted Type Area Climate Change Analyst Device Identifier Shelf Expiration Date Model / Serial / Lot Maico Bone Lindon Hv Implanted:Qty: 1 on 05/30/2014 by Bright Llamas MD at [facility] Right: [employer] 01/28/2016 [id number] / / [id number] Hammad Izquierdo Arcom Wire Polyeth Xsm 28 X 8 Implanted:Qty: 1 on 05/30/2014 by Brgiht Llamas MD at [facility] Right: [employer] 02/27/2019 [id number] / / [id number] Ty Tibial I Beam Fix Bar 63mm Implanted:Qty: 1 on 05/30/2014 by Bright Llamas MD at [facility] Right: [employer] 11/27/2021 [id number] / / [id number] Kn Ins Vangurd Fem Cocr R-Intlok 57.5mm Implanted:Qty: 1 on 05/30/2014 by Bright Llamas MD at [facility] Right: [employer] 12/29/2023 [id number] / / [id number] Vangrd Ant Stblzd Brg 14mm X 63mm Implanted:Qty: 1 on 05/30/2014 by Bright Llamas MD at [facility] Right: [employer] 10/30/2014 [id number] / / [id number] Advance Directives Documents on File Type Date Recorded Patient Wanigan Clerk Expl anation Adv Directive/Living Will/POA 05/10/2014 1:04 PM LIVING WILL & LAST W ILL & TESTAMENT * Full Code (Latest Code Status on File) Date Activated Date Inactivated Comments 03/02/2023 6:54 PM 03/04/2023 2:24 PM * Full Code Date Activated Date Inactivated Comments 05/30/2014 4:33 PM 06/02/2014 12:11 PM Care Teams Leave Manager Relationship Specialty Start Date End Date Kayla Peck MD [address] [place] [phone] PCP - General Internal Medicine 03/03/23 Bright Llamas MD Orthopedic Surgery 07/24/11 [place] [address] [facility] [address] [place] [address] Orthopedic Surgery 05/23/13 [place] [address] [facility] [address] [place] [address] Pulmonary Disease 8/12/20 [place] [address] [place] [address] Nephrology 04/24/20 Care, [facility] Kidney Care Management 04/15/22
--- OUTSIDE RECORDS SUMMARY | 2024-10-08 19:44 | XMS_ITS | Encounter Summary ---
Author Organization [facility] Address [address] [place] [address] Care Team Providers Care Powerhouse Tender Name Role Phone Fermín Adame MD Primary Care Provider Encounter Details Date Type Department Care Team (Late st Contact Info) Description 10/31/2001 Outpatient Historical [facility] Luis Enrique Padron MD [address] 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
--- OUTSIDE RECORDS SUMMARY | 2024-10-08 19:44 | XMS_ITS | Referral Summary ---
Author Organization [facility] Address [address] [place] [address] Care Team Providers Care Installation Supervisor Name Role Phone Bright Llamas MD Unavailable Mily Douglas MD Unavailable Todd Han MD Unavailable Radha Joshua MD Unavailable [phone] [facility] Un[facility] Kayla Peck MD Primary Care Provider [phone] Source Comments [facility],non-owned Affiliates and Associated Physician Practices is amultiple site organization consisting of ambulatory clinics and hospital sitesin [place], [place], [place] and [place]. This disclosure is being madepursuant to the Care Everywhere program and may not contain all information available regarding this patient. Last updated 18.[facility] Allergies Active Allergy Reactions Criticality Noted [...] on file Medical Devices Implanted Type Area Dental Amalgam Processor Device Identifier Shelf Expiration Date Model / Serial / Lot Maico Bone Palermo Hv Implanted:Qty: 1 on 05/30/2014 by Bright Llamas MD at [facility] Right: [employer] 01/28/2016 [id number] / / [id number] Butn Pat Arcom Wire Polyeth Xsm 28 X 8 Implanted:Qty: 1 on 05/30/2014 by Bright Llamas MD at [facility] Right: [employer] 02/27/2019 [id number] / / [id number] Ty Tibial I Beam Fix Bar 63mm Implanted:Qty: 1 on 05/30/2014 by Bright Llamas MD at [facility] Right: [employer] 11/27/2021 [id number] / / [id number] Kn Ins Vangurd Fem Cocr R-Intlok 57.5mm Implanted:Qty: 1 on 05/30/2014 by Bright Llamas MD at [facility] Right: [employer] 12/29/2023 [id number] / / [id number] Vangrd Ant Stblzd Brg 14mm X 63mm Implanted:Qty: 1 on 05/30/2014 by Bright Llamas MD at [facility] Right: [employer] 10/30/2014 [id number] / / [id number] Administered Medications Advance Directives Documents on File Type Date Recorded Patient Bull Rider Expl anation Adv Directive/Living Will/POA 05/10/2014 1:04 PM LIVING WILL & LAST W ILL & TESTAMENT * Full Code (Latest Code Status on File) Date Activated Date Inactivated Comments 03/02/2023 6:54 PM 03/04/2023 2:24 PM * Full Code Date Activated Date Inactivated Comments 05/30/2014 4:33 PM 06/02/2014 12:11 PM Care Teams Installation Supervisor Relationship Specialty Start Date End Date Kayla Peck MD [address] [place] [phone] PCP - General Internal Medicine 03/03/23 Bright Llamas MD Orthopedic Surgery 07/24/11 [place] [address] [facility] [address] [place], [place] [id number] Orthopedic Surgery 05/23/13 [place] [address] [facility] [address] [place] [address] Pulmonary Disease 04/24/20 [place] [address] [facility] [address] Nephrology 04/24/20 [facility] Kidney Care Management 04/15/22
--- OUTSIDE RECORDS SUMMARY | 2024-10-08 19:44 | XMS_ITS | Encounter Summary ---
Author Organization [facility] Address [address] [facility] [place] [address] Care Team Providers Care Belt Cutter Name Role Phone Bright Llamas MD Unavailable Mily Douglas MD Unavailable [phone] Fermín Adame MD Primary Care Provider [phone] Todd Han MD Unavailable [phone] Radha Joshua MD Unavailable Care, [facility] Kidney Unavailable Fermín Adame MD Unavailable [phone] Kayla Peck MD Unavailable [phone] Kayla Peck MD Primary Care Provider [phone] Encounter Details Date Type Department Care Team (Late st Contact Info) Description 06/15/2014 Therapy Visit [facility]ics [address] [address] [place] [address] [address] Social History Tobacco Use Types [...] on filedocumented in this encounter Care Teams Belt Cutter Relationship Specialty Start Date End Date Fermín Adame MD [address] [place] [address] PCP - General Internal Medicine 03/21/20 03/02/23 Fermín Adame MD [address] [place], [place] [address] PCP - Strive [facility] 04/20/22 10/19/22 Kayla Peck MD [address] [place] [address] PCP - Strive [facility] 10/20/22 06/30/24 Kayla Peck MD [address] [place] [address] PCP - General Internal Medicine 03/03/23 Bright Llamas MD Orthopedic Surgery 07/24/11 [place] [address] [facility] [address] [place] [address] Orthopedic Surgery 05/23/13 [place] [address] [facility] [address] [place] [address] Pulmonary Disease 04/24/20 [place] [address] [facility] [address] Nephrology 04/24/20 Care, [facility] Kidney Care Management 04/15/22 documented as of this encounter
--- OUTSIDE RECORDS SUMMARY | 2024-10-08 19:44 | XMS_ITS | Referral Summary ---
Author Organization [facility] Address [address] [place] [phone] Care Team Providers Care Steward Racetrack Name Role Phone Kayla Peck MD Primary Care Provider [phone] Allergies Active Allergy Reactions Criticality Noted Date [...] on file Legal Sex Female 11:58 PM CRAPS MANAGER Gender Identity Not on file Sexual Orientation Not on file Plan of Treatment Not on file Procedures Procedure Name Priority Date/Time Associated Diagnosis Comments DEXA AXIAL SKELETON BONE DENSITY 1 OR MORE SITES Schedule Routine, Read Routine (OP Routine) 08/18/2021 1:28 PM CRAPS MANAGER Other primary ovarian failure from Last 3 Months or Most Recently Relevant to Health Maintenance Results * Dexa Axial Skeleton Bone Density 1 or 2 Site (08/18/2021 1:28 PM CRAPS MANAGER) Anatomical Region Laterality Modality Body N/A Other Impressions 08/18/2021 1:48 PM CRAPS MANAGER Bone mineral density of the spine falls within normal range, bone mineral density of the left hip falls within osteopenia range. In comparison to previous examination there is a decrease bone mineral density of the spine and left hip. Electronically signed by: Zenaida Mckinnon M.D. Narrative 08/18/2021 1:48 PM CRAPS MANAGER Examination: Bone densitometry of the lumbar spine [...] Most Recently Relevant to Health [place] [address] MEDICARE [facility] AET AETNA SENIOR SUPPLEMENT MEDICARE AETNA SENIOR SUPPLEMENT MEDICARE AETNA Care Teams Steward Racetrack Relationship Specialty Start Date End Date Kayla Peck MD [address] [place] [address] PCP - General Internal Medicine 01/19/23
--- NOTE | 2024-10-08 20:05 | ED_ITS ---
HPI - Chest Pain General Chief Complaint: Chest Pain Stated Complaint: cp Time Seen by Provider: 10/08/24 19:30 History of Present Illness HPI narrative: 84-year-old female with a history of hypertension, hyperlipidemia, ulcerative colitis and GERD. Today she presents to the emergency department chief complaint of chest pain that was sudden onset in the left side of her chest radiating down her left arm. Was very brief in onset about 1:00 p.m. and slowly went away before EMS was arrived. Patient states she has been asymptomatic since she arrived to the ED approximately 6 hours prior to evaluation. She was provided 324 mg of aspirin EN route by EMS. Patient has no complaints at this time denies any chest pain, shortness a breath, nausea, vomiting, abdominal pain, back pain. She states she is otherwise in her normal state of health. On review of the EMR patient has had visits to the emergency department for vague chest pain type symptoms with negative cardiac workup and evaluation by Cardiology on several occasions. Patient does not follow with Cardiology on outpatient basis. No recent medication changes or hospitalizations. Related Data Home Medications ?Medication ?Instructions ?Recorded ?Confirmed ?Last Taken ?Type alprazolam 0.5 mg tablet 0.25 mg PO QHS 08/02/22 05/03/24 Unknown History atorvastatin 40 mg tablet 40 mg PO DAILY 08/02/22 05/03/24 Unknown History citalopram 20 mg tablet 40 mg PO DAILY 08/02/22 05/03/24 Unknown History levothyroxine 88 mcg tablet 88 mcg PO DAILY 08/02/22 05/03/24 Unknown History metoprolol succinate 25 mg 25 mg PO DAILY 08/02/22 05/03/24 Unknown History tablet,extended release 24 hr omeprazole 20 mg capsule,delayed 20 mg PO DAILY 08/02/22 05/03/24 Unknown History release benzonatate 100 mg capsule 100 mg PO BID PRN Cough 03/13/24 05/03/24 Unknown History cholecalciferol (vitamin D3) 25 25 mcg PO DAILY 03/13/24 05/03/24 Unknown History mcg (1,000 unit) capsule mecobalamin (vitamin B12) 2,500 3,000 mcg PO DAILY 03/13/24 05/03/24 Unknown History mcg chewable tablet acetaminophen 325 mg tablet 325 mg PO Q4H PRN Pain (Scale 05/03/24 05/03/24 Unknown History Score 1-3) furosemide 40 mg tablet 40 mg PO BID 05/03/24 05/03/24 Unknown History omega-3 fatty acids-fish oil 340 1,000 cap PO BID 05/03/24 05/03/24 Unknown History mg-1,000 mg capsule Allergies Allergy/AdvReac Type Severity Reaction Status Date / Time Penicillins Allergy Severe THROAT Verified 10/08/24 14:24 SWELLING clarithromycin Allergy Mild GI UPSET Verified 10/08/24 14:24 Sulfa (Sulfonamide Allergy Mild Itching, Verified 10/08/24 14:24 Antibiotics) N/V moxifloxacin AdvReac Mild Nausea Verified 10/08/24 14:24 Dust Allergy Unknown RHINITIS, Uncoded 10/08/24 14:24 CONGESTION Molds and Smuts Allergy Unknown RHINITIS, Uncoded 10/08/24 14:24 CONGESTION Review of Systems 2 Review of Systems: As reviewed above in HPI [facility] Past Medical History Medical History Mixed hearing loss, bilateral Anxiety Hyperlipidemia Hypothyroidism GERD (gastroesophageal reflux disease) Hypertension SVT (supraventricular tachycardia) Obstructive sleep apnea Ulcerative colitis Chronic kidney disease Surgical History Surgical History History of colonoscopy Family History Family History Father Acute myocardial infarction, Onset Age: 68 Sibling Acute myocardial infarction, Onset Age: 66 Cancer Mother Acute myocardial infarction Social History Social History Smoking status: Former smoker Alcohol intake: never Substance use: never Do You Feel Safe in your Home?: No Lack of Transportation: No Lack of Food: Never True Current Housing: I Have Housing Concerned About Future Housing: No Difficulty Paying Gas/Electric Bills: No Difficulty Paying for Meds: No Currently Unemployed: No Education: High School Diploma/GED Difficulty w/ Childcare or Family Care: No Living arrangements: alone Additional living arrangements comments: With dog; Spiritual care concerns: No Exam 2 Narrative: GENERAL: [Well-appearing, well-nourished, and in no acute distress.] HEAD: [Normocephalic, atraumatic.] EYES: [PERRLA and EOMI.] ENT: Nares clear, no rhinorrhea or epistaxis. Mucous membranes moist. NECK: Supple. CHEST: [Clear to auscultation. No respiratory distress.] HEART: [Regular rate and rhythm]. No murmur heard. [Normal peripheral pulses.] ABDOMEN: [Soft, nondistended], [nontender], [No rigidity or guarding] EXTREMITIES: Normal range of motion. [No edema.] SKIN: Warm, dry, no rash. NEURO: [No focal deficits]. Alert and oriented [x3.] PSYCH: [Normal mood and affect.] Course Vital Signs Vital signs: Vital Signs Temperature 36.3 C L 10/08/24 14:29 Pulse Rate 68 10/08/24 14:29 Respiratory Rate 16 10/08/24 14:29 Blood Pressure 122/51 L 10/08/24 14:29 Pulse Oximetry 98 10/08/24 14:29 Oxygen Delivery Room Air 10/08/24 14:29 Temperature 36.3 C L 10/08/24 14:29 Pulse Rate 68 10/08/24 14:29 Respiratory Rate 16 10/08/24 14:29 Blood Pressure 122/51 L 10/08/24 14:29 Pulse Oximetry 98 10/08/24 14:29 Oxygen Delivery Room Air 10/08/24 14:29 MDM - Chest Pain MDM Narrative Medical decision making narrative: 84-year-old female with history of hypertension, hyperlipidemia, GERD, ulcerative colitis. Presents to the emergency department for evaluation of chest pain. Patient states she had a sudden onset of chest pain that was short- lived and resolved prior to EMS arrival. Occurred at 1:00 p.m. today. Not exertional nature, not associated with any dyspnea shortness of breath. Presently she is asymptomatic, well-appearing, normal vital signs without any blood pressure concerns, tachycardia, fever, hypoxia. Given patient's age and risk factors a cardiac workup was ordered and she received serial troponins, serial EKGs, chest x-ray, electrolyte profile, CBC. Received aspirin EN route by EMS, no additional medications at this time. Differential includes angina, ACS, pneumothorax, less likely pneumonia, possible muscle spasm or costochondritis versus other musculoskeletal chest pain versus GERD. Electrolytes within normal limits, normal renal and hepatic function panel. Negative lipase. Normal coagulation studies. Workup shows no leukocytosis or anemia. She will troponins are negative. Chest x-rays independent reviewed and shows no acute cardiopulmonary process, no pneumonia or atelectasis, or pneumothorax. Serial EKGs were obtained which shows no ST segment elevations depressions or any acute evidence of ischemic change. Given patient's unremarkable workup, negative cardiac enzymes, asymptomatic presently and low heart score I believe she can be safely discharged with outpatient cardiology referral. Patient felt comfortable with this plan and verbalized expressing understanding for outpatient evaluation and return precautions. She was discharged home at this time. Medical Records Data Attestation: I reviewed the patient's medical records. Lab Data Attestation: I reviewed the patient's lab results. 10/08/24 14:41 10/08/24 14:41 Labs: Lab Results 10/08/24 10/08/24 Range/Units 14:41 18:06 WBC 6.9 (4.5-10.0) K/mm3 RBC 3.83 L (4.2-5.4) M/mm3 Hgb 12.1 (12.0-15.0) g/dL Hct 38.6 (37.0-47.0) % MCV 100.8 H (80-100) fl MCH 31.6 (26-34) pg MCHC 31.3 L (32-36) g/dl RDW 15.4 H (11.5-14.5) % Plt Count 218 (150-375) k/mm3 MPV 10.3 (7.4-10.4) fl Immature Gran % (Auto) 0.3 (0-0.5) % Neut % (Auto) 58.8 (45.5-73.1) % Lymph % (Auto) 35.7 (18.3-44.2) % [place] % (Auto) 4.8 (2.6-8.5) % Eos % (Auto) 0.1 (0-4.4) % Baso % (Auto) 0.3 (0.2-1.2) % Lymph # (Auto) 2.47 (0.9-3.2) K/mm3 [place] # (Auto) 0.3 (0.1-0.6) K/mm3 Eos # (Auto) 0.0 (0-0.3) K/mm3 Baso # (Auto) 0.0 (0.0-0.1) K/mm3 Abs Immat Gran (auto) 0.02 (0.00-0.031) K/mm3 Absolute Neuts (auto) 4.1 (1.3-6.7) K/mm3 Absolute Nucleated RBC 0.000 (0.0-0.012) K/mm3 Nucleated RBC % 0.0 (0.0-0.2) % PT 13.7 (11.1-14.7) Seconds INR 1.0 APTT 27.7 (22.3-36.8) Seconds Sodium 140 (137-145) mmol/L Potassium 4.1 (3.4-5.0) mmol/L Chloride 105 (98-107) mmol/L Carbon Dioxide 29 (22-30) mmol/L Anion Gap 6 (4-12) mmol/L BUN 7 D (7-17) mg/dL Creatinine 0.67 L (0.7-1.0) mg/dL Estim Creat Clear Calc Not Reportable Estimated GFR > 60 (59 - ) Glucose 102 (65-110) mg/dL Calcium 8.9 (8.4-10.2) mg/dL Total Bilirubin 0.6 (0.2-1.3) mg/dL AST 29 (14-36) U/L ALT 19 (6-35) U/L Alkaline Phosphatase 71 (38-126) U/L Troponin I < 0.012 < 0.012 (0.000-0.034) ng/mL Total Protein 6.0 L (6.3-8.2) g/dL Albumin 3.6 (3.5-5.1) g/dL Lipase 42 (23-300) U/L Imaging Data Attestation: I personally reviewed and interpreted this imaging study as follows: My impression: Impressions Chest X-Ray 10/08/24 16:32 IMPRESSION: No acute cardiopulmonary process. Discharge Plan Discharge Clinical Impression: Chest pain Qualifiers: Chest pain type: unspecified Qualified Code(s): R07.9 - Chest pain, unspecified Patient Disposition: Home, Self-Care Condition: Stable Instructions: Antibiotic Form, Chest Pain (ED) Additional Instructions: Your cardiac workup and x-rays were very reassuring, we will provide your mining engineering technologist contacts for establishing care on outpatient basis. Follow up with them, your primary care doctor and return with any new or worsening concerns at any time. Patient Language: Kyrgyz Prescriptions: No Action atorvastatin 40 mg tablet 40 mg PO DAILY levothyroxine 88 mcg tablet 88 mcg PO DAILY alprazolam 0.5 mg tablet 0.25 mg PO QHS citalopram 20 mg tablet 40 mg PO DAILY omeprazole 20 mg capsule,delayed release(DR/EC) 20 mg PO DAILY metoprolol succinate 25 mg tablet extended release 24 hr 25 mg PO DAILY benzonatate 100 mg capsule 100 mg PO BID PRN (Reason: Cough) cholecalciferol (vitamin D3) 25 mcg (1,000 unit) capsule 25 mcg PO DAILY mecobalamin (vitamin B12) 2,500 mcg tablet,chewable 3,000 mcg PO DAILY furosemide 40 mg tablet 40 mg PO BID acetaminophen 325 mg Tablet 325 mg PO Q4H PRN (Reason: Pain (Scale Score 1-3)) Fish Oil 340-1,000 mg Capsule 1,000 cap PO BID Follow-up/Referrals: Dmitry Shultz MD [Physician] - 1 Week (Recurrent chest pain) PHYSICIAN NOT ON STAFF,NONSTAFF [Primary Care Provider] - Time of Disposition: 20:05 Quality HEART score for chest pain patients History: slightly suspicious ECG: normal Age: > or = to 65 years Risk factors: 1 or 2 risk factors Troponin: < or = to 1x normal limit Heart score: 3
[2024-10-08 20:31] VITALS: BP 144/63; PULSE 78; RESP 18; O2SAT 98
[2024-10-08 20:46] VITALS: PULSE 80; O2SAT 100
== END 2024-10-08 20:49 | disposition home or self-care (01) ==
PROVIDERS: Emergency Medicine; Emergency Provider Student in an Organized Health Care Education/Training Program
DX: R07.9 Chest pain, unspecified (principal); I12.9 Hypertensive chronic kidney disease with stage 1 through stage 4 chronic kidney disease, or unspecified chronic kidney disease; N18.9 Chronic kidney disease, unspecified; E03.9 Hypothyroidism, unspecified; E78.5 Hyperlipidemia, unspecified; K21.9 Gastro-esophageal reflux disease without esophagitis; K51.90 Ulcerative colitis, unspecified, without complications; G47.33 Obstructive sleep apnea (adult) (pediatric); H90.6 Mixed conductive and sensorineural hearing loss, bilateral; F41.9 Anxiety disorder, unspecified; Z87.891 Personal history of nicotine dependence; R94.31 Abnormal electrocardiogram [ECG] [EKG]
CPT/HCPCS: 36415; 71046; 80053; 83690; 84484; 85025; 85610; 85730; 93005; 99284

== ENCOUNTER 2024-10-29 15:40 | Emergency (ER) | payer MEDICARE, SELFPAY ==
[2024-10-29] VITALS (22 sets, daily range): BP systolic 117–143; BP diastolic 59–74; PULSE 94–112; RESP 14–22; TEMP 36.3; O2SAT 90–100
--- NOTE | ~2024-10-29 | CT_ITS ---
EXAMINATION: CTA chest PE protocol DATE: 10/29/2024 18:07 INDICATION: Jaw pain, tachycardia and elevated d-dimer. TECHNIQUE: Computed tomography (CT) pulmonary angiogram of the chest was performed with 100 mL Omnipa que-350 intravenous contrast. Additional 3D reconstructions utilizing coronal maximum intensity proje ction (MIP) were performed. Automated exposure control and iterative reconstruction technique were em ployed. The dose-length product was 163.32 mGy-cm. COMPARISON: None FINDINGS: Diagnostic quality study demonstrating no pulmonary embolism. There is mosaic attenuation patchy grou ndglass opacities throughout both lungs. No septal line or more dense consolidation. No pleural effus ion. Mild cardiomegaly. Atherosclerotic coronary artery calcific lesion. No pericardial effusion. Tho racic aorta is normal in caliber with no dissection. No pathologically enlarged thoracic lymphadenopa thy. Small sliding-type hiatal hernia. Cholecystectomy clips at the gallbladder fossa. 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 T12 butterfly vertebrae. IMPRESSION: 1. No pulmonary embolism. 2. Mosaic attenuation with groundglass opacities throughout both lungs which could be due to atelecta sis with subsegmental air trapping, mild pulmonary edema or pneumonia. 3. Mild cardiomegaly. 4. Small sliding-type hiatal hernia. Reviewed, dictated and finalized at location A. 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 No pulmonary embolism. 2. Mosaic attenuation with groundglass opacities throughout both lungs which co uld be due to atelectasis with subsegmental air trapping, mild pulmonary edema or pneumonia. 3. Mild cardiomegaly. 4. Small sliding-type hiatal hernia.
--- NOTE | ~2024-10-29 | XR_ITS ---
EXAMINATION: XR chest 1V portable DATE: 10/29/2024 16:16 INDICATION: Tachycardia TECHNIQUE: frontal view of the chest was obtained. COMPARISON: Chest radiograph dated 10/08/2024 FINDINGS: The lungs remain clear with no focal airspace opacities, pulmonary edema, pleural effusion or pneumot horax. The cardiomediastinal silhouette is normal. Costochondral calcifications project over the medi al aspect of the lower lungs. Cholecystectomy clips in right upper quadrant. IMPRESSION: 1. No acute cardiopulmonary disease. Reviewed, dictated and finalized at location A. 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
--- NOTE | 2024-10-29 15:58 | ED.ARRPALP ---
HPI - Arrhythmia/Palpitations General Chief Complaint: Arrhythmia/Palpitations Stated Complaint: dizzy, pain Time Seen by Provider: 10/29/24 15:45 Source: patient Mode of arrival: EMS Limitations: no limitations History of Present Illness HPI narrative: This is an 84-year-old female with PMH of SVT, HTN, hypothyroid, JUAN MANULE, ulcerative colitis who presents to the ED via EMS for chief complaint of racing heart. EMS personnel found her to be an SVT, gave adenosine 6 mg and then repeated seen at 12 mg with good conversion to sinus rhythm. Patient states today she started have a lot of palpitations and felt like her heart was beating very fast this afternoon just prior to arrival. States that she had a wave of sensation from her feet to her jaw, however she does not describe any chest pain. Denies shortness of breath. States that she has not been taking her medications over the past 2 weeks as she has not been able to have them delivered. States that she has has had some body aches and cough lately. Related Data Home Medications ?Medication ?Instructions ?Recorded ?Confirmed ?Last Taken ?Type alprazolam 0.5 mg tablet 0.25 mg PO QHS 08/02/22 05/03/24 Unknown History atorvastatin 40 mg tablet 40 mg PO DAILY 08/02/22 05/03/24 Unknown History citalopram 20 mg tablet 40 mg PO DAILY 08/02/22 05/03/24 Unknown History levothyroxine 88 mcg tablet 88 mcg PO DAILY 08/02/22 05/03/24 Unknown History metoprolol succinate 25 mg 25 mg PO DAILY 08/02/22 05/03/24 Unknown History tablet,extended release 24 hr omeprazole 20 mg capsule,delayed 20 mg PO DAILY 08/02/22 05/03/24 Unknown History release benzonatate 100 mg capsule 100 mg PO BID PRN Cough 03/13/24 05/03/24 Unknown History cholecalciferol (vitamin D3) 25 25 mcg PO DAILY 03/13/24 05/03/24 Unknown History mcg (1,000 unit) capsule mecobalamin (vitamin B12) 2,500 3,000 mcg PO DAILY 03/13/24 05/03/24 Unknown History mcg chewable tablet acetaminophen 325 mg tablet 325 mg PO Q4H PRN Pain (Scale 05/03/24 05/03/24 Unknown History Score 1-3) furosemide 40 mg tablet 40 mg PO BID 05/03/24 05/03/24 Unknown History omega-3 fatty acids-fish oil 340 1,000 cap PO BID 05/03/24 05/03/24 Unknown History mg-1,000 mg capsule Allergies Allergy/AdvReac Type Severity Reaction Status Date / Time Penicillins Allergy Severe THROAT Verified 10/08/24 14:24 SWELLING clarithromycin Allergy Mild GI UPSET Verified 10/08/24 14:24 Sulfa (Sulfonamide Allergy Mild Itching, Verified 10/08/24 14:24 Antibiotics) N/V moxifloxacin AdvReac Mild Nausea Verified 10/08/24 14:24 Dust Allergy Unknown RHINITIS, Uncoded 10/08/24 14:24 CONGESTION Molds and Smuts Allergy Unknown RHINITIS, Uncoded 10/08/24 14:24 CONGESTION Review of Systems Review of Systems: All systems as dictated in [facility] Past Medical History Medical History Mixed hearing loss, bilateral Anxiety Hyperlipidemia Hypothyroidism GERD (gastroesophageal reflux disease) Hypertension SVT (supraventricular tachycardia) Obstructive sleep apnea Ulcerative colitis Chronic kidney disease Surgical History Surgical History History of colonoscopy Family History Family History Father Acute myocardial infarction, Onset Age: 68 Sibling Acute myocardial infarction, Onset Age: 66 Cancer Mother Acute myocardial infarction Social History Social History Smoking status: Former smoker Alcohol intake: never Substance use: never Do You Feel Safe in your Home?: No Lack of Transportation: No Lack of Food: Never True Current Housing: I Have Housing Concerned About Future Housing: No Difficulty Paying Gas/Electric Bills: No Difficulty Paying for Meds: No Currently Unemployed: No Education: High School Diploma/GED Difficulty w/ Childcare or Family Care: No Living arrangements: alone Additional living arrangements comments: With dog; Spiritual care concerns: No Exam Narrative: GENERAL: Well-appearing, well-nourished, and in no acute distress. HEAD: Normocephalic, atraumatic. EYES: PERRLA and EOMI. ENT: Nares clear, no rhinorrhea or epistaxis. Mucous membranes moist. Oropharynx without tonsillar hypertrophy exudate or other lesions. NECK: Supple. No adenopathy or masses. CHEST: No respiratory distress. Clear to auscultation. No wheezes rales or rhonchi HEART: Regular rate and rhythm. No murmur heard. Normal peripheral pulses. ABDOMEN: Soft, nontender, nondistended, normal active bowel sounds. MSK: Normal range of motion. No edema. SKIN: Warm, dry, no rash. NEURO: Alert and oriented x4. No focal deficits. PSYCH: Normal mood and affect. Course Vital Signs Vital signs: Vital Signs Pulse Rate 106 H 10/29/24 15:46 Respiratory Rate 18 10/29/24 15:46 Pulse Oximetry 98 10/29/24 15:46 Temperature 97.4 F L 10/29/24 15:57 Pulse Rate 94 10/29/24 18:46 Respiratory Rate 16 10/29/24 18:46 Blood Pressure 138/68 10/29/24 18:46 Pulse Oximetry 100 10/29/24 18:46 Oxygen Delivery Room Air 10/29/24 15:57 MDM - Arrhythmia/Palpitations MDM Narrative Medical decision making narrative: This is a a 4-year-old female who presents to the ED after having episode of SVT today. She was given 6 mg, followed by 12 mg of Adenocard via EMS which did have successful conversion. She has been in normal sinus rhythm since arrival to the ER. Her vital signs are normal here. She is asymptomatic. Lab work shows normal troponin. CBC and CMP unremarkable. D-dimer is elevated today. Chest CTA: IMPRESSION: 1. No pulmonary embolism. 2. Mosaic attenuation with groundglass opacities throughout both lungs which could be due to atelectasis with subsegmental air trapping, mild pulmonary edema or pneumonia. 3. Mild cardiomegaly. 4. Small sliding-type hiatal hernia. On re-evaluation, patient remains asymptomatic. She does have documented history of SVT. She is explaining that she has not taken her medications in the past 2 weeks due problems with getting them delivered. I reinforced the importance of taking her medications including things like metoprolol to prevent SVT episodes. She was given dose of her metoprolol here today. Shared decision making regarding discharge versus admission. She feels well enough to go home. I discussed Rx for doxycycline for potential community-acquired pneumonia seen on chest CT, however we discussed that is very poor to follow-up with her PCP on this issue as well. Patient will be discharged in stable condition. Supportive measures discussed and return precautions given. Patient is understanding and agreeable with plan for discharge with PCP follow-up. Lab Data 10/29/24 17:12 10/29/24 17:12 Labs: Lab Results 10/29/24 10/29/24 Range/Units 16:23 17:12 WBC 7.2 (4.5-10.0) K/mm3 RBC 3.89 L (4.2-5.4) M/mm3 Hgb 12.2 (12.0-15.0) g/dL Hct 39.2 (37.0-47.0) % MCV 100.8 H (80-100) fl MCH 31.4 (26-34) pg MCHC 31.1 L (32-36) g/dl RDW 14.6 H (11.5-14.5) % Plt Count 187 (150-375) k/mm3 MPV 10.7 H (7.4-10.4) fl Immature Gran % (Auto) 0.1 (0-0.5) % Neut % (Auto) 56.8 (45.5-73.1) % Lymph % (Auto) 36.7 (18.3-44.2) % [place] % (Auto) 5.4 (2.6-8.5) % Eos % (Auto) 0.4 (0-4.4) % Baso % (Auto) 0.6 (0.2-1.2) % Lymph # (Auto) 2.64 (0.9-3.2) K/mm3 [place] # (Auto) 0.4 (0.1-0.6) K/mm3 Eos # (Auto) 0.0 (0-0.3) K/mm3 Baso # (Auto) 0.0 (0.0-0.1) K/mm3 Abs Immat Gran (auto) 0.01 (0.00-0.031) K/mm3 Absolute Neuts (auto) 4.1 (1.3-6.7) K/mm3 Absolute Nucleated RBC 0.000 (0.0-0.012) K/mm3 Nucleated RBC % 0.0 (0.0-0.2) % PT 14.2 (11.1-14.7) Seconds INR 1.1 APTT 27.4 (22.3-36.8) Seconds D-Dimer 1.39 H (<0.48) ug/mL Sodium 142 (137-145) mmol/L Potassium 3.8 (3.4-5.0) mmol/L Chloride 109 H (98-107) mmol/L Carbon Dioxide 25 (22-30) mmol/L Anion Gap 8 (4-12) mmol/L BUN 9 (7-17) mg/dL Creatinine 0.74 (0.7-1.0) mg/dL Estim Creat Clear Calc Not Reportable Estimated GFR > 60 (59 - ) Glucose 115 H (65-110) mg/dL Calcium 8.7 (8.4-10.2) mg/dL Total Bilirubin 0.5 (0.2-1.3) mg/dL AST 22 (14-36) U/L ALT 16 (6-35) U/L Alkaline Phosphatase 67 (38-126) U/L Troponin I 0.031 (0.000-0.034) ng/mL NT-Pro-B Natriuret Pep 554 H (19.9-100) pg/mL Total Protein 6.0 L (6.3-8.2) g/dL Albumin 3.1 L (3.5-5.1) g/dL Urine Color Yellow (Yellow) Urine Appearance Clear (Clear) Urine pH 6.5 (5.0-9.0) Ur Specific [place] 1.004 (1.001-1.035) Urine Protein Negative (Negative) mg/dL Urine Glucose (UA) Negative (Negative) mg/dL Urine Ketones Negative (Negative) mg/dL Ur Blood (Man) Negative (Negative) Urine Nitrate Negative (Negative) Urine Bilirubin Negative (Negative) Urine Urobilinogen 0.2 (<2.0) mg/dL Leukocyte Esterase Rfl Negative (Negative) CONSTANCE/UL Influenza A (RT-PCR) Negative (Negative) Influenza B (RT-PCR) Negative (Negative) RSV (RT-PCR) Negative (Negative) SARS-CoV-2 RNA (RT-PCR) Negative (Negative) Discharge Plan Discharge Clinical Impression: Supraventricular tachycardia, Abnormal chest CT Patient Disposition: Home, Self-Care Condition: Stable Instructions: Antibiotic Form Additional Instructions: Your treated by the EMS crew today for SVT. This is probably occurring because you have not been taking her metoprolol. Please take all of your prescriptions as prescribed contact your doctor regarding getting her prescriptions. Your CT scan today showed possible findings of pneumonia. Please take antibiotics as prescribed as well. If you have any new or worsening symptoms please return to the ER for further evaluation. Patient Language: Bolivian Prescriptions: New doxycycline hyclate 100 mg capsule 100 mg PO BID 7 Days Qty: 14 0RF No Action atorvastatin 40 mg tablet 40 mg PO DAILY levothyroxine 88 mcg tablet 88 mcg PO DAILY alprazolam 0.5 mg tablet 0.25 mg PO QHS citalopram 20 mg tablet 40 mg PO DAILY omeprazole 20 mg capsule,delayed release(DR/EC) 20 mg PO DAILY metoprolol succinate 25 mg tablet extended release 24 hr 25 mg PO DAILY benzonatate 100 mg capsule 100 mg PO BID PRN (Reason: Cough) cholecalciferol (vitamin D3) 25 mcg (1,000 unit) capsule 25 mcg PO DAILY mecobalamin (vitamin B12) 2,500 mcg tablet,chewable 3,000 mcg PO DAILY furosemide 40 mg tablet 40 mg PO BID acetaminophen 325 mg Tablet 325 mg PO Q4H PRN (Reason: Pain (Scale Score 1-3)) Fish Oil 340-1,000 mg Capsule 1,000 cap PO BID Follow-up/Referrals: PHYSICIAN NOT ON STAFF,NONSTAFF [Primary Care Provider] - Time of Disposition: 18:44
--- NOTE | 2024-10-29 16:00 | ECG_ITS ---
Test Date: 2024-10-29 15:51:40 Measurements Intervals [place] Rate: 106 P: 35 MN: 175 QRS: -34 QRSD: 94 T: 55 QT: 329 QTc: 437 Interpretive Statements SINUS TACHYCARDIA LEFT AXIS DEVIATION POOR R WAVE PROGRESSION BASELINE ARTIFACT- II, III, AVR, AVL, AVF, V1, V4-V6 BORDERLINE ECG Compared to ECG 10/08/2024 18:06:24 HEART RATE HAS INCREASED Electronically Signed On 10-29-2024 19:06:45 [employer] by Torres Treviño D.O.
--- OUTSIDE RECORDS SUMMARY | 2024-10-29 16:01 | XMS_ITS | Encounter Summary ---
Author Organization [facility] Address [address] [place] [address] Care Team Providers Care Operator Coating Furnace Name Role Phone Bright Llamas MD Unavailable Mily Douglas MD Unavailable [phone] Fermín Adame MD Primary Care Provider Todd Han MD Unavailable [phone] Radha Joshua MD Unavailable [phone] Care, [facility] Kidney Unavailable Kayla Peck MD Unavailable [phone] Kayla Peck MD Primary Care Provider [phone] Encounter Details Date Type Department Care Team (Late st Contact Info) Description 03/02/2023 Ophth Exam [facility] - Ophthalmology [address] [place] [address] Fabian Meza MD [address] [facility] [place] [place] [id number] Social History Tobacco Use Types Packs/Day Years [...] on filedocumented in this encounter Care Teams Operator Coating Furnace Relationship Specialty Start Date End Date Fermín Adame MD [address] [place] [address] PCP - General Internal Medicine 03/21/20 03/02/23 Kayla Peck MD [address] [place] [address] PCP - [facility] 10/20/22 06/30/24 Kayla Peck MD [address] [place] [address] PCP - General Internal Medicine 03/03/23 Bright Llamas MD Orthopedic Surgery 07/24/11 [place] [address] [address] [place] [address] Orthopedic Surgery 05/23/13 [place] [address] [facility] [address] [place] [address] Pulmonary Disease 04/24/20 [place] [address] [place] [address] Nephrology 04/24/[address] [facility] Kidney Care Management 04/15/22 documented as of this encounter
--- OUTSIDE RECORDS SUMMARY | 2024-10-29 16:01 | XMS_ITS ---
Author Organization [facility] Address [address] [place] [address] Care Team Providers Care Fare Register Repairer Name Role Phone Kayla Peck Primary Care Provider Unavaila KELIN Bonner Unavailable [phone] Allergies Allergen (clinical drug ingredient) Drug/Non Drug [...] Active Encounters Encounter Location Date Provider Diagnosis [facility] [id number] [place] [address] 08/02/2023 KELIN JOSHUA Chronic kidney disea se, [...] * ABRAHAN ANGELO DDOB:1940 (84 yo F)Acc No.[id number]:08/02/2023 Progress Notes Patient: ABRAHAN MCKEON Provider: Ryan Joshua MD :1940 A ge:83 Y S ex:Female Date:08/02/2023 Address:[address] [place] [address] [facility] Pcp:Kayla Peck Subjective: * Chief Complaints: * * Active Problem List N18.4 Chronic kidney [...] , unspecified Modified On:05/10/2022 Status:confirmed * Medical History: C hronic kidney disease hypertension, SVT 2010 in 2010, Dyslipidemia, Impaired glucose tolerance, Obesity, Depression, GERD, Hypothyroidism. * Medications: T aking Slow Release Iron(Ferrous Sulfate ER) 50 MG Tablet Extended [...] reviewed and reconciled with the patient * Allergies: A moxicillin: unspecified - Allergy, Biaxin: unspecified - Allergy, Moxifloxacin: unspecified - Allergy, Penicillin V Potassium: unspecified - Allergy, sulfaSALAzine: unspecified - Allergy, Penicillin, Avelox. Objective: * Vitals: Assessment: * Assessment: 1. C hronic kidney disease, stage 4 (severe) - N18.4 2 . H yperlipidemia, unspecified - E78.5 3 . H ypertensive chronic kidney disease with stage 1 through stage 4 chronic kidney disease, or unspecified chronic kidney disease - I12.9 4 . Proteinuria, unspecified - R80.9 5 . D epressive disorder - F32.9 6 . E ruben - R60.9 7 . A nemia, unspecified type - D64.9 ?8. R enal osteodystrophy - N25.0 9 . V itamin D deficiency, unspecified - E55.9 Plan: * Treatment: * * Electronic signature of JAYLIN JOSHUA MD on 10/29/2024 at 04:01 PM GEOLOGY SCIENTIST Sign off status: Pending * Provider: Ryan Joshua MD Date: 10/02/2022 Generated for Reji matute/Pj/Mac on: 0 10/29/2024 04:01 PM GEOLOGY SCIENTIST
--- OUTSIDE RECORDS SUMMARY | 2024-10-29 16:01 | XMS_ITS | Encounter Summary ---
Author Organization [facility] Address [address] [facility] [place] [address] Care Team Providers Care Pack Worker Supervisor Name Role Phone Bright Llamas MD Unavailable Mily Douglas MD Unavailable [phone] Fermín Adame MD Primary Care Provider [phone] Todd Han MD Unavailable [phone] Radha Joshua MD Unavailable [phone] Care, [facility] Kidney Unavailable Fermín Adame MD Unavailable [phone] Kayla Peck MD Unavailable [phone] Kayla Peck MD Primary Care Provider [phone] Encounter Details Date Type Department Care Team (Late st Contact Info) Description 10/29/2011 [facility] Outpatient Visit [facility] Orthopedics [id number] [address] [place] [address] [address] Social History Tobacco Use Types [...] on filedocumented in this encounter Care Teams Pack Worker Supervisor Relationship Specialty Start Date End Date Fermín Adame MD [address] [place] [address] PCP - General Internal Medicine 03/21/20 03/02/23 Fermín Adame MD [address] [place] [address] PCP - St[facility] 04/20/22 10/19/22 Kayla Peck MD [address] [place] [address] PCP - Strive CK 10/20/22 06/30/24 Kayla Peck MD [address] [place] [address] PCP - General Internal Medicine 03/03/23 Bright Llamas MD Orthopedic Surgery 07/24/11 [place] [address] [facility] [address] [place] [address] Orthopedic Surgery 05/23/13 [place] [address] [facility] [address] [place] [address] Pulmonary Disease 04/24/20 [place] [address] [place] [address] Nephrology 04/24/20 Care, [facility] Kidney Care Management 04/15/22 documented as of this encounter
--- OUTSIDE RECORDS SUMMARY | 2024-10-29 16:01 | XMS_ITS | Encounter Summary ---
Author Organization [facility] Address [address] [facility] [place] [address] Care Team Providers Care Facer Operator Name Role Phone Bright Llamas MD Unavailable Mily Douglas MD Unavailable [phone] Todd Han MD Unavailable [phone] Radha Joshua MD Unavailable [phone] Care, [facility] Kidney Unavailable Kayla Peck MD Unavailable Kayla Peck MD Primary Care Provider [phone] Encounter Details Date Type Department Care Team (Late st Contact Info) Description 03/04/2023 Ophth Exam [facility] - [facility]mology [facility] [place] [address] Mart Patel MD [address] [place] [phone] Social History Tobacco Use Types Packs/Day Years [...] on filedocumented in this encounter Care Teams Facer Operator Relationship Specialty Start Date End Date Kayla Peck MD [address] [place] [address] PCP - [facility] 10/20/22 06/30/24 Kayla Peck MD [address] [place] [address] PCP - General Internal Medicine 03/03/23 Bright Llamas MD Orthopedic Surgery 07/24/11 [place] [address] [facility] [address] [place] [address] Orthopedic Surgery 05/23/13 [place] [address] [facility] [address] [place] [address] Pulmonary Disease 04/24/20 [place] [address] [facility] [place] [address] Nephrology 04/24/20 [facility] Kid[facility] Care Management 04/15/22 documented as of this encounter
--- OUTSIDE RECORDS SUMMARY | 2024-10-29 16:01 | XMS_ITS | Clinical Summary ---
Author Organization [facility] Address [address], [address] [address] Phone Care Team Providers Care Forest Landscape Ecology Professor Name Role Phone Fermín Adame MD Primary [...] MG Capsule Take by mouth. 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 Gender Identity Not on file Sexual Orientation Not on file Last Filed Vital Signs Vital Sign Reading Time Taken Comments Blood Pressure 118/74 12/16/2017 2:37 PM CDT Pulse - - Temperature 36.2 C (97.1 F) 12/16/2017 2:37 PM CDT Respiratory Rate 16 12/16/2017 2:37 PM CDT [...] (#1) 05/14/202401/2017, 05/26/2016, 08/29/2015 SARS-COV-2 Immunization ( - season) 2024 07/09/2021, 12/12/2020, 11/09/2020 Pneumococcal Immunization Combined Discontinued 05/26/2016 Hepatitis B Immunization Aged Out No longer eligible based on patient's age to complete this topic Meningococcal Immunization (ACWY) Aged Out No longer eligible based on patient's age to complete this topic Rotavirus Immunization Aged Out No lo nger eligible based on patient's age to complete this topic Insurance MEDICARE [facility] Care Teams Forest Landscape Ecology Professor Relationship Specialty Start Date End Date [place] [address] [place] [place] [address] PCP - General 09/22/17
--- OUTSIDE RECORDS SUMMARY | 2024-10-29 16:01 | XMS_ITS | Patient Health Record ---
Author Organization [facility] Address [address] [place] [address] Care Team Providers Care Trail Construction Worker Name Role Phone Kayla Peck Primary Care Provider KELIN Narayan Unavailable [phone] Allergies Allergen (clinical drug ingredient) Drug/Non Drug [...] Problem Status W/U Status Risk Notes Problem 92099015 Vitamin D deficiency, unspecified (E55.9) Active confirmed Problem 52147229 Renal osteodystrophy (N25.0) Active confirmed Problem 220978538 Anemia, unspecified type (D64.9) Active confirmed Problem Hyperlipidemia (38037100) Hyperlipidemia, unspecified (E78.5) 11/13/19 18 Active confirmed Problem Chronic kidney disease due to hypertension (236153904806829) Hypertensive chronic kidney disease with stage 1 through stage 4 chronic kidney disease, or unspecified chronic kidney disease (I12.9) 11/13/19 18 Active confirmed Problem Chronic kidney disease stage 4 (342144761) Chronic kidney disease, stage 4 (severe) (N18.4) 11/13/19 18 Active confirmed Problem Proteinuria (86989771) Proteinuria, unspecified (R80.9) 11/13/19 18 Active confirmed Problem Depressive disorder (50943903) Depressive disorder (F32.9) 12/20/19 19 Active confirmed Problem Edema (69176688) Edema (R60.9) 04/11/20 18 Active confirmed Plan Of Treatment Future Test Test Name Order Date PTH, INTACT (ICMA) AND IONIZED CALCIUM ( 39296) 01/19/2022 PTH, INTACT (ICMA) AND IONIZED CALCIUM ( 72885) 04/27/2022 COMPREHENSIVE METABOLIC PANEL (64802) Insurance Providers Payer Name Payer Address Payer Phone Subscriber Number Group Number Insured Name Patient Relationship to Insured Coverage Start Date Coverage End Date MEDICARE PART A AND B [id number] ABRAHAN ANGELO Self - patient is the insured [facility] [id number] ABRAHAN ANGELO Self - patient is the insured Medical (General) History Medical History History ICD Code Chronic kidney disease hypertension SVT 2009 in 2010 Dyslipidemia Impaired glucose tolerance Obesity Depression GERD Hypothyroidism
--- OUTSIDE RECORDS SUMMARY | 2024-10-29 16:02 | XMS_ITS | Encounter Summary ---
Author Organization [employer] Address [address] [address] Care Team Providers Care Workday Director Name Role Phone Fermín Adame MD Primary Care Provider Encounter Details Date Type Department Care Team (Late st Contact Info) Description 10/03/2008 Outpatient Historical [facility], Authorized P NO ADDRESS ON FILE Jamey Martines MD [address] 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 Gender Identity Not on file Sexual Orientation Not on file documented as of this encounter Plan of Treatment Not on file documented as of this encounter Procedures Procedure Name Priority Date/Time Associated Diagnosis Comments CBC WITH DIFFERENTIAL Stat 10/03/2008 2:12 PM AGENCY SALES MANAGEMENT ASSISTANT COMPREHENSIVE METABOLIC PANEL Stat 10/03/2008 2:12 PM AGENCY SALES MANAGEMENT ASSISTANT documented in this encounter Results * (ABNORMAL) COMPREHENSIVE METABOLIC PANEL (10/03/2008 2:12 PM AGENCY SALES MANAGEMENT ASSISTANT) CREATININE 1.00(H) 0.51 - 0.95 mg/dL [facility] AST 34(H) 12 - 32 U/L [facility] ALBUMIN 4.2 3.4 - 4.8 g/dL [facility] CHLORIDE 98 96 - 108 mmol/L [facility] GLUCOSE 109(H) 65 - 99 mg/dL [facility] CALCIUM 9.7 8.6 - 10.2 mg/dL [facility] TOTAL PROTEIN 7.7 6.3 - 8.6 g/dL [facility] SODIUM 137 135 - 145 mmol/L [facility] ALT 32(H) 0 - 31 U/L [facility] CO2 25 22 - 30 mmol/L [facility] BILIRUBIN TOTAL 0.3 0.2 - 1.0 mg/dL [facility] ALKALINE PHOSPHATASE 114(H) 35 - 104 U/L [facility] POTASSIUM 3.5 3.5 - 4.9 mmol/L [facility] BUN 13 6 - 20 mg/dL [facility] GFR, >60 >=60 mL/min/1. 7 sq meter [facility] GFR 55(L) >=60 mL/min/1. 7 sq meter [facility] Comment: Modification of Diet in Renal Disease (MDRD) study formula. Estimated GFR rate interpretative information for both Americans and non- Americans is available on the [facility] Intranet at: [email or web address] Select: Lab Policies and Procedures Select: Reference Ranges - GFR Blood specimen (specimen) 10/03/2008 2:12 PM AGENCY SALES MANAGEMENT ASSISTANT 10/03/2008 2:20 PM AGENCY SALES MANAGEMENT ASSISTANT us Jamey Martines MD CHEMISTRY ORDERABLES Edited INTERFACE SYSTEM Refer to clinic/hospital department [facility] CLIA# [id number] [address] [place] [address] * (ABNORMAL) CBC WITH DIFFERENTIAL (10/03/2008 2:12 PM AGENCY SALES MANAGEMENT ASSISTANT) HEMATOCRIT 43.8 35.5 - 44.0 % [facility] RDW-STDEV 51.2(H) 37.1 - 48.7 fL [facility] RBC 4.74 3.90 - 4.90 M/uL [facility] MCHC 32.4 31.5 - 35.5 % [facility] MCV 92.4 82.0 - 99.0 fL [facility] PLATELETS 272 140 - 350 K/uL [facility] HEMOGLOBIN 14.2 11.8 - 14.8 g/dL [facility] RDW 15.1(H) 11.5 - 14.5 % [facility] WBC 7.6 4.0 - 9.8 K/uL [facility] MCH 30.0 27.2 - 32.6 pg [facility] MPV 10.2 9.3 - 12.4 fL [facility] BASOPHILS 0 0 - 2 % [facility] BASOPHILS ABSOLUTE 0.01 0.00 - 0.20 K/uL [facility] MONOCYTES 6 3 - 13 % [facility] MONOCYTE ABSOLUTE 0.47 0.10 - 1.30 K/uL [facility] NEUTROPHILS 64 45 - 70 % [facility] NEUTROPHIL ABSOLUTE 4.84 1.90 - 7.00 K/uL [facility] EOSINOPHILS 3 0 - 7 % [facility] EOSINOPHIL ABSOLUTE 0.23 0.00 - 0.70 K/uL [facility] LYMPHOCYTES 27 16 - 45 % [facility] LYMPHOCYTE ABSOLUTE 2.07 0.70 - 4.50 K/uL [facility] Blood specimen (specimen) 10/03/2008 2:12 PM AGENCY SALES MANAGEMENT ASSISTANT 10/03/2008 2:20 PM AGENCY SALES MANAGEMENT ASSISTANT us Jamey Martines MD HEMATOLOGY ORDERABLES Edited INTERFACE SYSTEM Refer to clinic/hospital department [facility] CLIA# [id number] [address] [place] [address] documented in this encounter Visit Diagnoses Not on filedocumented in this encounter Care Teams Workday Director Relationship Specialty Start Date End Date Fermín Adame MD PCP - General Internal Medicine 03/12/12 documented as of this encounter
--- OUTSIDE RECORDS SUMMARY | 2024-10-29 16:02 | XMS_ITS | Clinical Summary ---
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 [id number] [facility] Address: [facility] [address] [place] [address] Care Teams Ticket Writer Relationship Specialty Start Date End Date Fermín Adame MD PCP - General Internal Medicine 03/12/12
--- OUTSIDE RECORDS SUMMARY | 2024-10-29 16:02 | XMS_ITS | Encounter Summary ---
Author Organization [employer] Address [address] [place] [address] Care Team Providers Care Executive Admin Name Role Phone Fermín Adame MD Primary Care Provider Encounter Details Date Type Department Care Team (Late st Contact Info) Description 10/31/2001 Outpatient Historical [facility] Luis Enrique Padron MD [address] 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
--- OUTSIDE RECORDS SUMMARY | 2024-10-29 16:02 | XMS_ITS | Encounter Summary ---
Author Organization [employer] Address [address] [facility] Attn: Epic Prelude ADT [address] [address] Care Team Providers Care Heater Tender Name Role Phone Fermín Adame MD Primary Care Provider [phone] Encounter Details Date Type Department Care Team (Late st Contact Info) Description 12/05/1990 Outpatient Historical Luis Enrique Padron MD [address] 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
--- OUTSIDE RECORDS SUMMARY | 2024-10-29 16:02 | XMS_ITS | Patient Health Summary ---
Author Organization [facility] Address [address] [place] [address] Care Team Providers Care Dirt Supervisor Name Role Phone Luz Marina Llamas MD Unavailable Mily Douglas MD Unavailable Todd Han MD Unavailable Radha Joshua MD Unavailable [phone] [facility] Kayla Peck MD Primary Care Provider [phone] Note from [facility] [place]note 2],non-owned Affiliates and Associated Physician Practices is amultiple site organization consisting of ambulatory clinics and hospital sitesin [place], [place], [place] and [place]. This disclosure is being madepursuant to the [...] 55 04/06/2023 3:57 PM CDT Temperature 36.7 C (98 F) 04/06/2023 3:57 PM CDT Respiratory Rate 18 04/06/2023 3:57 PM CDT Oxygen Saturation 97% 04/06/2023 3:57 PM CDT Inhaled Oxygen Concentration - - Weight 63.6 kg (140 lb 3.2 oz) 04/06/2023 3:57 P M CDT Height 137.2 cm (4' 6 ) 04/06/2023 3:57 PM CDT Body Mass Index 33.8 04/06/2023 3:57 PM CDT Medical Devices Implanted Type Area Guide Alpine Device Identifier Shelf Expiration Date Model / Serial / Lot Maico Bone Meeker Hv Implanted:Qty: 1 on 05/30/2014 by Luz Marina Llamas MD at [facility] Right: [employer] 01/28/2016 [id number] / / [id number] Butn Pat Arcom Wire Polyeth Xsm 28 X 8 Implanted:Qty: 1 on 05/30/2014 by Luz Marina Llamas MD at [facility] Right: [employer] 02/27/2019 [id number] / / [id number] Tibial I Beam Fix Bar 63mm Implanted:Qty: 1 on 05/30/2014 by Luz Marina Llamas MD at [facility] Right: [employer] 11/27/2021 [id number] / / [id number] Kn Ins Vangurd Fem Cocr R-Intlok 57.5mm Implanted:Qty: 1 on 05/30/2014 by Luz Marina Llamas MD at [facility] Right: [employer] 12/29/2023 [id number] / / [id number] Marla Cruz Stblzd Brg 14mm X 63mm Implanted:Qty: 1 on 05/30/2014 by Luz Marina Llamas MD at [facility] Right: [employer] 10/30/2014 [id number] / / [id number] Procedures * CT HEAD WO CONTRAST(Performed 04/06/2023) [...] 06/05/2020) Performed for Chronic cough * CYTOLOGY NON-BROOM MAKER PANEL (STL)(Performed 05/23/2020) Performed for Ground glass [...] imaging of lung, Chronic cough * CYTOLOGY NON-BROOM MAKER PANEL (STL)(Performed 05/23/2020) Performed for Ground glass [...] imaging of lung, ILD (interstitial lung disease) ([facility]) * RHEUMATOID FACTOR BLOOD QUANTITATIVE(Performed 04/30/2020) Performed for Ground glass opacity present on imaging of lung, ILD (interstitial lung disease) ([facility]) * VITAMIN D 25-HYDROXY(Performed 04/30/2020) Performed for Vitamin D deficiency * ALLERGEN RESPIRATORY PNL REGION 8 ([place])(Performed 04/30/2020) Performed for Chronic rhinitis , Ground glass opacity present on imaging of lung, ILD (interstitiallung disease) ([facility]) * PNEUMONITIS HYPERSENSITIVE SCREEN(Performed 04/30/2020) Performed for Ground glass opacity present on imaging of lung, ILD (interstitial lung disease) ([facility]) * ERYTHROCYTE SEDIMENTATION RATE(Performed 04/30/2020) Performed for Ground glass opacity present on imaging of lung, ILD (interstitial lung disease) ([facility]) * FUNGAL ANTIBODY PANEL IMMUNODIFFUSION(Performed 04/30/2020) Performed for Ground glass opacity present on imaging of lung, ILD (interstitial lung disease) ([facility]) * COMPREHENSIVE METABOLIC PANEL(Performed 04/30/2020) Performed for Ground glass opacity present on imaging of lung, ILD (interstitial lung disease) ([facility]) * CBC W AUTO DIFFERENTIAL(Performed 04/30/2020) Performed for Ground glass opacity present on imaging of lung, ILD (interstitial lung disease) ([facility]) * ANGIOTENSIN CONVERTING ENZYME BLOOD(Performed 04/30/2020) Performed for Ground glass opacity present on imaging of lung, ILD (interstitial lung disease) ([facility]) * ECHOCARDIOGRAM 2D WITH DOPPLER(Performed 03/21/2020) Performed [...] PM Narrative 04/06/2023 3:37 PM CDT PROCEDURE: CT HEAD WO CONTRAST, DATE/TIME OF EXAM: 04/06/2023 3:09 PM, LOCATION [facility] INDICATION: S06.5XAA: Subdural hematoma (CMS/HCC) ADDITIONAL CLINICAL [...] DATE/TIME OF EXAM: 04/06/2023 3:09 PM, LOCATION [facility] INDICATION: S06.5XAA: Subdural hematoma (CMS/HCC) ADDITIONAL CLINICAL [...] is included. WBC 8.0 3.5 - 10.5 10 3/uL 03/04/2023 3:09 AM [facility] RBC 3.24(L) 3.80 - 5.20 10 6/uL 03/04/2023 3:09 AM [facility] Hemoglobin 9.5(L) 12.0 - 15.6 g/dL 03/04/2023 3:09 AM [facility] Hematocrit 30.8(L) 35.0 - 45.0 % 03/04/2023 3:09 AM [facility] MCV 95.1 80.7 - 98.3 fL 03/04/2023 3:09 AM [facility] MCH 29.3 26.7 - 34.0 pg 03/04/2023 3:09 AM [facility] MCHC 30.8 30.8 - 35.9 g/dL 03/04/2023 3:09 AM [facility] RDW-SD 51.3(H) 36.0 - 50.0 fL 03/04/2023 3:09 AM [facility] RDW-CV 14.7 11.2 - 14.8 % 03/04/2023 3:09 AM [facility] Platelet Count 222 150 - 400 10 3/uL 03/04/2023 3:09 AM [facility] MPV 9.7 9.4 - 12.9 fL 03/04/2023 3:09 AM [facility] nRBC Absolute 0.00 0 10 3/uL 03/04/2023 3:09 AM [facility] nRBC Auto 0.0 0 /100 WBC 03/04/2023 3:09 AM [facility] Neutrophils % 57.5 35.0 - 70.0 % 03/04/2023 3:09 AM [facility] Lymphocytes % 34.5 20.0 - 43.0 % 03/04/2023 3:09 AM [facility] Monocytes % 7.4 5.0 - 13.0 % 03/04/2023 3:09 AM [facility] Eosinophils % 0.0 0.0 - 6.0 % 03/04/2023 3:09 AM [facility] Basophil % 0.3 0.0 - 2.0 % 03/04/2023 3:09 AM [facility] Neutrophils Absolute 4.61 1.60 - 7.00 10 3/uL 03/04/2023 3:09 AM [facility] Lymphocyte Absolute 2.76 1.10 - 3.90 10 3/uL 03/04/2023 3:09 AM [facility] Monocytes Absolute 0.59 0.26 - 1.07 10 3/uL 03/04/2023 3:09 AM [facility] Eosinophils Absolute 0.00 0.00 - 0.47 10 3/uL 03/04/2023 3:09 AM [facility] Basophils Absolute 0.02 0.00 - 0.08 10 3/uL 03/04/2023 3:09 AM [facility] Immature Granulocytes % 0.3 0.0 - 1.0 % 03/04/2023 3:09 AM [facility] Immature Granulocytes Absolute 0.02 03/04/2023 3:09 AM [facility] Blood BLOOD SPECIMEN / Unknown Lab Venipuncture / Unknown 03/04/2023 2:40 AM CDT 03/04/2023 3:00 AM CDT Val Mckeon MD LAB - HEMATOLOGY ORD ERABLES [facility] [address] [place] [address], [facility] [phone] * (ABNORMAL) BASIC METABOLIC PANEL (CALCIUM TOTAL) (03/04/2023 2:40 AM CDT) Only the most recent of3 resultswithin the time period is included. BUN 10 7 - 26 mg/dL 03/04/2023 3:31 AM [facility] Creatinine 0.79 0.56 - 0.96 mg/dL 03/04/2023 3:31 AM [facility] Sodium 142 136 - 145 mmol/L 03/04/2023 3:31 AM [facility] Potassium 3.3(L) 3.5 - 4.5 mmol/L 03/04/2023 3:31 AM [facility] Chloride 113(H) 98 - 107 mmol/L 03/04/2023 3:31 AM [facility] CO2 28 22 - 29 mmol/L 03/04/2023 3:31 AM [facility] Glucose 93 70 - 115 mg/dL 03/04/2023 3:31 AM [facility] Calcium 8.5 8.4 - 10.2 mg/dL 03/04/2023 3:31 AM [facility] Anion Gap 4(L) 8 - 18 03/04/2023 3:31 AM [facility] BUN/Creatinine Ratio 13 7 - 23 03/04/2023 3:31 AM [facility] Osmolality Calculated 293 270 - 300 mOsm/kg 03/04/2023 3:31 AM [facility] eGFR by CKD-EPI 75(L) >=90 mL/min/1.7 3 m2 03/04/2023 3:31 AM [facility] Blood BLOOD SPECIMEN / Unknown Lab Venipuncture / Unknown 03/04/2023 2:40 AM CDT 03/04/2023 3:01 AM CDT Val Mckeon MD LAB - CHEMISTRY DEEP ALVARADO [facility] Organization Address City/State/ZIP Co de Phone Number [facility] [address] [place] [address], [facility] [phone] * (ABNORMAL) PHOSPHORUS BLOOD (03/04/2023 2:40 AM CDT) Only the most recent of2 resultswithin the time period is included. Phosphorus 2.5(L) 2.9 - 5.1 mg/dL 03/04/2023 3:31 AM CDT [facility] Blood BLOOD SPECIMEN / Unknown Lab Venipuncture / Unknown 03/04/2023 2:40 AM CDT 03/04/2023 3:01 AM CDT Val Mckeon MD LAB - CHEMISTRY DEEP ALVARADO [address] [address], [place] [phone] * MAGNESIUM BLOOD (03/04/2023 2:40 AM CDT) Only the most recent of2 resultswithin the time period is included. Pathologist [facility] Magnesium 2.0 1.6 - 2.6 mg/dL 03/04/2023 3:31 AM CDT [facility] Blood BLOOD SPECIMEN / Unknown Lab Venipuncture / Unknown 03/04/2023 2:40 AM CDT 03/04/2023 3:01 AM CDT Val Mckeon MD LAB - CHEMISTRY DEEP ALVARADO [address] [address], [place] [phone] * TRANSFUSE PLATELET PHERESIS UNIT(S) (03/02/2023 8:06 PM CDT) Val Mckeon MD NURSING - BLOOD PROD TRANSFUSION * PREPARE PLATELET PHERESIS UNIT(S), 1 Units (03/02/2023 7:28 PM CDT) [facility] Unit Description LR PLT Phere B7 [facility] Unit ABO A [facility] Unit Rh POS [facility] Product Number P28 [facility] Unit Donor # [id number] [facility] Unit Status transfused [facility] Product Code [id number] [facility] Blood Type Barcode 6200 [facility] Expiration Date [id number] S BLOOD BANK LAB Blood Bank BLOOD SPECIMEN / Unknown 03/02/2023 12:22 PM CDT Val Mckeon MD LAB - BLOOD BANK ORD ERABLES [facility] [address] [place] [address], [facility] [phone] * URINE DRUG SCREEN IMMUNOASSAY (03/02/2023 6:53 PM CDT) [facility] Amphetamines Screen Urine Negative Negative: < 1000 ng/mL 03/02/2023 7:28 PM CDT [facility] Barbiturates Screen Urine Negative Negative: < 200 ng/mL 03/02/2023 7:28 PM T [facility] Benzodiazepine Screen Urine Negative Negative: < 200 ng/mL 03/02/2023 7:28 PM [facility] Opiates Urine Negative Negative: < 300 ng/mL 03/02/2023 7:28 PM T [facility] Cocaine Metabolites Urine Negative Negative: < 300 ng/mL 03/02/2023 7:28 PM [facility] Phencyclidine Screen Urine Negative Negative: < 25 ng/ml 03/02/2023 7:28 PM T [facility] Cannabinoids Screen Urine Negative Negative: <50 ng/mL 03/02/2023 7:28 PM T [facility] Methadone Screen Urine Negative Negative: < 300 ng/mL 03/02/2023 7:28 PM [facility] Fentanyl Screen Urine Negative Negative: <1.5 ng/mL 03/02/2023 7:28 PM T [facility] Urine URINE / Unknown Collection / Unknown 03/02/2023 6:53 PM CDT 03/02/2023 6:59 PM CDT Narrative [facility] - 03/02/2023 7:28 PM CDT The Urine Toxicology Screening Panel does not screen for Propoxyphene, Meprobamate, Carisoprodol, Trazodone, xewk-see-gpqxttr medications and/or volatiles (Acetone, Isopropanol, Methanol or Ethylene Glycol). Ethanol, Salicylate, Acetaminophen, Tricyclic Antidepressants and several therapeutic drugs may be individually assayed in serum or plasma specimen. Toxicology testing by the [facility] is an aid to medical diagnosis and treatment of patients. No documented chain of custody was maintained. Results are intended to be used for clinical purposes only. Jamey Venegas MD LAB - URINE CHEMISTR Y ORDERABLES Performing Organization Address City/[facility]/ZIP Co de Phone Number [facility] [address] [place] [address], [facility] [phone] * EKG 12-LEAD (03/02/2023 4:00 PM CDT) Ventricular Rate 102 BPM [facility] Atrial Rate 102 BPM [facility] P-R Interval 180 ms [facility] QRS Duration ms 102 ms [facility] Q-T Interval ms 362 ms [facility] M[facility] QTC Calculation (Bezet) 471 ms [facility] MUSE Calculated P [place] 44 degrees [facility] MUSE Calculated R [place] -35 degrees SL MUSE Calculated T [place] 95 degrees SL MUSE Interpretation EKG SINUS TACHYCARDIA WITH PREMATURE ATRIAL COMPLEXES LEFT AXIS DEVIATION MINIMAL VOLTAGE CRITERIA FOR LVH, MAY BE NORMAL VARIANT ( [place] product ) POSSIBLE ANTERIOR INFARCT , AGE UNDETERMINED ABNORMAL ECG NO PREVIOUS ECGS AVAILABLE Confirmed by DRU QUEEN MD ([id number]) on 03/02/2023 5:47:27 PM [facility] M[facility] 03/02/2023 4:00 PM CDT 03/02/2023 5:47 PM CDT Jamey Venegas MD ECG ORDERABLES Performing Organization Address [facility] Co de Phone Number [facility] * (ABNORMAL) TROPONIN-I HIGH SENSITIVE REFLEX 1HOUR (03/02/2023 3:30 PM CDT) Pathologist [facility] Troponin I High Sensitive 30(H) <=14 ng/L 03/02/2023 4:04 PM CDT [facility] Delta Troponin I HS 03/02/2023 4:04 PM CDT [facility] Comment:Delta value intentio alexis not calculated. Baseline to 1 hour specimen collection interval exceeded. Blood BLOOD SPECIMEN / Unknown Venipuncture / Unknown 03/02/2023 3:30 PM CDT 03/02/2023 3:33 PM CDT Karo Cárdenas DO LAB - CHEMISTRY DEEP ALVARADO Performing Organization Address [facility]/ZIP Co de Phone Number [address] [address], [place] [phone] * TROPONIN-I HIGH SENSITIVE BASELINE + 1HR (03/02/2023 12:55 PM CDT) Pathologist [facility] Troponin I High Sensitive 9 <=14 ng/L 03/02/2023 1:39 PM CDT [facility] Blood BLOOD SPECIMEN / Unknown Venipuncture / Unknown 03/02/2023 12:55 PM CDT 03/02/2023 1:04 PM CDT Karo Cárdenas LAB - CHEMISTRY JOSEBoby ALVARADO Performing Organization Address [facility]/ZIP Co de Phone Number [address] [address], [place] [phone] * BLOOD TYPE VERIFICATION (03/02/2023 12:53 PM CDT) Pathologist [facility] ABO Rh A POS 03/02/2023 1:2 8 PM CDT [facility] Blood Bank BLOOD SPECIMEN / Unknown Lab Venipuncture / Unknown 03/02/2023 12:53 PM CDT 03/02/2023 1:02 PM CDT Nano Sanderson MD LAB - BLOOD BANK ORD ERABLES Performing Organization Address [facility]/ZIP Co de Phone Number [facility] [address] [place] [id number], [place] [phone] * CT CHEST ABDOMEN PELVIS W CONT - Abdomen-pelvis trauma, blunt or penetrating (03/02/2023 12:49 PM CDT) Anatomical Region Laterality Modality Chest, Abdomen, Pelvis Computed Tomography 03/02/2023 12:5 3 PM CDT Impressions 03/02/2023 1:05 PM CDT Impression: No acute traumatic process in the chest, abdomen or pelvis. > Interpreting Provider: Fausto Morton on 03/02/2023 1:05 PM Narrative 03/02/2023 1:05 PM CDT PROCEDURE: CT CHEST ABDOMEN PELVIS W CONT, DATE/TIME OF EXAM: 03/02/2023 12:51 PM, LOCATION [facility] INDICATION: Trauma ADDITIONAL CLINICAL INFORMATION: Ordering Provider [...] CONT, DATE/TIME OF EXAM:03/02/2023 12:51 PM, LOCATION [facility] INDICATION: Trauma ADDITIONAL CLINICAL INFORMATION: Ordering Provider [...] verification. Report dictated by Kalyan Joseph MD (osteopathic resident). I, Andrei Bridges MD have personally reviewed and interpreted this examination/study. > Interpreting Provider: Andrei Bridges MD on 03/02/2023 2:19 PM Narrative 03/02/2023 2:19 PM CDT PROCEDURE: CT HEAD WO CONTRAST, CT LUMBAR SPINE WO CONTRAST, CT THORACIC SPINE WO CONTRAST, CT CERVICAL SPINE WO CONTRAST, CT FACIAL BONES WO CONTRAST, DATE/TIME OF EXAM: 03/02/2023 12:51 PM, LOCATION [facility] INDICATION: Trauma EXAMINATION: 1. Computed tomography (CT) [...] fracture. There is advanced degenerative disc disease. No significant central canal stenosis is seen. There are varying degrees of mild facet osteoarthritis. There are varying degrees of neural foraminal stenosis [...] DATE/TIME OF EXAM: 03/02/2023 12:51 PM, LOCATION [facility] INDICATION: Trauma EXAMINATION: 1. Computed tomography (CT) [...] verification. Report dictated by Kalyan Joseph MD (osteopathic resident). I, Andrei Bridges MD have personally reviewed [...] verification. Report dictated by Kalyan Joseph MD (osteopathic resident). I, Andrei Bridges MD have personally reviewed and interpreted this examination/study. > Interpreting Provider: Andrei Bridges MD on 03/02/2023 2:19 PM Narrative 03/02/2023 2:19 PM CDT PROCEDURE: CT HEAD WO CONTRAST, CT LUMBAR SPINE WO CONTRAST, CT THORACIC SPINE WO CONTRAST, CT CERVICAL SPINE WO CONTRAST, CT FACIAL BONES WO CONTRAST, DATE/TIME OF EXAM: 03/02/2023 12:51 PM, LOCATION [facility] INDICATION: Trauma EXAMINATION: 1. Computed tomography (CT) [...] fracture. There is advanced degenerative disc disease. No significant central canal stenosis is seen. There are varying degrees of mild facet osteoarthritis. There are varying degrees of neural foraminal stenosis [...] DATE/TIME OF EXAM: 03/02/2023 12:51 PM, LOCATION [facility] INDICATION: Trauma EXAMINATION: 1. Computed tomography (CT) [...] verification. Report dictated by Kalyan Joseph MD (osteopathic resident). I, Andrei Bridges MD have personally reviewed [...] verification. Report dictated by Kalyan Joseph MD (osteopathic resident). I, Andrei Bridges MD have personally reviewed and interpreted this examination/study. > Interpreting Provider: Andrei Bridges MD on 03/02/2023 2:19 PM Narrative 03/02/2023 2:19 PM CDT PROCEDURE: CT HEAD WO CONTRAST, CT LUMBAR SPINE WO CONTRAST, CT THORACIC SPINE WO CONTRAST, CT CERVICAL SPINE WO CONTRAST, CT FACIAL BONES WO CONTRAST, DATE/TIME OF EXAM: 03/02/2023 12:51 PM, LOCATION [facility] INDICATION: Trauma EXAMINATION: 1. Computed tomography (CT) [...] fracture. There is advanced degenerative disc disease. No significant central canal stenosis is seen. There are varying degrees of mild facet osteoarthritis. There are varying degrees of neural foraminal stenosis [...] DATE/TIME OF EXAM: 03/02/2023 12:51 PM, LOCATION [facility] INDICATION: Trauma EXAMINATION: 1. Computed tomography (CT) [...] verification. Report dictated by Kalyan Joseph MD (osteopathic resident). Andrei Cardenas MD have personally reviewed and [...] verification. Report dictated by Kalyan Joseph MD (osteopathic resident). Andrei Cardenas MD have personally reviewed and interpreted this examination/study. > Interpreting Provider: Andrei Bridges MD on 03/02/2023 2:19 PM Narrative 03/02/2023 2:19 PM CDT PROCEDURE: CT HEAD WO CONTRAST, CT LUMBAR SPINE WO CONTRAST, CT THORACIC SPINE WO CONTRAST, CT CERVICAL SPINE WO CONTRAST, CT FACIAL BONES WO CONTRAST, DATE/TIME OF EXAM: 03/02/2023 12:51 PM, LOCATION [facility] INDICATION: Trauma EXAMINATION: 1. Computed tomography (CT) [...] fracture. There is advanced degenerative disc disease. No significant central canal stenosis is seen. There are varying degrees of mild facet osteoarthritis. There are varying degrees of neural foraminal stenosis [...] DATE/TIME OF EXAM: 03/02/2023 12:51 PM, LOCATION [facility] INDICATION: Trauma EXAMINATION: 1. Computed tomography (CT) [...] verification. Report dictated by Kalyan Joseph MD (osteopathic resident). IAndrei MD have personally reviewed and interpreted this examination/study. > Interpreting Provider: Andrei Bridges MD on 03/02/2023 2:19 PM Jamey Venegas MD CT ORDERABLES * XR PELVIS 1 OR 2VW (03/02/2023 12:28 PM CDT) Anatomical Region Laterality Modality Pelvis Radiographic Jayla ging 03/02/2023 1:07 PM CDT Impressions 03/02/2023 5:08 PM CDT IMPRESSION: No acute fracture identified. Report dictated by Jose Guadalupe James MD (osteopathic resident). Warren Cardenas MD have personally reviewed and interpreted this examination/study. > Interpreting Provider: Warren Parra MD on 03/02/2023 5:08 PM Narrative 03/02/2023 5:08 PM CDT PROCEDURE: XR PELVIS 1 OR 2VW, DATE/TIME OF EXAM: 03/02/2023 12:34 PM, LOCATION [facility] INDICATION: Trauma Fracture suspected COMPARISON: None. FINDINGS: No acute fracture is identified. The femoral heads appear well-seated within their respective acetabula. The pubic symphysis is intact. Bone density and texture are normal. The sacroiliac joints are normal. Procedure Note Patti Parra MD - 03/02/2023 PROCEDURE: XR PELVIS 1 OR 2VW, DATE/TIME OF EXAM: 03/02/2023 12:34 PM, LOCATION [facility] INDICATION: Trauma Fracture suspected COMPARISON: None. FINDINGS: No acute fracture is identified. The femoral heads appear well-seated within their respective acetabula. The pubic symphysis is intact. Bone density and texture are normal. The sacroiliac joints are normal. IMPRESSION: No acute fracture identified. Report dictated by Jose Guadalupe James MD (osteopathic resident). Warren Cardenas MD have personally reviewed and interpreted this examination/study. > Interpreting Provider: Warren Parra MD on 03/02/2023 5:08 PM Jamey Venegas MD DIAGNOSTIC IMAGING O RDERABLES * XR CHEST 1VW PORTABLE (03/02/2023 12:18 PM CDT) Anatomical Region Laterality Modality Chest Radiographic Jayla ging 03/02/2023 1:06 PM CDT Narrative 03/02/2023 2:58 PM CDT PROCEDURE: XR CHEST 1VW PORTABLE, DATE/TIME OF EXAM: 03/02/2023 12:33 PM, LOCATION [facility] INDICATION: Trauma ADDITIONAL CLINICAL INFORMATION: Ordering Provider Reason For Exam: Technologist Note: Additional: Comparison: No prior study is available for comparison at the time of this dictation. Findings/Impression: There is no focal consolidation, pleural effusion, or pneumothorax. The cardiomediastinal silhouette is normal. The visible bony thorax is intact. Report dictated by Jose Guadalupe James MD (osteopathic resident). Fausto Cardenas have personally reviewed and interpreted this examination/study. > Interpreting Provider: Fausto Morton on 03/02/2023 2:58 PM Procedure Note Fausto Morton MD - 03/02/2023 PROCEDURE: XR CHEST 1VW PORTABLE, DATE/TIME OF EXAM: 03/02/2023 12:33PM, LOCATION [facility] INDICATION: Trauma ADDITIONAL CLINICAL INFORMATION: Ordering Provider Reason For Exam: Technologist Note: Additional: Comparison: No prior study is available for comparison at the time ofthis dictation. Findings/Impression: There is no focal consolidation, pleural effusion, or pneumothorax. The cardiomediastinal silhouette is normal. The visible bony thorax isintact. Report dictated by Jose Guadalupe James MD (osteopathic resident). Fausto Cardenas have personally reviewed and interpreted this examination/study. > Interpreting Provider: Fausto Morton on 03/02/2023 2:58 PM Jamey Venegas MD DIAGNOSTIC IMAGING O RDERABLES * (ABNORMAL) TEG 6 GLOBAL HEMOSTASIS W/ LYSIS (03/02/2023 12:16 PM CDT) Citrated Kaolin R (Reaction Time) 4.2(L) 4.6 - 9.1 min 03/02/2023 1:51 PM CDT [facility] Comment:CK R result below no rmal range. Consistent with hypercoagulable clotting factors. Citrated Kaolin LY30 (Lysis) 0.5 0.0 - 2.6 % 03/02/2023 1:51 PM CDT [facility] Citrated Functional Fibrinogen MA (Max Amplitude) 32.8(H) 15.0 - 32.0 mm 03/02/2023 1:51 PM CDT [facility] Comment:CFF MA above normal range. Consistent with elevated fibrinogen contribution to clot strength. Citrated RapidTEG MA (Max Amplitude) 68.2 52.0 - 70.0 mm 03/02/2023 1:51 PM [facility] Blood BLOOD SPECIMEN / Unknown Venipuncture / Unknown 03/02/2023 12:16 PM CDT 03/02/2023 12:54 PM CDT Jamey Venegas MD LAB - HEMATOLOGY ORD ERABLES [address] [address] [phone] * (ABNORMAL) TEG 6S PLATELET MAPPING (03/02/2023 12:16 PM CDT) TEGPLM (Max Amplitude) Koalin 66.8 53.0 - 68.0 mm 03/02/2023 1:24 PM [facility] TEGPLM (Max Amplitude) ACTF 20.0(H) 2.0 - 19.0 mm 03/02/2023 1:24 PM [facility] TEGPLM (Max Amplitude) ADP 55.0 45.0 - 69.0 mm 03/02/2023 1:24 PM [facility] TEGPLM (Max Amplitude) AA 33.0(L) 51.0 - 71.0 mm 03/02/2023 1:24 PM [facility] Comment:AA MA below normal r merlin. Inhibition present. TEGPLM %Inhibition ADP 25.2(H) 0.0 - 17.0 % 03/02/2023 1:24 PM [facility] TEGPLM %Inhibition AA 72.2(H) 0.0 - 11.0 % 03/02/2023 1:24 PM CDT [facility] TEGPLM %Aggregation ADP 74.8(L) 83.0 - 100.0 % 03/02/2023 1:24 PM CDT [facility] TEGPLM % Aggregation AA 27.8(L) 89.0 - 100.0 % 03/02/2023 1:24 PM CDT [facility] Blood BLOOD SPECIMEN / Unknown Venipuncture / Unknown 03/02/2023 12:16 PM CDT 03/02/2023 12:54 PM CDT Jamey Venegas MD LAB - HEMATOLOGY ORD ERABLES Performing Organization Address [facility]/ZIP Co de Phone Number [address] [address], [place] [phone] * PTT [facility] (03/02/2023 12:16 PM CDT) APTT 26.5 23.0 - 38.4 Seconds 03/02/2023 1:20 PM CDT [facility] Comment:Suggested therapeuti c range for full dose I.V. unfractionated heparin therapy for venous thromboembolism is 71 to 109 seconds. Blood BLOOD SPECIMEN / Unknown Venipuncture / Unknown 03/02/2023 12:16 PM CDT 03/02/2023 12:55 PM CDT Jamey Venegas MD LAB - COAGULATION OR DERABLES Performing Organization Address [facility]/ZIP Co de Phone Number [address] [address], [place] [phone] * PT-INR [facility] (03/02/2023 12:16 PM CDT) PT 14.5 12.1 - 14.8 Seconds 03/02/2023 1:20 PM CDT [facility] INR 1.1 See Comment 03/02/2023 1:20 PM CDT [facility] Comment:The suggested therap eutic range for standard coumadin (warfarin) therapy is an INR of 2.0-3.0. For high-risk patients (Mechanical Mitral Valve Prosthesis, etc.), the suggested prophylactic therapeutic range is an INR of 2.5-3.5. Blood BLOOD SPECIMEN / Unknown Venipuncture / Unknown 03/02/2023 12:16 PM CDT 03/02/2023 12:55 PM CDT Jamey Venegas MD LAB - COAGULATION OR DERABLES Performing Organization Address [facility]/ZIP Co de Phone Number [address] [address], [facility] [phone] * TYPE + SCREEN PANEL (03/02/2023 12:16 PM CDT) Antibody Screen NEG 1:12 PM CDT [facility] ABO Rh A POS 03/02/2023 1:12 PM CDT [facility] Blood Bank BLOOD SPECIMEN / Unknown Venipuncture / Unknown 03/02/2023 12:16 PM CDT 03/02/2023 12:22 PM CDT Jamey Venegas MD LAB - BLOOD BANK ORD ERABLES Performing Organization Address [facility] Co de Phone Number [facility] [address] [place] [address], [facility] [phone] * ALCOHOL ETHYL BLOOD (03/02/2023 12:16 PM CDT) Ethanol (mg/dL) <10 <10 mg/dL 12:45 PM CDT [facility] Ethanol Calculated (g/dL) <0.010 <=0.010 g/dL 03/02/2023 12:45 PM CDT [facility] Blood BLOOD SPECIMEN / Unknown Venipuncture / Unknown 03/02/2023 12:16 PM CDT 03/02/2023 12:21 PM CDT Narrative [facility] - 03/02/2023 12:45 PM CDT Ethanol Interp <10: None Detected. Depression of DRIVER LICENSE AGENT: >100 mg/dl Potentially Critical: >250 mg/dl Potentially Fatal >400 mg/dl Ethanol in the patient's blood will contribute to the osmolar gap. Ethanol's contribution to the osmolar gap can be estimated by dividing the concentration of ethanol in mg/dL by 4.6. This test is for clinical use only and does not equal a OSMANY for legal purposes. Jamey Venegas MD LAB - CHEMISTRY DEEP ALVARADO [facility] Organization Address City/State/ZIP Co de Phone Number [facility] [place] [address] [place] [address], [facility] [phone] * XR KNEE RIGHT 3VW (08/16/2020 12:17 PM NEUROPSYCHOLOGY DIVISION CHIEF) Only the most recent of3 resultswithin the time period is included. Anatomical Region Laterality Modality Lower Extremity Computed Radiogr aphy Narrative 08/16/2020 12:14 PM NEUROPSYCHOLOGY DIVISION CHIEF Trisha Hernandez, RT(R) 08/28/2020 4:56 PM See progress notes for results Luz [...] Han MD - 06/05/2020 11:59 PM CDT [facility] PULMONARY FUNCTION TEST REPORT PATIENT: ABRAHAN CRUZ MR#: [id number] ADMIT DATE: 06/05/2020 CSN: [id number] DATE OF PROCEDURE: 06/05/2020 :1940 PHYSICIAN: Todd [...] for lung volume. Todd Maldonado MD RITA/MODL #:[id number] Todd Han MD RESPIRATORY THERAPY ORDERABLES [facility] * RESPIRATORY PATHOGEN PANEL BY PCR (05/23/2020 8:55 AM CDT) Adenovirus PCR Not detected Not detected, Invalid, Indeterminate 05/23/2020 4:00 PM CDT [facility] MICROBIOLOGY Coronavirus PCR Not detected Not detected, Invalid, Indeterminate 05/23/2020 4:00 PM CDT [facility] Human Metapneumovirus PCR Not detected Not detected, Invalid, Indeterminate 05/23/2020 4:00 PM CDT [facility] MICROBIOLOG[facility] Human Rhinovirus/Entero virus PCR Not detected Not detected, Invalid, Indeterminate 05/23/2020 4:00 PM CDT [facility] MICROBIOLOG[facility] Influenza A PCR Not detected Not detected, Equivocal, Invalid, Indeterminate 05/23/2020 4:00 PM CDT [facility] MICROBIOLOG[facility] Influenza B PCR Not detected Not detected, Invalid, Indeterminate 05/23/2020 4:00 PM CDT [facility] MICROBIOLOG[facility] Parainfluenza Virus 1 PCR Not detected Not detected, Invalid, Indeterminate 05/23/2020 4:00 PM CDT [facility] Parainfluenza Virus 2 PCR Not detected Not detected, Invalid, Indeterminate 05/23/2020 4:00 PM CDT [facility] MICROBIOLOG[facility] Parainfluenza Virus 3 PCR Not detected Not detected, Invalid, Indeterminate 05/23/2020 4:00 PM CDT [facility] Parainfluenza Virus 4 PCR Not detected Not detected, Invalid, Indeterminate 05/23/2020 4:00 PM CDT [facility] Respiratory Syncytial Virus PCR Not detected Not detected, Invalid, Indeterminate 05/23/2020 4:00 PM CDT [facility] MICROBIOLOG[facility] Bordetella pertussis PCR Not detected Not detected, Invalid 05/23/2020 4:00 PM CDT [facility] MICROBI[facility] Chlamydia pneumoniae PCR Not detected Not detected, Invalid, Indeterminate 05/23/2020 4:00 PM CDT [facility] MICROBIOLOGY Mycoplasma pneumoniae PCR Not detected Not detected, Invalid, Indeterminate 05/23/2020 4:00 PM CDT [facility] MICROBIOLOGY Microbiology BRONCHIOLOALVEOLAR LAVAGE / Unknown Collection / Unknown 05/23/2020 8:55 AM CDT 05/23/2020 9:08 AM CDT Narrative [facility] MICROBIOLOGY - 05/23/2020 4:00 PM CDT This test is able to detect the following human coronaviruses: HKU1, NL63, 229E, and OC43. It will NOT detect 2019 Novel Coronavirus (2019-nCoV). If 2019-nCoV is suspected contact Infection Prevention for isolation and testing guidance. Todd Han MD LAB - MICROBIOLOGY O FRANKO Performing Organization Address [facility] Co de Phone Number [facility] MICROBIOLOGY [address] [place] [address], [facility] [phone] * CULTURE BRONCHOALVEOLAR LAVAGE QNT+GRAM STAIN (05/23/2020 8:55 AM CDT) Culture <10,000 CFU/mL normal oropharyngeal mary CELI 05/25/2020 8:41 AM CDT [facility] MICROBIOLOGY Gram Stain No organisms seen 020 8:41 AM CDT [facility] MICROBIOLOGY Gram Stain Moderate Polymorphonuclear cells 05/25/2020 8:41 AM CDT [facility] MICROBIOLOGY Microbiology BRONCHIOLOALVEOLAR LAVAGE / Unknown Collection / Unknown 05/23/2020 8:55 AM CDT 05/23/2020 9:08 AM CDT Todd Han MD LAB - MICROBIOLOGY O FRANKO Performing Organization Address [facility] Co de Phone Number [facility] MICROBIOLOGY [address] [place] [address], [facility] [phone] * CYTOLOGY NON-BROOM MAKER PANEL (STL) (05/23/2020 8:55 AM CDT) Only the most recent of2 resultswithin the time period is included. Case Report Cytology Non Transplant Rn Report Case: [id number] Authorizing Provider: Todd Han MD Collected: 05/23/2020 08:55 AM Ordering Location: [facility] Received: 05/23/2020 09:50 AM Pathologist: Giuliana Moreno MD Specimen: Bronch Alveolar Lav, RLL 05/24/2020 3:57 PM CDT [facility] Addendum 1 A GMS special stain for PCP is negative. 05/24/2020 3:57 PM CDT [facility] Addendum electronically signed by Giuliana Moreno MD on 05/24/2020 at 3:57 PM Final Diagnosis Bronchial alveolar lavage, cellblock and thin prep smear: -- No evidence of malignancy 05/24/2020 3:57 PM CDT [facility] Gross Description Physician/surgeon: Dr Han Indication for Procedure: Chronic Cough Operation: Bronchoscopy Specimen: BAL Gross: Received 10ml of fluid 05/24/2020 3:57 PM CDT [facility] Microscopic Description The bronchial alveolar lavage thin prep and cell block reveal bronchial epithelial cells and bronchial alveolar macrophages. Fungal organisms are not identified. Malignant tumor cells are not seen. 05/24/2020 3:57 PM CDT [facility] Disclaimer All histochemical and/or immunohistochemical results are interpreted with controls that demonstrate appropriate staining reactions before reporting results. Note on use of immunocytochemistry reagents: This test was developed and its performance characteristic determined by [facility], Department of Laboratory Medicine. It has not [...] interpreted with caution. 05/24/2020 3:57 PM CDT [facility] Embedded Images 05/24/2020 3:57 PM CDT [facility] Pathology/Cytol ogy BRONCHIOLOALVEOLAR LAVAGE / Unknown Collection / Unknown 05/23/2020 8:55 AM CDT 05/23/2020 9:50 AM CDT Comment:Bronch Alveolar Lav Todd Han MD LAB - PATHOLOGY/CYTO LOGY ORDERABLES Performing Organization Address [facility] de Phone Number [facility] [address] [place] [address] * DIFFERENTIAL MANUAL BAL (05/23/2020 8:55 AM CDT) Pathologist [facility] Neutro BAL 92 % 05/23/2020 1:49 PM CDT [facility] Lymphocytes % BAL 7 % 05/23/2020 1:49 PM CDT [facility] Macrophage % BAL 1 % 05/23/20 20 1:49 PM CDT [facility] Cells counted BAL 100 05/23/2020 1:49 PM CDT [facility] Fluid BRONCHIOLOALVEOLAR LAVAGE / Unknown Collection / Unknown 05/23/2020 8:55 AM CDT 05/23/2020 9:08 AM CDT Todd Han MD LAB - BODY FLUID ORD ERABLES Performing Organization Address [facility] de Phone Number [facility] [id number] [place] [id number] * FUNGUS FLUORESCENT SMEAR (05/23/2020 8:55 AM CDT) Pathologist [facility] Calcofluor Stain No yeast or hyphae seen 05/24/2020 6:47 AM CDT [facility] MICROBIOLOGY Microbiology BRONCHIAL BRUSHINGS SPECIMEN / Unknown Collection / Unknown 05/23/2020 8:55 AM CDT 05/23/2020 9:09 AM CDT Todd Han MD LAB - MICROBIOLOGY O RDERABLES Performing Organization Address City/[facility]/ZIP Co de Phone Number [facility] MICROBIOLOGY [address] [place] [address] [phone] * CULTURE AFB+SMEAR (05/23/2020 8:55 AM CDT) Pathologist [facility] Culture No acid-fast bacillus isolated 07/01/2020 7:54 AM CDT [facility] MICROBIOLOGY AFB Smear No acid-fast bacilli seen 07/01/2020 7:54 AM CDT [facility] MICROBIOLOGY Microbiology BRONCHIOLOALVEOLAR LAVAGE / Unknown Collection / Unknown 05/23/2020 8:55 AM CDT 05/23/2020 9:08 AM CDT Todd Han MD LAB - MICROBIOLOGY O FRANKO Performing Organization Address [facility] de Phone Number [facility] MICROBIOLOGY [address] [place] [address], [facility] [phone] * GRAM STAIN SMEAR (05/23/2020 8:55 AM CDT) Pathologist [facility] Gram Stain Moderate Polymorphonuclear cells 05/24/2020 10:55 PM CDT [facility] MICROBIOLOGY Gram Stain Light Gram-positive cocci 05/24/2020 10:55 PM CDT [facility] MICRO[facility]OLOGY Microbiology BRONCHIAL BRUSHINGS SPECIMEN / Unknown Collection / Unknown 05/23/2020 8:55 AM CDT 05/23/2020 9:08 AM CDT Todd Han MD LAB - MICROBIOLOGY O FRANKO Performing Organization Address [facility] de Phone Number [facility] MICROBIOLOGY [address] [place] [address], [facility] [phone] * CELL COUNT W DIFFERENTIAL BRONCHOAVEOLAR LAVAGE (05/23/2020 8:55 AM CDT) Character Fluid Hazy 05/23/2020 1:43 PM CDT [facility] Color Fluid Colorless 05/23/2020 1:43 PM CDT [facility] Total Nucleated Cells Fluid 295 No clearly established reference range x10E6/L 05/23/2020 1:43 PM CDT [facility] RBC Fluid 40 No clearly established reference ranges x10E6/L 05/23/2020 1:43 PM CDT [facility] Comment BAL Manual Diff to follow 05/23/2020 1:43 PM CDT [facility] Fluid BRONCHIOLOALVEOLAR LAVAGE / Unknown Collection / Unknown 05/23/2020 8:55 AM CDT 05/23/2020 9:08 AM CDT Todd Han MD LAB - BODY FLUID ORD ERABLES Performing Organization Address [facility] Co de Phone Number [facility] [address] [place] [address] * CULTURE FUNGUS OTHER+FUNGUS SMEAR (05/23/2020 8:54 AM CDT) Culture No fungus isolated CELI 06/17/2020 12:07 PM CDT [facility] MICROBIOLOGY Fungus Stain No yeast or hyphae seen 06/17/2020 12:07 PM CDT [facility] MICRO[facility]OLOGY Fungus Stain No Pneumocystis jirovecii 06/17/2020 12:07 PM CDT [facility] MICRO[facility]OLOGY Microbiology BRONCHIOLOALVEOLAR LAVAGE / Unknown Collection / Unknown 05/23/2020 8:54 AM CDT 05/23/2020 9:08 AM CDT Todd Han MD LAB - MICROBIOLOGY O FRANKO Performing Organization Address City/[facility]/ZIP Co de Phone Number [facility] MICROBIOLOGY [address] [place] [address], [facility] [phone] * AFB SMEAR (05/23/2020 8:54 AM CDT) Pathologist [facility] AFB Smear No Acid Fast Bacilli seen No Acid Fast Bacilli seen 05/24/2020 1:32 PM CDT [facility] MICROBIOLOGY Microbiology BRONCHIAL BRUSHINGS SPECIMEN / Unknown Collection / Unknown 05/23/2020 8:54 AM CDT 05/23/2020 9:08 AM CDT Todd Han MD LAB - MICROBIOLOGY O FRANKO [facility] MICROBIOLOGY [address] [place] [address], [facility] [phone] * SARS-COV-2 (COVID-19) ANTIBODY IGG (04/30/2020 1:34 [...] from pre-existing antibodies or other possible causes. Please review the Fact Sheets available for health care providers and patients using the following websites: [employer]/home/Covid-19/HCP/antibody/fact-sheet2 [employer]/home/Covid-19/Patients/antibody/fact-sheet2 This test has been authorized by the FDA under an Emergency Use Authorization (EUA) for use by authorized laboratories. The FDA authorized labeling is available on the [employer] website: www.Urve[employer]/Covid19. For additional information please refer to http://education.[employer]/faq/DIC503 (This link is being provided for informational/educational purposes only.) Test Performed at: [facility] [address] JEANNIE SINGLETON MD Blood BLOOD SPECIMEN / Unknown 04/30/2020 1:34 PM CDT 04/30/2020 1:35 PM CDT Todd Han MD LAB - CHEMISTRY DEEP ALVARADO [address] [address] * QUANTIFERON-TB GOLD PLUS 1-TUBE (04/30/2020 1:31 PM CDT) [facility] QuantiFERON TB Gold Plus NEGATIVE NEGATIVE [facility] [...] T-lymphocytes. For additional information, please refer to https://education.[employer]/faq/WST987 (This link is being provided for informational/ educational purposes only.) Test Performed at: [facility] [address] LUZ MARINA ROSENTHAL DO,MPH 04/30/2020 1:31 PM CDT 04/30/2020 1:33 PM CDT Todd Han MD LAB - CHEMISTRY DEEP ALVARADO Performing Organization Address [facility] de Phone Number [facility] [address] [place] [address] * REF LAB-ABN TEST REFUSAL (04/30/2020 1:31 PM CDT) JONAH See Below [facility] Comment: Be advised that your patient has indicated on the advance beneficiary notice their decision not to receive the following laboratory tests. As a result, the tests will not be performed. Comment [phone] [facility] Comment: Test Performed at: [place] [address] LUZ MARINA ROSENTHAL DO,MPH 04/30/2020 1:31 PM CDT 04/30/2020 1:33 PM CDT Todd Han MD LAB - CHEMISTRY DEEP ALVARADO Performing Organization Address [facility] de Phone Number [facility] [address] [place] [address] * ALLERGEN INTERPRETATION (04/30/2020 1:31 PM CDT) Interpretation See Below [facility] Comment: Specific Level of Allergen IGE Class kU/L Specific IGE Antibody ----- --------- 0 <0.10 Absent/Undetectable 0/1 0.10-0.34 Very Low Level 1 0.35-0.69 Low Level 2 0.70-3.49 Moderate Level 3 3.50-17.4 High Level 4 17.5-49.9 Very High Level 5 50-100 Very High Level 6 >100 Very High Level The clinical relevance of allergen results of 0.10-0.34 kU/L are undetermined and intended for specialist use. Allergens denoted with a include results using one or more analyte specific reagents. In those cases, the test was developed and its analytical performance characteristics have been determined by [employer]. It has not been cleared or approved by the U.S. Food and Drug Administration. This assay has been validated pursuant to the CLIA regulations and is used for clinical purposes. Test Performed at: [facility] [place] [address] LUZ MARINA ROSENTHAL DO,MPH 04/30/2020 1:31 PM CDT 04/30/2020 1:33 PM CDT Todd Han MD LAB - SEROLOGY ORDER NING Performing Organization Address [facility] Co de Phone Number [facility] [address] [place] [address] * RHEUMATOID FACTOR BLOOD QUANTITATIVE (04/30/2020 1:31 PM CDT) [facility] Rheumatoid Factor <14 <14 IU/mL [facility] Comment: Test Performed at: [facility] [address] [place] [address] LUZ MARINA ROSENTHAL DO,MPH Blood BLOOD SPECIMEN / Unknown 04/30/2020 1:31 PM CDT 04/30/2020 1:33 PM CDT Todd Han MD LAB - CHEMISTRY ORDE CHRISTIANO Performing Organization Address [facility] Co de Phone Number [facility] [address] [place] [address] * YANELY BLOOD SCREEN W/REFLEX TITER (04/30/2020 1:31 PM CDT) YANELY Screen NEGATIVE NEGATIVE [facility] Comment: YANELY [...] AC-0: Negative International Consensus on YANELY Patterns (https://doi.org/10.1515/kjyk-9927-9093) For additional information, please refer to http://education.Urvew/faq/RDY866 (This link is being provided for informational/ educational purposes only.) Test Performed at: [facility] [address] [place] [address] LUZ MARINA ROSENTHAL DO,MPH Blood BLOOD SPECIMEN / Unknown 04/30/2020 1:31 PM CDT 04/30/2020 1:33 PM CDT Todd Han MD LAB - CHEMISTRY DEEP [facility] Organization Address City/State/ZIP Co de Phone Number [facility] [address] [place] [address] * PNEUMONITIS HYPERSENSITIVE SCREEN (04/30/2020 1:31 PM CDT) Pathologist [facility] Aspergillus fumigatus NEGATIVE NEGATIVE [facility] Micropolyspora faeni NEGATIVE NEGATIVE [facility] Wheeler Serum NEGATIVE NEGATIVE [facility] Thermoactinomyces candidus NEGATIVE NEGATIVE [facility] Thermoactinomyces vulgaris NEGATIVE NEGATIVE [facility] S. viridis NEGATIVE NEGATIVE [facility] Comment: This test was developed and its analytical performance characteristics have been determined by [facility]. It has not been cleared or approved by FDA. This assay has been validated pursuant to the CLIA regulations and is used for clinical purposes. Test Performed at: [facility] [facility] [address] [place] [address] GABI BYERS MD,PHD,ROMI Blood BLOOD SPECIMEN / Unknown 04/30/2020 1:31 PM CDT 04/30/2020 1:33 PM CDT Todd Han MD LAB - CHEMISTRY DEEP ALVARADO [facility] [address] [place] [address] * (ABNORMAL) FUNGAL ANTIBODY PANEL IMMUNODIFFUSION (04/30/2020 1:31 PM CDT) Aspergillus flavus NEGATIVE [facility] Aspergillus niger NEGATIVE [facility] Aspergillus fumigatus NEGATIVE [facility] Comment: REFERENCE RANGE: NEGATIVE INTERPRETIVE CRITERIA: NEGATIVE: ANTIBODY NOT DETECTED POSITIVE: ANTIBODY DETECTED A positive result is represented by 1 or more precipitin bands, and may indicate fungus ball, allergic bronchopulmonary aspergillosis (PARDEEP) or invasive aspergillosis. Generally, the appearance of 3-4 bands indicates either fungus ball or PARDEEP. Blastomyces Antibody by Immunodiffusion Negative Negative [facility] Comment: Interpretive Criteria: Negative: Antibody not detected Positive: Antibody detected A positive result is diagnostic of active or recent blastomycosis and is found in approximately 80% of proven cases of blastomycosis. Gissel Antibody ID POSITIVE(A) [facility] Comment: REFERENCE RANGE: NEGATIVE INTERPRETIVE CRITERIA: NEGATIVE - Antibody not detected POSITIVE - Antibody detected Detection of antibody recognizing Gissel is 70-80% specific for systemic candidiasis, and sensitivity is related to the immunocompetence of the patient. The immunocompromised patient with overwhelming candidiasis may not exhibit detectable Gissel antibody. Coccidiomyces Antibody NEGATIVE [facility] Comment: REFERENCE RANGE: NEGATIVE INTERPRETIVE CRITERIA: NEGATIVE: Antibody Not Detected POSITIVE: Antibody Detected The immunodiffusion (ID) procedure correlates both [...] Antibody ID NEGATIVE [facility] Comment: REFERENCE RANGE: NEGATIVE INTERPRETIVE CRITERIA: NEGATIVE: Antibody Not Detected POSITIVE: Antibody Detected Positive immunodiffusion (ID) reactions involve one or more specific precipitin bands. Of these bands the first to appear in [...] 10% of proven cases.) Test Performed at: [facility] [address] [place] [address] Nathan BAUTISTA Blood BLOOD SPECIMEN / Unknown 04/30/2020 1:31 PM CDT 04/30/2020 1:33 PM CDT Todd Han MD LAB - CHEMISTRY DEEP ALVARADO [facility] [address] [place] [address] * ALLERGEN RESPIRATORY PROF (IL,MO,IA) IGE (04/30/2020 [...] kU/L [facility] Class 0 [facility] Allergen Cockroach Japanese <0.10 kU/L [facility] Class 0 [facility] Allergen Maple <0.10 kU/L [facility] Class 0 [facility] Allergen [place] <0.10 kU/L [facility] Class 0 [facility] Allergen [place] Tree <0.10 kU/L [facility] Class 0 [facility] Allergen [place] <0.10 kU/L [facility] Class 0 [facility] Allergen Morrow Tree <0.10 kU/L [facility] Class 0 [facility] Allergen White Stu <0.10 kU/L [facility] Class 0 [facility] Allergen [place] <0.10 kU/L [facility] Class 0 [facility] Allergen Elm <0.10 kU/L [facility] Class 0 [facility] Allergen Hidalgo/Pecan Tree <0.10 kU/L [facility] Class 0 [facility] Allergen White [place] Orange <0.10 kU/L [facility] Class 0 [facility] Allergen Berm[place] Grass <0.10 kU/L [facility] Class 0 [facility] Allergen [place] Grass <0.10 kU/L [facility] Class 0 [facility] Allergen Common Ragweed <0.10 kU/L [facility] Class 0 [facility] Allergen Rough Pigweed <0.10 kU/L [facility] Class 0 [facility] Allergen Nigerien Thistle <0.10 kU/L [facility] Class 0 [facility] Allergen Rough Lance Elder <0.10 kU/L [facility] Class 0 [facility] Allergen Mouse Urine Protein <0.10 kU/L [facility] Class 0 [facility] IgE 41 <YD=882 kU/L [facility] Comment: Test Performed at: [facility] [address] [place] [address] LUZ MARINA ROSENTHAL DO,MPH Blood BLOOD SPECIMEN / Unknown 04/30/2020 1:31 PM CDT 04/30/2020 1:33 PM CDT Todd Han MD LAB - CHEMISTRY DEEP ALVARADO [facility] [address] [place] [address] * VITAMIN D 25-HYDROXY (04/30/2020 1:31 PM CDT) Vitamin D, 25 Hydroxy 34 30 - 100 ng/mL [facility] Comment: Vitamin D Status 25-OH Vitamin D: Deficiency: <20 ng/mL Insufficiency: 20 - 29 ng/mL Optimal: > or = 30 ng/mL For 25-OH Vitamin D testing on patients on D2-supplementation and patients for whom quantitation of D2 and D3 fractions is required, the [facility] 25-OH VIT D, (D2,D3), LC/MS/MS is recommended: order code 25774 (patients >2yrs). See Note 1 Note 1 For additional information, please refer to http://education.Adaptive Computing.reQall/faq/UWF968 (This link is being provided for informational/ educational purposes only.) Test Performed at: [facility] [address] [facility] [place] [address] LUZ MARINA ROSENTHAL DO,MPH Blood BLOOD SPECIMEN / Unknown 04/30/2020 1:31 PM CDT 04/30/2020 1:33 PM CDT Todd Han MD LAB - CHEMISTRY DEEP ALVARADO Performing Organization Address [facility] de Phone Number [facility] [address] [place] [address] * ANGIOTENSIN CONVERTING ENZYME BLOOD (04/30/2020 1:31 PM CDT) Pathologist [facility] Angiotensin-Conv erting Enzyme 41 9 - 67 U/L [facility] Comment: Test Performed at: [facility] [address] [facility] [address] LUZ MARINA ROSENTHAL DO,MPH Blood BLOOD SPECIMEN / Unknown 04/30/2020 1:31 PM CDT 04/30/2020 1:33 PM CDT Todd Han MD LAB - CHEMISTRY DEEP ALVARADO Performing Organization Address [facility] [place] [address] * ERYTHROCYTE SEDIMENTATION RATE (04/30/2020 1:31 PM CDT) [facility] Erythrocyte Sedimentation Rate Westergren 25 < OR = 30 mm/h [facility]ST Comment: Test Performed at: [facility] [address] [address] LUZ MARINA ROSENTHAL DO,MPH Blood BLOOD SPECIMEN / Unknown 04/30/2020 1:31 PM CDT 04/30/2020 1:33 PM CDT Todd Han MD LAB - HEMATOLOGY ORD ERAANN MARIE Performing Organization Address [facility] [place] [address] * (ABNORMAL) COMPREHENSIVE METABOLIC PANEL (04/30/2020 1:31 PM CDT) [facility] Glucose 127(H) 65 - 99 mg/dL [facility] Comment: Fasting reference interval For someone without known diabetes, a glucose value >125 mg/dL indicates that they may have diabetes and this should be confirmed with a follow-up test. BUN 32(H) 7 - 25 mg/dL [facility] Creatinine 1.51(H) 0.60 - 0.88 mg/dL [facility] Comment: For patients >49 years of age, the reference limit for Creatinine is approximately 13% higher for people identified as -Japanese. eGFR by MDRD 32(L) > OR = [...] 29 U/L [facility] Comment: Test Performed at: [facility] [address] [place] [address] LUZ MARINA ROSENTHAL DO,MPH Blood BLOOD SPECIMEN / Unknown 04/30/2020 1:31 PM CDT 04/30/2020 1:33 PM CDT Todd Han MD LAB - CHEMISTRY ORDE [facility] Organization Address City/State/ZIP Co de Phone Number [facility] [address] [place] [address] * ECHOCARDIOGRAM 2D WITH DOPPLER (03/21/2020 12:45 PM CDT) 03/21/2020 12:4 5 PM CDT Narrative Procedure Note Hola Cueva MD - 03/22/2020 . [facility] [address] [address] [place] [address] Echocardiography Examination Transthoracic Name: ABRAHAN CRUZ [facility]#: MR#: [id number] Admission Number: [id number] Study Date: 03/21/2020 Study Time: 12:51 PM [...] Facility Location: [facility] Procedure Stiff Straw Hat Washer: Adele Tang RDCS Ordering Physician: Jennifer Adame MD Reading Physician: Hola Cueva MD Indication: Paroxysmal supraventricular tachycardia, Abnormal EKG Conclusions Left Ventricle: Left ventricle is normal in size. Normal global systolic left ventricular function. EF 60 %. EF range is 55 % -60 %. Left ventricle wall thickness is normal. [...] Valve AMINATA D (continuity eq. VTI) 1.4 cm Aortic Valve AMINATA Index (continuity 0.68 cm /m eq.Vmax) Aortic Valve AV Opening, MM 1.2 [...] 49ml) Left Ventricle LVEDV Index, BP 42.9 ml/m (35ml/m - 75ml/m ) Left Ventricle LVESV Index, BP 15.5 ml/m (12ml/m - 30ml/m ) Left Ventricle LVOT PGmean 1 mmHg Left [...] TEST LEXISCAN (NUCLEAR) (03/21/2020 10:12 AM CDT) [facility] Stress Test Summary For full formatted report, please see the report link in the order. Acquisition Time: 2020-03-21 10:12:27 Total Exercise Time: 00:01:23 Test Indications: CHEST PAIN Medications: Protocol: LEXISCAN Max HR: 106 BPM 75% of Pred: 141 BPM Max BP: 155/080 mmHG Max Work Load: 1.0 METS Reason for Termination: LEXISCAN PROTOCOL COMPLETED Resting ECG: Sinus Rhythm Functional Capacity: HR Response to Exercise: BP Resoonse to Exercise: Chest Pain: none Arrhythmias: none ST Changes: No Changes From Baseline Overall Impression: NO ISCHEMIC ECG CHANGES NOTED NUCLEAR IMAGES PENDING Diagnosis: Confirmed by ZAK GALLEGOS MD ([id number]) on 04/04/2020 8:30:52 AM Attending Physician: Referred By: JENNIFER ADAME Overread By: ZAK GALLEGOS MD [facility] 03/21/2020 10:1 2 AM CDT 04/04/2020 8:30 AM CDT Jennifer Adame MD CARDIAC SERVICES OR DERABLES [facility] * XR KNEE BILAT 3VW (02/22/2018 2:40 PM CDT) Only the most recent of2 resultswithin the time period is included. Anatomical Region Laterality Modality Lower Extremity Computed Radiogr aphy Narrative 02/22/2018 5:09 PM CDT Trisha Hernandez, RT(R) 02/22/2018 5:09 PM See progress notes for results Luz Marina Llamas MD DIAGNOSTIC IMAGING O RDERABLES * XR SHOULDER 2+ VW RIGHT (03/01/2017 11:25 AM CDT) Only the most recent of3 resultswithin the time period is included. Anatomical Region Laterality Modality Upper Extremity Computed Radiogr aphy Narrative 03/01/2017 12:41 PM CDT Trisha Hernandez RT(R) 03/01/2017 12:41 PM See progress notes for results Lovely Corral PA-C DIAGNOSTIC IMAGING O RDERABLES * VAS RIGHT VENOUS DUPLEX LE (10/11/2014 1:24 PM NEUROPSYCHOLOGY DIVISION CHIEF) Anatomical Region Laterality Modality Ultrasound 10/11/2014 1:11 PM NEUROPSYCHOLOGY DIVISION CHIEF Narrative Procedure Note Jose Collins MD - 10/11/[address] [facility] [address], [address] [place] [address] Lower Extremity Venous Ultrasound Report Pat.Name: GI ABRAHAN D Pat.ID: [id number] St.Date: 10/11/2014 Exam Time: 1:11:00 PM Study Type:LE Venous Age: 8 1940,74Y Sex: FEMALE Sonogrphr: Johnny Hernandez RVT Pat. Stat.:Outpatient ICD - 9: 729.5 Pain in Extremity, 729.81 Swelling of Limb CPT - 4: 05701 Procedures:Lower Extremity Venous - Right Race: 1 Visit ID: [id number] SUMMARY: There is no evidence of an [...] CDT) Provider Unknown LAB - THERAPEUTIC DR UG MONITORING ORDERABLES * CARDIAC EKG ORDER (06/04/2014 10:59 PM CDT) Scanned Document CARDIAC SERVICES ORD ERABLES * (ABNORMAL) HGB HCT PANEL (06/01/2014 12:18 AM CDT) Only the most recent of2 resultswithin the time period is included. Hemoglobin 8.4(L) 12.0 - 15.6 gm/dL 06/01/2014 12:37 AM CDT [facility] Hematocrit 26.1(L) 35.9 - 45.5 % 06/01/2014 12:37 AM CDT [facility] Blood BLOOD SPECIMEN / Unknown 06/01/2014 12:18 AM CDT 06/01/2014 12:21 AM CDT Luz Marina Llamas MD LAB - HEMATOLOGY ORD ERABLES Performing Organization Address City/State/[facility] Co de Phone Number [facility] [address] [place] [address] * NEURAXIAL BLOCK (05/30/2014 11:48 AM CDT) Narrative Luis Enrique Douglass APRN-MIXER TENDER - 05/30/2014 11:48 AM CDT MATHEW Khan 05/30/2014 11:48 AM NEURAXIAL BLOCK Patient Location: OR Pre Procedure Indication: surgical anesthesia Preanesthetic Checklist: patient identified, IV checked, site marked, risks and benefits discussed, surgical consent verified, monitors and equipment checked, pre-op evaluation done, timeout performed, informed consent obtained and questions answered / anesthesia plan accepted Monitors: BP and Pulse Ox Patient Condition: awake Patient Position: sitting Procedure Block Performed: spinal Prep: Betadine Sterile Field: mask, cap/hat, sterile field established and sterile gloves Approach: midline Skin Numbed with: lidocaine 1% Spinal Needle Type: pencil-point Needle Gauge: 25 G Needle Length: 3.5 in Placement Site: L3-4 Number of Attempts: 1 CSF: free flow and aspiration before injection Local Anesthetic: bupivacaine 0.75% in dextrose 2 ml Spinal Additive: fentanyl 25 mcg Events CSF return injection not painful Degree of Difficulty: none Position Post Procedure: supine Vital signs monitored and stable throughout. See Anesthesia Intraop record for details. Block Performed by: Luis Enrique Douglass MIXER TENDER Luz Marina Llamas MD GENERAL ANESTHESIA O FRANKO * (ABNORMAL) CULTURE MSSA/MRSA (05/10/2014 2:06 PM CDT) [facility] Culture Negative for MRSA CELI 05/11/2014 6:56 PM CDT [facility] MICROBIOLOGY Culture Staphylococcus aureus (MSSA)(A) CELI 05/11/2014 6:56 PM CDT [facility] MICROBIOLOGY Microbiology SPECIMEN FROM NASAL FOSSAE / Unknown 05/10/2014 2:06 PM CDT 05/10/2014 3:23 PM CDT Luz Marina Llamas MD LAB - MICROBIOLOGY O RDSREJIOBLES [facility] MICROBIOLOGY [address] [place] [address], [facility] * XR CERVICAL SPINE 2 OR 3 VW (05/23/2013 1:55 PM CDT) Anatomical Region Laterality Modality Spine Radiographic Jayla ging Narrative 05/23/2013 1:56 PM CDT Trisha Hernandez, RT(R) 05/23/2013 1:56 PM See progress notes for results Procedure Note Trisha Hernandez, RT(R) - 05/23/2013 1:56 PM CDT See [...] and clear. No bony abnormality is seen. Procedure Note Luis [...] Adame MD DIAGNOSTIC IMAGING ORDERABLES Care Teams Dirt Supervisor Relationship Specialty Start Date End Date Kayla Peck MD [address] [place] [address] PCP - General Internal Medicine 03/03/23 Luz Marina Llamas MD Orthopedic Surgery 07/24/11 [place] [address] [facility] [address] [place] [address] Orthopedic Surgery 05/23/13 [place] [address] [facility] [address] [place] [address] Pulmonary Disease 04/24/20 [place] [address] [facility] [place] [address] Nephrology 04/24/20 [facility] Kidney Care Management 04/15/22
--- OUTSIDE RECORDS SUMMARY | 2024-10-29 16:02 | XMS_ITS ---
Author Organization [facility] Address [address] [place] [address] Care Team Providers Care Prn Occupational Therapist Name Role Phone Kayla Peck Primary Care Provider Unavaila KELIN Bonner Unavailable [phone] Allergies Allergen (clinical drug ingredient) Drug/Non Drug [...] Active Encounters Encounter Location Date Provider Diagnosis [facility] [address] [place] [address] [address] [place] [address] 10/18/2023 KELIN JOSHUA Chronic kidney disea se, [...] * ABRAHAN ANGELO DDOB:1940 (84 yo F)Acc No.[id number]:10/18/2023 Progress Notes Patient: ABRAHAN MCKEON Provider: Ryan Joshua MD :1940 A ge:83 Y S ex:Female Date:10/18/2023 Address:[address] [place] [address] [facility] Pcp:Kayla Peck Subjective: * Chief Complaints: [...] JOSHUA MD on 10/29/2024 at 04:01 PM GLASS ROBOT OPERATOR Sign off status: Pending * Provider: Ryan Joshua MD Date: 0 10/18/2023 Generated for Reji matute/Pj/Mac on: 0 10/29/2024 04:01 PM GLASS ROBOT OPERATOR
--- OUTSIDE RECORDS SUMMARY | 2024-10-29 16:02 | XMS_ITS | Clinical Summary ---
Author Organization [facility] Address [address] [place] [address] Care Team Providers Care Typo Machine Operator Name Role Phone Bright Llamas MD Unavailable Mily Douglas MD Unavailable [phone] Todd Han MD Unavailable Radha Joshua MD [facility]available [facility] Unavailable Kayla Peck MD Primary Care Provider [phone] Source Comments [facility],non-owned Affiliates and Associated Physician Practices is amultiple site organization consisting of ambulatory clinics and hospital sitesin [place], [place], [place] and [place]. This disclosure is being madepursuant to the Care Everywhere program and may not contain all information available regarding this patient. Last updated 18.[facility] Allergies Active Allergy Reactions Criticality [...] Comments BONE DENSITY TESTING 1940 MEDICARE AWV 12 MONTHS 1940 PNEUMOCOCCAL VACCINE 50+ (1 [...] this topic Medical Devices Implanted Type Area Backfiller Device Identifier Shelf Expiration Date Model / Serial / Lot Maico Bone [place] Hv Implanted:Qty: 1 on 05/30/2014 by Bright Llamas MD at [facility] Right: [employer]nee [employer] 01/28/2016 [id number] / / [id number] Pauletten Pat Arcom Wire Polyeth Xsm 28 X 8 Implanted:Qty: 1 on 05/30/2014 by Bright Llamas MD at [facility] Right: [employer] 02/27/2019 [id number] / / [id number] Ty Tibial I Beam Fix Bar 63mm Implanted:Qty: 1 on 05/30/2014 by Bright Llamas MD at [facility] Right: [employer]nee [employer] 11/27/2021 [id number] / / [id number] Kn Ins Vangurd Fem Cocr R-Intlok 57.5mm Implanted:Qty: 1 on 05/30/2014 by Bright Llamas MD at [facility] Right: [employer] 12/29/2023 [id number] / / [id number] Vangrd Ant Stblzd Brg 14mm X 63mm Implanted:Qty: 1 on 05/30/2014 by Bright Llamas MD at [facility] Right: [employer] 10/30/2014 [id number] / / [id number] Advance Directives Documents on File Type Date Recorded Patient Visitor Services Technician Expl anation Adv Directive/Living Will/POA 05/10/2014 1:04 PM LIVING WILL & LAST W ILL & TESTAMENT * Full Code (Latest Code Status on File) Date Activated Date Inactivated Comments 03/02/2023 6:54 PM 03/04/2023 2:24 PM * Full Code Date Activated Date Inactivated Comments 05/30/2014 4:33 PM 06/02/2014 12:11 PM Care Teams Typo Machine Operator Relationship Specialty Start Date End Date Kayla Peck MD [address] [place] [id number] PCP - General Internal Medicine 03/03/23 Bright Llamas MD Orthopedic Surgery 07/24/11 [place] [address] [facility] [address] [place] [address] Orthopedic Surgery 05/23/13 [place] [address] [facility] [address] [place] [address] Pulmonary Disease 04/24/20 [place] [address] [place] [address] Nephrology 04/24/20 [facility] Kidney Care Management 04/15/22
--- OUTSIDE RECORDS SUMMARY | 2024-10-29 16:02 | XMS_ITS | Encounter Summary ---
Author Organization [facility] Address [address] [facility] Attn: Epic Prelude ADT EVONNE SCHROEDER [address] Care Team Providers Care Board Member Name Role Phone Fermín Adame MD Primary Care Provider [phone] Encounter Details Date Type Department Care Team (Late st Contact Info) Description 06/03/1992 Outpatient Historical Luis Enrique Padron MD [address] [facility] [place] [address] Social History Tobacco Use Types Packs/Day Years Used Date Smoking Tobacco: Never Assessed Comments Unknown Sex and Gender Information Value Date Recorded Sex Assigned at Not on file Legal Sex Female 5:16 AM STOCK MOVER Gender Identity Not on file Sexual Orientation Not on file documented as of this encounter Plan of Treatment Not on file documented as of this encounter Visit Diagnoses Not on filedocumented in this encounter Care Teams Board Member Relationship Specialty Start Date End Date Fermín Adame MD PCP - General Internal Medicine 03/12/12 documented as of this encounter
--- OUTSIDE RECORDS SUMMARY | 2024-10-29 16:02 | XMS_ITS | Continuity of Care Document ---
Author Organization [facility] Address [address] [place] [address] Phone Care Team Providers Care Muck Hauler Name Role Phone Gumaro Sanchez MD Unavailable [...] Diagnoses Date Provider Providers Copied on Encounter [facility], [address], [place], [place], [address] , [place] tel: [phone] [facility] No Information [address] [facility], [facility] [address], [place], [place], [address], [place]. tel:[phone] [facility], [address], [place], [place], [address] , tel: [phone] Conversion Department No Information 1 Conversion Doctor. [address] [place] [address] [place], [address], [place]. [facility], [address], [place], [place], [address] , tel: [phone] [facility] LUMBAGOBEN HY KID W CR KID I-IVPURE HYPERCHOLESTEROLE MCHR KIDNEY DIS STAGE IIISWELLING IN HEAD & NECKLOC PRIM OSTEOART-L/LEGABN BLOOD CHEMISTRY NEC 7 Daniel Naik. [address] [place] [address], [address], [place], [place], [address], [place]. tel: [phone] [facility], [address], [place], [place], [address] , [place] tel: [phone] [facility] ND VAC STRPTCS PNEUMNI BHYPOTHYROIDISM NOSBENIGN HYPERTENSION 5200 6 Daniel Naik. [address] [place] [address], [address], [place], [place], [address], [place]. tel: [phone] [facility], [address], [place], [place], [address] , [place] tel:[phone] [facility] ACUTE URI NOS 5200 6 Conversion Doctor. [facility] [place], [address], [place]. [facility] [employer], [address], [place], [place], [address] , tel: [phone] [facility] MAYLIN HYP KID W CR KID VIMPACTED CERUMEN 3200 6 Daniel Naik. [address] [place] [address], [address], [place], [place], [address], [place]. tel: [phone] [facility], [address], [place], [place], [address] , [place] tel: [phone] [facility] No Information 0-200 6 Daniel Naik. [address] [place] [address], [address], [place], [place], [address], [place]. tel: [phone] [facility], [address], [place], [place], [address] , [place] tel: [phone] [facility] ALLERGIC RHINITIS NOS 4-200 6 Conversion Doctor. [facility] [place], [address], [place]. [employer], [address], [place], [place], [address] , [place] tel: [phone] [facility] MIXED HYPERLIPIDEMIAESO PHAGEAL REFLUXDEPRESSIVE DISORDER NEC Nov-1 0-200 5 Daniel Naik. [address] [place] [address], [address], [place], [place], [address], [place]. tel: [phone] [facility] [employer], [address], [place], [place], [address] , [place] tel: [phone] [facility] OTHER ATOPIC DERMATITIS Aug-0 8-200 5 Daniel Gumaro. [address] [place] [address], [address], [place], [place], [address], [place]. tel: [phone] [facility], [address], [place], [place], [address] , [place] tel: [phone] [facility] PAIN IN LIMBJOINT PAIN-L/LEGLONG-TE RM USE MEDS NEC May-0 5-200 5 Sanchezpau Naik. [address] [place] [address], [address], [place], [place], [address], [place]. tel: [phone] [facility], [address], [place], [place], [address] , [place] tel: [phone] [facility] NAUSEA ALONEACQUIRED HYPOTHYROID NEC Dec-0 9-200 4 Sanchez Gumaro. [address] [place] [address], [address], [place], [place], [address], [place]. tel: [phone] [facility], [address], [place], [place], [address] , [place] tel: [phone] [facility] ABNORMAL GLUCOSE NECPAROX TACHYCARDIA NOS Oct-0 7-200 4 Sanchezpau Naik. [address] [place] [address], [address], [place], [place], [address], [place]. tel: [phone] [facility], [address], [place], [place], [address] , [place] tel: [phone] [facility] NE PAROX ATRIAL TACHYCARDIA Sep-1 5-200 4 Daniel Naik. [address] [place] [address], [address], [place], [place], [address], [place]. tel: [phone] [facility], [address], [place], [place], [address] , tel: [phone] [facility] SLEEP DISTURBANCE NOSJOINT PAIN-UNSPECMALAIS E AND FATIGUE NEC 4 Daniel Naik. [address] [place] [address], [address], [place], [place], [address], . tel: [phone] [facility] [employer], [address], [place], [place], [address] , tel: [phone] [facility] JOINT PAIN-SHLDER Nov- 4 Daniel Naik. [address] [place] [address], [address], [place], [place], [address], [place]. tel: [phone] [facility], [address], [place], [place], [address] , tel: [phone] [facility] WHEEZING 3 Daniel Naik. [address] [place] [address], [address] , [place], [place], [address], . tel: [phone] [facility], [address], [place], [place], [address] , tel: [phone] [facility] SWELLING OF LIMBSHORTNESS OF BREATHTACHYCARDIA NOS 3 Daniel Naik. [address] [place] [address], [address], [place], [place], [address], . tel: [phone] [facility] [employer], [address], [place], [place], [address] , tel: [phone] [facility] COUGHVACCIN FOR INFLUENZA 3 Daniel Naik. [address] [place] [address], [address], [place], [place], [address], . tel:[phone] Family History Family Member Type Diagnosis Age At Onset No Information Immunizations Vaccine Date Status Comments 41106 - Pneumococcal_PPV23 administered S ource: Source Unspecified 97842 - Influenza administered Source: So urce Unspecified Payers Payer name Insurance type Covered alliance party ID Authoriza tion(s) No Information Social History [...]
--- OUTSIDE RECORDS SUMMARY | 2024-10-29 16:02 | XMS_ITS | Data Portability ---
Author Organization EVONNE mack MD, autoContract Address [address] [facility] [address] [place] [address] Care Team Providers Care Evaluation Assistant Name Role Phone CAMPBELL CABRERA Referring Provider Assessment No assessment recorded. Plan of Treatment Reminders Order Date Submit Date Provider Last Modified By Organization Details Last Modified Time Details Appointments [facility] PreWell[facility] ess 2024 11:30A M Not available Not available Not available [facility] AWP 2024 11:00A M Kayla Peck MD Not available Not available Not available Lab BMP, serum or plasma 2023 [facility], [address] [facility], [facility] [address], [place], [address], 04/07/2024 18:06:53 uric acid, serum or plasma 2023 024 [facility], [address] [facility], [facility] [address], [place], [address], 04/07/2024 18:06:52 Referral None recorded . Procedures None recorded . Surgeries None recorded . Imaging None recorded . Medication Orders allopuri nol 300 mg tablet 2023 024 [id number], [address] [place], [address], 01/07/2024 13:08:21 Patient TargetsNo targets recorded. Patient InstructionsNo instructions recorded. Reason for Referral None Reported. Results Created Date Observation Date Name Description Value Unit Range Abnormal Flag Note LastModifiedBy Organization Detail LastModifiedTime 04/07/20 24 04/07/2024 URIC ACID uric acid 4.0 mg/dL 2.5-7. 0 normal Thera igor c sallie t for gout patie nts: <6.0 mg/dL Not Available [address], [address], 04/07/2024 18:06:52 04/07/20 24 04/07/2024 BASIC METAB OLIC PANEL glucose 90 mg/dL 65-99 normal Fasti ng refer ence inter garima Not Available [address] [address] [place], [address], 04/07/2024 18:06:53 04/07/20 24 04/07/2024 BASIC METAB OLIC PANEL urea nitrogen (BUN) 20 mg/dL 7-25 normal Not Available [address], [address], 04/07/2024 18:06:53 04/07/20 24 04/07/2024 BASIC METAB OLIC PANEL creatinine 0.98 mg/dL 0.60-0 .95 high Not Available [address], [address], 04/07/2024 18:06:53 04/07/20 24 04/07/2024 BASIC METAB OLIC PANEL eGFR 57 mL/mi n/1.7 3m2 > or = 60 low Not Available [address], [address], 04/07/2024 18:06:53 04/07/20 24 04/07/2024 BASIC METAB OLIC PANEL BUN/creatini ne ratio 20 (calc ) 6-22 normal Not Available [address], [address], 04/07/2024 18:06:53 04/07/20 24 04/07/2024 BASIC METAB OLIC PANEL sodium 140 mmol/ L 135-14 6 normal Not Available [address] [place], [address], 04/07/2024 18:06:53 04/07/20 24 04/07/2024 BASIC METAB OLIC PANEL potassium 4.6 mmol/ L 3.5-5. 3 normal Not Available [facility] [address], [address], 04/07/2024 18:06:53 04/07/20 24 04/07/2024 BASIC METAB OLIC PANEL chloride 102 mmol/ L 98-110 normal Not Available [facility] [address], [address], 04/07/2024 18:06:53 04/07/20 24 04/07/2024 BASIC METAB OLIC PANEL carbon dioxide 29 mmol/ L 20-32 normal Not Available [facility] [address], [address], 04/07/2024 18:06:53 04/07/20 24 04/07/2024 BASIC METAB OLIC PANEL calcium 9.4 mg/dL 8.6-10 .4 normal NO COLLE CTION DATE RECEI MARIA E. WE HAVE USED THE DATE THE SPECI MEN WAS RECEI MARIA E BY THIS LABOR ATORY THE COLLE CTION DATE. IF THIS IS INCOR RECT, PLEAS E CONTA CT CLIEN T SERVI [employer]. PHONE NUMBE R: [phone] Not Available [address], [address], 04/07/2024 18:06:53 09/23/19 24 09/23/2023 CBC WITH DIFFE RENTI AL WBC 7.5 K/uL 3.8-10 .8 Not Available [facility] - Manual Order Only [address], [place], [address], 09/28/2023 23:33:39 09/23/19 24 09/23/2023 CBC WITH DIFFE RENTI AL RBC 4.21 M/uL 3.80-5 .10 Not Available [facility] - Manual Order Only [address], [place], [address], 09/28/2023 23:33:39 09/23/19 24 09/23/2023 CBC WITH DIFFE RENTI AL hemoglobin 13.1 g/dL 11.7-1 5.5 Not Available [facility] - Manual Order Only [address], [place], [address], 09/28/2023 23:33:39 09/23/19 24 09/23/2023 CBC WITH DIFFE RENTI AL hematocrit 40.0 % 35.0-4 5.0 Not Available [facility] - Manual Order Only [address], [place], [address], 09/28/2023 23:33:39 09/23/19 24 09/23/2023 CBC WITH DIFFE RENTI AL MCV 95.0 fL 80.0-1 00.0 Not Available [facility] - Manual Order Only [address], [place], [address], 09/28/2023 23:33:39 09/23/19 24 09/23/2023 CBC WITH DIFFE RENTI AL MCH 31.1 pg 27.0-3 3.0 Not Available [facility] - Manual Order Only [address], [place], [address], 09/28/2023 23:33:39 09/23/19 24 09/23/2023 CBC WITH DIFFE RENTI AL MCHC 32.8 g/dL 32.0-3 6.0 Not Available [facility] - Manual Order Only [address], [place], [address], 09/28/2023 23:33:39 09/23/19 24 09/23/2023 CBC WITH DIFFE RENTI AL red cell distribution width 14.0 % 11.0-1 5.0 Not Available [facility] - Manual Order Only [address], [place], [address], 09/28/2023 23:33:39 09/23/19 24 09/23/2023 CBC WITH DIFFE RENTI AL platelet count 274 K/uL 140-40 0 Not Available [facility] - Manual Order Only [address], [place], [address], 09/28/2023 23:33:39 09/23/19 24 09/23/2023 CBC WITH DIFFE RENTI AL mean platelet volume 12.1 fL 7.5-12 .5 Not Available [facility] - Manual Order Only [address], [place], [address], 09/28/2023 23:33:39 09/23/19 24 09/23/2023 CBC WITH DIFFE RENTI AL neutrophil % 59.3 % 38.0-8 0.0 Not Available [facility] - Manual Order Only [address], [place], [address], 09/28/2023 23:33:39 09/23/19 24 09/23/2023 CBC WITH DIFFE RENTI AL neutrophil absolute 4.43 K/uL 1.50-7 .80 Not Available [facility] - Manual Order Only [address], [place], [address], 09/28/2023 23:33:39 09/23/19 24 09/23/2023 CBC WITH DIFFE RENTI AL lymphocyte % 32.6 % 15.0-4 9.0 Not Available [facility] - Manual Order Only [address], [place], [address], 09/28/2023 23:33:39 09/23/19 24 09/23/2023 CBC WITH DIFFE RENTI AL lymphocyte absolute 2.44 K/uL 0.85-3 .90 Not Available [facility] - Manual Order Only [address], [place], [address], 09/28/2023 23:33:39 09/23/19 24 09/23/2023 CBC WITH DIFFE RENTI AL monocyte % 5.1 % 0.0-13 .0 Not Available [facility] - Manual Order Only [address], [place], [address], 09/28/2023 23:33:39 09/23/19 24 09/23/2023 CBC WITH DIFFE RENTI AL monocyte absolute 0.38 K/uL 0.20-0 .95 Not Available [facility] - Manual Order Only [address], [place], [address], 09/28/2023 23:33:39 09/23/19 24 09/23/2023 CBC WITH DIFFE RENTI AL eosinophil % 2.5 % 0.0-8. 0 Not Available [facility] - Manual Order Only [address], [place], [address], 09/28/2023 23:33:39 09/23/19 24 09/23/2023 CBC WITH DIFFE RENTI AL eosinophil absolute 0.19 K/uL 0.00-0 .50 Not Available [facility] - Manual Order Only [address], [place], [address], 09/28/2023 23:33:39 09/23/19 24 09/23/2023 CBC WITH DIFFE RENTI AL basophil % 0.5 % 0.0-2. 0 Not Available [facility] - Manual Order Only [address], [place], [address], 09/28/2023 23:33:39 09/23/19 24 09/23/2023 CBC WITH DIFFE RENTI AL basophil absolute 0.04 K/uL 0.00-0 .20 Not Available [facility] - Manual Order Only [address], [place], [address], 09/28/2023 23:33:39 09/23/19 24 09/23/2023 COMPR EHENS SARY METAB OLIC PANEL glucose 92 mg/dL 65-99 Not Available [facility] - Manual Order Only [address], [place], [address], 09/28/2023 23:33:40 09/23/19 24 09/23/2023 COMPR EHENS SARY METAB OLIC PANEL calcium 9.4 mg/dL 8.5-10 .5 Not Available [facility] - Manual Order Only [address], [place], [address], 09/28/2023 23:33:40 09/23/19 24 09/23/2023 COMPR EHENS SARY METAB OLIC PANEL sodium 142 mmol/ L 136-14 5 Not Available [facility] - Manual Order Only [address], [place], [address], 09/28/2023 23:33:40 09/23/19 24 09/23/2023 COMPR EHENS SARY METAB OLIC PANEL potassium 4.7 mmol/ L 3.5-5. 1 Not Available [facility] - Manual Order Only [address], [place], [address], 09/28/2023 23:33:40 09/23/19 24 09/23/2023 COMPR EHENS SARY METAB OLIC PANEL chloride 101 mmol/ L 95-108 Not Available [facility] - Manual Order Only [address], [place], [address], 09/28/2023 23:33:40 09/23/19 24 09/23/2023 COMPR EHENS SARY METAB OLIC PANEL CO2 (carbon dioxide) 27 mmol/ L 21-33 Not Available [facility] - Manual Order Only [address], [place], [address], 09/28/2023 23:33:40 09/23/19 24 09/23/2023 COMPR EHENS SARY METAB OLIC PANEL BUN (blood urea nitrogen) 21 mg/dL 8-23 Not Available [facility] - Manual Order Only [address], [place], [address], 09/28/2023 23:33:40 09/23/19 24 09/23/2023 COMPR EHENS SARY METAB OLIC PANEL creatinine 1.03 mg/dL 0.60-0 .95 high Not Available [facility] - Manual Order Only [address], [place], [address], 09/28/2023 23:33:40 09/23/19 24 09/23/2023 COMPR EHENS SARY METAB OLIC PANEL protein, total 7.0 g/dL 6.1-8. 0 Not Available [facility] - Manual Order Only [address], [place], [address], 09/28/2023 23:33:40 09/23/19 24 09/23/2023 COMPR EHENS SARY METAB OLIC PANEL albumin 4.1 g/dL 3.5-5. 5 Not Available [facility] - Manual Order Only [address], [place], [address], 09/28/2023 23:33:40 09/23/19 24 09/23/2023 COMPR EHENS SARY METAB OLIC PANEL globulin 2.9 g/dL_ (calc ) 1.8-3. 8 Not Available [facility] - Manual Order Only [address], [place], [address], 09/28/2023 23:33:40 09/23/19 24 09/23/2023 COMPR EHENS SARY METAB OLIC PANEL albumin/glob ulin ratio 1.4 calc 1.0-2. 5 Not Available [facility] - Manual Order Only [address], [place], [address], 09/28/2023 23:33:40 09/23/19 24 09/23/2023 COMPR EHENS SARY METAB OLIC PANEL alkaline phosphatase 111 U/L <150 Not Available [facility] - Manual Order Only [address], [place], [address], 09/28/2023 23:33:40 09/23/19 24 09/23/2023 COMPR EHENS SARY METAB OLIC PANEL alanine aminotransfe rase (ALT) 18 U/L 6-29 Not Available [facility] - Manual Order Only [address], [place], [address], 09/28/2023 23:33:40 09/23/19 24 09/23/2023 COMPR EHENS SARY METAB OLIC PANEL aspartate aminotransfe rase (AST) 24 U/L 10-35 Not Available [facility] - Manual Order Only [address], [place], [address], 09/28/2023 23:33:40 09/23/19 24 09/23/2023 COMPR EHENS SARY METAB OLIC PANEL bilirubin, total 0.6 mg/dL <1.3 Not Available [facility] - Manual Order Only [address], [place], [address], 09/28/2023 23:33:40 09/23/19 24 09/23/2023 COMPR EHENS SARY METAB OLIC PANEL BUN/creatini ne ratio 20 calc 6-22 Not Available [facility] - Manual Order Only [address], [place], [address], 09/28/2023 23:33:40 09/23/19 24 09/23/2023 COMPR EHENS [...] s/kdo qi/gf r%5Fc alcul ator. Not Available [facility] - Manual Order Only [address], [place], [address], 09/28/2023 23:33:40 09/23/19 24 09/23/2023 URIC ACID uric acid 8.3 mg/dL 2.5-7. 3 high Not Available [facility] - Manual Order Only [address], [place], [address], 09/28/2023 23:33:40 09/23/19 24 09/23/2023 HEMOG LOBIN [...] in Diabe gaston (ADA) . Not Available [facility] - Manual Order Only [address], [place], [address], 09/28/2023 23:33:41 09/23/19 24 09/23/2023 HEMOG LOBIN [...] Care 2008; 31:14 73-14 78). Not Available [facility] - Manual Order Only [address], [place], [address], 09/28/2023 23:33:41 09/23/19 24 09/23/2023 LIPID PANEL W/ TG/HD L-C (ORDE RED WITH LIPOP ROTEI N, NMR) cholesterol, total 140 mg/dL <200 Not Available [facility] - Manual Order Only [address], [place], [address], 09/28/2023 23:33:41 09/23/19 24 09/23/2023 LIPID PANEL W/ TG/HD L-C (ORDE RED WITH LIPOP ROTEI N, NMR) HDL cholesterol 50 mg/dL >49 Not Available [facility] - Manual Order Only [address], [place], [address], 09/28/2023 23:33:41 09/23/19 24 09/23/2023 LIPID PANEL W/ TG/HD L-C (ORDE RED WITH LIPOP ROTEI N, NMR) triglyceride s 96 mg/dL <150 Not Available [facility] - Manual Order Only [address], [place], [address], 09/28/2023 23:33:41 09/23/19 24 09/23/2023 LIPID PANEL [...] 2061- 2068 (http ://ed ucati on.Qu Brenden riosDubMeNow. com/f aq/FA Q164) Not Available [facility] - Manual Order Only [address], [place], [address], 09/28/2023 23:33:41 09/23/19 24 09/23/2023 LIPID PANEL W/ TG/HD L-C (ORDE RED WITH LIPOP ROTEI N, NMR) chol/HDL-C 2.8 calc <5.0 Not Available [facility] - Manual Order Only [address], [place], [address], 09/28/2023 23:33:41 09/23/19 24 09/23/2023 LIPID PANEL [...] thera peuti c optio n. Not Available [facility] - Manual Order Only [address], [place], [address], 09/28/2023 23:33:41 09/23/19 24 09/23/2023 LIPID PANEL W/ TG/HD L-C (ORDE RED WITH LIPOP ROTEI N, NMR) TG/HDL-C 1.9 calc <2.0 Not Available [facility] - Manual Order Only [address], [place], [address], 09/28/2023 23:33:41 09/23/19 24 09/23/2023 MYELO PEROX [...] bolic Yarede r of Nirmal laura at [facility]. It has not been clear ed or appro maria e by the U.S. Food and Drug Admin istra tion. This assay has been valid ated pursu ant to the CLIA regul ation s and is used for clini britney purpo ses. Not Available [facility] - Manual Order Only [address], [place], [address], 09/28/2023 23:33:42 09/23/19 24 09/23/2023 VITAM IN [...] infor gaurav flores e refer to http: //[facility] caternestine mack.que stdia gnost ics.c om/fa q/FAQ 199(T his link is being provi ded for infor ahrsha n/[facility] catio nal purpo ses only. )This test was devel oped and its joan tical perfo rmanc e marco cteri stics have been deter mined by [facility] Cardi ometa bolic Cente r of [facility] at [facility]. It has not been clear ed or appro maria e by the U.S. Food and Drug Admin istra tion. This assay has been valid ated pursu ant to the CLIA regul ation s and is used for clini britney purpo ses. Not Available [facility] - Manual Order Only [address] [facility] [address], [place], [address], 09/28/2023 23:33:42 09/23/19 24 09/23/2023 LIPOP ROTEI [...] s Cardi ometa bolic Cente r of [employer] lence at [facility]. It has not been clear ed or appro maria e by the U.S. Food and Drug Admin istra tion. This assay has been valid ated pursu ant to the CLIA regul ation s and is used for clini britney purpo ses. Not Available [facility] - Manual Order Only [address], [place], [address], 09/28/2023 23:33:42 09/23/19 24 09/23/2023 LIPOP ROTEI N FRACT IONAT ION, NMR W/LIP ID PANEL small LDL-P 551 nmol/ L <467 high Relat sary risk: Optim al <467; Moder ate 467-8 20; High >820 nmol/ L. Refer ence range is <1408 nmol/ L. Not Available [facility] - Manual Order Only [address], [place], [address], 09/28/2023 23:33:42 09/23/19 24 09/23/2023 LIPOP ROTEI N FRACT IONAT ION, NMR W/LIP ID PANEL LDL size 20.8 nm >20.5 Relat sary risk: Optim al >20.5 ; High <20.6 nm. Refer ence range is 20.0- 22.3 nm. Not Available [facility] - Manual Order Only [address], [place], [address], 09/28/2023 23:33:42 09/23/19 24 09/23/2023 LIPOP ROTEI N FRACT IONAT ION, NMR W/LIP ID PANEL HDL-P 33.7 umol/ L >32.8 Relat sary risk: Optim al >32.8 ; Moder ate 29.2- 32.8; High <29.2 umol/ L. Refer ence range is 21.1- 43.4 umol/ L. Not Available [facility] - Manual Order Only [address], [place], [address], 09/28/2023 23:33:42 09/23/19 24 09/23/2023 LIPOP ROTEI N FRACT IONAT ION, NMR W/LIP ID PANEL large HDL-P 6.7 umol/ L >7.2 low Relat sary risk: Optim al >7.2; Moder ate 5.3-7 .2; High <5.3 umol/ L. Refer ence range is >3.5 umol/ L. Not Available [facility] - Manual Order Only [address], [place], [address], 09/28/2023 23:33:42 09/23/19 24 09/23/2023 LIPOP ROTEI N FRACT IONAT ION, NMR W/LIP ID PANEL HDL size 9.1 nm >9.0 Relat sary risk: Optim al >9.0; Moder ate 8.7-9 .0; High <8.7 nm. Refer ence range is 8.3-1 0.5 nm. Not Available [facility] - Manual Order Only [address], [place], [address], 09/28/2023 23:33:42 09/23/19 24 09/23/2023 LIPOP ROTEI N FRACT IONAT ION, NMR W/LIP ID PANEL large VLDL-P <1.5 nmol/ L <3.7 Relat sary risk: Optim al <3.7; Moder ate 3.7-6 .1; High >6.1 nmol/ L. Refer ence range is <16.0 nmol/ L. Not Available [facility] - Manual Order Only [address], [place], [address], 09/28/2023 23:33:42 09/23/19 24 09/23/2023 LIPOP ROTEI N FRACT IONAT ION, NMR W/LIP ID PANEL VLDL size 46.2 nm <47.1 Relat sary risk: Optim al <47.1 ; Moder ate 47.1- 49.0; High >49.0 nm. Refer ence range is 41.1- 61.7 nm. Not Available [facility] - Manual Order Only [address], [place], [address], 09/28/2023 23:33:42 Result Notes None recorded. 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 deficienc y; W/U Status: confirmed Not Available [facility] 3 07:54:54 Hyperlipi demia 42600786 Active 2014 Hyperlipi demia; W/U Status: confirmed Not Available [facility] 3 07:54:54 Lives alone 959383629 Active 2022 Elderly person living alone; W/U Status: confirmed Not Available [facility] 3 07:54:54 Decreased estrogen level 209486561 Active 2020 Ovarian failure; W/U Status: confirmed Not Available [facility] 3 07:54:54 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; W/U Status: confirmed Not Available [facility] 3 07:54:54 Gastroeso phageal reflux disease 526887045 Active 2014 GERD (gastroes ophageal reflux disease); W/U Status: confirmed Not Available [facility] 3 07:54:54 Edema 249118743 Active 2014 Edema; W/U Status: confirmed Not Available [facility] 3 07:54:54 Recurrent falls 482109874 Active 2017 Recurrent falls; W/U Status: confirmed Not Available [facility] 3 07:54:54 Rotator cuff tear arthropat hy 036531555 Active 2014 Rotator cuff arthropat hy; W/U Status: confirmed Not Available [facility] 3 07:54:54 Paroxysma l supravent ricular tachycard ia 86770025 Active 2014 Paroxysma l supravent ricular tachycard ia; W/U Status: confirmed Not Available [facility] 3 07:54:54 Gastric polyposis 11539447 Active 2017 Gastric polyposis ; W/U Status: confirmed Not Available [facility] 3 07:54:54 Electroca rdiogram abnormal 464492150 Active 2015 Abnormal electroca rdiogram [ECG] [EKG]; W/U Status: confirmed Not Available [facility] 3 07:54:54 Osteopeni a 570453088 Active 2014 Osteopeni a determine d by x-ray; W/U Status: confirmed Not Available [facility] 3 07:54:54 Diastolic dysfuncti on 0187037 Active 2017 Diastolic dysfuncti on; W/U Status: confirmed Not Available [facility] 3 07:54:54 Obesity 945123595 Active 2014 Obesity (BMI 30.0-34.9 ); W/U Status: confirmed Not Available [facility] 3 07:54:54 Allergic rhinitis 71969202 Active 2014 Allergic rhinitis due to allergen; W/U Status: confirmed Not Available [facility] 3 07:54:[address] Concept Active 2019 Anxiety and depressio n; W/U Status: confirmed Not Available [facility] 3 07:54:54 Constipat ion 20942325 Active 2014 Constipat ion; W/U Status: confirmed Not Available [facility] 3 07:54:54 Ischemic colitis 90444000 Active 2017 Ischemic colitis; W/U Status: confirmed Not Available [facility] 3 07:54:54 Osteoarth ritis 029824101 Active 2014 Osteoarth ritis; W/U Status: confirmed Not Available [facility] 3 07:54:54 Hypothyro idism 96721819 Active 2014 Hypothyro idism; W/U Status: confirmed Not Available [facility] 3 07:54:54 Radiologi c infiltrat e of lung 474115885 Active 2019 Pulmonary infiltrat es; W/U Status: confirmed Not Available [facility] 3 07:54:54 Polyp of colon 42790511 Active 2017 Colon polyposis ; W/U Status: confirmed Not Available [facility] 3 07:54:54 Sleep apnea 98785654 Active 2016 Sleep apnea; W/U Status: confirmed Not Available [facility] 3 07:54:54 Hyperglyc emia 46302294 Active 2014 Hyperglyc emia; W/U Status: confirmed Not Available [facility] 3 07:54:54 Ventricul ar tachycard ia 64744277 Active 2022 Not Available [facility] 3 07:54:54 Chronic cough 08350211 Active 2022 Not Available [facility] 3 07:54:54 Insomnia 170670828 Active 2022 Not Available [facility] 3 07:54:54 Pain in right lower limb 059754240 Active 2022 Not Available [facility] 3 07:54:54 Essential hypertens ion 24191622 Active 2022 Not Available [facility] 3 07:54:54 Primary ovarian failure 67984121 Active 2020 Ovarian failure; W/U Status: confirmed Not Available [facility] 3 07:54:54 Does mobilize using cane 589352868 Active 2022 Use of cane as ambulator y aid; W/U Status: confirmed Not Available [facility] 3 07:54:54 Fall Active 2022 Unwitness ed fall; W/U Status: confirmed Not Available [facility] 3 07:54:54 Hematoma of subdural space of neuraxis 180200463 Active 2022 Subdural hematoma; W/U Status: confirmed Not Available [facility] 3 07:54:54 Closed fracture of orbit 57641756 Active 2022 Closed fracture of orbit, initial encounter ; W/U Status: confirmed Not Available [facility] 3 07:54:54 Right bundle branch block 36859461 Active 2023 Kayla Peck MD [address] [place] [address], [id number] , EVONNE Peck MD 4 12:38:26 Sarcopeni a 259069949 Active 2023 Kayla Peck MD [address] [place] [address], [phone] , EVONNE Peck MD 4 12:38:37 Chronic kidney disease stage 3 399183908 Active 2023 Kayla Peck MD [address] [place] [address], [address] , EVONNE Peck MD 4 11:49:13 Uric acid level above reference range 09275383 Active 2023 Kayla Peck MD [address] [place] [address], [address] , EVONNE Peck MD 4 11:50:13 Celluliti s of left lower limb 08184663768 308228 Active 2023 Kayla Peck MD [address] [place] [address], [address] , EVONNE Peck MD 4 14:53:56 Impacted cerumen of bilateral ears 67239921487 31841 Active 2023 Kayla Peck MD [address] [place] [address], [address] , EVONNE Peck MD 4 12:36:54 Impacted cerumen of bilateral ears 65311660836 78732 Active 2023 Kayla Peck MD [address] [place] [address], [address] , EVONNE Peck MD 4 13:07:46 Chest pain 77074534 Active 2023 Kayla Peck MD [address] [place] [address], [address] , EVONNE Peck MD 4 08:52:43 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 Procedures Surgical History Date Name Laterality Status Provider Name and Address Organization Details Recorded Time 3 Most Recent Mammogram completed Kayla Peck MD [address] [place] [address], [address], EVONNE Peck MD 05/20/2023 12:35:00 Imaging Results None recorded. Procedure Notes None recorded. Medical Equipment None Reported. Allergies Allergen ID Allergen Name Allergen Category Reaction Reaction Severity Criticality Documentation Date Start Date Code Code System Note Provider Name and Address Organization Details Recorded Time 4894 penicilli n V potassium medicatio n Not available Not available Not available 03/05/202359492 5 RxNorm Not Available [facility] 3 05:34:36 4898 Avelox medicatio n Not available Not available Not available 03/05/2023 49545 6 RxNorm Not Available [facility] 3 05:34:36 4905 pravastat in medicatio n other Not available Not available 03/05/2023 89641 RxNorm React ion: alope isaura; Not Available [facility] 3 05:34:36 4916 sulfasala zine medicatio n nausea Not available Not available 03/05/2023 9524 RxNorm React ion: nause a and vomit ing; Not Available [facility] 3 05:34:36 Medications Name Sig Start Date [...] Updated DateTime 09/23/2023 135.26 cm 33.7 kg/m2 52618.56 g Barbara Peck MD 09/23/2023 12:55:51 Date Recorded Body height Body temperature Body mass index (BMI) Body weight Heart rate Oxygen saturation Oxygen saturation in Arterial blood by Pulse oximetry Systolic blood pressure Diastolic blood pressure Provider Name and Address Organization Details Last Updated DateTime 135.26 cm 97.9 [degF] 33.5 kg/m2 64450.9 7 g 68 /min 94 % 94 % 122 mm[Hg] 68 mm[Hg] Barbara Peck MD 4 12:02:34 Date Recorded Body height Body temperature Body mass index (BMI) Body weight Heart rate Oxygen saturation Oxygen saturation in Arterial blood by Pulse oximetry Provider Name and Address Organization Details Last Updated DateTime 4 135.26 cm 98 [degF] 33.7 kg/m2 69072.5 6 g 83 /min 96 % 96 % Barbara Peck MD 4 11:59:16 Date Recorded Systolic blood pressure Diastolic blood pressure Provider Name and Address Organization Details Last Updated DateTime 04/06/2024 122 mm[Hg] 70 mm[Hg] Kayla Peck MD [address] [place] [address], [address], EVONNE Peck MD 04/06/2024 12:26:35 Date Recorded Body height Body mass index (BMI) Body weight Body temperature Respiratory rate Heart rate Oxygen saturation Oxygen saturation in Arterial blood by Pulse oximetry Systolic blood pressure Diastolic blood pressure Provider Name and Address Organization Details Last Updated DateTime 4 135.26 cm 33.3 kg/m2 96670.8 1 g 98.1 [degF] 16 /min 71 /min 96 % 96 % 118 mm[Hg] 60 mm[Hg] Kayla Peck MD [address] [place] [address], [address], EVONNE Peck MD 4 10:29:42 Social History Question Answer Notes LastModified by Organizat ion Details LastModified Time Tobacco Smoking Status Former Smoker colleg only then social smoker til 30 s Kayla Peck MD [address] [place] [address], [address], EVONNE Peck MD 05/20/2023 12:32:56 Do You Have An Advance Directive? Yes Information not available 01/07/2024 What Is Your Level Of Alcohol Consumption? None Information not available 05/20/2023 Are You Blind Or Do You Have Difficulty Seeing? No Utd Eye Soon Utd Dentist And Had Filling Changed And Bantam Placed. Needs 2 More Bantam Sfixed. Information not available 04/06/2024 What Is [...] Notes:Father: Notes: d 68 yrs, of an [place], but also had lung cancer., diagnosed with [...] Recorded Time DTP 9 completed Not Available [facility] 03/05/2023 06:16:26 pneumococcal polysaccharide PPV23 1 completed Not Available [facility] 03/05/2023 06:16:26 pneumococcal polysaccharide PPV23 1 completed Not Available [facility] 03/05/2023 06:16:26 Influenza, split virus, trivalent, PF 2 completed Not Available [facility] 03/05/2023 06:16:27 Influenza, split virus, trivalent, preservative 3 completed Not Available [facility] 03/05/2023 06:16:27 Influenza, split virus, trivalent, PF 4 completed Not Available [facility] 03/05/2023 06:16:27 zoster live 5 completed Not Available [facility] 03/05/2023 06:16:27 Influenza, split virus, trivalent, PF 5 completed Not Available [facility] 03/05/2023 06:16:27 Influenza, split virus, trivalent, PF 6 completed Not Available [facility] 03/05/2023 06:16:27 pneumococcal polysaccharide PPV23 6 completed Not Available [facility] 03/05/2023 06:16:27 Influenza, split virus, trivalent, PF 7 completed Not Available [facility] 03/05/2023 06:16:27 Influenza, split virus, trivalent, preservative 8 completed Not Available [facility] 03/05/2023 06:16:27 pneumococcal polysaccharide PPV23 8 completed Not Available [facility] 03/05/2023 06:16:27 DTaP 8 completed Not Available [facility] 03/05/2023 06:16:27 Influenza, split virus, trivalent, PF 9 completed Not Available [facility] 03/05/2023 06:16:27 Influenza, split virus, trivalent, PF 0 completed Not Available [facility] 03/05/2023 06:16:27 SARS-COV-2 (COVID-19) vaccine, UNSPECIFIED 1 completed Not Available [facility] 03/05/2023 06:16:28 SARS-COV-2 (COVID-19) vaccine, UNSPECIFIED 1 completed Not Available [facility] 03/05/2023 06:16:28 Influenza, split virus, trivalent, preservative 1 completed Not Available [facility] 03/05/2023 06:16:28 SARS-COV-2 (COVID-19) vaccine, UNSPECIFIED 1 completed Not Available [facility] 03/05/2023 06:16:28 Respiratory syncytial virus (RSV) MAB, unspecified 3 completed EVONNE Hernandez MD 08/27/2023 09:59:36 Influenza, adjuvanted, quadrivalent, PF 3 completed Kayla Peck MD [address] [place] [address], [address], EVONNE Peck MD 12/10/2023 14:35:06 RSV, recombinant, protein subunit RSVpreF, adjuvant reconstituted, 0.5 mL, PF 3 completed Kayla Peck MD [address] [place] [address], [address], EVONNE Peck MD 12/10/2023 14:35:21 Pneumococcal conjugate PCV20, polysaccharide DPA235 conjugate, adjuvant, PF 4 completed EVONNE Keith MD 01/07/2024 13:17:39 zoster recombinant 1 completed Kayla Peck MD [address] [place] [address], [address], EVONNE Peck MD 04/06/2024 11:56:15 zoster recombinant 1 completed Kayla Peck MD [address] [place] [address], [address], EVONNE Peck MD 04/06/2024 11:56:23 Influenza, MDCK, trivalent, preservative 4 completed Kayla Peck MD [address] [place] [address], [address], EVONNE Peck MD 05/26/2024 08:49:58 Past Encounters Encounter ID Performer Location Encounter Start Date Encounter Closed Date Diagnosis/Indication Diagnosis SNOMED-CT Code Diagnosis ICD10 Code Diagnosis Note [id number] Kayla Peck MD Main Office [address] [place] [phone] 03/26/2023 09:27:28 04/07/2023 16:17:07 Cardiac arrhythmia 883916805 I49.9 [id number] Kayla Peck MD Main Office [address] [place] [phone] 05/20/2023 12:05:59 05/20/2023 13:10:07 Chronic cough 16359576 R05.3 Lives alone 107123147 Z6 0.2 Lizzy lew moving to the [facility] Insomnia 105040133 G47.0 0 Pain in ri ght lower limb 438901071 M79.604 Right IT band inflamed. declined therapy. will try the tennis ball pressure Hypothyroidism 59660839 E03.9 Feels good on dose Hyperlipidemia 73113044 E78.5 Reviewed previous cardio IQ which was fine Essential hypertension 44457983 I10 Stable on meds [id number] Barbara Jha Main Office [address] [place] [id number] 9 09/23/2023 12:27:26 09/23/2023 12:56:03 [id number] Kayla Peck MD Main Office [address] [place] [address] 01/07/2024 11:52:30 01/07/2024 15:40:33 Adult health examination 959812045 Z00.00 As above. Gave my tips for a healthier you sheet. Reviewed labs and workup with patient. Chronic ki dney disease stage 3 488641433 N18.30 Please make sure you drink 64 ounces of water daily and avoid processed foods including sugar, dairy, and gluten Does mobil ize using cane 798908155 Z99.89 Please increase your QB to twice a day Hyperlipidemia 47842144 E78.5 Labs are good except for particle number. Please avoid the processed foods as above Hypothyroidism 18342912 E03.9 Feels good on dose. Check dose next visit Paroxysmal supraventricular tachycardia 77463659 I47.10 Stable on meds Body mass index 30+ - obesity 156747702 Z68.32 Does use hearing aid 285 136992 Z97.4 Encouraged to use when in public Administra tion of pneumococcal vaccine 43199771 Z23 Received pneumonia 20 today Advance di rective discussed with patient 565103201 Z71.89 Has in her will Impacted c erumen of bilateral ears 1354877230 276777 H61.23 Please obtain hydrogen peroxide and water 50-50 mix and insert 3 drops in bilateral ears every other day to prevent wax buildup Sarcopenia 266200881 M62 .84 Please get a ball to squeeze to build up muscle in your hands and double your QB to twice a day to strengthen your legs. Uric acid level above reference range 76830720 E79.0 Gout elevated to 8.6 and had recent gouty attack. Will start preventati ve meds. [id number] Barbara Jha Main Office [address] [place] [phone] 01/07/2024 13:13:40 01/07/2024 13:16:14 Administration of pneumococcal vaccine 47813858 Z23 Received pneumonia 20 today [id number] Kayla Peck MD Main Office [address] [place] [id number] 04/06/2024 11:36:36 04/06/2024 13:11:21 Chronic kidney disease stage 3 249094540 N18.30 drinking her water utd renal Does mobil ize using cane 645581111 Z99.89 Please increase your QB to twice a day Essential hypertension 01637463 I10 Stable on meds Hyperlipidemia 69173282 E78.5 Labs are good except for particle number. Please avoid the processed foods as above Hypothyroidism 56989784 E03.9 Feels good on dose. Check dose next visit Lives alone 461872559 Z6 0.2 moving Osteopenia 816963819 M85 .80 utd bone density. Recurrent falls 75382813 2 R29.6 Uric acid level above reference range 57145862 E79.0 Gout elevated to 8.6 started allopurino l. 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 will get soon [id number] Kayla Peck MD Main Office [address] [place] [id number] 05/24/2024 10:21:26 05/26/2024 11:09:48 Screening for malignant neoplasm of breast 547836911 Z12.39 Due for mmg and she knows. will get soon Administra tion of influenza vaccine 10745283 Z23 Post-disch arge follow-up 378914277 Z09 Improved Chest pain 45071649 R07. 9 Resolved and negative workup in the hospital. Delusional disorder 4850 0005 F22 Improved on Abilify and citalopram . I have been in touch with her senior executive services administrator. Health Concerns Section Related Observation LastModified by Organization Detai ls LastModified Time None Recorded Concern Status LastModified by Organization Details LastModified Time None Recorded Advance Directives Directive Y: Payers Encounter Date Sequence Insurance Name Policy Number Policy Dickens Covered Member ID Dickens Member ID Guarantor Name 09/23/2023 1 [place]ICARE [place] Radha Cehrise Anthony [id number] 1 Radha Cherise Anthony 09/23/2023 2 AETNA & AETNA/ HEALTHCARE Radha Cherise Cruz [id number] Radha Cherise Cruz 01/07/2024 1 [place]ARE [place] Radha Cherise Cruz [id number] 1 Radha D Anthony 01/07/2024 2 AETNA & AETNA/ HEALTHCARE Radha Cherise Cruz [id number] Radha Cherise Curz 01/07/2024 1 MEDICARE [place] Radha Cherise Cruz [id number] 1 Radha D Anthony 01/07/2024 2 AETNA & AETNA/ HEALTHCARE Radha Cherise Cruz [id number] Radha Cherise Cruz 04/06/2024 2 [employer] (MEDICARE SUPPLEMENT) Radha Cherise Cruz [id number] Radha Cherise Cruz 04/06/2024 1 [place] Radha Cherise Cruz [id number] 1 Radha Cherise Cruz 05/24/2024 2 [employer] (MEDICARE SUPPLEMENT) Radha Cherise Cruz [id number] Radha Cherise Cruz 05/24/2024 1 [place] Radha Cherise Cruz [id number] 1 Radha Cherise Cruz Notes Date Note [...] for mmg soon Kayla Peck MD [address] [address], [place], [address], [place] - Kayla Peck MD 01/07/2024 13:11:35 4 text/html due for mmg.saw eye and entchecked her med list to mine. not taking diltiazem.taking balance of nature x 2 monthsto move this fall. excitedfeeling well overallstarted allopurinol due to elevated uric acidhappy with citalopramstable on thyroid doseno tachycardia on metoprololrequesting I check labs for renal doc Kayla Peck MD [address] [place] [address], [address], EVONNE Peck MD 04/08/2024 17:18:28 4 text/html to see eye soon and utd ent for hearing.weight stableWas hospitalized for chest pain and while there was noted to be delusional. She then was transferred to the psychiatric unit at [facility].She was started on Abilify and citalopram.She is back home living alone and her cousin is coming to stay with her for a week. She is doing well. She drove here today. She plans on moving to the [facility]. She has been in contact with her counselor in her senior services commercial pest control representative.She would like a flu vaccine today.The delusions are chronic but improved from the acuteness for which she was hospitalized. Kayla Peck MD [address] [place] [address], [address], EVONNE Peck MD 05/26/2024 08:55:38 OBGyn Episode No OBEpisode recorded.
--- OUTSIDE RECORDS SUMMARY | 2024-10-29 16:02 | XMS_ITS | Encounter Summary ---
Author Organization [employer] [facility] Address [address] [place] [address] Care Team Providers Care Landfill Gas Collection Operator Name Role Phone Fermín Adame MD Primary Care Provider [phone] Encounter Details Date Type Department Care Team (Latest Contact Info) Description 01/06/2002 Outpatient Historical HIS [facility] Gumaro Chin MD [address] [facility] [address] [place] [address] NONTOX UNINODULAR GOITER (Primary Dx) Social History Tobacco Use Types Packs/Day Years Used Date Smoking Tobacco: Never Assessed Comments Unknown Sex and Gender Information Value Date Recorded Sex Assigned at Not on file Legal Sex Female 5:16 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
--- OUTSIDE RECORDS SUMMARY | 2024-10-29 16:02 | XMS_ITS | Encounter Summary ---
Author Organization [employer] Address [address] [place] [address] Care Team Providers Care Electric Refrigerator Preparer Name Role Phone Fermín Adame MD Primary Care Provider [phone] Encounter Details Date Type Department Care Team (Latest Contact Info) Description 12/29/2001 Outpatient Historical HIS PATIENT IN A BED Gumaro Kingston MD [address] [facility] [address] [place] [phone] NONTOX UNINODULAR GOITER (Primary Dx) Social History Tobacco Use Types Packs/Day Years Used Date Smoking Tobacco: Never Assessed Comments Unknown Sex and Gender Information Value Date Recorded Sex Assigned at Not on file 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
--- OUTSIDE RECORDS SUMMARY | 2024-10-29 16:02 | XMS_ITS | Encounter Summary ---
Author Organization [employer] Address [address] [facility] Attn: Epic Prelude ADT [place] [address] Care Team Providers Care Motor Teacher Name Role Phone Fermín Adame MD Primary Care Provider [phone] Encounter Details Date Type Department Care Team (Late st Contact Info) Description 06/21/1989 Outpatient Historical Luis Enrique Padron MD [address] [facility] [place] [address] Social History Tobacco Use Types Packs/Day Years Used Date Smoking Tobacco: Never Assessed Comments Unknown Sex and Gender Information Value Date Recorded Sex Assigned at Not on file Legal Sex Female 5:16 AM TOBACCO DIPPER Gender Identity Not on file Sexual Orientation Not on file documented as of this encounter Plan of Treatment Not on file documented as of this encounter Visit Diagnoses Not on filedocumented in this encounter Care Teams Motor Teacher Relationship Specialty Start Date End Date Fermín Adame MD PCP - General Internal Medicine 03/12/12 documented as of this encounter
--- OUTSIDE RECORDS SUMMARY | 2024-10-29 16:03 | XMS_ITS | Referral Summary ---
Author Organization [facility] Address [address] [place] [address] Care Team Providers Care Sandblaster Stone Name Role Phone Bright Llamas MD Unavailable Mily Douglas MD Unavailable Todd Han MD Unavailable Radha Joshua MD Unavailable [phone] [facility] Unavailable Kayla Peck MD Primary Care Provider [phone] [facility],non-owned Affiliates and Associated Physician Practices is amultiple site organization consisting of ambulatory clinics and hospital sitesin [place] and [place]. This disclosure is being madepursuant to the Care Everywhere program and may not contain all information available regarding this patient. Last updated 18.[facility] Allergies Active Allergy Reactions Criticality Noted Date [...] on file Medical Devices Implanted Type Area Wind Turbine Erector Device Identifier Shelf Expiration Date Model / Serial / Lot Maico Bone [place] Hv Implanted:Qty: 1 on 05/30/2014 by Bright Llamas MD at [facility] Right: [employer] 01/28/2016 [id number] / / [id number] Hammad Izquierdo Arcom Wire Polyeth Xsm 28 X 8 Implanted:Qty: 1 on 05/30/2014 by Bright Llamas MD at [facility] Right: [employer] 02/27/2019 [id number] / / [id number] Ty Tibial I Beam Fix Bar 63mm Implanted:Qty: 1 on 05/30/2014 by Bright Llamas MD at [facility] Right: [employer] 11/27/2021 [id number] / / [id number] Kn Ins Vangurd Fem Cocr R-Intlok 57.5mm Implanted:Qty: 1 on 05/30/2014 by Bright Llamas MD at [facility] Right: [employer] 12/29/2023 [id number] / / [id number] Vangrd Ant Stblzd Brg 14mm X 63mm Implanted:Qty: 1 on 05/30/2014 by Bright Llamas MD at [facility] Right: [employer] 10/30/2014 [id number] / / [id number] Administered Medications Advance Directives Documents on File Type Date Recorded Patient Stopping Builder Expl anation Adv Directive/Living Will/POA 05/10/2014 1:04 PM LIVING WILL & LAST W ILL & TESTAMENT * Full Code (Latest Code Status on File) Date Activated Date Inactivated Comments 03/02/2023 6:54 PM 03/04/2023 2:24 PM * Full Code Date Activated Date Inactivated Comments 05/30/2014 4:33 PM 06/02/2014 12:11 PM Care Teams Sandblaster Stone Relationship Specialty Start Date End Date Kayla Peck MD [address] [place] [address] PCP - General Internal Medicine 03/03/23 Bright Llamas MD Orthopedic Surgery 07/24/11 [place] [address] [facility] [address] [place], [place] [id number] Orthopedic Surgery 05/23/13 [place] [address] [place] [address] Pulmonary Disease 04/24/20 [place] [address] [place] [address] Nephrology 04/24/20 [facility] 04/15/22
--- OUTSIDE RECORDS SUMMARY | 2024-10-29 16:03 | XMS_ITS | Referral Summary ---
Author Organization [facility] Address [address] [place] [id number] Care Team Providers Care Assistant Commissioner Name Role Phone Kayla Peck MD Primary Care Provider [phone] Allergies Active Allergy Reactions Criticality Noted Date [...] on file Legal Sex Female 11:58 PM APPLIANCE PAINTER AND REFINISHER Gender Identity Not on file Sexual Orientation Not on file Plan of Treatment Not on file Procedures Procedure Name Priority Date/Time Associated Diagnosis Comments DEXA AXIAL SKELETON BONE DENSITY 1 OR MORE SITES Schedule Routine, Read Routine (OP Routine) 08/18/2021 1:28 PM APPLIANCE PAINTER AND REFINISHER Other primary ovarian failure from Last 3 Months or Most Recently Relevant to Health Maintenance Results * Dexa Axial Skeleton Bone Density 1 or 2 Site (08/18/2021 1:28 PM APPLIANCE PAINTER AND REFINISHER) Anatomical Region Laterality Modality Body N/A Other Impressions 08/18/2021 1:48 PM APPLIANCE PAINTER AND REFINISHER Bone mineral density of the spine falls within normal range, bone mineral density of the left hip falls within osteopenia range. In comparison to previous examination there is a decrease bone mineral density of the spine and left hip. Electronically signed by: Zenaida Mckinnon M.D. Narrative 08/18/2021 1:48 PM APPLIANCE PAINTER AND REFINISHER Examination: Bone densitometry of the lumbar spine and the left hip Order Date: 08/18/2021 1:00 PM History: Osteoporosis screening. Postmenopausal Comparison: 07/22/2007 Findings: The bone densitometry of the L1-L4 region, the left femoral neck and the total left hip was calculated using dual-energy x-ray absorptiometry. Summary: Bone mineral density (BMD) of the lumbar spine (L1-4): T-score 0.0 100% of normal Bone mineral density (BMD) of the total left hip: T-score -1.6; 80% of normal Bone mineral density (BMD) of the left femoral neck: T-score -2.4; 69% of normal Bone mineral density of the spine falls within normal range, bone mineral density of the left hip falls within osteopenia range. In comparison to previous examination there is -5.6% change in the spine findings and -17.1% change in left hip findings suggestive all fall decrease bone mineral density. Fermín Adame MD IM DXA PROCEDURES Edited Result - Final from Last 3 Months or Most Recently Relevant to Health Maintenance Insurance MEDICARE [facility] AET AET SENIOR SUPPLEMENT MEDICARE FOR[facility]LY [facility] SENIOR SUPPLEMENT MEDICARE AETNA Care Teams Assistant Commissioner Relationship Specialty Start Date End Date Kayla Peck MD [address] [place] [id number] PCP - General Internal Medicine 01/19/23
--- OUTSIDE RECORDS SUMMARY | 2024-10-29 16:03 | XMS_ITS | Encounter Summary ---
Author Organization [facility] Address [address] [facility] [place] [address] Care Team Providers Care Razor Sharpener Name Role Phone Bright Llamas MD Unavailable Mily Douglas MD Unavailable [phone] Fermín Adame MD Primary Care Provider [phone] Todd Han MD Unavailable [phone] Radha Joshua MD Unavailable [phone] Care, [facility] Kidney Unavailable Fermín Adame MD Unavailable [phone] Kayla Peck MD Unavailable [phone] Kayla Peck MD Primary Care Provider [phone] Encounter Details Date Type Department Care Team (Late st Contact Info) Description 06/15/2014 Therapy Visit [facility] Orthopedics [address] [address] [place] [address] [address] Social History Tobacco Use Types [...] on filedocumented in this encounter Care Teams Razor Sharpener Relationship Specialty Start Date End Date Fermín Adame MD [address] [place] [place] [phone] PCP - General Internal Medicine 03/21/20 03/02/23 Fermín Adame MD [address] [place] [place], [place] [address] PCP - [facility] 04/20/22 10/19/22 Kayla Peck MD [address] [place] [phone] PCP - [facility] 10/20/22 06/30/24 Kayla Peck MD [address] [place] [id number] PCP - General Internal Medicine 03/03/23 Bright Llamas MD Orthopedic Surgery 07/24/11 [place] [address] [facility] [address] [place] [address] Orthopedic Surgery 05/23/13 [place] [address] [facility] [address] [place] [address] Pulmonary Disease 04/24/20 [place] [address] [facility] [place] [address] Nephrology 04/24/20 Care, [facility] Kidney Care Management 04/15/22 documented as of this encounter
--- OUTSIDE RECORDS SUMMARY | 2024-10-29 16:03 | XMS_ITS | Clinical Summary ---
Author Organization [facility] Address [address] [place] [phone] Care Team Providers Care Dental Amalgam Processor Name Role Phone Kayla Peck MD Primary Care Provider [phone] Allergies Active Allergy Reactions Criticality Noted Date [...] on file Legal Sex Female 11:58 PM RUG CLEANER Gender Identity Not on file Sexual Orientation [...] Read Routine (OP Routine) 08/18/2021 1:28 PM RUG CLEANER Other primary ovarian failure from Last 3 Months or Most Recently Relevant to Health Maintenance Results * Dexa Axial Skeleton Bone Density 1 or 2 Site (08/18/2021 1:28 PM RUG CLEANER) Anatomical Region Laterality Modality Body N/A Other Impressions 08/18/2021 1:48 PM RUG CLEANER Bone mineral density of the spine falls within normal range, bone mineral density of the left hip falls within osteopenia range. In comparison to previous examination there is a decrease bone mineral density of the spine and left hip. Electronically signed by: Zenaida Mckinnon M.D. Narrative 08/18/2021 1:48 PM RUG CLEANER Examination: Bone densitometry of the lumbar spine [...] bone mineral density. us Fermín Adame MD IM DXA PROCEDURES Edited Result - Final from Last 3 Months or Most Recently Relevant to Health Maintenance Insurance MEDICARE [facility] AETNA AETNA SENIOR SUPPLEMENT MEDICARE AET[employer] SENIOR SUPPLEMENT MEDICARE AET[employer] Care Teams Dental Amalgam Processor Relationship Specialty Start Date End Date Kayla Peck MD [address] [place] [address] PCP - General Internal Medicine 01/19/23
[2024-10-29] MEDS: SODIUM CHLORIDE 0.9% IV 1,000 ML 999 ML IV CONT (16:49)
[2024-10-29 16:59] LABS: Add Urine Microscopic? NO; Appearance Urine Clear (Clear); Bilirubin Urine Negative (Negative); Blood Urine Negative (Negative); Color Urine Yellow (Yellow); Glucose Urine UA Negative (Negative); Ketones Urine Negative (Negative); Leukocyte Esterase Ur Negative LEU/UL (Negative); Nitrate Urine Negative (Negative); Protein Urine Negative (Negative); Specific Grav Ur 1.004 (1.001-1.035); Urobilinogen Urine 0.2 mg/dL (<2.0); pH Urine 6.5 (5.0-9.0)
[2024-10-29] MEDS: ACETAMINOPHEN 325 MG TABLET 650 MG PO (17:14)
[2024-10-29 17:18] LABS: Basophils Percent Auto 0.6 % (0.2-1.2); Eosinophils Percent Auto 0.4 % (0-4.4); Hematocrit 39.2 % (37.0-47.0); Hemoglobin 12.2 g/dL (12.0-15.0); Immature Granulocyte Absolute 0.01 K/mm3 (0.00-0.031); Immature Granulocyte Percent A 0.1 % (0-0.5); Lymphocytes Absolute Auto 2.64 K/mm3 (0.9-3.2); Lymphocytes Percent Auto 36.7 % (18.3-44.2); Mean Corpuscular HGB Conc 31.1 g/dl (32-36); Mean Corpuscular Hemoglobin 31.4 pg (26-34); Mean Corpuscular Volume 100.8 fl (80-100); Mean Platelet Volume 10.7 fl (7.4-10.4); Monocytes Absolute Auto 0.4 K/mm3 (0.1-0.6); Monocytes Percent Auto 5.4 % (2.6-8.5); Neutrophils Absolute Auto 4.1 K/mm3 (1.3-6.7); Neutrophils Percent Auto 56.8 % (45.5-73.1); Platelet Count Result 187 k/mm3 (150-375); Red Blood Count 3.89 M/mm3 (4.2-5.4); Red Cell Distribution Width 14.6 % (11.5-14.5); White Blood Count 7.2 K/mm3 (4.5-10.0)
[2024-10-29 17:29] LABS: Alanine Aminotransferase 16 U/L (6-35); Albumin Level 3.1 g/dL (3.5-5.1); Alkaline Phosphatase 67 U/L (38-126); Anion Gap 8 mmol/L (4-12); Aspartate Amino Transferase 22 U/L (14-36); Bilirubin,Total 0.5 mg/dL (0.2-1.3); Blood Urea Nitrogen 9 mg/dL (7-17); Calcium 8.7 mg/dL (8.4-10.2); Carbon Dioxide 25 mmol/L (22-30); Chloride 109 mmol/L (98-107); Estimated Glomerular Filt Rate > 60; Glucose 115 mg/dL (65-110); Potassium 3.8 mmol/L (3.4-5.0); Sodium 142 mmol/L (137-145)
[2024-10-29 17:32] LABS: Influenza A QL RT-PCR Negative (Negative); Influenza B QL RT-PCR Negative (Negative); RSV RNA, RT-PCR Negative (Negative); SARS-CoV-2 RNA PCR Negative (Negative)
[2024-10-29 17:34] LABS: INR 1.1; Partial Thromboplastin Time 27.4 Seconds (22.3-36.8); Prothrombin Time 14.2 Seconds (11.1-14.7)
[2024-10-29 17:41] LABS: NT Pro B Type Natriuretic Pept 554 pg/mL (19.9-100); Troponin I 0.031 ng/mL (0.000-0.034)
[2024-10-29 17:46] LABS: D Dimer 1.39 ug/mL (<0.48)
[2024-10-29] MEDS: METOPROLOL SUCCINATE EXT REL 25 MG TABCR PO (18:11)
--- NOTE | 2024-10-29 22:07 | PC.NURSE ---
This RN spoke with pt neighbor Mary to see if she can give the pt a ride back home after she has been discharged. Mary states she lives about 15 minutes away and will head this way to pick remover the pt.
== END 2024-10-29 19:10 | disposition home or self-care (01) ==
PROVIDERS: Emergency Provider Physician Assistant
DX: I47.10 Supraventricular tachycardia, unspecified (principal); R91.8 Other nonspecific abnormal finding of lung field; T44.7X6A Underdosing of beta-adrenoreceptor antagonists, initial encounter; Z91.138 Patient's unintentional underdosing of medication regimen for other reason; Z20.822 Contact with and (suspected) exposure to COVID-19; I12.9 Hypertensive chronic kidney disease with stage 1 through stage 4 chronic kidney disease, or unspecified chronic kidney disease; N18.9 Chronic kidney disease, unspecified; E03.9 Hypothyroidism, unspecified; G47.33 Obstructive sleep apnea (adult) (pediatric); K51.90 Ulcerative colitis, unspecified, without complications; K21.9 Gastro-esophageal reflux disease without esophagitis; H90.6 Mixed conductive and sensorineural hearing loss, bilateral; Z87.891 Personal history of nicotine dependence; Z79.899 Other long term (current) drug therapy; I51.7 Cardiomegaly; K44.9 Diaphragmatic hernia without obstruction or gangrene
CPT/HCPCS: 36415; 71045; 71275; 80053; 81003; 83880; 84484; 85025; 85380; 85610; 85730; 87637; 93005; 96360; 99284; A9270; J7030; Q9967